=== PATIENT | male | born 1990 | race Caucasian/White ===

== ENCOUNTER 2020-02-14 20:32 | Emergency (ER) | payer MEDICAID, OTHER, SELFPAY ==
[~2020-02-14] VITALS: Ht 177.8 cm; Wt 138.6 kg
[2020-02-14] MEDS ORDERED: NS 1,000 ML IV ONE (20:45)
[2020-02-14] MEDS ORDERED: ONDANSETRON 4MG/2ML VIAL IV ONE (21:00)
[2020-02-14] MEDS ORDERED: MORPHINE 2 MG/ML 1ML VIAL (J2270) IV PRN (21:00)
[2020-02-14] MEDS ORDERED: TIZA4TAB4 PO (21:10)
[2020-02-14] MEDS ORDERED: ZOLP5TAB PO (21:10)
[2020-02-14] MEDS ORDERED: DOK1CAP7 PO (21:10)
[2020-02-14] MEDS ORDERED: LISI20TA35 PO (21:10)
[2020-02-14] MEDS ORDERED: ACET1TAB55 PO (21:10)
[2020-02-14] MEDS ORDERED: METO50TA7 PO (21:10)
[2020-02-14] MEDS ORDERED: CLON-412 PO (21:10)
[2020-02-14] MEDS ORDERED: CALC300T30 PO (21:10)
[2020-02-14] MEDS ORDERED: OXYC-517 PO (21:10)
[2020-02-14 21:47] LABS: BASO % 0.3 % (0.0-1.0); EOS # 0.1 10^3/uL (0.0-0.5); EOS % 0.6 % (0.0-3.0); HEMATOCRIT 40.7 % (42.0-52.0); HEMOGLOBIN 12.4 g/dl (13.5-17.5); LYMPH # 2.2 10^3/uL (1.5-5.0); LYMPH % 20.7 % (24.0-44.0); MEAN CORPUSCULAR HEMOGLOBIN 24.4 pg (27.0-33.0); MEAN CORPUSCULAR HGB CONC 30.5 g/dl (32.0-36.5); MEAN CORPUSCULAR VOLUME 80.1 fl (80.0-96.0); MONO # 0.8 10^3/uL (0.0-0.8); NEUTROPHILS # 7.6 10^3/uL (1.5-8.5); NEUTROPHILS % 70.9 % (36.0-66.0); PLATELET COUNT, AUTOMATED 544 10^3/uL (150-450); RED BLOOD COUNT 5.08 10^6/uL (4.30-6.10); WHITE BLOOD COUNT 10.7 10^3/uL (4.0-10.0)
[2020-02-14 21:58] LABS: INR 0.96
[2020-02-14 21:59] LABS: PARTIAL THROMBOPLASTIN TIME 27.9 SECONDS (24.2-38.5)
[2020-02-14 22:14] LABS: ALBUMIN 3.6 GM/DL (3.2-5.2); ALT/SGPT 30 U/L (12-78); BILIRUBIN,DIRECT < 0.1 MG/DL (0.0-0.2); BILIRUBIN,TOTAL 0.2 MG/DL (0.2-1.0); BLOOD UREA NITROGEN 14 MG/DL (7-18); CALCIUM LEVEL 9.7 MG/DL (8.5-10.1); CARBON DIOXIDE LEVEL 27 MEQ/L (21-32); CHLORIDE LEVEL 105 MEQ/L (98-107); CREATININE FOR GFR 0.71 MG/DL (0.70-1.30); GLOMERULAR FILTRATION RATE > 60.0 (>60); GLUCOSE, FASTING 138 MG/DL (70-100); LIPASE 60 U/L (73-393); POTASSIUM SERUM 4.4 MEQ/L (3.5-5.1); SODIUM LEVEL 137 MEQ/L (136-145); TOTAL PROTEIN 7.7 GM/DL (6.4-8.2)
[2020-02-14] MEDS ORDERED: ISOVUE-370 76% 100ML VIAL As Ordered ONE (22:20)
--- NOTE | 2020-02-14 23:20 | REPVR ---
PROCEDURE INFORMATION: Exam: CT Head Without Contrast Exam date and time: 02/14/2020 10:42 PM Age: 30 years old Clinical indication: Injury or trauma; Fall; Blunt trauma (contusions or hematomas); Additional info: Luq pain, fall, left rib pain, head injury TECHNIQUE: Imaging protocol: Computed tomography of the head without contrast. Radiation optimization: All CT scans at this facility use at least one of these dose optimization techniques: automated exposure control; mA and/or kV adjustment per patient size (includes targeted exams where dose is matched to clinical indication); or iterative reconstruction. COMPARISON: No relevant prior studies available. FINDINGS: Brain: Unremarkable. No hemorrhage. Unremarkable white matter. No mass effect. Cerebral ventricles: No ventriculomegaly. Bones/joints: Unremarkable. No acute fracture. Paranasal sinuses: Visualized sinuses are unremarkable. No fluid levels. Mastoid air cells: Visualized mastoid air cells are well aerated. Soft tissues: Unremarkable. IMPRESSION: No acute intracranial abnormality. Electronically signed by: Brendon Elena On 02/14/2020 23:20:28 PM
--- NOTE | 2020-02-14 23:24 | REPVR ---
PROCEDURE INFORMATION: Exam: CT Abdomen And Pelvis With Contrast Exam date and time: 02/14/2020 10:42 PM Age: 30 years old Clinical indication: Injury or trauma; Fall; Blunt; Generalized; Additional info: Luq pain, fall, left rib pain, head injury TECHNIQUE: Imaging protocol: Computed tomography of the abdomen and pelvis with intravenous contrast. Radiation optimization: All CT scans at this facility use at least one of these dose optimization techniques: automated exposure control; mA and/or kV adjustment per patient size (includes targeted exams where dose is matched to clinical indication); or iterative reconstruction. Contrast material: ISOVUE 370; Contrast volume: 100 ml; Contrast route: INTRAVENOUS (IV); COMPARISON: CR Pelvis Ap ONLY 02/14/2020 8:59 PM FINDINGS: Liver: The liver is low attenuation indicating hepatic steatosis. Gallbladder and bile ducts: Normal. No calcified stones. No ductal dilation. Pancreas: Normal. No ductal dilation. Spleen: Normal. No splenomegaly. Adrenal glands: Normal. No mass. Kidneys and ureters: Normal. No hydronephrosis. Stomach and bowel: Unremarkable. No obstruction. No mucosal thickening. Appendix: No evidence of appendicitis. Intraperitoneal space: Unremarkable. No free air. No significant fluid collection. Vasculature: Unremarkable. No abdominal aortic aneurysm. Lymph nodes: Unremarkable. No enlarged lymph nodes. Urinary bladder: Unremarkable as visualized. Reproductive: Unremarkable as visualized. Bones/joints: Right hip arthroplasty in expected location. No fracture or malalignment. Soft tissues: Soft tissue swelling is noted in the right hip. IMPRESSION: 1. Hepatic steatosis. 2. No acute findings. 3. Soft tissue swelling in the right hip. Electronically signed by: Brendon Elena On 02/14/2020 23:24:54 PM
--- NOTE | 2020-02-14 23:29 | REPVR ---
PROCEDURE INFORMATION: Exam: CT Chest With Contrast; Diagnostic Exam date and time: 02/14/2020 10:42 PM Age: 30 years old Clinical indication: Chest pain; Additional info: Luq pain, fall, left rib pain, head injury TECHNIQUE: Imaging protocol: Diagnostic computed tomography of the chest with intravenous contrast. Radiation optimization: All CT scans at this facility use at least one of these dose optimization techniques: automated exposure control; mA and/or kV adjustment per patient size (includes targeted exams where dose is matched to clinical indication); or iterative reconstruction. Contrast material: ISOVUE 370; Contrast volume: 100 ml; Contrast route: INTRAVENOUS (IV); COMPARISON: CR Chest, 1 view 02/14/2020 8:59 PM FINDINGS: Lungs: Unremarkable. No consolidation. No masses. Pleural space: Unremarkable. No pneumothorax. No pleural effusion. Heart: Unremarkable. No cardiomegaly. No pericardial effusion. Aorta: Unremarkable. No aortic aneurysm. Lymph nodes: Unremarkable. No enlarged lymph nodes. Bones/joints: Healed bilateral rib fractures. No acute fractures are seen. Skeletal degenerative changes are noted. Soft tissues: Unremarkable. IMPRESSION: 1. Healed rib fractures. 2. No acute findings. Electronically signed by: Brendon Elena On 02/14/2020 23:28:55 PM
[2020-02-14 23:50] VITALS: BP 188/83
--- NOTE | 2020-02-15 08:32 | REP ---
INDICATION: fall, left rib pain. Repeat dictation. Preliminary report is provided at the time of the exam by fabien RIVAS. COMPARISON: None. TECHNIQUE: Four views. FINDINGS: Four views of the right tib fib demonstrate normal bones joints and soft tissues.. No fracture or subluxation is seen. No opaque foreign body noted. IMPRESSION: Negative right tib fib series. No fracture subluxation seen.. <Electronically signed by Arnold Rapp > 02/15/20 [id number]
--- NOTE | 2020-02-15 08:39 | REP ---
INDICATION: fall, left rib pain. Repeat dictation. Preliminary report is provided at the time of the exam by fabien RIVAS. COMPARISON: None. TECHNIQUE: Five views. FINDINGS: Five views of the right femur demonstrate right hip arthroplasty in good position. There is a minimal area of heterotopic bone formation adjacent to the lesser trochanter. No acute fracture or subluxation is seen.. . No opaque foreign body noted. IMPRESSION: Right hip arthroplasty. No acute fracture or subluxation seen.. <Electronically signed by Arnold Rapp > 02/15/20 [id number]
--- NOTE | 2020-02-15 08:40 | REP ---
INDICATION: fall, left rib pain. Repeat dictation. Preliminary report is provided at the time of the exam by fabien RIVAS. COMPARISON: None. TECHNIQUE: Single AP view. FINDINGS: A single AP view of the pelvis demonstrates a right hip arthroplasty in good position. No pelvic or sacral fracture is seen. Bony pelvic ring is intact. Visualized bowel gas pattern is unremarkable. No left hip fracture is seen. IMPRESSION: Status post right hip arthroplasty. No acute fracture or subluxation. <Electronically signed by Arnold Rapp > 02/15/20 [id number]
--- NOTE | 2020-02-15 08:43 | REP ---
INDICATION: fall, left rib pain. Repeat dictation. Preliminary report is provided at the time of the exam by fabien RIVAS. COMPARISON: None. TECHNIQUE: Single AP chest x-ray: FINDINGS: An azygos lobe is noted. Incidental note is made of nondisplaced fractures of the posteromedial segments of the right 3rd, 4th, and 5th ribs. There is no evidence of pneumothorax or hydrothorax. Mediastinum is not felt to be widened. Lung bar are clear. Heart is not enlarged. Pulmonary vasculature is not increased. IMPRESSION: Right posterolateral 3rd through 5th rib fractures. Azygos lobe. Otherwise no acute abnormality. <Electronically signed by Arnold Rapp > 02/15/20 [id number]
== END 2020-02-14 23:52 | disposition home or self-care (01) ==
LOC: M ED 20:32
DX: S20.219A Contusion of unspecified front wall of thorax, initial encounter (principal); S30.1XXA Contusion of abdominal wall, initial encounter; S70.01XA Contusion of right hip, initial encounter; S80.11XA Contusion of right lower leg, initial encounter; W10.9XXA Fall (on) (from) unspecified stairs and steps, initial encounter; Y92.89 Other specified places as the place of occurrence of the external cause; Y93.9 Activity, unspecified; Y99.9 Unspecified external cause status; K76.0 Fatty (change of) liver, not elsewhere classified; Z87.81 Personal history of (healed) traumatic fracture; Q33.1 Accessory lobe of lung; Z96.641 Presence of right artificial hip joint; Z79.899 Other long term (current) drug therapy; Z91.030 Bee allergy status
CPT/HCPCS: 70450; 71045; 71260; 72170; 73552; 73590; 74177; 80048; 80076; 83690; 85025; 85610; 85730; 86850; 86900; 86901; 96374; 96375; 99284; J2270; J2405; Q9967

== ENCOUNTER → 2020-12-14 | Outpatient (CLI) | payer OTHER ==
[~2020-12-14] MED LIST: ACET1TAB55 PO; CALC300T30 PO; CLON-412 PO; DOK1CAP4 PO; LISI20TA35 PO; METO50TA7 PO; OXYC-517 PO; TIZA4TAB4 PO; ZOLP5TAB PO
--- NOTE | 2020-12-14 16:35 | REP ---
INDICATION: HTN COMPARISON: 02/14/2020 the only prior TECHNIQUE: Standard helical technique without intravenous contrast FINDINGS: There is mediastinal and suspected hilar adenopathy. This represents a change from the prior exam. There is no significant change in appearance of the imaged upper abdomen or imaged osseous structures. There are no pleural or pericardial effusions. Evaluation of the lung bar shows a 7 mm size nodule in the right upper lobe which represents a change from the prior exam. There is a subtle right middle lobe density which is curvilinear. No other abnormal nodules, masses, or opacities are identified. IMPRESSION: 1. New nodule in the right lung as described above. According to the revised Fleischner society criteria this represents category 4A nodule for which a 3 month follow-up CT is recommended. Consider PET-CT at this time due to the adenopathy. 2. Right middle lobe curvilinear density likely fibrotic and/or subsegmental atelectatic changes. 3. Adenopathy as described above. <Electronically signed by Nicholas Wlaker > 12/14/20 [id number]
== END ==
LOC: M RAD 15:29
PROVIDERS: ATTEND Internal Medicine
DX: R91.8 Other nonspecific abnormal finding of lung field (principal); I10 Essential (primary) hypertension; R59.0 Localized enlarged lymph nodes; R91.1 Solitary pulmonary nodule

== ENCOUNTER 2021-02-04 19:42 | Emergency (ER) | payer OTHER ==
[~2021-02-04] VITALS: Ht 177.8 cm; Wt 150.0 kg
--- OUTSIDE RECORDS SUMMARY | 2021-02-04 19:47 | CCD | Continuity of Care Document ---
Author Author Wolfgang MALCOLM PIN PULLER Organization Unknown Address [address] [place] [id number] Phone [phone] Care Team Providers Care Director Center Name Role Phone Ben Mg MD [facility] [phone] Problems Active Problems Provider Date Mild intermittent asthma Onset: 09/28/19 16 Acute hyperkalemia Onset: 07/05/2015 Obesity Onset: 07/04/2015 Body mass index 40+ - severely obese Ons et: 07/04/2015 Congenital heart disease Onset: 07/04/19 16 Seasonal allergic rhinitis Onset: 2015 Gastroesophageal reflux disease without esophagitis Onset: 07/04/2015 Benign hypertension Onset: 06/20/2015 Lumbago with sciatica Onset: 06/20/2015 Thoracic back pain Onset: 06/20/2015 Bee sting-induced anaphylaxis Onset: Tobacco user Onset: 06/20/2015 Nicotine dependence Onset: 06/20/2015 Social History Type Date Description Comments Sex Unknown Tobacco Use Start: Unknown Never Smoked Cigars Tobacco Use Start: Unknown Never Smoked A Pipe Smokeless Tobacco Current Smokeless Tobacco User , Uses Occasionally ETOH Use Occasionally consumes liquor ETOH Use Occasionally consumes beer Recreational Drug Use Former Drug User Tobacco Use Start: Unknown Light tobacco smoker (10 or fewe r cigarettes/day) Recreational Drug Use 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 turates Recreational Drug Use Formerly addicted to Cocai ne Recreational Drug Use 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 Recreational Drug Use Formerly addicted to Marij uana Smoking Status Reviewed: 08/28/20 Light tobacco smoker (10 or fewer cigarettes/day) Allergies and adverse reactions Active Allergies Criticality Reaction | Severity Comments Date Bee Sting Unable to assess criticality 04/02/2016 Pork Unable to assess criticality 02/17/2020 Medications Active Medications SIG Qnty Indications Ordering Provide r Date Medical Marijuana Nelia Malcolm NP 01/19/2021 Bupropion Hydrochloride ER (XL) 300mg Tablets ER 24HR Take One Tablet By Mouth Every Day 90tabs F31.9 Ben Mg MD 01/17/2021 Promethazine Hydrochloride/Dextromethorp coronado Hydrobromide 6.25-15mg/5ML Syrup take 5 milliliters oral every 6 hours as needed for cough. 118ml Cassandra Talley MD 12/25/2020 Trazodone HCL 150mg Tablets take one tablet by mouth at bedtime 90tabs Ben Mg MD Semglee 100Unit/ML Solution Pen-In ject inject 20 units subcutaneously (under the skin) every day 15ml E1 1.65 Ben Mg MD 11/17/2020 Prazosin HCL 2mg Capsules 1 by mouth nightly 90caps F43.10 Ben Mg MD 11/03/2020 Lamotrigine ER 200mg Tablets ER 24 HR Take 1 Tablet By Mouth Every Day 90tabs F31.9 Ben Mg MD Knee Brace/Flexible Stays/X-Large Misc Please supply knee brace with a hinge Wear daily while ambulating 1units Ben Mg MD 10/17/2020 Metformin HCL 1000mg Tablets Take One Tablet By Mouth Twice A Day 180tabs Ben Mg MD Clonazepam 1mg Tablets take one tablet twice a day for anxiety. 60tabs Ben Mg MD 09/26 Gold Neely Medicated Body Lotion 5-0.15% Lotion Apply lotion to groin twice a day. 1bottle Cassandra Talley MD 08/28/2020 Loratadine 10mg Capsules Take 1 tablet orally daily. 30caps Cassandra Talley MD 08/28/2020 Nebulizer nebulizer machine with tubing and supplies 1units Ben Mg MD 08/16/2020 Airduo Respiclick 232/14 232-14mcg/Act Aerosol 1 puff inhalation twice daily 1units J45.21 Marciano Mg MD 07/27/2020 Albuterol Sulfate (2 .5mg/3ML) 0.083% Nebulizer 1 vial via nebulizer every 4 hours as needed 270ml J45.21 Ben Mg MD 07/27/2020 Gabapentin 600mg Tablets take 1 tablet by mouth three times daily 90tabs G89.4 Ben Mg MD 2020 Meloxicam 7.5mg Tablets 1 by mouth every day with food 30tabs Z96.641 Ben Mg MD 04/05/2020 Freestyle [place] Kit use as directed 4 times a day and as needed 1unBen Hadley MD 08/2020 Freestyle Lancets Misc test qid and as needed 200units Ben Mg MD 03/09/2020 Freestyle Test Strips 4 times a day and as needed 200unBen Hadley MD 03/09/2020 Exel [place] Insulin Pen [place] 2 9G X 12mm 29G X 12mm Misc use 4 times daily as needed with insulin pens 100units Ben Mg MD 01/04/2020 Onetouch Verio Strips test qid. dx 250.02 200unBen Hadley MD 01/04/2020 Blood Pressure Kit Kit check BP at least once weekly and recorduse as directed 1units I10 Ken Mg MD 01/04/2020 Clonidine HCL 0.1mg Tablets Take One Tablet By Mouth Once Daily 90tabs I10 Ben Mg MD 01/2020 Lisinopril-Hydrochlorothiazide 20-12.5mg Tablets Take One Tablet By Mouth Every Day 90tabs Ben Mg MD 01/23/2016 Ventolin HFA 108(90Base) mcg/Act A erosol inhale 1-2 puffs every 6 (six) hours as needed for wheezing 1unBen Hadley MD 01/17/2016 Omeprazole Magnesium 20.6(20Base) mg Capsules DR take 1 capsule (20 mg total) by mouth daily 30caps Ben Mg MD 09/28/2015 History Medications Azithromycin 250mg Tablets 2 tab by mouth today 1 tab by mouth every day x 4 1PCassandra Farah MD 12/25/2020 - 01/17/2021 Trazodone HCL 100mg Tablets take one tablet by mouth at bedtime 30tabs Ben Mg MD 07/2020 - 12/19/2020 Basaglar Kwikpen 100 Unit/ML Solution Pen-Inject inject 20 units subcutaneously (under the skin) every day 45ml E11.65 Ben Mg MD 11/17/2020 - 11/17/2020 Lantus Solostar 100U nit/ML Solution Pen-Inject inject 20 units subcutaneously (under the skin) every day 45ml E11.65 Ben Mg MD 11/17/2020 - 11/17/2020 Trazodone HCL 50mg Tablets take 2 tablet by mouth every night at bedtime for sleep 30tabs Ben Mg MD 11/14/2020 - 12/05/2020 Toujeo Max Solostar 300Unit/ML Solution Pen-Inject inject 20 units subcutaneously (under th e skin) every day --decrease as directed maximum daily dose 30 units per day 3ml E11.65 Ben Brenner MD 11/09/2020 - 11/17/2020 Knee Brace [facility] [place] Please provide knee brace for patient. 1units Ben Mg MD 11/09/2020 - 0 11/09/2020 Soliqua 224-49Nuo-yn g/ML Solution Pen-Inject inject subcutaneous 15 units nightly, in crease 3 units daily for morning glucose above 150 45ml E11.65 Ben Mg MD 11/03/2020 - 11/09/2020 Bupropion Hydrochloride ER (XL) 150mg Tablets ER 24HR Take One Tablet By Mouth Every Day 90tabs F31.9 Ben Mg MD 11/03/2020 - 01/17/2021 Lamotrigine ER 100mg Tablets ER 24 HR 1 by mouth every day 30tabs F31.9 Ben Mg MD 10/04/2020 - 0 11/03/2020 Sertraline HCL 50mg Tablets take 1 tablet nightly 30tabs F33.1 Cassandra Talley MD 08/28/2020 - 11/2020 Airduo Digihaler 232-14mcg/Act Aer osol 1 puff inhalation twice daily 1units J45.21 Ben Mg MD - 07/27/2020 Immunizations CPT Code Status Date Vaccine Lot # [id number] Given 10/07/2020 Covid-19 Pfizer vaccine, mRNA, LNP-S, PF, 30 mcg/0.3 mL 1st dose [id number] Given 04/22/2015 Tdap (Adacel) Ages 7 And Abo ve Only Vital Signs Date Vital Result Comment 11/03/2020 11:43am Body Temperature 97.1 F Weight 321.00 lb Heart Rate 130 /min BP Systolic 168 mmHg BP Diastolic 98 mmHg Height 70 inches 5'10" O2 % BldC Oximetry 93 % [place] Body Weight 166 lb BMI (Body Mass Index) 46.1 kg/m2 10/04/2020 2:26pm Body Temperature 96.9 F Heart Rate 119 /min BP Systolic 128 mmHg BP Diastolic 86 mmHg O2 % BldC Oximetry 95 % Results Test Acquired Date Facility Test Result H/L Range Note Hemoglobin A1c 10/04/2020 [facility] Est Average Glucose NOT CALCULATED D <SEE NOTE> mg/dL 1 Hemoglobin A1c @ >14.0 % High (4.0-6.0) 2 Microalb/Creat Panel 10/04/2020 [facility] Creatinine, Urine 46.3 mg/dL Microalb/Creat Urine 70.19 ug/mgCreat High 0.00-30.00 Microalbumin 32.5 ug/ml High 0.0-20.0 Lipid 10/04/2020 [facility] Cholesterol 310 mg/dL High 50-199 Triglycerides 1210 mg/dL High 30-200 HDL 31 mg/dL 29-71 3 Chol/ HDL Ratio 9.9 ratio High 4.0-6.7 CBC with Auto Diff-fcmg 10/04/2020 [facility] WBC 8.5 K/uL 4.1-11.0 4 RBC 5.08 M/uL 4.60-6.10 5 Hemoglobin 14.4 gm/dL 13.5-18.0 6 Hematocrit 42.9 % 41.0-53.0 7 MCV 84.6 fL 80.0-95.0 8 MCH 28.4 pg 27.0-32.0 9 MCHC 33.6 g/dL 32.0-36.0 10 RDW 14.4 % 10.5-14.5 11 PLT Count 324 K/ul 150-400 12 MPV 8.7 FL 7.1-10.7 Neutrophil 72.7 % 35.0-75.0 13 Lymphocyte 19.6 % 16.0-52.0 14 Monocyte 6.4 % 0.0-8.0 15 Eosinophil 0.8 % 0.0-5.0 Basophil 0.5 % 0.0-4.0 Abs Neutrophils 6.2 K/uL 1.8-7.7 16 Abs Lymphocytes 1.7 K/uL 1.2-4.8 17 Abs Monocytes 0.5 K/uL 0.0-0.8 18 Abs Eosinophils 0.1 K/uL 0.0-0.5 19 Abs Basophils 0.0 K/uL 0.0-0.2 20 Comprehensive Met Panel-FCMG 10/04/2020 [facility] Sodium 132 mmol/L Low 135-146 21 Potassium 4.5 mmol/L 3.5-5.2 Chloride# 94 mmol/L Low 97-110 22 Carbon Dioxide 32 mmol/L 24-34 Calcium 9.5 mg/dL 8.5-10.5 23 Glucose 461 mg/dL High 70-105 BUN 12 mg/dL 6-26 Creatinine 0.8 mg/dL 0.5-1.4 Total Protein 6.9 g/dL 6.0-8.0 Albumin 3.9 g/dL 3.6-4.9 Globulin 3.0 g/dL 2.0-3.5 A/G Ratio 1.3 Ratio 1.0-2.2 Total Bilirubin 0.4 mg/dL 0.1-1.3 Alkaline Phosphatase 175 U/L High 24-140 Alt 44 U/L High 3-42 Ast 23 U/L 8-42 Anion Gap 6 mmol/L 5-15 24 Female Egfr 105 >60 25 Male Egfr 121 >60 26 Laboratory test finding 10/04/2020 [facility] Hepatitis C Virus Antibody NON REACTIVE S/CORatio(Clement Non Reactive 27 Direct LDL 106 mg/dL High 20-99 28 1 NOT CALCULATED DUE TO HbA1c >14.0%. Unless otherwise specified, testing performed by [facility] [address] [place] [address] 2 Testing performed by [facility] [address] [facility] [place], [facility] Performed using Siemens [place] immunoassay. Care must be taken when interpreting HbA1c results in patients with a hemoglobin variant or decreased erythrocyte lifespan. Values 5.7 - 6.4% suggest prediabetes. Values >=6.5% are diagnostic for diabetes. REFERENCE: DIABETES CARE 2018: 41(S13-S27). RESULT VERIFIED BY REPEAT TESTING. 3 Per NCEP ATP III Guidelines: Results lower than 40 mg/dL are suggestive of increased risk for coronary artery disease. Results > or = to 60 mg/dL are considered a negative risk factor. 4 Updated Reference Range 11/2 019 5 Updated Reference Range 11/2 019 6 Updated Reference Range 11/2 019 7 Updated Reference Range 11/2 019 8 Updated Reference Range 11/2 019 9 Updated Reference Range 11/2 019 10 Updated Reference range 11/2 019 11 Updated Reference range 11/2 019 12 Updated Reference Range 11/2 019 13 Updated Reference Range 11/2 019 14 Updated Reference Range 11/2 019 15 Updated Reference Range 11/2 019 16 Updated Reference Range 11/2 019 17 Updated Reference Range 11/2 019 18 Updated Reference Range 11/2 019 19 Updated Reference Range 11/2 019 20 Updated Reference Range 11/2 019 21 Updated reference range on n ew analyzer 22 Updated reference range on n ew analyzer 23 Updated reference range 05-0 24 Updated Reference Range 2-20 18 25 Concerning GFR Guidelines fo r Americans: Normal function or mild renal disease, if clinically at risk: >/= 60 mL/min Moderately decreased: 30-59 Severely decreased: 15-29 Renal failure: <15 There is reduced accuracy above 60ml/min/1.73 m squared, but the numeric value may be clinically useful in the near 60 range 26 Concerning GFR Guidelines: Normal function or mild renal disease, if clinically at risk: >/= 60 mL/min Moderately decreased: 30-59 Severely decreased: 15-29 Renal failure: <15 There is reduced accuracy above 60ml/min/1.73 m squared, but the numeric value may be clinically useful in the near 60 range Glomerular Filtration Rate (GFR) is estimated based on the CKD-EPI equation, which assumes a steady state for creatinine as recommended by the National Kidney Disease Education Program in conjunction with the National Institutes of Health and the National Kidney Foundation. Clinical conditions in which it may be necessary to measure GFR by using clearance methods include extremes of age and body size, severe malnutrition or obesity, diseases of skeletal muscle, paraplegia or quadriplegia, vegetarian diet, rapidly changing kidney function, and calculation of the dose of potentially toxic drugs that are excreted by the kidneys. 27 S/CO Ratio >/=1.0 is REACTIV E. S/CO <5.0 is Low Reactive. S/CO >/= 5.0 is High Reactive. Effective Oct 25, 2016 all anti-HCV reactive samples are sent for quantitative PCR confirmation. 28 Per NCEP ATP III Guidelines: Normal population: <130 Patients with medical conditions: CHD/DM Optimal range: <100 Borderline high: 130-159 High: 160-189 Very high: >189 Procedures Date Code Description Status 01/18/2021 64526 Office/Outpatient Established Mo d MDM 30-39 Min Completed 11/29/2020 66065 Office/Outpatient Established Mo d MDM 30-39 Min Completed 11/13/2020 95892 Psychiatric Diagnostic Evaluatio n Completed 11/09/2020 86419 Office/Outpatient Established Mo d MDM 30-39 Min Completed 11/03/2020 23259 Office/Outpatient Established Mo d MDM 30-39 Min Completed 11/03/2020 29182 Brief Emotional/Beha v Assessment W/ Scoring Doc Per Standard Inst Completed 10/04/2020 82734 Preventive Visit Est 18-39 Yrs C ompleted 10/04/2020 90852 Office/Outpatient Established Lo w MDM 20-29 Min Completed 09/26/2020 58721 Office/Outpatient Established Lo w MDM 20-29 Min Completed 08/28/2020 56461 Office/Outpatient Established Mo d MDM 30-39 Min Completed 07/27/2020 17113 Office/Outpatient Established Mo d MDM 30-39 Min Completed Medical Devices Description No Information Available Encounters Type Date Location Provider Dx Diagnosis Office Visit 01/18/2021 9:20a [facility] Morenita Malcolm, PIN PULLER F43.10 Post-traumatic stress disorder, unspecif ied G89.4 Chronic pain syndrome F12.90 Cannabis use, unspecified, u ncomplicated Z96.641 Presence of RIGHT artificial hip joint Office Visit 11/29/2020 3:45p Ben Meneses MD R10. 31 RIGHT lower quadrant pain K40.90 Unil inguinal hernia, w/o ob st or gangr, not spcf as recur E11.65 Type 2 diabetes mellitus wit h hyperglycemia I10 Essential (primary) hyperten alexx E78.2 Mixed hyperlipidemia Office Visit 11/09/2020 8:30a Ben Meneses MD R91. 8 Other nonspecific abnormal finding of lung field E11.65 Type 2 diabetes mellitus wit h hyperglycemia F31.9 Bipolar disorder, unspecifie d I10 Essential (primary) hyperten alexx E78.2 Mixed hyperlipidemia F43.10 Post-traumatic stress disord er, unspecified Office Visit 11/03/2020 11:15a Ben Meneses MD M25. 561 Pain in RIGHT knee Z96.641 Presence of RIGHT artificial hip joint E11.65 Type 2 diabetes mellitus wit h hyperglycemia N52.9 Male erectile dysfunction, u nspecified F31.9 Bipolar disorder, unspecifie d I10 Essential (primary) hyperten alexx E78.2 Mixed hyperlipidemia F43.10 Post-traumatic stress disord er, unspecified R04.2 Hemoptysis Z13.31 Encounter for screening for depression Office Visit 10/04/2020 2:00p Ben Meneses MD F31. 9 Bipolar disorder, unspecified N52.9 Male erectile dysfunction, u nspecified E11.65 Type 2 diabetes mellitus wit h hyperglycemia I10 Essential (primary) hyperten alexx E78.2 Mixed hyperlipidemia G47.01 Insomnia due to medical cond ition Z11.59 Encounter for screening for other viral diseases Z00.00 Encntr for general adult med ical exam w/o abnormal findings Office Visit 09/26/2020 2:15p Cassandra Allison MD F31.9 Bipolar disorder, unspecified N52.9 Male erectile dysfunction, u nspecified E66.9 Obesity, unspecified Office Visit 08/28/2020 10:00a Cassandra Allison MD R21 Rash and other nonspecific skin eruption F31.9 Bipolar disorder, unspecifie d Office Visit 07/27/2020 2:45p Ben Meneses MD J45. 21 Mild intermittent asthma with (acute) exacerbation E11.65 Type 2 diabetes mellitus wit h hyperglycemia I10 Essential (primary) hyperten alexx E78.2 Mixed hyperlipidemia G47.01 Insomnia due to medical cond ition F33.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, r ecurrent, in full remission G89.4 Chronic pain syndrome Assessments Date Code Description Provider 01/18/2021 F43.10 Post-traumatic stress disorder, unspecified Nelia Malcolm, [place] 01/18/2021 G89.4 Chronic pain syndrome Eula Malcolm, [place] 01/18/2021 F12.90 Cannabis use, unspecified, uncom plicated Nelia Malcolm, [place] 01/18/2021 Z96.641 Presence of RIGHT artificial hip joint Nelia Malcolm NP 01/17/2021 F43.10 Post-traumatic stress disorder, unspecified Columba Perez, [facility] 01/17/2021 F31.9 Bipolar disorder, unspecified Columba Thompson, [facility] 12/19/2020 F43.10 Post-traumatic stress disorder, unspecified Columba Perez, [facility] 11/29/2020 R10.31 RIGHT lower quadrant pain Ben Mg MD 11/29/2020 K40.90 Unilateral inguinal hernia, without obstruction or gangrene, not specified as recurrent Ben Mg MD 11/29/2020 E11.65 Type 2 diabetes mellitus with hy perglycemia Ben Mg MD 11/29/2020 I10 Essential (primary) hypertension Ben Mg MD 11/29/2020 E78.2 Mixed hyperlipidemia Marciano Mg MD 11/27/2020 F43.10 Post-traumatic stress disorder, unspecified Columba Perez, [facility] 11/13/2020 F43.10 Post-traumatic stress disorder, unspecified Columba Perez, [facility] 11/09/2020 R91.8 Other nonspecific abnormal findi ng of lung field Ben Mg MD 11/09/2020 E11.65 Type 2 diabetes mellitus with hy perglycemia Ben Mg MD 11/09/2020 F31.9 Bipolar disorder, unspecified Ben Galvan MD 11/09/2020 I10 Essential (primary) hypertension Bne Mg MD 11/09/2020 E78.2 Mixed hyperlipidemia Marciano Mg MD 11/09/2020 F43.10 Post-traumatic stress disorder, unspecified Ben Mg MD 11/03/2020 M25.561 Pain in RIGHT knee Ben Mg MD 11/03/2020 Z96.641 Presence of RIGHT artificial hip joint Ben Mg MD 11/03/2020 E11.65 Type 2 diabetes mellitus with hy perglycemia Ben Mg MD 11/03/2020 N52.9 Male erectile dysfunction, unspe cified Ben Mg MD 11/03/2020 F31.9 Bipolar disorder, unspecified Ben Galvan MD 11/03/2020 I10 Essential (primary) hypertension Ben Mg MD 11/03/2020 E78.2 Mixed hyperlipidemia Marciano Mg MD 11/03/2020 F43.10 Post-traumatic stress disorder, unspecified Ben Mg MD 11/03/2020 R04.2 Hemoptysis Ben Mg M D 11/03/2020 Z13.31 Encounter for screening for depr ession Ben Mg MD 10/04/2020 F31.9 Bipolar disorder, unspecified Ben Galvan MD 10/04/2020 N52.9 Male erectile dysfunction, unspe cified Ben Mg MD 10/04/2020 E11.65 Type 2 diabetes mellitus with hy perglycemia Ben Mg MD 10/04/2020 I10 Essential (primary) hypertension Ben Mg MD 10/04/2020 E78.2 Mixed hyperlipidemia Marciano Mg MD 10/04/2020 G47.01 Insomnia due to medical conditio n Ben Mg MD 10/04/2020 Z11.59 Encounter for screening for othe r viral diseases Ben Mg MD 10/04/2020 Z00.00 Encounter for genera l adult medical examination without abnormal findings Ben Mg MD 10/04/2020 E11.65 Type 2 diabetes mellitus with hy perglycemia [facility] 10/04/2020 E78.2 Mixed hyperlipidemia [facility] 10/04/2020 Z00.00 Encounter for genera l adult medical examination without abnormal findings [facility] 10/04/2020 I10 Essential (primary) hypertension [facility] 10/04/2020 Z11.59 Encounter for screening for othe r viral diseases [facility] 09/26/2020 F31.9 Bipolar disorder, unspecified Cassandra Youssef MD 09/26/2020 N52.9 Male erectile dysfunction, unspe cified Cassandra Talley MD 09/26/2020 E66.9 Obesity, unspecified Cassandra Talley MD 08/28/2020 R21 Rash and other nonspecific skin eruption Cassandra Talley MD 08/28/2020 F31.9 Bipolar disorder, unspecified Cassandra Youssef MD 07/27/2020 J45.21 Mild intermittent asthma with (a cute) exacerbation Ben Mg MD 07/27/2020 E11.65 Type 2 diabetes mellitus with hy perglycemia Ben Mg MD 07/27/2020 I10 Essential (primary) hypertension Ben Mg MD 07/27/2020 E78.2 Mixed hyperlipidemia Marciano Mg MD 07/27/2020 G47.01 Insomnia due to medical conditio n Ben Mg MD 07/27/2020 F33.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, recur rent, in full remission Ben Mg MD 07/27/2020 G89.4 Chronic pain syndrome Ken Mg MD Plan of Treatment Future Appointment(s):* 02/01/2021 1:00 pm - Columba Perez LMFT at [facility] * 02/09/2021 11:15 am - Ben Mg MD at [facility] 01/18/2021 - Nelia Malcolm NP* F43.10 Post-traumatic stress disorder, unspecified* Comments:* -PTSD from his recent accident-continue current medications per PCP-continue with counseling-patient could benefit from medical marijuana for this * G89.4 Chronic pain syndrome* Comments:* -multiple areas of pain, worse in back and knees, recent hip replacement * F12.90 Cannabis use, unspecified, uncomplicated* Comments:* -reports using some of his fiances marijuana and wants to get his own certificate -he reports relief with marijuana and is not taking opioids any longer-patient will be granted medical marijuana certificate today * Z96.641 Presence of RIGHT artificial hip joint* Comments:* -continue with current plan by PCP-heat/ice/stretching-could benefit from pain relief with medical marijuana products Functional Status Description No Information Available Mental Status Description No Information Available Referrals Description No Information Available
--- OUTSIDE RECORDS SUMMARY | 2021-02-04 19:47 | CCD | Continuity of Care Document ---
Author Author Wolfgang PALENCIA [facility] Organization Unknown Address [address] [place] [address] [address], [place] [address] Phone [phone] Care Team Providers Care Closet Builder Name Role Phone Ben Mg MD AUTM [phone] Problems Active Problems Provider Date Mild intermittent [...] 30tabs Z96.641 Ben Mg MD 04/05/2020 Freestyle [place] Kit use as directed 4 times a day and as needed 1unBen Hadley MD 08/2020 Freestyle Lancets Misc test qid and as needed 200units Ben Mg MD 03/09/2020 Freestyle Test Strips 4 times a day and as needed 200units Ben Mg MD 03/09/2020 Exel [place] Insulin Pen [place] 2 9G X 12mm 29G X 12mm Misc use 4 times daily as needed with insulin pens 100units Ben Mg MD 01/04/2020 Onetouch Verio Strips test qid. dx 250.02 200units Ben Mg MD 01/04/2020 Blood Pressure Kit Kit check [...] Brenner MD 11/09/2020 - 11/17/2020 Knee Brace [facility] Please provide knee brace for patient. 1units Ben Mg MD 11/09/2020 - 0 11/09/2020 [place] [id number] g/ML Solution Pen-Inject inject subcutaneous 15 units [...] CPT Code Status Date Vaccine Lot # [id number] Given 10/07/2020 Covid-19 Pfizer vaccine, mRNA, LNP-S, PF, 30 mcg/0.3 mL 1st dose 95880 Given 04/22/2015 Tdap (Adacel) Ages 7 And Abo ve Only Vital Signs Date Vital Result Comment 11/03/2020 11:43am Body Temperature 97.1 F Weight 321.00 lb Heart Rate 130 /min BP Systolic 168 mmHg BP Diastolic 98 mmHg Height 70 inches 5'10" O2 % BldC Oximetry 93 % [place] Body Weight 166 lb BMI (Body Mass Index) 46.1 kg/m2 10/04/2020 2:26pm Body Temperature 96.9 F Heart Rate 119 /min BP Systolic 128 mmHg BP Diastolic 86 mmHg O2 % BldC Oximetry 95 % Results Test Acquired Date Facility Test Result H/L Range Note Hemoglobin A1c 10/04/2020 [place] Est Average Glucose NOT CALCULATED D <SEE NOTE> mg/dL 1 Hemoglobin A1c @ >14.0 % High (4.0-6.0) 2 Microalb/Creat Panel 10/04/2020 [place] Creatinine, Urine 46.3 mg/dL Microalb/Creat Urine 70.19 ug/mgCreat High 0.00-30.00 Microalbumin 32.5 ug/ml High 0.0-20.0 Lipid 10/04/2020 [place] Cholesterol 310 mg/dL High 50-199 Triglycerides 1210 mg/dL High 30-200 HDL 31 mg/dL 29-71 3 Chol/ HDL Ratio 9.9 ratio High 4.0-6.7 CBC with Auto Diff-fcmg 10/04/2020 [place] WBC 8.5 K/uL 4.1-11.0 4 RBC 5.08 [...] 121 >60 26 Laboratory test finding 10/04/2020 [place] Hepatitis C Virus Antibody NON REACTIVE S/CORatio(Clement Non Reactive 27 Direct LDL 106 mg/dL High 20-99 28 1 NOT CALCULATED DUE TO HbA1c >14.0%. Unless otherwise specified, testing performed by [facility] [address] [place] [address] 2 Testing performed by [facility]at [facility] [address] [facility] [place] Performed using Siemens [place] immunoassay. Care must be taken when interpreting [...] >189 Procedures Date Code Description Status 01/18/2021 54964 Office/Outpatient Established Mo d MDM 30-39 Min Completed 11/29/2020 54195 Office/Outpatient Established Mo d MDM 30-39 Min Completed 11/13/2020 71030 Psychiatric Diagnostic Evaluatio n Completed 11/09/2020 92478 Office/Outpatient Established Mo d MDM 30-39 Min Completed 11/03/2020 65246 Office/Outpatient Established Mo d MDM 30-39 Min Completed 11/03/2020 01038 Brief Emotional/Beha v Assessment W/ Scoring Doc Per Standard Inst Completed 10/04/2020 83766 Preventive Visit Est 18-39 Yrs C ompleted 10/04/2020 17953 Office/Outpatient Established Lo w MDM 20-29 Min Completed 09/26/2020 00498 Office/Outpatient Established Lo w MDM 20-29 Min Completed 08/28/2020 71183 Office/Outpatient Established Mo d MDM 30-39 Min Completed 07/27/2020 83075 Office/Outpatient Established Mo d MDM 30-39 Min Completed Medical Devices Description No Information Available Encounters Type Date Location Provider Dx Diagnosis Office Visit 11/29/2020 3:45p Ben Meneses MD [...] 01/18/2021 F43.10 Post-traumatic stress disorder, unspecified Nelia Malcolm NP 01/18/2021 G89.4 Chronic pain syndrome Eula Malcolm [place] 01/18/2021 F12.90 Cannabis use, unspecified, uncom plicated Nelia Malcolm, [place] 01/18/2021 Z96.641 Presence of RIGHT artificial hip joint Nelia Malcolm NP 01/17/2021 F43.10 Post-traumatic stress disorder, unspecified Columba Palencia, [employer] 01/17/2021 F31.9 Bipolar disorder, unspecified Columba Thompson, [facility] 12/19/2020 F43.10 Post-traumatic stress disorder, unspecified Columba Palencia, [facility] 11/29/2020 R10.31 RIGHT lower quadrant pain Ben Mg MD 11/29/2020 K40.90 Unilateral inguinal hernia, without obstruction or gangrene, not specified as recurrent Ben Mg MD 11/29/2020 E11.65 Type 2 diabetes mellitus with hy perglycemia Ben Mg MD 11/29/2020 I10 Essential (primary) hypertension Ben Mg MD 11/29/2020 E78.2 Mixed hyperlipidemia Mraciano Mg MD 11/27/2020 F43.10 Post-traumatic stress disorder, unspecified Columba Palencia, [facility] 11/13/2020 F43.10 Post-traumatic stress disorder, unspecified Columba Palencia, [facility] 11/09/2020 R91.8 Other nonspecific abnormal findi ng of lung field Ben Mg MD 11/09/2020 E11.65 Type 2 diabetes mellitus with hy perglycemia Ben Mg MD 11/09/2020 F31.9 Bipolar disorder, unspecified Ben Galvan MD 11/09/2020 I10 Essential (primary) hypertension Ben Mg MD 11/09/2020 E78.2 Mixed hyperlipidemia Marciano [...] Type 2 diabetes mellitus with hy perglycemia [facility] [place] [facility] 10/04/2020 E78.2 Mixed hyperlipidemia [facility] 10/04/2020 Z00.00 Encounter for genera l adult medical examination without abnormal findings [facility] 10/04/2020 I10 Essential (primary) hypertension [facility] 10/04/2020 Z11.59 Encounter for screening for othe r viral diseases [facility] 09/26/2020 F31.9 Bipolar disorder, unspecified [...] Future Appointment(s):* 02/01/2021 1:00 pm - Columba Palencia LMFT at [facility] * 02/09/2021 11:15 am - Ben Mg MD at [facility] 01/18/2021 - Nelia Malcolm NP* [...]
--- OUTSIDE RECORDS SUMMARY | 2021-02-04 19:47 | CCD | Continuity of Care Document ---
Author Author Wolfgang [facility] Organization Unknown Address [address] [place] [address] [address], [place] [address] Phone [phone] Care Team Providers Care Manager Studio Name Role Phone Ben Mg MD AUTM [phone] Problems Active Problems Provider Date Mild intermittent [...] SIG Qnty Indications Ordering Provide r Date Trazodone HCL 150mg Tablets take one tablet by mouth at bedtime 90tabs Ben Mg MD [place] 100Unit/ML Solution Pen-In ject inject 20 units subcutaneously (under the skin) every day 15ml E1 1.65 Ben Mg MD 11/17/2020 Prazosin HCL 2mg Capsules 1 by mouth nightly 90caps F43.10 Ben Mg MD 11/03/2020 Lamotrigine ER 200mg Tablets ER 24 HR 1 by mouth every day 90tabs F31.9 Ben Mg MD 11/03/2020 Bupropion Hydrochloride ER (XL) 150mg Tablets ER 24HR 1 by mouth every day 90tabs F31.9 Ben Mg MD Knee Brace/Flexible Stays/X-Large Misc Please supply knee brace with a hinge Wear daily while ambulating 1units Ben Mg MD 10/17/2020 Metformin HCL 1000mg Tablets take one tablet by mouth twice a day 180tabs Ben Mg MD Clonazepam 1mg Tablets take one tablet twice a day for anxiety. 60tabs Cassandra Talley MD 021 Gold [place] Medicated Body Lotion 5-0.15% Lotion [...] 30tabs Z96.641 Ben Mg MD 04/05/2020 Freestyle [place] Kit use as directed 4 times a day and as needed 1unBen Hadley MD 08/2020 Freestyle Lancets Misc test qid and as needed 200units Ben Mg MD 03/09/2020 Freestyle Test Strips 4 times a day and as needed 200units Ben Mg MD 03/09/2020 Exel [place] Insulin Pen [place] 2 9G X 12mm 29G X 12mm Misc use 4 times daily as needed with insulin pens 100unBen Hadley MD 01/04/2020 Onetouch Verio Strips test qid. dx 250.02 200unBen Hadley MD 01/04/2020 Blood Pressure Kit Kit check BP at least once weekly and recorduse as directed 1units I10 Ken Mg MD 01/04/2020 Clonidine HCL 0.1mg Tablets 1 tablet by mouth daily 90tabs I10 Ben Mg MD 10/12/2019 Lisinopril-Hydrochlorothiazide 20-12.5mg Tablets Take One Tablet By Mouth Every Day 90tabs Ben Mg MD 01/23/2016 Ventolin HFA 108(90Base) mcg/Act A erosol inhale 1-2 puffs every 6 (six) hours as needed for wheezing 1unBen Hadley MD 01/17/2016 Omeprazole Magnesium 20.6(20Base) mg Capsules DR take 1 capsule (20 mg total) by mouth daily 30caps Ben Mg MD 09/28/2015 History Medications Trazodone HCL 100mg Tablets take one tablet [...] Brenner MD 11/09/2020 - 11/17/2020 Knee Brace [facility] [place] Please provide knee brace for patient. 1units Ben Mg MD 11/09/2020 - 0 11/09/2020 Sol[place]a [id number] g/ML Solution Pen-Inject inject subcutaneous 15 units nightly, in crease 3 units daily for morning glucose above 150 45ml E11.65 Ben Mg MD 11/03/2020 - 11/09/2020 Lamotrigine ER 100mg Tablets ER 24 HR 1 by mouth every day 30tabs F31.9 Ben Mg MD 10/04/2020 - 0 11/03/2020 Sertraline HCL 50mg Tablets take 1 tablet nightly 30tabs F33.1 Cassandra Talley MD 08/28/2020 - 11/2020 Airduo Digihaler 232-14mcg/Act Aer osol 1 puff inhalation twice daily 1units J45.21 Ben Mg MD - 07/27/2020 Immunizations CPT Code Status Date Vaccine Lot # [id number] Given 10/07/2020 Covid-19 Pfizer vaccine, mRNA, LNP-S, PF, 30 mcg/0.3 mL 1st dose 64554 Given 04/22/2015 Tdap (Adacel) Ages 7 And Abo ve Only Vital Signs Date Vital Result Comment 11/03/2020 11:43am Body Temperature 97.1 F Weight 321.00 lb Heart Rate 130 /min BP Systolic 168 mmHg BP Diastolic 98 mmHg Height 70 inches 5'10" O2 % BldC Oximetry 93 % [place] Body Weight 166 lb BMI (Body Mass Index) 46.1 kg/m2 10/04/2020 2:26pm Body Temperature 96.9 F Heart Rate 119 /min BP Systolic 128 mmHg BP Diastolic 86 mmHg O2 % BldC Oximetry 95 % Results Test Acquired Date Facility Test Result H/L Range Note Hemoglobin A1c 10/04/2020 [facility] Average Glucose NOT CALCULATED D <SEE NOTE> mg/dL 1 Hemoglobin A1c @ >14.0 % High (4.0-6.0) 2 Microalb/Creat Panel 10/04/2020 [facility] Creatinine, Urine 46.3 mg/dL Microalb/Creat Urine 70.19 ug/mgCreat High 0.00-30.00 Microalbumin 32.5 ug/ml High 0.0-20.0 Lipid 10/04/2020 [facility] Cholesterol 310 mg/dL High 50-199 Triglycerides 1210 mg/dL High 30-200 HDL 31 mg/dL 29-71 3 Chol/ HDL Ratio 9.9 ratio High 4.0-6.7 [facility] with [facility] 4.1-11.0 4 RBC 5.08 [...] K/uL 0.0-0.2 20 Comprehensive Met Panel-[facility] 10/04/2020 [facility] Sodium 132 mmol/L Low 135-146 21 Potassium [...] 121 >60 26 Laboratory test finding 10/04/2020 [facility] Hepatitis C Virus Antibody NON REACTIVE S/CORatio(Clement Non Reactive 27 Direct LDL 106 mg/dL High 20-99 28 1 NOT CALCULATED DUE TO HbA1c >14.0%. Unless otherwise specified, testing performed by [facility] [place] [address] 2 Testing performed by Laborat [facility] [address] [place] [address] Performed using Siemens [employer] [place] immunoassay. Care must be taken when interpreting [...] negative risk factor. 4 Updated Reference Range 01/02 5 Updated Reference Range 01/02 6 Updated Reference Range 01/02 7 Updated Reference Range 01/02 8 Updated Reference Range 01/02 9 Updated Reference Range 01/02 10 Updated Reference range 01/02 11 Updated Reference range 01/02 12 Updated Reference Range 01/02 13 Updated Reference Range 01/02 14 Updated Reference Range 01/02 15 Updated Reference Range 01/02 16 Updated Reference Range 01/02 17 Updated Reference Range 01/02 18 Updated Reference Range 01/02 19 Updated Reference Range 01/02 20 Updated Reference Range 01/02 21 Updated reference range on n ew [...] high: >189 Procedures Date Code Description Status 11/29/2020 23814 Office/Outpatient Established Mo d MDM 30-39 Min Completed 11/13/2020 82771 Psychiatric Diagnostic Evaluatio n Completed 11/09/2020 45710 Office/Outpatient Established Mo d MDM 30-39 Min Completed 11/03/2020 78466 Office/Outpatient Established Mo d MDM 30-39 Min Completed 11/03/2020 20598 Brief Emotional/Beha v Assessment W/ Scoring Doc Per Standard Inst Completed 10/04/2020 97792 Preventive Visit Est 18-39 Yrs C ompleted 10/04/2020 70232 Office/Outpatient Established Lo w MDM 20-29 Min Completed 09/26/2020 11521 Office/Outpatient Established Lo w MDM 20-29 Min Completed 08/28/2020 72702 Office/Outpatient Established Mo d MDM 30-39 Min Completed 07/27/2020 33457 Office/Outpatient Established Mo d MDM 30-39 Min [...] pain syndrome Assessments Date Code Description Provider 12/19/2020 F43.10 Post-traumatic stress disorder, unspecified Columba Palecnia, [facility] 11/29/2020 R10.31 RIGHT lower quadrant pain Ben Mg MD 11/29/2020 K40.90 Unilateral inguinal hernia, without obstruction or gangrene, not specified as recurrent Ben Mg MD 11/29/2020 E11.65 Type 2 diabetes mellitus with hy perglycemia Ben Mg MD 11/29/2020 I10 Essential (primary) hypertension Ben Mg MD 11/29/2020 E78.2 Mixed hyperlipidemia Marciano Mg MD 11/27/2020 F43.10 Post-traumatic stress disorder, unspecified Columba Palencia [facility] 11/13/2020 F43.10 Post-traumatic stress disorder, unspecified Columba Palencia [facility] 11/09/2020 R91.8 Other nonspecific abnormal findi [...] Mg MD 10/04/2020 F31.9 Bipolar disorder, unspecified Bne Galvan MD 10/04/2020 N52.9 Male erectile dysfunction, [...] Type 2 [facility] 10/04/2020 E78.2 Mixed hyperlipidemia [facility] 10/04/2020 Z00.00 Encounter for genera l adult medical examination without abnormal findings [facility] 10/04/2020 I10 Essential (primary) [facility] 10/04/2020 Z11.59 Encounter for screening for othe r viral diseases [facility] 09/26/2020 F31.9 Bipolar disorder, unspecified [...] Mg MD Plan of Treatment Future Appointment(s):* 01/01/2021 1:00 pm - Columba Palencia LMFT at [facility] * 02/09/2021 11:15 am - Ben Mg MD at [facility] Functional Status Description No Information Available Mental Status Description No Information Available Referrals Description No Information Available
--- OUTSIDE RECORDS SUMMARY | 2021-02-04 19:48 | CCD | Continuity of Care Document ---
Author Author Wolfgang MCDANIELS MD Organization Unknown Address [address] [place] [address] Phone [phone] Care Team Providers Care Chest Painting And Sealing Supervisor Name Role Phone Ben Mcdaniels MD AUTM [phone] Problems Active Problems Provider Date Mild intermittent [...] Light tobacco smoker (10 or fewer cigarettes/day) Allergies, Adverse Reactions, Alerts Active Allergies Criticality Reaction | Severity Comments Date Bee Sting Unable to assess criticality 04/02/2016 Pork Unable to assess criticality 02/17/2020 Medications Active Medications SIG Qnty Indications Ordering Provide r Date Ethel Darling Solostar 300Unit/ML Solution Pen-Inject inject 20 units subcutaneously (under th e skin) every day --decrease as directed maximum daily dose 30 units per day 3ml E11.65 Ben Brenner MD 11/09/2020 Prazosin HCL 2mg Capsules 1 by mouth nightly 90caps F43.10 Ben Mcdaniels MD 11/03/2020 Lamotrigine ER 200mg Tablets ER 24 HR 1 by mouth every day 90tabs F31.9 Ben Mcdaniels MD 11/03/2020 Bupropion Hydrochloride ER (XL) 150mg Tablets ER 24HR 1 by mouth every day 90tabs F31.9 Ben Mcdaniels MD Knee Brace/Flexible Stays/X-Large Misc Wear daily while ambulating 1units Ben Mcdaniels MD Metformin HCL 1000mg Tablets take one tablet by mouth twice a day 180tabs Ben Mcdaniels MD Clonazepam 1mg Tablets take one tablet twice a day for anxiety. 60tabs Ben Mcdaniels MD 09/26 Gold Neely Medicated Body Lotion 5-0.15% Lotion Apply lotion to groin twice a day. 1bottle Cassandra Talley MD 08/28/2020 Loratadine 10mg Capsules Take 1 tablet orally daily. 30caps Cassandra Talley MD 08/28/2020 Nebulizer nebulizer machine with tubing and supplies 1units Ben Mcdaniels MD 08/16/2020 Airduo Respiclick 232/14 232-14mcg/Act Aerosol 1 puff inhalation twice daily 1units J45.21 Marciano Mcdaniels MD 07/27/2020 Albuterol Sulfate (2 .5mg/3ML) 0.083% Nebulizer 1 vial via nebulizer every 4 hours as needed 270ml J45.21 Ben Mcdaniels MD 07/27/2020 Gabapentin 600mg Tablets take 1 tablet by mouth three times daily 90tabs G89.4 Ben Mcdaniels MD 2020 Meloxicam 7.5mg Tablets 1 by mouth every day with food 30tabs Z96.641 Ben Mcdaniels MD 04/05/2020 Freestyle Lancets Misc test qid and as needed 200units Ben Mcdaniels MD 03/09/2020 Freestyle [place] Kit use as directed 4 times a day and as needed 1unBen Hadley MD 08/2020 Freestyle Test Strips 4 times a day and as needed 200units Ben Mcdaniels MD 03/09/2020 Exel [place] Insulin Pen [place] 2 9G X 12mm 29G X 12mm Misc use 4 times daily as needed with insulin pens 100units Ben Mcdaniels MD 01/04/2020 Onetouch Verio Strips test qid. dx 250.02 200unBen Hadley MD 01/04/2020 Blood Pressure Kit Kit check BP at least once weekly and recorduse as directed 1units I10 Ken Mcdaniels MD 01/04/2020 Clonidine HCL 0.1mg Tablets 1 tablet by mouth daily 90tabs I10 Ben Mcdaniels MD 10/12/2019 Lisinopril-Hydrochlorothiazide 20-12.5mg Tablets take 1 tablet by mouth daily 90tabs Nina Mcdaniels MD 01/23/2016 Ventolin HFA 108(90Base) mcg/Act A erosol inhale 1-2 puffs every 6 (six) hours as needed for wheezing 1unBen Hadley MD 01/17/2016 Omeprazole Magnesium 20.6(20Base) mg Capsules DR take 1 capsule (20 mg total) by mouth daily 30caps Ben Mcdaniels MD 09/28/2015 History Medications Soliqua 772-34Vja-yf g/ML Solution Pen-Inject inject subcutaneous 15 units nightly, in crease 3 units daily for morning glucose above 150 45ml E11.65 Ben Mcdaniels MD 11/03/2020 - 11/09/2020 Lamotrigine ER 100mg Tablets ER 24 HR 1 by mouth every day 30tabs F31.9 Ben Mcdaniels MD 10/04/2020 - 0 11/03/2020 Sertraline HCL 50mg Tablets take 1 tablet nightly 30tabs F33.1 Cassandra Talley MD 08/28/2020 - 11/2020 Airduo Digihaler 232-14mcg/Act Aer osol 1 puff inhalation twice daily 1units J45.21 Ben Mcdaniels MD - 07/27/2020 Immunizations CPT Code Status Date Vaccine Lot # [id number] Given 10/07/2020 Covid-19 Pfizer vaccine, mRNA, LNP-S, PF, 30 mcg/0.3 mL 1st dose 82878 Given 04/22/2015 Tdap (Adacel) Ages 7 And Abo ve Only Vital Signs Date Vital Result Comment 11/03/2020 11:43am Body Temperature 97.1 F Weight 321.00 lb Heart Rate 130 /min BP Systolic 168 mmHg BP Diastolic 98 mmHg Height 70 inches 5'10" O2 % BldC Oximetry 93 % [place] Body Weight 166 lb BMI (Body Mass Index) 46.1 kg/m2 10/04/2020 2:26pm Body Temperature 96.9 F Heart Rate 119 /min BP Systolic 128 mmHg BP Diastolic 86 mmHg O2 % BldC Oximetry 95 % Results Test Acquired Date Facility Test Result H/L Range Note Hemoglobin A1c 10/04/2020 [facility] Est Average Glucose NOT CALCULATED D <SEE NOTE> mg/dL 1 Hemoglobin A1c @ >14.0 % High (4.0-6.0) 2 Microalb/Creat Panel 10/04/2020 [facility] Creatinine, Urine 46.3 mg/dL Microalb/Creat Urine 70.19 ug/mgCreat High 0.00-30.00 Microalbumin 32.5 ug/ml High 0.0-20.0 Lipid 10/04/2020 [facility] Cholesterol 310 mg/dL High 50-199 Triglycerides 1210 mg/dL High 30-200 HDL 31 mg/dL 29-71 3 Chol/ HDL Ratio 9.9 ratio High 4.0-6.7 CBC with Auto Diff-fcmg 10/04/2020 [facility] WBC 8.5 K/uL 4.1-11.0 4 RBC 5.08 [...] Unless otherwise specified, testing performed by [facility] [address] [place] [address] 2 Testing performed by [facility] [address] [place] [address], [place] Performed using RocketBux immunoassay. Care must be taken when interpreting [...] high: >189 Procedures Date Code Description Status 11/09/2020 47935 Office/Outpatient Established Mo d MDM 30-39 Min Completed 11/03/2020 26733 Office/Outpatient Established Mo d MDM 30-39 Min Completed 11/03/2020 69597 Brief Emotional/Beha v Assessment W/ Scoring Doc Per Standard Inst Completed 10/04/2020 19867 Preventive Visit Est 18-39 Yrs C ompleted 10/04/2020 93493 Office/Outpatient Established Lo w MDM 20-29 Min Completed 09/26/2020 40573 Office/Outpatient Established Lo w MDM 20-29 Min Completed 08/28/2020 60992 Office/Outpatient Established Mo d MDM 30-39 Min Completed 07/27/2020 52228 Office/Outpatient Established Mo d MDM 30-39 Min Completed Medical Devices Description No Information Available Encounters Type Date Location Provider Dx Diagnosis Office Visit 11/09/2020 8:30a Ben Meneses MD [...] pain syndrome Assessments Date Code Description Provider 11/09/2020 R91.8 Other nonspecific abnormal findi ng of lung field Ben Mcdaniels MD 11/09/2020 E11.65 Type 2 diabetes mellitus with hy perglycemia Ben Mcdaniels MD 11/09/2020 F31.9 Bipolar disorder, unspecified Ben Galvan MD 11/09/2020 I10 Essential (primary) hypertension Ben Mcdaniels MD 11/09/2020 E78.2 Mixed hyperlipidemia Marciano Mcdaniels MD 11/09/2020 F43.10 Post-traumatic stress disorder, unspecified Ben Mcdaniels MD 11/03/2020 M25.561 Pain in RIGHT knee Ben Mcdaniels MD 11/03/2020 Z96.641 Presence of RIGHT artificial hip joint Ben Mcdaniels MD 11/03/2020 E11.65 Type 2 diabetes mellitus with hy perglycemia Ben Mcdaniels MD 11/03/2020 N52.9 Male erectile dysfunction, unspe cified Ben Mcdaniels MD 11/03/2020 F31.9 Bipolar disorder, unspecified Ben Galvan MD 11/03/2020 I10 Essential (primary) hypertension Ben Mcdaniels MD 11/03/2020 E78.2 Mixed hyperlipidemia Marciano Mcdaniels MD 11/03/2020 F43.10 Post-traumatic stress disorder, unspecified Ben Mcdaniels MD 11/03/2020 R04.2 Hemoptysis Ben Mcdaniels M D 11/03/2020 Z13.31 Encounter for screening for depr ession Ben Mcdaniels MD 10/04/2020 F31.9 Bipolar disorder, unspecified Ben Galvan MD 10/04/2020 N52.9 Male erectile dysfunction, unspe cified Ben Mcdaniels MD 10/04/2020 E11.65 Type 2 diabetes mellitus with hy perglycemia Ben Mcdaniels MD 10/04/2020 I10 Essential (primary) hypertension Ben Mcdaniels MD 10/04/2020 E78.2 Mixed hyperlipidemia Marciano Mcdaniels MD 10/04/2020 G47.01 Insomnia due to medical conditio n Ben Mcdaniels MD 10/04/2020 Z11.59 Encounter for screening for othe r viral diseases Ben Mcdaniels MD 10/04/2020 Z00.00 Encounter for genera l adult medical examination without abnormal findings Ben Mcdaniels MD 10/04/2020 E11.65 Type 2 diabetes mellitus with hy [facility]glycemia [facility] 10/04/2020 E78.2 Mixed hyperlipidemia [facility] 10/04/2020 Z00.00 Encounter for genera l adult medical examination without abnormal findings [facility] 10/04/2020 I10 Essential (primary) hypertension [facility] 10/04/2020 Z11.59 Encounter for screening for othe r viral diseases [facility] 09/26/2020 F31.9 Bipolar disorder, unspecified Cassandra Youssef MD 09/26/2020 N52.9 Male erectile dysfunction, unspe cified Cassandra Talley MD 09/26/2020 E66.9 Obesity, unspecified Cassandra Talley MD 08/28/2020 R21 Rash and other nonspecific skin eruption Cassandra Talley MD 08/28/2020 F31.9 Bipolar disorder, unspecified Cassandra Youssef MD 07/27/2020 J45.21 Mild intermittent asthma with (a cute) exacerbation Ben Mcdaniels MD 07/27/2020 E11.65 Type 2 diabetes mellitus with hy perglycemia Ben Mcdaniels MD 07/27/2020 I10 Essential (primary) hypertension Ben Mcdaniels MD 07/27/2020 E78.2 Mixed hyperlipidemia Marciano Mcdaniels MD 07/27/2020 G47.01 Insomnia due to medical conditio n Ben Mcdaniels MD 07/27/2020 F33.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, recur rent, in full remission Ben Mcdaniels MD 07/27/2020 G89.4 Chronic pain syndrome Ken Mcdaniels MD Plan of Treatment Future Appointment(s):* 11/13/2020 1:00 pm - Columba Perez LMFT at [facility] * 02/09/2021 11:15 am - Ben Mcdaniels MD at [facility] 11/09/2020 - Ben Mcdaniels MD* R91.8 Other nonspecific abnormal finding of lung field* Comments:* apparentyl had abnormalities in the past from defect, He does not want to pursue further CT at this time but he is willing to do given hemoptysis * E11.65 Type 2 diabetes mellitus with hyperglycemia* New Medication:* Toujeo Max Solostar 300 Unit/ML - inject 20 units subcutaneously (under the skin) every day --decrease as directed maximum daily dose 30 units per day * Comments:* Blood glucose elevated, A1C not at goal. Continue current medications and lifestyle intervention. Will continue to follow, monitor A1C every 3-4 months and screen for DM complications . will start basal insulin trouble getting soliqua * Follow up:* 3 months * F31.9 Bipolar disorder, unspecified* Comments:* lamotrigine. May need to sawap SSRI to bupropion for less sexual side effects * I10 Essential (primary) hypertension* Comments:* Well controlled/at goal. Continue current treatment plan at this time. * E78.2 Mixed hyperlipidemia* Comments:* Reviewed history and prior labs in patietn chart. Continue current treatment plan. Monitoring lipid panel for ASCVD risk calculations * F43.10 Post-traumatic stress disorder, unspecified* Comments:* bad accident recently having flashbacks more frequently will refer for therapy as well. Functional Status Description No Information Available Mental Status Description No Information Available Referrals Description No Information Available
--- OUTSIDE RECORDS SUMMARY | 2021-02-04 19:48 | CCD | Continuity of Care Document ---
Author Author Wolfgang MCDANIELS MD Organization Unknown Address [address] [place] [address] Phone [phone] Care Team Providers Care Negative Developer Name Role Phone Ben Mcdaniels MD AUTM [phone] Problems Active Problems Provider Date Mild intermittent [...] SIG Qnty Indications Ordering Provide r Date Semglee 100Unit/ML Solution Pen-In ject inject 20 units subcutaneously (under the skin) every day 15ml E1 1.65 Ben Mcdaniels MD 11/17/2020 Trazodone HCL 50mg Tablets take 2 tablet by mouth every night at bedtime for sleep 30tabs Ben Mcdaniels MD 11/14/2020 Prazosin HCL 2mg Capsules 1 by mouth nightly 90caps F43.10 Ben Mcdaniels MD 11/03/2020 Lamotrigine ER 200mg Tablets ER 24 HR 1 by mouth every day 90tabs F31.9 Ben Mcdaniels MD 11/03/2020 Bupropion Hydrochloride ER (XL) 150mg Tablets ER 24HR 1 by mouth every day 90tabs F31.9 Ben Mcdaniels MD Knee Brace/Flexible Stays/X-Large Misc Please supply knee brace with a hinge Wear daily while ambulating 1units Ben Mcdaniels MD 10/17/2020 Metformin HCL 1000mg Tablets take one tablet by mouth twice a day 180tabs Ben Mcdaniels MD Clonazepam 1mg Tablets take one tablet twice a day for anxiety. 60tabs Ben Mcdaniels MD 09/26 Gold Neely Medicated Body Lotion 5-0.15% Lotion Apply lotion to groin twice a day. 1bCassandra To MD 08/28/2020 Loratadine 10mg Capsules Take 1 [...] 30tabs Z96.641 Ben Mcdaniels MD 04/05/2020 Freestyle [place] Kit use as directed 4 times a day and as needed 1unBen Hadley MD 08/2020 Freestyle Test Strips 4 times a day and as needed 200unBen Hadley MD 03/09/2020 Freestyle Lancets Misc test qid and as needed 200unBen Hadley MD 03/09/2020 Exel [place] Insulin Pen [place] 2 9G X 12mm 29G X 12mm Misc use 4 times daily as needed with insulin pens 100unBen Hadley MD 01/04/2020 Onetouch Verio Strips test qid. dx 250.02 200unBen Hadley MD 01/04/2020 Blood Pressure Kit Kit check BP at least once weekly and recorduse as directed 1units I10 Ken Mcadniels MD 01/04/2020 Clonidine HCL 0.1mg Tablets 1 [...] 30caps Ben Mcdaniels MD 09/28/2015 History Medications Basaglar Kwikpen 100 Unit/ML Solution Pen-Inject inject 20 units subcutaneously (under the skin) every day 45ml E11.65 Ben Mcdaniels MD 11/17/2020 - 11/17/2020 Lantus Solostar 100U nit/ML Solution Pen-Inject inject 20 units subcutaneously (under the skin) every day 45ml E11.65 Ben Mcdaniels MD 11/17/2020 - 11/17/2020 Toujeo Max Solostar 300Unit/ML Solution Pen-Inject inject 20 units subcutaneously (under th e skin) every day --decrease as directed maximum daily dose 30 units per day 3ml E11.65 Ben Brenner MD 11/09/2020 - 11/17/2020 Knee Brace [facility] [place] brace for patient. 1units Ben Mcdaniels MD 11/09/2020 - 0 11/09/2020 Soliqua 167-89Kst-ya g/ML Solution Pen-Inject inject subcutaneous 15 units [...] CPT Code Status Date Vaccine Lot # [id number] Given 10/07/2020 Covid-19 Pfizer vaccine, mRNA, LNP-S, PF, 30 mcg/0.3 mL 1st dose 51848 Given 04/22/2015 Tdap (Adacel) Ages 7 And Abo ve Only Vital Signs Date Vital Result Comment 11/03/2020 11:43am Body Temperature 97.1 F Weight 321.00 lb Heart Rate 130 /min BP Systolic 168 mmHg BP Diastolic 98 mmHg Height 70 inches 5'10" O2 % BldC Oximetry 93 % [place] Body Weight 166 lb BMI (Body Mass [...] % High (4.0-6.0) 2 Microalb/Creat [facility], U[facility] 46.3 mg/dL Microalb/Creat Urine 70.19 ug/mgCreat High 0.00-30.00 Microalbumin 32.5 ug/ml High 0.0-20.0 Lipid 10/04/2020 [facility] Cholesterol 310 mg/dL High 50-199 Triglycerides 1210 mg/dL High 30-200 HDL 31 mg/dL 29-71 3 Chol/ HDL Ratio 9.9 ratio High 4.0-6.7 CBC with Auto Diff-fcmg 10/04[facility]2020 [facility] WBC 8.5 K/uL 4.1-11.0 4 RBC [...] >14.0%. Unless otherwise specified, testing performed by [employer] [facility] [place] [address] 2 Testing performed by [facility] Performed using JobSlot immunoassay. Care must be taken when interpreting [...] Range 01/02 10 Updated Reference range 01/02 019 11 Updated Reference range 01/02 12 Updated [...] ew analyzer 23 Updated reference range 05-0 1-2019 24 Updated Reference Range 2-20 18 25 [...] >189 Procedures Date Code Description Status 11/29/2020 09276 Office/Outpatient Established Mo d MDM 30-39 Min Completed 11/13/2020 20188 Psychiatric Diagnostic Evaluatio n Completed 11/09/2020 02972 Office/Outpatient Established Mo d MDM 30-39 Min Completed 11/03/2020 24622 Office/Outpatient Established Mo d MDM 30-39 Min Completed 11/03/2020 83881 Brief Emotional/Beha v Assessment W/ Scoring Doc Per Standard Inst Completed 10/04/2020 69305 Preventive Visit Est 18-39 Yrs C ompleted 10/04/2020 88181 Office/Outpatient Established Lo w MDM 20-29 Min Completed 09/26/2020 90782 Office/Outpatient Established Lo w MDM 20-29 Min Completed 08/28/2020 92572 Office/Outpatient Established Mo d MDM 30-39 Min Completed 07/27/2020 72884 Office/Outpatient Established Mo d MDM 30-39 Min [...] pain syndrome Assessments Date Code Description Provider 11/29/2020 R10.31 RIGHT lower quadrant pain Ben Mcdaniels MD 11/29/2020 K40.90 Unilateral inguinal hernia, without obstruction or gangrene, not specified as recurrent Ben Mcdaniels MD 11/29/2020 E11.65 Type 2 diabetes mellitus with hy perglycemia Ben Mcdaniels MD 11/29/2020 I10 Essential (primary) hypertension Ben Mcdaniels MD 11/29/2020 E78.2 Mixed hyperlipidemia Marciano Mcdaniels MD 11/27/2020 F43.10 Post-traumatic stress disorder, unspecified Columba Perez, [facility] 11/13/2020 F43.10 Post-traumatic stress disorder, unspecified Columba Perez, [facility] 11/09/2020 R91.8 Other nonspecific abnormal findi ng [...] for screening for othe r viral diseases eBn Mcdaniels MD 10/04/2020 Z00.00 Encounter for genera l adult medical examination without abnormal findings Ben Mcdaniels MD 10/04/2020 E11.65 Type 2 diabetes mellitus with hy perglycemia [facility] 10/04/2020 E78.2 Mixed hyperlipidemia [facility] 10/04/2020 Z00.00 Encounter for genera l adult medical examination without abnormal findings [facility] 10/04/2020 I10 Essential (primary) hypertension [facility] 10/04/2020 Z11.59 Encounter for screening for othe r viral diseases [facility] 09/26/2020 F31.9 Bipolar disorder, unspecified [...] Mcdaniels MD Plan of Treatment Future Appointment(s):* 12/11/2020 1:00 pm - Columba Perez LMFT at [facility] * 12/12/2020 2:00 pm - Ben Mcdaniels MD at [facility] * 02/09/2021 11:15 am - Ben Mcdaniels MD at [facility] 11/29/2020 - Ben Mcdaniels MD* R10.31 RIGHT lower quadrant pain* New Xrays:* Ultrasound Pelvic Transabdominal Complete, Ordered: 11/29/20 * Follow up:* need to get ultrasound set up near him in [facility] if possible, Call and let patietn know where to go to get this done once scheduled * K40.90 Unilateral inguinal hernia, without obstruction or gangrene, not specified as recurrent* Comments:* as above * E11.65 Type 2 diabetes mellitus with hyperglycemia* Comments:* Blood glucose elevated, A1C not at goal. Continue current medications and lifestyle intervention. Will continue to follow, monitor A1C every 3-4 months and screen for DM complications * Follow up:* 3 months * I10 Essential (primary) hypertension* Comments:* Well controlled/at goal. Continue current treatment plan at this time. * E78.2 Mixed hyperlipidemia* Comments:* Reviewed history and prior labs in patietn chart. Continue current treatment plan. Monitoring lipid panel for ASCVD risk calculations Functional Status Description No Information Available Mental Status Description No Information Available Referrals Description No Information Available
--- OUTSIDE RECORDS SUMMARY | 2021-02-04 19:48 | CCD | Continuity of Care Document ---
Author Author Wolfgang [facility]ENC[address] [facility] Organization Unknown Address [address] [place] [address] [address], [place] [address] Phone [phone] Care Team Providers Care Office Agent Name Role Phone Ben Mg MD AUTM [phone] Problems Active Problems Provider Date Mild intermittent [...] Indications Ordering Provide r Date Trazodone HCL 50mg Tablets take 1 tablet by mouth every night at bedtime for sleep 30taBen Abreu MD 11/14/2020 Toualicia Darling Solostar 300Unit/ML Solution Pen-Inject inject 20 [...] by mouth twice a day 180tabs Ben gM MD Clonazepam 1mg Tablets take one tablet twice a day for anxiety. 60tabs Ben Mg MD 09/26 Gold Neely Medicated Body Lotion 5-0.15% Lotion Apply lotion to groin twice a day. 1bCassandra To MD 08/28/2020 Loratadine 10mg Capsules Take 1 tablet orally daily. 30Cassandra Erazo MD 08/28/2020 Nebulizer nebulizer machine with tubing and supplies 1unBen Hadley MD 08/16/2020 Airduo Respiclick 232/14 232-14mcg/Act Aerosol 1 puff inhalation twice daily 1unandres Knox21 Marciano Mg MD 07/27/2020 Albuterol Sulfate (2 .5mg/3ML) 0.083% Nebulizer 1 vial via nebulizer every 4 hours as needed 270ml Lisette21 Ben Mg MD 07/27/2020 Gabapentin 600mg Tablets take 1 tablet by mouth three times daily 90tabs G89.4 Ben Mg MD 2020 Meloxicam 7.5mg Tablets 1 by mouth every day with food 30tabs Z96.641 Ben Mg MD 04/05/2020 Freestyle Lancets Misc test qid and as needed 200unBen Hadley MD 03/09/2020 Freestyle [place] Varina Kit use as directed 4 times a day and as needed 1unBen Hadley MD 08/2020 Freestyle Test Strips 4 times a day and as needed 200unBen Hadley MD 03/09/2020 Exel [place] Insulin Pen [place] 2 9G X 12mm 29G X 12mm Misc use 4 times daily as needed with insulin pens 100unBen Hadley MD 01/04/2020 Onetouch Verio Strips test qid. dx 250.02 200unBen Hadley MD 01/04/2020 Blood Pressure Kit Kit check BP at least once weekly and recorduse as directed 1unKen Ang MD 01/04/2020 Clonidine HCL 0.1mg Tablets 1 tablet by mouth daily 90tabs I10 Ben Mg MD 10/12/2019 Lisinopril-Hydrochlorothiazide 20-12.5mg Tablets take 1 tablet by mouth daily 90tabs Nina Mg MD 01/23/2016 Ventolin HFA 108(90Base) mcg/Act A erosol inhale 1-2 puffs every 6 (six) hours as needed for wheezing 1unBen Hadley MD 01/17/2016 Omeprazole Magnesium 20.6(20Base) mg Capsules DR take 1 capsule (20 mg total) by mouth daily 30caps Ben Mg MD 09/28/2015 History Medications Knee Brace [facility] Please provide knee brace for patient. 1Ben Hanson MD 11/09/2020 - 0 11/09/2020 Soliqua [id number] g/ML Solution Pen-Inject inject subcutaneous 15 units [...] CPT Code Status Date Vaccine Lot # [id number] Given 10/07/2020 Covid-19 Pfizer vaccine, mRNA, LNP-S, PF, 30 mcg/0.3 mL 1st dose 35059 Given 04/22/2015 Tdap (Adacel) Ages 7 And Abo ve Only Vital Signs Date Vital Result Comment 11/03/2020 11:43am Body Temperature 97.1 F Weight 321.00 lb Heart Rate 130 /min BP Systolic 168 mmHg BP Diastolic 98 mmHg Height 70 inches 5'10" O2 % BldC Oximetry 93 % [place] Body Weight 166 lb BMI (Body Mass Index) 46.1 kg/m2 10/04/2020 2:26pm Body Temperature 96.9 F Heart Rate 119 /min BP Systolic 128 mmHg BP Diastolic 86 mmHg O2 % BldC Oximetry 95 % Results Test Acquired Date Facility Test Result H/L Range Note Hemoglobin A1c 10/04/2020 [facility] Est Average Glucose NOT CALCULATED D <SEE NOTE> mg/dL 1 Hemoglobin A1c @ >14.0 % High (4.0-6.0) 2 Microalb/Creat Panel 10/04/2020 [facility] Creatinine, Urine 46.3 mg/dL Microalb/Creat Urine 70.19 ug/mgCreat High 0.00-30.00 Microalbumin 32.5 ug/ml High 0.0-20.0 Lipid 10/04/2020 [facility] Cholesterol 310 mg/dL High 50-199 Triglycerides 1210 mg/dL High 30-200 HDL 31 mg/dL 29-71 3 Chol/ HDL Ratio 9.9 ratio High 4.0-6.7 CBC with Auto Diff-fcmg 10/04/2020 [facility] WBC 8.5 K/uL 4.1-11.0 4 RBC 5.08 [...] Unless otherwise specified, testing performed by Laboratory [facility] [address] [place] [address] 2 Testing performed by Laborat or[facility] [address] [facility] Performed using Siemens [place] immunoassay. Care must be taken when interpreting [...] high: >189 Procedures Date Code Description Status 11/13/2020 90417 Psychiatric Diagnostic Evaluatio n Completed 11/09/2020 42989 Office/Outpatient Established Mo d MDM 30-39 Min Completed 11/03/2020 21012 Office/Outpatient Established Mo d MDM 30-39 Min Completed 11/03/2020 36524 Brief Emotional/Beha v Assessment W/ Scoring Doc Per Standard Inst Completed 10/04/2020 67914 Preventive Visit Est 18-39 Yrs C ompleted 10/04/2020 81383 Office/Outpatient Established Lo w MDM 20-29 Min Completed 09/26/2020 54606 Office/Outpatient Established Lo w MDM 20-29 Min Completed 08/28/2020 37187 Office/Outpatient Established Mo d MDM 30-39 Min Completed 07/27/2020 96300 Office/Outpatient Established Mo d MDM 30-39 Min Completed Medical Devices Description No Information Available Encounters Type Date Location Provider Dx Diagnosis Office Visit 11/09/2020 8:30a Jessica And Ben Sampson MD R91. 8 Other nonspecific abnormal finding [...] pain syndrome Assessments Date Code Description Provider 11/13/2020 F43.10 Post-traumatic stress disorder, unspecified Columba Palencia, KHADAR 11/09/2020 R91.8 Other nonspecific abnormal findi ng [...] Type 2 diabetes mellitus with hy perglycemia [facility] 10/04/2020 E78.2 Mixed hyperlipidemia [facility] 10/04/2020 Z00.00 Encounter for genera l adult medical examination without abnormal findings [facility] 10/04/2020 I10 Essential (primary) hypertension [facility] 10/04/2020 Z11.59 Encounter for screening for othe r viral diseases [facility] 09/26/2020 F31.9 Bipolar disorder, unspecified [...] Mg MD Plan of Treatment Future Appointment(s):* 11/27/2020 1:00 pm - Columba Palencia LMFT at [facility] * 02/09/2021 11:15 am - Ben Mg MD at [facility] 11/13/2020 - Columba Palencia LMFT* F43.10 Post-traumatic stress disorder, unspecified Functional Status Description No Information Available Mental Status Description No Information Available Referrals Description No Information Available
--- OUTSIDE RECORDS SUMMARY | 2021-02-04 19:48 | CCD | Continuity of Care Document ---
Author Author Wolfgang MCDANIELS MD Organization Unknown Address [address] [place] [address] Phone [phone] Care Team Providers Care Stitch Bonding Machine Tender Name Role Phone Ben Mcdaniels MD AUTM [phone] Problems Active Problems Provider Date Mild intermittent [...] SIG Qnty Indications Ordering Provide r Date Prazosin HCL 2mg Capsules 1 by mouth nightly 90caps F43.10 Ben Mcdaniels MD 11/03/2020 Lamotrigine ER 200mg Tablets ER 24 HR 1 by mouth every day 90tabs F31.9 Ben Mcdaniels MD 11/03/2020 Bupropion Hydrochloride ER (XL) 150mg Tablets ER 24HR 1 by mouth every day 90tabs F31.9 Ben Mcdaniels MD Soliqua 697-96Gxc-es g/ML Solution Pen-Inject inject subcutaneous 15 units nightly, in crease 3 units daily for morning glucose above 150 45ml E11.65 Ben Mcdaniels MD 11/03/2020 Knee Brace/Flexible Stays/X-Large Misc Wear daily while ambulating 1units Ben Mcdaniels MD Metformin HCL 1000mg Tablets take one tablet by mouth twice a day 180tabs Ben Mcdaniels MD Clonazepam 1mg Tablets take one tablet twice a day for anxiety. 60tabs Ben Mcdaniels MD 09/26 Sertraline HCL 50mg Tablets take 1 tablet nightly 30tabs F33.1 Cassandra Talley MD 08/28/2020 Gold Neely Medicated Body Lotion 5-0.15% Lotion Apply lotion to groin twice a day. 1bottle Cassandra Talley MD 08/28/2020 Loratadine 10mg Capsules Take 1 tablet orally daily. 30caps Cassandra Talley MD 08/28/2020 Nebulizer nebulizer machine with tubing and supplies 1units Ben Mcdaniels MD 08/16/2020 Gabapentin 600mg Tablets take 1 tablet by mouth three times daily 90tabs G89.4 Ben Mcdaniels MD 2020 Albuterol Sulfate (2 .5mg/3ML) 0.083% Nebulizer 1 vial via nebulizer every 4 hours as needed 270ml J45.21 Ben Mcdaniels MD 07/27/2020 Airduo Respiclick 232/14 232-14mcg/Act Aerosol 1 puff inhalation twice daily 1units J45.21 Marciano Mcdaniels MD 07/27/2020 Meloxicam 7.5mg Tablets 1 by mouth every day with food 30tabs Z96.641 Ben Mcdaniels MD 04/05/2020 Freestyle Lancets Misc test qid and as needed 200units Ben Mcdaniels MD 03/09/2020 Freestyle Test Strips 4 times a day and as needed 200units Ben Mcdaniels MD 03/09/2020 Freestyle [place] Kit use as directed 4 times a day and as needed 1units Ben Mcdaniels MD 08/2020 Exel [place] Insulin Pen [place] 2 9G X 12mm 29G X 12mm [...] 6 (six) hours as needed for wheezing 1units Ben Mcdaniels MD 01/17/2016 Omeprazole Magnesium 20.6(20Base) mg Capsules DR take 1 capsule (20 mg total) by mouth daily 30caps Ben Mcdaniels MD 09/28/2015 History Medications Lamotrigine ER 100mg Tablets ER 24 HR 1 by mouth every day 30tabs F31.9 Ben Mcdaniels MD 10/04/2020 - 0 11/03/2020 Airduo Digihaler 232-14mcg/Act Aer osol 1 puff inhalation twice daily 1units J45.21 Ben Mcdaniels MD - 07/27/2020 Immunizations CPT Code Status Date Vaccine Lot # [id number] Given 10/07/2020 Covid-19 Pfizer vaccine, mRNA, LNP-S, PF, 30 mcg/0.3 mL 1st dose 38229 Given 04/22/2015 Tdap (Adacel) Ages 7 And Abo ve Only Vital Signs Date Vital Result Comment 11/03/2020 11:43am Body Temperature 97.1 F Weight 321.00 lb Heart Rate 130 /min BP Systolic 168 mmHg BP Diastolic 98 mmHg Height 70 inches 5'10" O2 % BldC Oximetry 93 % [place] Body Weight 166 lb BMI (Body Mass Index) 46.1 kg/m2 10/04/2020 2:26pm Body Temperature 96.9 F Heart Rate 119 /min BP Systolic 128 mmHg BP Diastolic 86 mmHg O2 % BldC Oximetry 95 % Results Test Acquired Date Facility Test Result H/L Range Note Hemoglobin A1c 10/04/2020 [facility] Est Average Glucose NOT CALCULATED D <SEE NOTE> mg/dL 1 Hemoglobin A1c @ >14.0 % High (4.0-6.0) 2 Microalb/Creat Panel 10/04/2020 [facility] Creatinine, Urine 46.3 mg/dL Microalb/Creat Urine 70.19 ug/mgCreat High 0.00-30.00 Microalbumin 32.5 ug/ml High 0.0-20.0 Lipid 10/04/2020 [facility]olesterol 310 mg/dL High 50-199 Triglycerides 1210 mg/dL High 30-200 HDL 31 mg/dL 29-71 3 Chol/ HDL Ratio 9.9 ratio High 4.0-6.7 CBC with Auto Diff-fcmg 10/04/2020 [facility] WBC 8.5 K/uL 4.1-11.0 4 RBC 5.08 [...] Unless otherwise specified, testing performed by Laboratory [facility] [address] [place] [address] 2 Testing performed by [facility]at [facility] [address] [place] [address] Performed using Siemens [place] immunoassay. Care must be taken when interpreting [...] risk factor. 4 Updated Reference Range 01/02 019 5 Updated Reference Range 01/02 6 Updated [...] high: >189 Procedures Date Code Description Status 11/03/2020 62526 Office/Outpatient Established Mo d MDM 30-39 Min Completed 11/03/2020 49286 Brief Emotional/Beha v Assessment W/ Scoring Doc Per Standard Inst Completed 10/04/2020 55052 Preventive Visit Est 18-39 Yrs C ompleted 10/04/2020 20803 Office/Outpatient Established Lo w MDM 20-29 Min Completed 09/26/2020 65917 Office/Outpatient Established Lo w MDM 20-29 Min Completed 08/28/2020 04867 Office/Outpatient Established Mo d MDM 30-39 Min Completed 07/27/2020 33014 Office/Outpatient Established Mo d MDM 30-39 Min Completed Medical Devices Description No Information Available Encounters Type Date Location Provider Dx Diagnosis Office Visit 11/03/2020 11:15a Ben Meneses MD [...] pain syndrome Assessments Date Code Description Provider 11/03/2020 M25.561 Pain in RIGHT knee Ben [...] Type 2 diabetes mellitus with hy perglycemia [facility] 10/04/2020 E78.2 [facility] 10/04/2020 Z00.00 Encounter for genera l adult medical examination without abnormal findings [facility] 10/04/2020 I10 Essential (primary) hypertension [facility] 10/04/2020 Z11.59 Encounter for screening for othe r viral diseases [facility] 09/26/2020 F31.9 Bipolar disorder, unspecified [...] 1:00 pm - Columba Perez LMFT at [facility] * 02/09/2021 11:15 am - Ben Mcdaniels MD at [facility] 11/03/2020 - Ben Mcdaniels MD* M25.561 Pain in RIGHT knee* Comments:* offered PT using cane and handicap * Z96.641 Presence of RIGHT artificial hip joint* Comments:* right hip fracture and replacement ambulating with cane * Follow up:* need to send knee brace script to a medical supply store and let patietn know where to go to pick it up, also need handicap sticker done temp for this dx code * E11.65 Type 2 diabetes mellitus with hyperglycemia* New Medication:* Soliqua 100-33 Unt-mcg/ML - inject subcutaneous 15 units nightly, increase 3 units daily for morning glucose above 150 * New Labs:* Hemoglobin A1c, Ordered: 11/03/20 * Microalb/Creat Panel, Ordered: 11/03/20 * Lipid, Ordered: 11/03/20 * CBC with Auto Diff-fcmg, Ordered: 11/03/20 * Comprehensive Met Panel-FCMG, Ordered: 11/03/20 * Comments:* Blood glucose elevated, A1C not at goal. Continue current medications and lifestyle intervention. Will continue to follow, monitor A1C every 3-4 months and screen for DM complications . titrate metofrmin and add soliqua * Follow up:* 3 months * N52.9 Male erectile dysfunction, unspecified* Comments:* SSRI related, swap to wellbutrin and work on glucose control * F31.9 Bipolar disorder, unspecified* New Medication:* Lamotrigine ER 200 mg - 1 by mouth every day * Bupropion Hydrochloride ER (XL) 150 mg - 1 by mouth every day * Comments:* lamotrigine. May need to sawap SSRI to bupropion for less sexual side effects * I10 Essential (primary) hypertension* New Labs:* Comprehensive Met Panel-FCMG, Ordered: 11/03/20 * Comments:* Well controlled/at goal. Continue current treatment plan at this time. * E78.2 Mixed hyperlipidemia* New Labs:* Lipid, Ordered: 11/03/20 * Comments:* Reviewed history and prior labs in patietn chart. Continue current treatment plan. Monitoring lipid panel for ASCVD risk calculations * F43.10 Post-traumatic stress disorder, unspecified* New Medication:* Prazosin HCL 2 mg - 1 by mouth nightly * Comments:* bad accident recently having flashbacks more frequently will refer for therapy as well. * R04.2 Hemoptysis* Comments:* will check XR 1.5 packs per day * Z13.31 Encounter for screening for depression Functional Status Description No Information Available Mental Status Description No Information Available Referrals Description No Information Available
--- OUTSIDE RECORDS SUMMARY | 2021-02-04 19:48 | CCD | Continuity of Care Document ---
Author Author Wolfgang MCDANIELS MD Organization Unknown Address [address] [place] [address] Phone [phone] Care Team Providers Care Formula Maker Name Role Phone Ben Mcdaniels MD AUTM [phone] Problems Active Problems Provider Date Mild intermittent [...] 30tabs Z96.641 Ben Mcdaniels MD 04/05/2020 Freestyle [place] Kit use as directed 4 times a day and as needed 1unBen Hadley MD 08/2020 Freestyle Test Strips 4 times a day and as needed 200unBen Hadley MD 03/09/2020 Freestyle Lancets Misc test qid and as needed 200unBen Hadley MD 03/09/2020 Exel [place] Insulin Pen [place] 2 9G X 12mm 29G X 12mm [...] Brenner MD 11/09/2020 - 11/17/2020 Knee Brace [facility] [place] knee brace for patient. 1units Ben Mcdaniels MD 11/09/2020 - 0 11/09/2020 Soliqua [id number] g/ML Solution Pen-Inject inject subcutaneous 15 units [...] CPT Code Status Date Vaccine Lot # [id number] Given 10/07/2020 Covid-19 Pfizer vaccine, mRNA, LNP-S, PF, 30 mcg/0.3 mL 1st dose 69805 Given 04/22/2015 Tdap (Adacel) Ages 7 And Abo ve Only Vital Signs Date Vital Result Comment 11/03/2020 11:43am Body Temperature 97.1 F Weight 321.00 lb Heart Rate 130 /min BP Systolic 168 mmHg BP Diastolic 98 mmHg Height 70 inches 5'10" O2 % BldC Oximetry 93 % [place] Body Weight 166 lb BMI (Body Mass [...] % High (4.0-6.0) 2 [facility]alb[facility] 46.3 mg/dL Microalb/Creat Urine 70.19 ug/mgCreat High 0.00-30.00 Microalbumin 32.5 ug/ml High 0.0-20.0 Lipid 10/04[facility]2020 [facility] Ch[facility] 310 mg/dL High 50-199 Triglycerides 1210 mg/dL High 30-200 HDL 31 mg/dL 29-71 3 Chol/ HDL Ratio 9.9 ratio High 4.0-6.7 CBC with Auto Diff-fcmg 10/04[facility]2020 [facility] W[facility] 8.5 K/uL 4.1-11.0 4 RBC 5.08 [...] >14.0%. Unless otherwise specified, testing [facility] [place] [address] 2 [facility] Performed using CombiMatrix immunoassay. Care must be taken when interpreting [...] >189 Procedures Date Code Description Status 11/29/2020 48326 Office/Outpatient Established Mo d MDM 30-39 Min Completed 11/13/2020 62721 Psychiatric Diagnostic Evaluatio n Completed 11/09/2020 50141 Office/Outpatient Established Mo d MDM 30-39 Min Completed 11/03/2020 15883 Office/Outpatient Established Mo d MDM 30-39 Min Completed 11/03/2020 31935 Brief Emotional/Beha v Assessment W/ Scoring Doc Per Standard Inst Completed 10/04/2020 09647 Preventive Visit Est 18-39 Yrs C ompleted 10/04/2020 41718 Office/Outpatient Established Lo w MDM 20-29 Min Completed 09/26/2020 42659 Office/Outpatient Established Lo w MDM 20-29 Min Completed 08/28/2020 37460 Office/Outpatient Established Mo d MDM 30-39 Min Completed 07/27/2020 79159 Office/Outpatient Established Mo d MDM 30-39 Min [...] F43.10 Post-traumatic stress disorder, unspecified Columba Perez, [facility] 11/13/2020 F43.10 Post-traumatic stress disorder, unspecified Columba Perez, [facility] 11/09/2020 R91.8 Other nonspecific abnormal findi [...] MD 11/03/2020 I10 Essential (primary) hypertension Ben Mcdaniles MD 11/03/2020 E78.2 Mixed hyperlipidemia Marciano Mcdaniels [...] Type 2 diabetes mellitus with hy perglycemia [facility] 10[facility]04/2020 E78.2 Mixed hyperlipidemia [facility] 10/04/2020 Z00.00 Encounter for genera l adult medical examination without abnormal findings [facility] 10/04/2020 I10 Essential (primary) hypertension [...] MD 07/27/2020 G89.4 Chronic pain syndrome Ken Mcdaniles MD Plan of Treatment Future Appointment(s):* 12/11/2020 1:00 pm - Columba Perez LMFT at [facility] * 12/12/2020 2:00 pm - Ben Mcdaniels MD at [facility] * 02/09/2021 11:15 am - Ben Mcdaniels MD at [facility] 11/29/2020 - Ben Mcdaniels MD* R10.31 RIGHT lower quadrant pain* New Xrays:* Ultrasound Pelvic Transabdominal Complete, Ordered: 11/29/20 * Follow up:* need to get ultrasound set up near him in [facility] if possible, Call and let patietn know [...]
--- OUTSIDE RECORDS SUMMARY | 2021-02-04 19:48 | CCD | Continuity of Care Document ---
Author Author Wolfgang [facility] Organization Unknown Address [address] [place] [address] [address], [place] [address] Phone [phone] Care Team Providers Care Assurance Services Manager Health Care Name Role Phone Ben Mg MD AUTM [phone] Problems Active Problems Provider Date Mild intermittent [...] 15ml E1 1.65 Ben Mg MD 11/17/2020 Trazodone HCL 50mg Tablets take 2 tablet by mouth every night at bedtime for sleep 30tabs Ben Mg MD 11/14/2020 Prazosin HCL 2mg Capsules 1 [...] 30tabs Z96.641 Ben Mg MD 04/05/2020 Freestyle Aldrich Kit use as directed 4 times a day and as needed 1unBen Hadley MD 08/2020 Freestyle Test Strips 4 times a day and as needed 200units Ben Mg MD 03/09/2020 Freestyle Lancets Misc test qid and as needed 200unBen Hadley MD 03/09/2020 Exel [place] Insulin Pen [place] 2 9G X 12mm 29G X 12mm Misc use 4 times daily as needed with insulin pens 100unBen Hadley MD 01/04/2020 Onetouch Verio Strips test qid. dx 250.02 200unBen Hadley MD 01/04/2020 Blood Pressure Kit Kit check BP at least once weekly and recorduse as directed 1unandres I10 Ken Mg MD 01/04/2020 Clonidine HCL [...] 30caps Ben Mg MD 09/28/2015 History Medications Basaglar Kwikpen 100 Unit/ML Solution Pen-Inject inject 20 units subcutaneously (under the skin) every day 45ml E11.65 Ben Mg MD 11/17/2020 - 11/17/2020 Lantus Solostar 100U nit/ML Solution Pen-Inject inject 20 units subcutaneously (under the skin) every day 45ml E11.65 Ben Mg MD 11/17/2020 - 11/17/2020 Toujeo Max Solostar 300Unit/ML Solution Pen-Inject inject 20 units subcutaneously (under th e skin) every day --decrease as directed maximum daily dose 30 units per day 3ml E11.65 Ben Brenner MD 11/09/2020 - 11/17/2020 Knee Brace [facility] Please provide knee brace for patient. 1units Ben Mg MD 11/09/2020 - 0 11/09/2020 Soliqua [id number] g/[id number] Solution Pen-Inject inject subcutaneous 15 units [...] CPT Code Status Date Vaccine Lot # [id number] Given 10/07/2020 Covid-19 Pfizer vaccine, mRNA, LNP-S, PF, 30 mcg/0.3 mL 1st dose 21378 Given 04/22/2015 Tdap (Adacel) Ages 7 And Abo ve Only Vital Signs Date Vital Result Comment 11/03/2020 11:43am Body Temperature 97.1 F Weight 321.00 lb Heart Rate 130 /min BP Systolic 168 mmHg BP Diastolic 98 mmHg Height 70 inches 5'10" O2 % BldC Oximetry 93 % [place] Body Weight 166 lb BMI (Body Mass [...] % High (4.0-6.0) 2 Microalb/Creat Panel 10/04/2020 [facility] Creatinine, Urine 46.3 mg/dL Microalb/Creat Urine 70.19 ug/mgCreat High 0.00-30.00 Microalbumin 32.5 ug/ml High 0.0-20.0 Lipid 10/04/2020 [facility] Cholesterol 310 mg/dL High 50-199 Triglycerides 1210 mg/dL High 30-200 HDL 31 mg/dL 29-71 3 Chol/ HDL Ratio 9.9 ratio High 4.0-6.7 CBC with Auto Diff-fcmg 10/04/2020 [facility] WBC 8.5 K/uL 4.1-11.0 4 RBC 5.08 [...] >14.0%. Unless otherwise specified, testing performed by [employer] [facility] [place] [address] 2 Testing performed by [facility] [employer] [facility] Performed using [employer] immunoassay. Care must be taken when interpreting [...] >189 Procedures Date Code Description Status 11/29/2020 94339 Office/Outpatient Established Mo d MDM 30-39 Min Completed 11/13/2020 09670 Psychiatric Diagnostic Evaluatio n Completed 11/09/2020 68025 Office/Outpatient Established Mo d MDM 30-39 Min Completed 11/03/2020 81780 Office/Outpatient Established Mo d MDM 30-39 Min Completed 11/03/2020 75923 Brief Emotional/Beha v Assessment W/ Scoring Doc Per Standard Inst Completed 10/04/2020 50635 Preventive Visit Est 18-39 Yrs C ompleted 10/04/2020 99580 Office/Outpatient Established Lo w MDM 20-29 Min Completed 09/26/2020 74320 Office/Outpatient Established Lo w MDM 20-29 Min Completed 08/28/2020 52196 Office/Outpatient Established Mo d MDM 30-39 Min Completed 07/27/2020 05213 Office/Outpatient Established Mo d MDM 30-39 Min [...] disorder, unspecifie d Office Visit 07/27/2020 2:45p Jessica And Ben Sampson MD J45. 21 Mild intermittent asthma with [...] F43.10 Post-traumatic stress disorder, unspecified Columba Palencia, [facility] 11/13/2020 F43.10 Post-traumatic stress disorder, unspecified Columba Palencia, [facility] 11/09/2020 R91.8 Other nonspecific abnormal findi [...] 10/04/2020 N52.9 Male erectile dysfunction, unspe cified Bne Mg MD 10/04/2020 E11.65 Type 2 diabetes [...] Type 2 diabetes mellitus with hy [facility]glycemia [facility] 10/04/2020 E78.2 Mixed hyperlipidemia [facility] 10/04/2020 Z00.00 Encounter for genera l adult medical examination without abnormal findings [facility] 10/04/2020 I10 Essential (primary) hypertension [facility] 10/04/2020 Z11.59 Encounter for screening for othe r viral diseases [facility] 09/26/2020 F31.9 Bipolar disorder, [...] Mg MD Plan of Treatment Future Appointment(s):* 12/11/2020 1:00 pm - Columba Palencia LMFT at [facility] * 12/12/2020 2:00 pm - Ben Mg [facility] * 02/09/2021 11:15 am - Ben Mg MD at [facility] 11/29/2020 - Ben Mg MD* R10.31 RIGHT lower quadrant pain* New Xrays:* Ultrasound Pelvic Transabdominal Complete, Ordered: 11/29/20 * Follow up:* need to get ultrasound set up near him in [facility] if possible, Call and let patietn know [...] Comments:* [facility]. [facility] current [facility]. Monitoring lipid panel for ASCVD risk calculations Functional Status Description No Information Available Mental Status Description No Information Available Referrals Description No Information Available
--- OUTSIDE RECORDS SUMMARY | 2021-02-04 19:48 | CCD ---
Continuity of Care Document (CCD) Created on: 11/14/2020 ClaudetteMonroemirta External Reference #: [id number] : [id number] Sex: Male Author Author Wolfgang MCDANIELS MD Organization Unknown Address [address] [place] [address] Phone [phone] Care Team Providers Care Taxation Accountant Name Role Phone Ben Mcdaniels MD AUTM [phone] Problems Active Problems Provider Date Mild intermittent [...] as needed 200unBen Hadley MD 03/09/2020 Freestyle Aneta Kit use as directed 4 times a day and as needed 1unBen Hadley MD 08/2020 Freestyle Test Strips 4 times a day and as needed 200unBen Hadley MD 03/09/2020 Exel [place] Insulin Pen [place] 2 9G X 12mm 29G X 12mm Misc use 4 times daily as needed with insulin pens 100unBen Hadley MD 01/04/2020 Onetouch Verio Strips test qid. dx 250.02 200unBen Hadley MD 01/04/2020 Blood Pressure Kit Kit check BP at least once weekly and recorduse as directed 1unandres Álvarez0 Ken Mcdaniels MD 01/04/2020 Clonidine HCL 0.1mg [...] 30caps Ben Mcdaniels MD 09/28/2015 History Medications Knee Brace [facility] Please provide knee brace for patient. 1unBen Hadley MD 11/09/2020 - 0 11/09/2020 Soliqua [id number] g/[id number] Solution Pen-Inject inject subcutaneous 15 units [...] CPT Code Status Date Vaccine Lot # [id number] Given 10/07/2020 Covid-19 Pfizer vaccine, mRNA, LNP-S, PF, 30 mcg/0.3 mL 1st dose 12988 Given 04/22/2015 Tdap (Adacel) Ages 7 And Abo ve Only Vital Signs Date Vital Result Comment 11/03/2020 11:43am Body Temperature 97.1 F Weight 321.00 lb Heart Rate 130 /min BP Systolic 168 mmHg BP Diastolic 98 mmHg Height 70 inches 5'10" O2 % BldC Oximetry 93 % [place] Body Weight 166 lb BMI (Body Mass Index) 46.1 kg/m2 10/04/2020 2:26pm Body Temperature 96.9 F Heart Rate 119 /min BP Systolic 128 mmHg BP Diastolic 86 mmHg O2 % BldC Oximetry 95 % Results Test Acquired Date Facility Test Result H/L Range Note Hemoglobin A1c 10/04/2020 [facility] Est Average Glucose NOT CALCULATED D <SEE NOTE> mg/dL 1 Hemoglobin A1c @ >14.0 % High (4.0-6.0) 2 Microalb/Creat Panel 10/04/2020 [facility] Creatinine, Urine 46.3 mg/dL Microalb/Creat Urine 70.19 ug/mgCreat High 0.00-30.00 Microalbumin 32.5 ug/ml High 0.0-20.0 Lipid 10/04/2020 [facility] Cholesterol 310 mg/dL High 50-199 Triglycerides 1210 mg/dL High 30-200 HDL 31 mg/dL 29-71 3 Chol/ HDL Ratio 9.9 ratio High 4.0-6.7 CBC with Auto Diff-fcmg 10/04/2020 [facility] WBC 8.5 K/uL 4.1-11.0 4 RBC 5.08 [...] Unless otherwise specified, testing performed by [facility] [address] [place] [address] 2 Testing performed by [facility] [address] [place] [address] Performed using [employer] immunoassay. Care must be taken when interpreting [...] >189 Procedures Date Code Description Status 11/13/2020 71017 Psychiatric Diagnostic Evaluatio n Completed 11/09/2020 18386 Office/Outpatient Established Mo d MDM 30-39 Min Completed 11/03/2020 05277 Office/Outpatient Established Mo d MDM 30-39 Min Completed 11/03/2020 42957 Brief Emotional/Beha v Assessment W/ Scoring Doc Per Standard Inst Completed 10/04/2020 11484 Preventive Visit Est 18-39 Yrs C ompleted 10/04/2020 29365 Office/Outpatient Established Lo w MDM 20-29 Min Completed 09/26/2020 39379 Office/Outpatient Established Lo w MDM 20-29 Min Completed 08/28/2020 79198 Office/Outpatient Established Mo d MDM 30-39 Min Completed 07/27/2020 50585 Office/Outpatient Established Mo d MDM 30-39 Min [...] F43.10 Post-traumatic stress disorder, unspecified Columba Perez, [facility] 11/09/2020 R91.8 Other nonspecific abnormal findi [...] Type 2 diabetes mellitus with hy perglycemia [facility] 10/04/2020 E78.2 Mixed hyperlipidemia [facility] 10/04/2020 Z00.00 Encounter for genera l adult medical examination without abnormal findings [facility] 10/04/2020 I10 Essential (primary) hypertension [facility] 10/04/2020 Z11.59 Encounter for screening for othe r viral diseases [facility] 09/26/2020 F31.9 Bipolar disorder, unspecified [...] Mcdaniels MD Plan of Treatment Future Appointment(s):* 11/27/2020 1:00 pm - Columba Perez LMFT at [facility] * 02/09/2021 11:15 am - Ben Mcdaniels MD at [facility] 11/13/2020 - Columba Perez LMFT* F43.10 Post-traumatic stress disorder, unspecified Functional Status Description No Information Available Mental Status Description No Information Available Referrals Description No Information Available
--- OUTSIDE RECORDS SUMMARY | 2021-02-04 19:51 | CCD ---
Author Author [facility] Organization [facility] Address Unknown Phone Unavailable Support Name Relationship Address Phone NELIDANAISIM Next Of Kin [address] [place] [address] RADHA AVERY Next Of Kin [address] [place] [address] DISABLED Next Of Kin Unknown Unavailable NONE, PER PT Next Of Kin - Unknown, - U - PHANI DE OLIVEIRA Next Of Kin [address] [place] [address] UNK Next Of Kin - Unknown, - U - UE Next Of Kin Unknown Unavailable LUIS ENRIQUE PEREZ Next Of Kin [address] [place] [address] UNKNOWN, CONTACT Next Of Kin Unknown MALU SANCHEZLE Next Of Kin [address] [place] [address] ANALISA SEGURA Next Of Kin na Unknown Unavailable WENDY PEREZ Next Of Kin Unknown MCDFUL Next Of Kin [address] [address] NATASHA ALEXANDER Next Of Kin Unknown Unavailable ANALISA MAXWELL Next Of Kin Unknown Unavailable TIFF ALEXANDER Next Of Kin Unknown Unavailable CHANEL BALL Next Of Kin Unknown Unavailable CONTACT, NO Next Of Kin Unknown NO, CONTACT Next Of Kin Unknown SILVER JORDAN Next Of Kin Unknown Unavailable WOOD WOLF Next Of Kin [address] [place] [address] CONTACT, NONE Next Of Kin Unknown SIM GAUTHIER Next Of Kin Unknown LUIS ENRIQUE DE OLIVEIRA Next Of Kin Unknown KALLIE PEREZ Next Of Kin [address] [place] [address] WOOD PEREZ Next Of Kin [address] [address] [place] Next Of Kin [address] [place] [address] ([phone] ANALISA PEREZ Next Of Kin [address] [place] [address] PHANI PEREZ Next Of Kin [address] [place], [place] [id number] SEGURAJUAN PABLO MATHEWS Next Of Kin [address] [place], [place] SILVIO EASTMAN Next Of Kin "" "", "" "" SILVIO DAVILA Next Of Kin [address] [facility] [address] [place] [id number] JANN PEREZ Next Of Kin [address] [facility] [address] [place] [address] Care Team Providers Care Butadiene Converter Helper Name Role Phone BRANDEN, Cristy RUBIO MD Unavailable Unavailable BRANDEN, Cristy RUBIO MD Unavailable Unavailable BRANDEN, Cristy RUBIO MD Unavailable Unavailable BRANDEN, Cristy RUBIO MD Unavailable Unavailable BRANDEN, Cristy RUBIO MD Unavailable Unavailable BRANDEN, Cristy RUBIO MD Unavailable Unavailable BRANDEN, Cristy RUBIO MD Unavailable Unavailable BRANDEN, Cristy RUBIO MD Unavailable Unavailable BRANDEN, Cristy RUBIO MD Unavailable Unavailable BRANDEN, Cristy RUBIO MD Unavailable Unavailable BRANDEN, Cristy RUBIO MD Unavailable Unavailable BRANDEN, Cristy RUBIO MD Unavailable Unavailable BRANDEN, Cristy RUBIO MD Unavailable Unavailable BRANDEN, Cristy RUBIO MD Unavailable Unavailable BRANDEN, Cristy RUBIO MD Unavailable Unavailable BRANDEN, Cristy RUBIO MD Unavailable Unavailable BRANDEN, Cristy RUBIO MD Unavailable Unavailable BRANDEN, Cristy RUBIO MD Unavailable Unavailable BRANDEN, Cristy RUBIO MD Unavailable Unavailable BRANDEN, Cristy RUBIO MD Unavailable Unavailable BRANDEN, Cristy RUBIO MD Unavailable Unavailable BRANDEN, Cristy RUBIO MD Unavailable Unavailable BRANDEN, Cristy RUBIO MD Unavailable Unavailable BRANDEN, Cristy RUBIO MD Unavailable Unavailable BRANDEN, Cristy RUBIO MD Unavailable Unavailable BRANDEN, Cristy RUBIO MD Unavailable Unavailable BRANDEN, Cristy RUBIO MD Unavailable Unavailable BRANDEN, Cristy RUBIO MD Unavailable Unavailable BRANDEN, Cristy RUBIO MD Unavailable Unavailable BRANDEN, Cristy RUBIO MD Unavailable Unavailable BRANDEN, Cristy RUBIO MD Unavailable Unavailable BRANDEN, Cristy RUBIO MD Unavailable Unavailable BRANDEN, Cristy RUBIO MD Unavailable Unavailable BRANDEN, Cristy RUBIO MD Unavailable Unavailable BRANDEN, Cristy RUBIO MD Unavailable Unavailable BRANDEN, Cristy RUBIO MD Unavailable Unavailable BRANDEN, Cristy RUBIO MD Unavailable Unavailable BRANDEN, Cristy RUBIO MD Unavailable Unavailable BRANDEN, Cristy RUBIO MD Unavailable Unavailable BRANDEN, Cristy RUBIO MD Unavailable Unavailable BRANDEN, Cristy RUBIO MD Unavailable Unavailable BRANDEN, Cristy RUBIO MD Unavailable Unavailable BRANDEN, Cristy RUBIO MD Unavailable Unavailable BRANDEN, Cristy RUBIO MD Unavailable Unavailable BRANDEN, Cristy RUBIO MD Unavailable Unavailable BRANDEN, Cristy RUBIO MD Unavailable Unavailable BRANDEN, Cristy RUBIO MD Unavailable Unavailable BRANDEN, Cristy RUBIO MD Unavailable Unavailable BRANDEN, Cristy RUBIO MD Unavailable Unavailable BRANDEN, Cristy RUBIO MD Unavailable Unavailable BRANDEN, Cristy RUBIO MD Unavailable Unavailable BRANDEN, Cristy RUBIO MD Unavailable Unavailable BRANDEN, Cristy RUBIO MD Unavailable Unavailable BRANDEN, Cristy RUBIO MD Unavailable Unavailable BRANDEN, Cristy RUBIO MD Unavailable Unavailable BRANDEN, Cristy RUBIO MD Unavailable Unavailable BRANDEN, Cristy RUBIO MD Unavailable Unavailable BRANDEN, Cristy RUBIO MD Unavailable Unavailable BRANDEN, Cristy RBUIO MD Unavailable Unavailable BRANDEN, Cristy RUBIO MD Unavailable Unavailable BRANDEN, Cristy RUBIO MD Unavailable Unavailable BRANDEN, Cristy RUBIO MD Unavailable Unavailable BRANDEN, Cristy RUBIO MD Unavailable Unavailable BRANDEN, Cristy RUBIO MD Unavailable Unavailable BRANDEN, Cristy RUBIO MD Unavailable Unavailable BRANDEN, Cristy RUBIO MD Unavailable Unavailable BRANDEN, Cristy RUBIO MD Unavailable Unavailable BRANDEN, Cristy RUBIO MD Unavailable Unavailable BRANDEN, Cristy RUBIO MD Unavailable Unavailable BRANDEN, Cristy RUBIO MD Unavailable Unavailable BRANDEN, Cristy RUBIO MD Unavailable Unavailable VIVI MEANS Unavailable Unavailable Gold, Nelia NPC Unavailable Unavailable Gold, Nelia NPC Unavailable Unavailable Gold, Nelia NPC Unavailable Unavailable Gold, Nelia NPC Unavailable Unavailable Gold, Nelia NPC Unavailable Unavailable Gold, Nelia NPC Unavailable Unavailable Gold, Nelia NPC Unavailable Unavailable Gold, Nelia NPC Unavailable Unavailable Gold, Nelia NPC Unavailable Unavailable Gold, Nelia NPC Unavailable Unavailable Gold, Nelia NPC Unavailable Unavailable Gold, Nelia NPC Unavailable Unavailable Gold, Nelia NPC Unavailable Unavailable Gold, Nelia NPC Unavailable Unavailable Gold, Nelia NPC Unavailable Unavailable Gold, Nelia NPC Unavailable Unavailable Gold, Nelia NPC Unavailable Unavailable Gold, Nelia NPC Unavailable Unavailable Gold, Nelia NPC Unavailable Unavailable Gold, Nelia NPC Unavailable Unavailable Gold, Nelia NPC Unavailable Unavailable Gold, Nelia NPC Unavailable Unavailable Gold, Nelia NPC Unavailable Unavailable Gold, Nelia NPC Unavailable Unavailable Gold, Nelia NPC Unavailable Unavailable Pedro, M Sriharsha Unavailable Unavailable Pedro, M Sriharsha Unavailable Unavailable Pedro, M Sriharsha Unavailable Unavailable Pedro, M Sriharsha Unavailable Unavailable Pedro, M Sriharsha Unavailable Unavailable Pedro, M Sriharsha Unavailable Unavailable Pedro, M Sriharsha Unavailable Unavailable Pedro, M Sriharsha Unavailable Unavailable Pedro, M Sriharsha Unavailable Unavailable Pedro, M Sriharsha Unavailable Unavailable Pedro, M Sriharsha Unavailable Unavailable Pedro, M Sriharsha Unavailable Unavailable Pedro, M Sriharsha Unavailable Unavailable Pedro, M Sriharsha Unavailable Unavailable Pedro, M Sriharsha Unavailable Unavailable Pedro, M Sriharsha Unavailable Unavailable Pedro, M Sriharsha Unavailable Unavailable Pedro, M Sriharsha Unavailable Unavailable Pedro, M Sriharsha Unavailable Unavailable Pedro, M Sriharsha Unavailable Unavailable Pedro, M Sriharsha Unavailable Unavailable Pedro, M Sriharsha Unavailable Unavailable Pedro, M Sriharsha Unavailable Unavailable Pedro, M Sriharsha Unavailable Unavailable Pedro, M Sriharsha Unavailable Unavailable Pedro, M Sriharsha Unavailable Unavailable Pedro, M Sriharsha Unavailable Unavailable Pedro, M Sriharsha Unavailable Unavailable Pedro, M Sriharsha Unavailable Unavailable Pedro, M Sriharsha Unavailable Unavailable Ann MCDANIELS MD Unavailable Unavailable Ann MCDANIELS MD Unavailable Unavailable Ann MCDANIELS MD Unavailable Unavailable Ann MCDANIELS MD Unavailable Unavailable Ann MCDANIELS MD Unavailable Unavailable Ann MCDANIELS MD Unavailable Unavailable Ann MCDANIELS MD Unavailable Unavailable ENEDELIA, Ann GARCIA MD Unavailable Unavailable ENEDELIA, Ann GARCIA MD Unavailable Unavailable ENEDELIA, Ann GARCIA MD Unavailable Unavailable ENEDELIA, Ann GARCIA MD Unavailable Unavailable ENEDELIA, Ann GARCIA MD Unavailable Unavailable ENEDELIA, Ann GARCIA MD Unavailable Unavailable ENEDELIA, Ann GARCIA MD Unavailable Unavailable ENEDELIA, Ann GARCIA MD Unavailable Unavailable ENEDELIA, Ann GARCIA MD Unavailable Unavailable ENEDELIA, Ann GARCIA MD Unavailable Unavailable ENEDELIA, Ann GARCIA MD Unavailable Unavailable ENEDELIA, Ann GARCIA MD Unavailable Unavailable ENEDELIA, Ann GARCIA MD Unavailable Unavailable ENEDELIA, Ann GARCIA MD Unavailable Unavailable ENEDELIA, Ann GARCIA MD Unavailable Unavailable ENEDELIA, Ann GARCIA MD Unavailable Unavailable ENEDELIA, Ann GARCIA MD Unavailable Unavailable ENEDELIA, Ann GARCIA MD Unavailable Unavailable ENEDELIA, Ann GARCIA MD Unavailable Unavailable ENEDELIA, Ann GARCIA MD Unavailable Unavailable ENEDELIA, Ann GARCIA MD Unavailable Unavailable ENEDELIA, Ann GARCIA MD Unavailable Unavailable ENEDELIA, Ann GARCIA MD Unavailable Unavailable ENEDELIA, Ann GARCIA MD Unavailable Unavailable ENEDELIA, Ann GARCIA MD Unavailable Unavailable ENEDELIA, Ann GARCIA MD Unavailable Unavailable ENEDELIA, Ann GARCIA MD Unavailable Unavailable ENEDELIA, Ann GARCIA MD Unavailable Unavailable ENEDELIA, Ann GARCIA MD Unavailable Unavailable ENEDELIA, Ann GARCIA MD Unavailable Unavailable ENEDELIA, Ann GARCIA MD Unavailable Unavailable ENEDELIA, Ann GARCIA MD Unavailable Unavailable ENEDELIA, Ann GARCIA MD Unavailable Unavailable ENEDELIA, Ann GARCIA MD Unavailable Unavailable ENEDELIA, Ann GARCIA MD Unavailable Unavailable ENEDELIA, Ann GARCIA MD Unavailable Unavailable ENEDELIA, Ann GARCIA MD Unavailable Unavailable ENEDELIA, Ann GARCIA MD Unavailable Unavailable ENEDELIA, Ann GARCIA MD Unavailable Unavailable ENEDELIA, Ann GARCIA MD Unavailable Unavailable ENEDELIA, Ann GARCIA MD Unavailable Unavailable ENEDELIA, Ann GARCIA MD Unavailable Unavailable ENEDELIA, Ann GARCIA MD Unavailable Unavailable ENEDELIA, Ann GARCIA MD Unavailable Unavailable ENEDELIA, Ann GARCIA MD Unavailable Unavailable ENEDELIA, Ann GARCIA MD Unavailable Unavailable ENEDELIA, Ann GARCIA MD Unavailable Unavailable ENEDELIA, Ann GARCIA MD Unavailable Unavailable ENEDELIA, Ann GARCIA MD Unavailable Unavailable ENEDELIA, Ann GARCIA MD Unavailable Unavailable ENEDELIA, Ann GARCIA MD Unavailable Unavailable ENEDELIA, Ann GARCIA MD Unavailable Unavailable Kalpana HURTADO Unavailable Unavailable Jeffery TY Unavailable Unavailable Jeffery LUA MD Unavailable Unavailable Jeffery LUA MD Unavailable Unavailable Jeffery LUA MD Unavailable Unavailable Jeffery LUA MD Unavailable Unavailable Jeffery LUA MD Unavailable Unavailable Jeffery LUA MD Unavailable Unavailable Jeffery LUA MD Unavailable Unavailable Jeffery LUA MD Unavailable Unavailable Jeffery LUA MD Unavailable Unavailable Jeffery LUA MD Unavailable Unavailable Jeffery LUA MD Unavailable Unavailable Jeffery LUA MD Unavailable Unavailable Jeffery LUA MD Unavailable Unavailable Jeffery LUA MD Unavailable Unavailable Jeffery LUA MD Unavailable Unavailable Jeffery LUA MD Unavailable Unavailable Jeffery LUA MD Unavailable Unavailable Jeffery LUA MD Unavailable Unavailable Jeffery LUA MD Unavailable Unavailable Jeffery LUA MD Unavailable Unavailable Jeffery LUA MD Unavailable Unavailable Jeffery LUA MD Unavailable Unavailable Jeffery LUA MD Unavailable Unavailable Jeffery LUA MD Unavailable Unavailable Jeffery LUA MD Unavailable Unavailable Jeffery LUA MD Unavailable Unavailable Jeffery LUA MD Unavailable Unavailable Jeffery LUA MD Unavailable Unavailable Jeffery LUA MD Unavailable Unavailable Jeffery LUA MD Unavailable Unavailable Jeffery LUA MD Unavailable Unavailable Jeffery LUA MD Unavailable Unavailable Jeffery LUA MD Unavailable Unavailable Jeffery LUA MD Unavailable Unavailable Jeffery LUA MD Unavailable Unavailable Jeffery LUA MD Unavailable Unavailable Jeffery LUA MD Unavailable Unavailable Jeffery LUA MD Unavailable Unavailable Jeffery LUA MD Unavailable Unavailable Jeffery LUA MD Unavailable Unavailable Jeffery LUA MD Unavailable Unavailable Jeffery LUA MD Unavailable Unavailable Jeffery LUA MD Unavailable Unavailable Jeffery LUA MD Unavailable Unavailable Jeffery LUA MD Unavailable Unavailable Jeffery LUA MD Unavailable Unavailable Jeffery LUA MD Unavailable Unavailable Jeffery LUA MD Unavailable Unavailable Jeffery LUA MD Unavailable Unavailable Jeffery LUA MD Unavailable Unavailable Jeffery LUA MD Unavailable Unavailable Jeffery LUA MD Unavailable Unavailable Jeffery LUA MD Unavailable Unavailable Jeffery LUA MD Unavailable Unavailable Jeffery LUA MD Unavailable Unavailable Jeffery LUA MD Unavailable Unavailable Jeffery LUA MD Unavailable Unavailable Jeffery LUA MD Unavailable Unavailable Jeffery LUA MD Unavailable Unavailable Jeffery LUA MD Unavailable Unavailable Jeffery LUA MD Unavailable Unavailable Jeffery LUA MD Unavailable Unavailable Jeffery LUA MD Unavailable Unavailable Jeffery LUA MD Unavailable Unavailable Jeffery LUA MD Unavailable Unavailable Jeffery LUA MD Unavailable Unavailable Jeffery LUA MD Unavailable Unavailable Jeffery LUA MD Unavailable Unavailable Jeffery LUA MD Unavailable Unavailable Jeffery LUA MD Unavailable Unavailable Jeffery LUA MD Unavailable Unavailable Jeffery LUA MD Unavailable Unavailable Jeffery LUA MD Unavailable Unavailable Jeffery LUA MD Unavailable Unavailable Jeffery LUA MD Unavailable Unavailable Jeffery LUA MD Unavailable Unavailable Jeffery LUA MD Unavailable Unavailable Jeffery LUA MD Unavailable Unavailable Jeffery LUA MD Unavailable Unavailable Jeffery LUA MD Unavailable Unavailable Jeffery LUA MD Unavailable Unavailable Jeffery LUA MD Unavailable Unavailable Jeffery LUA MD Unavailable Unavailable Jeffery LUA MD Unavailable Unavailable Jeffery LUA MD Unavailable Unavailable Jeffery LUA MD Unavailable Unavailable Jeffery LUA MD Unavailable Unavailable Jeffery LUA MD Unavailable Unavailable Jeffery LUA MD Unavailable Unavailable Jeffery LUA MD Unavailable Unavailable Jeffery LUA MD Unavailable Unavailable Jeffery LUA MD Unavailable Unavailable Jeffery LUA MD Unavailable Unavailable Jeffery LUA MD Unavailable Unavailable Jeffery LUA MD Unavailable Unavailable Jeffery LUA MD Unavailable Unavailable Kalpana HURTADO MD Unavailable Unavailable Cristy Talley MD Unavailable Unavailable Cristy Talley MD Unavailable Unavailable Cristy Talley MD Unavailable Unavailable Cristy Talley MD Unavailable Unavailable Cristy Talley MD Unavailable Unavailable Cristy Talley MD Unavailable Unavailable Cristy Talley MD Unavailable Unavailable Cristy Talley MD Unavailable Unavailable Cristy Talley MD Unavailable Unavailable Cristy Talley MD Unavailable Unavailable Cristy Talley MD Unavailable Unavailable Cristy Talley MD Unavailable Unavailable Cristy Talley MD Unavailable Unavailable Cristy Talley MD Unavailable Unavailable Cristy Talley MD Unavailable Unavailable Cristy Talley MD Unavailable Unavailable Cristy Talley MD Unavailable Unavailable Cristy Talley MD Unavailable Unavailable Cristy Talley MD Unavailable Unavailable Cristy Talley MD Unavailable Unavailable Yudelka Carroll Unavailable Unavailable Glen Jenkenrick Unavailable Unavailable Glen Jenkenrick Unavailable Unavailable RIGO HWANG Unavailable Unavailable JARA, A SARAN MD Unavailable Unavailable JARA, A SARAN MD Unavailable Unavailable JARA, A SARAN MD Unavailable Unavailable JARA, A SARAN MD Unavailable Unavailable JARA, A SARAN MD Unavailable Unavailable JARA, A SARAN MD Unavailable Unavailable JARA, A SARAN MD Unavailable Unavailable JARA, A SARAN MD Unavailable Unavailable JARA, A SARAN MD Unavailable Unavailable JARA, A SARAN MD Unavailable Unavailable JARA, A SARAN MD Unavailable Unavailable JARA, A SARAN MD Unavailable Unavailable JARA, A SARAN MD Unavailable Unavailable JARA, A SARAN MD Unavailable Unavailable JRAA, A SARAN MD Unavailable Unavailable JARA, A SARAN MD Unavailable Unavailable JARA, A SARAN MD Unavailable Unavailable JARA, A SARAN MD Unavailable Unavailable JARA, A SARAN MD Unavailable Unavailable JARA, A SARAN MD Unavailable Unavailable JARA, A SARAN MD Unavailable Unavailable JARA, A SARAN MD Unavailable Unavailable JARA, A SARAN MD Unavailable Unavailable JARA, A SARAN MD Unavailable Unavailable JARA, A SARAN MD Unavailable Unavailable JARA, A SARAN MD Unavailable Unavailable JARA, A SARAN MD Unavailable Unavailable JARA, A SARAN MD Unavailable Unavailable JARA, A SARAN MD Unavailable Unavailable JARA, A SARAN MD Unavailable Unavailable JARA, A SARAN MD Unavailable Unavailable JARA, A SARAN MD Unavailable Unavailable JARA, A SARAN MD Unavailable Unavailable JARA, A SARAN MD Unavailable Unavailable JARA, A SARAN MD Unavailable Unavailable JARA, A SARAN MD Unavailable Unavailable JARA, A SARAN MD Unavailable Unavailable JARA, A SARAN MD Unavailable Unavailable JARA, A SARAN MD Unavailable Unavailable JARA, A SARAN MD Unavailable Unavailable JARA, A SARAN MD Unavailable Unavailable JARA, A SARAN MD Unavailable Unavailable JARA, A SARAN MD Unavailable Unavailable JARA, A SARAN MD Unavailable Unavailable JARA, A SARAN MD Unavailable Unavailable JARA, A SARAN MD Unavailable Unavailable JARA, A SARAN MD Unavailable Unavailable JARA, A SARAN MD Unavailable Unavailable JARA, A SARAN MD Unavailable Unavailable JARA, A SARAN MD Unavailable Unavailable JARA, A SARAN MD Unavailable Unavailable JARA, A SARAN MD Unavailable Unavailable JARA, A SARAN MD Unavailable Unavailable JARA, A SARAN MD Unavailable Unavailable JARA, A SAARN MD Unavailable Unavailable JARA, A SARAN MD Unavailable Unavailable JARA, A SARAN MD Unavailable Unavailable JARA, A SARAN MD Unavailable Unavailable JARA, A SARAN MD Unavailable Unavailable JARA, A SARAN MD Unavailable Unavailable JARA, A SARAN MD Unavailable Unavailable JARA, A SARAN MD Unavailable Unavailable JARA, A SARAN MD Unavailable Unavailable JARA, Cristy NOONAN MD Unavailable Unavailable JARA, Cristy NOONAN MD Unavailable Unavailable JARA, Cristy NOONAN MD Unavailable Unavailable JARA, Cristy NOONAN MD Unavailable Unavailable JARA, Cristy NOONAN MD Unavailable Unavailable JARA, Cristy NOONAN MD Unavailable Unavailable JARA, Cristy NOONAN MD Unavailable Unavailable JARA, Cristy NOONAN MD Unavailable Unavailable JARA, Cristy NOONAN MD Unavailable Unavailable JARA, Cristy NOONAN MD Unavailable Unavailable JARA, Cristy NOONAN MD Unavailable Unavailable JARA, Cristy NOONAN MD Unavailable Unavailable JARA, Cristy NOONAN MD Unavailable Unavailable JARA, Cristy NOONAN MD Unavailable Unavailable JARA, Cristy NOONAN MD Unavailable Unavailable JARA, Cristy NOONAN MD Unavailable Unavailable JARA, Cristy NOONAN MD Unavailable Unavailable JARA, Cristy NOONAN MD Unavailable Unavailable JARA, Cristy NOONAN MD Unavailable Unavailable JARA, Cristy NOONAN MD Unavailable Unavailable JARA, Cristy NOONAN MD Unavailable Unavailable JARA, Cristy NOONAN MD Unavailable Unavailable JARA, Cristy NOONAN MD Unavailable Unavailable JARA, Cristy NOONAN MD Unavailable Unavailable JARA, Cristy NOONAN MD Unavailable Unavailable JARA, Cristy NOONAN MD Unavailable Unavailable JARA, Cristy NOONAN MD Unavailable Unavailable JARA, Cristy NOONAN MD Unavailable Unavailable MAREK, Cristy NOONAN MD Unavailable Unavailable Krishna MOODY MD Unavailable Unavailable Krishna MOODY MD Unavailable Unavailable Krishna MOODY MD Unavailable Unavailable Krishna MOODY MD Unavailable Unavailable Krishna MOODY MD Unavailable Unavailable Krishna MOODY MD Unavailable Unavailable Krishna MOODY MD Unavailable Unavailable Krishna MOODY MD Unavailable Unavailable Krishna MOODY MD Unavailable Unavailable Krishna MOODY MD Unavailable Unavailable Krishna MOODY MD Unavailable Unavailable Krishna MOODY MD Unavailable Unavailable Krishna MOODY MD Unavailable Unavailable Krishna MOODY MD Unavailable Unavailable Krishna MOODY MD Unavailable Unavailable Jeffery LUA MD Unavailable Unavailable Jeffery LUA MD Unavailable Unavailable Jeffery LUA MD Unavailable Unavailable Jeffery LUA MD Unavailable Unavailable Jeffery LUA MD Unavailable Unavailable Jeffery LUA MD Unavailable Unavailable Jeffery LUA MD Unavailable Unavailable Jeffery LUA MD Unavailable Unavailable Jeffery LUA MD Unavailable Unavailable Jeffery LUA MD Unavailable Unavailable Jeffery LUA MD Unavailable Unavailable Jeffery LUA MD Unavailable Unavailable Jeffery LUA MD Unavailable Unavailable Jeffery LUA MD Unavailable Unavailable Jeffery LUA MD Unavailable Unavailable Jeffery LUA MD Unavailable Unavailable Jeffery LUA MD Unavailable Unavailable Jeffery LUA MD Unavailable Unavailable Jeffery LUA MD Unavailable Unavailable Jeffery LUA MD Unavailable Unavailable Jeffery LUA MD Unavailable Unavailable Jeffery LUA MD Unavailable Unavailable Jeffery LUA MD Unavailable Unavailable Jeffery LUA MD Unavailable Unavailable Jeffery LUA MD Unavailable Unavailable Jeffery LUA MD Unavailable Unavailable Jeffery LUA MD Unavailable Unavailable Jeffery LUA MD Unavailable Unavailable Jeffery LUA MD Unavailable Unavailable Jeffery LUA MD Unavailable Unavailable Jeffery LUA MD Unavailable Unavailable Jeffery LUA MD Unavailable Unavailable Jeffery LUA MD Unavailable Unavailable Jeffery LUA MD Unavailable Unavailable Jeffery LUA MD Unavailable Unavailable Jeffery LUA MD Unavailable Unavailable Jeffery LUA MD Unavailable Unavailable Jeffery LUA MD Unavailable Unavailable Jeffery LUA MD Unavailable Unavailable Jeffery LUA MD Unavailable Unavailable Jeffery LUA MD Unavailable Unavailable Jeffery LUA MD Unavailable Unavailable Jeffery LUA MD Unavailable Unavailable Jeffery LUA MD Unavailable Unavailable Jeffery LUA MD Unavailable Unavailable Jeffery LUA MD Unavailable Unavailable Jeffery LUA MD Unavailable Unavailable Jeffery LUA MD Unavailable Unavailable Jeffery LUA MD Unavailable Unavailable Jeffery LUA MD Unavailable Unavailable Jeffery LUA MD Unavailable Unavailable Jeffery LUA MD Unavailable Unavailable Jeffery LUA MD Unavailable Unavailable Jeffery LUA MD Unavailable Unavailable Jeffery LUA MD Unavailable Unavailable Jeffery LUA MD Unavailable Unavailable Jeffery LUA MD Unavailable Unavailable Jeffery LUA MD Unavailable Unavailable Jeffery LUA MD Unavailable Unavailable Jeffery LUA MD Unavailable Unavailable Jeffery LUA MD Unavailable Unavailable Jeffery LUA MD Unavailable Unavailable Jeffery LUA MD Unavailable Unavailable Jeffery LUA MD Unavailable Unavailable Jeffery LUA MD Unavailable Unavailable Jeffery LUA MD Unavailable Unavailable Jeffery LUA MD Unavailable Unavailable Jeffery LUA MD Unavailable Unavailable Jeffery LUA MD Unavailable Unavailable Jeffery LUA MD Unavailable Unavailable Jeffery LUA MD Unavailable Unavailable Jeffery LUA MD Unavailable Unavailable Jeffery LUA MD Unavailable Unavailable Jeffery LUA MD Unavailable Unavailable Jeffery LUA MD Unavailable Unavailable Jeffery LUA MD Unavailable Unavailable Jeffery LUA MD Unavailable Unavailable Jeffery LUA MD Unavailable Unavailable Jeffery LUA MD Unavailable Unavailable Jeffery LUA MD Unavailable Unavailable Jeffery LUA MD Unavailable Unavailable Jeffery LUA MD Unavailable Unavailable Jeffery LUA MD Unavailable Unavailable Jeffery LUA MD Unavailable Unavailable Jeffery LUA MD Unavailable Unavailable Jeffery LUA MD Unavailable Unavailable Jeffery LUA MD Unavailable Unavailable Jeffery LUA MD Unavailable Unavailable Jeffery LUA MD Unavailable Unavailable Jeffery LUA MD Unavailable Unavailable Jeffery LUA MD Unavailable Unavailable Jeffery LUA MD Unavailable Unavailable Jeffery LUA MD Unavailable Unavailable Jeffery LUA MD Unavailable Unavailable Jeffery LUA MD Unavailable Unavailable Jeffery LUA MD Unavailable Unavailable Salty Jacob MD Unavailable Unavailable Salty Jacob MD Unavailable Unavailable Salty Jacob MD Unavailable Unavailable Salty Jacob MD Unavailable Unavailable Salty Jacob MD Unavailable Unavailable Salty Jacob MD Unavailable Unavailable Salty Jacob MD Unavailable Unavailable Salty Jacob MD Unavailable Unavailable Jeffery SULTANA MD Unavailable Unavailable Jeffery SULTANA MD Unavailable Unavailable Jeffery SULTANA MD Unavailable Unavailable Jeffery SULTANA MD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 12:00:00 AM EDT active [facility] ([facility]) Sertraline 50 MG Oral Tablet Sertraline HCL 08/28/2020 12:00:00 AM EDT completed [facility] ([facility]) Nebulizer 08/16/2020 12:00:00 AM EDT active [facility] ([facility]) Albuterol 0.83 MG/ML Inhalant Solution Albuterol Sulfate 0 07/27/2020 12:00:00 AM EDT active [facility] ([facility]) gabapentin 600 MG Oral Tablet Gabapentin 07/27/2020 12:00:00 AM EDT ORAL active [facility] ([facility]) Airduo Digihaler Airduo Digihaler 07/27/2020 12:00:00 AM EDT RESPIRATORY completed [facility] ([facility]) Airduo Respiclick 232/14 Airduo Respiclick 232/14 07/27/2020 12:00: 00 AM EDT RESPIRATORY active [facility] ([facility]) Sertraline 25 MG Oral Tablet Sertraline HCl 25 MG Oral Tablet (ZOLOFT) Sertraline HCl 25 MG Oral Tablet (ZOLOFT) 04/06/2020 12:00:00 AM EST active TAKE 1/2 TABLET BY M OUTH AT BEDTIME FOR 1 WEEK THEN 1 TABLET ONCE DAILY [facility] meloxicam 7.5 MG Oral Tablet Meloxicam 7.5 MG Oral Tab let (MOBIC) Meloxicam 7.5 MG Oral Tablet (MOBIC) 04/06/2020 12:00:00 AM EST active TAKE ONE TABLET BY MOUTH ONCE DAILY WITH FOOD [facility] Prazosin 1 MG Oral Capsule Prazosin HCl 1 MG Oral Caps ule (MINIPRESS) Prazosin HCl 1 MG Oral Capsule (MINIPRESS) 04/06/2020 12:00:00 AM EST 1 mg Oral active [facility].5 MG Oral Tablet Meloxicam 04/05/2020 12:00:00 AM EST ORAL active [facility] ([facility]) Sertraline 25 MG Oral Tablet Sertraline HCL 04/05/2020 12:00:00 AM EST completed [facility] ([facility]) Prazosin 1 MG Oral Capsule Prazosin HCL 04/05/2020 12:00:00 AM EST active [facility] ([facility]) Oxycodone Hydrochloride 5 MG Oral Tablet oxyCODONE HCl 5 MG Oral Tablet (Roxicodone) oxyCODONE HCl 5 MG Oral Tablet (Roxicodone) 03/27/2020 12:00:00 AM EST 5 mg Oral active Take 1 t ablet by mouth every 6 (six) hours as needed for Pain, Max Daily Dose: 20 mg [facility] Semglee 100 UNIT/ML Subcutaneous Solution Pen-injector 11646 -[id number] 03/14/2020 12:00:00 AM EST active INJECT 5 5 UNITS UNDER THE SKIN AT BEDTIME [facility] Freestyle Test 03/09/2020 12:00:00 AM EST act shane [facility] ([facility]) Freestyle Lancets 03/09/2020 12:00:00 AM EST active [facility] ([facility]) apixaban 2.5 MG Oral Tablet [Eliquis] Eliquis 03/09/2020 12:00:00 AM EST ORAL active [facility] ([facility]) Semglee Semglee 03/09/2020 12:00:00 AM EST complet ed [facility] ([facility]) Zolpidem tartrate 10 MG Oral Tablet Zolpidem Tartrate 08/2020 12:00:00 AM EST ORAL active [facility] ([facility]) Albuterol Sulfate HFA 108 (90 Base) MCG/ ACT Inhalation Aerosol Solution (PROVENTIL HFA) 5055-8823-38 03/09/2020 12:00:00 AM EST active INHALE 1 2 PUFFS EVERY 6 HOURS NEEDED FOR WHEEZING [facility] apixaban 2.5 MG Oral Tablet [Eliquis] Eliquis 2.5 MG O ral Tablet Eliquis 2.5 MG Oral Tablet 03/09/2020 12:00:00 AM EST 2.5 mg Oral active Take 2.5 mg by mouth Two Times Daily [facility] Omeprazole 20 MG Delayed Release Oral Ca psule Omeprazole 20 MG Oral Capsule Delayed Release (PriLOSEC) Omeprazole 20 MG Oral Capsule Delayed Re lease (PriLOSEC) 03/09/2020 12:00:00 AM EST 20 mg Oral active Take 20 mg by mouth daily [facility] Zolpidem tartrate 10 MG Oral Tablet Zolp idem Tartrate 10 MG Oral Tablet (AMBIEN) Zolpidem Tartrate 10 MG Oral Tablet (AMBIEN) 03/09/2020 12:00:[address] active TAKE ONE TABLET BY MOUTH EVERY EVENING AT BEDTIME NEEDED FOR SLEEP MAXIMUM DAILY DOSE ONE TABLET [facility] Freestyle [place] 03/09/2020 12:00:00 AM EST active [facility] ([facility]. Devices (DURABLE MEDICAL EQUIPMENT SEE SIG) XX [facility] 97 [id number] 02/23/2020 12:00:00 AM EST active Use as directed. 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 [facility] Oxycodone Hydrochloride 5 MG Oral Tablet oxyCODONE HCl 5 MG Oral Tablet (ROXICODONE) oxyCODONE HCl 5 MG Oral Tablet (ROXICODONE) 02/23/2020 12:00:00 AM EST 5 mg Oral active Take 1 t ablet by mouth every 4 (four) hours as needed for Pain for up to 80 doses, Max Daily Dose: 30 mg [facility] oxyCODONE (ROXICODONE) immediate release tablet 5 mg 02/09/2020 09:19:06 AM EST 5 mg Oral active [Order 1 Start] Name: oxyCODONE (ROXICODONE) immediate release tablet 5 mg Signed Summary: 5 mg, Oral, Every 4 hours PRN, Moderate Pain (Pain Scale Score 4-6), Starting Fri02/09/20 at 0919, For 3 d ays
Oxycodone immediate release is limited to 10 mg per dose. Higher doses ( only) require Pain Service consultation and approval.
[Order 1 End] [Order 2 Start] Name: oxyCODONE (ROXICODONE) immediate release tablet 7.5 mg Signed Summary: 7.5 mg, Oral, Every 4 hours PRN, Severe Pain (Pain Scale Score 7-10), Starting Fri02/09/20 at 0919, For 3 days
Oxycodone immediate release is limited to 10 mg per dose. Higher doses ( only) require Pain Service consultation and approval.
[Order 2 End] [facility] Medication administered onsite Zolpidem tartrate 5 MG Oral Tablet Zolpidem Tartrate 5 MG Oral Tablet (AMBIEN) Zolpidem Tartrate 5 MG Oral Tablet (AMBIEN) 02/09/2020 12:00:00 AM EST 5 mg Oral active Take 1 tablet by mouth nightly as needed for Sleep, Max Daily Dose: 5 mg [facility] Oxycodone Hydrochloride 5 MG Oral Tablet oxyCODONE HCl 5 MG Oral Tablet (ROXICODONE) oxyCODONE HCl 5 MG Oral Tablet (ROXICODONE) 02/09/2020 12:00:00 AM EST 5 mg Oral active Take 1 t ablet by mouth every 4 (four) hours as needed for up to 5 days, Max Daily Dose: 30 mg [facility] Insulin Lispro 100 UNT/ML Injectable Bernadine ution Insulin Lispro 100 UNIT/ML Subcutaneous Solution (Admelog) Insulin Lispro 100 UNIT/ML Subcutaneous Solution (Admelog) 02/09/2020 12:00:00 AM EST U Subcutaneous ac tive Inject 1- 16 Units into the skin Three times daily before meals Inject per Sliding scale directions [facility] Metoprolol Tartrate 50 MG Oral Tablet Me toprolol Tartrate 50 MG Oral Tablet (LOPRESSOR) Metoprolol Tartrate 50 MG Oral Tablet (LOPRESSOR) 11/2019 12:00:00 AM EST 50 mg Oral active Take 1 tablet by mouth Two Times Daily [facility] insulin lispro 100 UNIT/ML SC injection MEDIUM DOSE EA TING INSULIN patients [id number] 02/09/2020 12:00:00 AM EST U Subcutaneous aborted Patient Instructions: Please refer to Insulin Sliding Scale Instructions in the Discharge Instructions. [facility] tizanidine 4 MG Oral Tablet tiZANidine HCl 4 MG Oral T ablet (Zanaflex) tiZANidine HCl 4 MG Oral Tablet (Zanaflex) 02/09/2020 12:00:00 AM EST 4 mg Oral active Take 1 tablet by mouth every 6 (six) hours as needed for up to 10 days [facility] [employer] Flex System w/Device Kit [id number] 02/09/20 12:00:00 AM EST active Test 4-6 times d oscar. Dx code E11.65 [facility] gabapentin 100 MG Oral Capsule Gabapentin 100 MG Oral Capsule (Neurontin) Gabapentin 100 MG Oral Capsule (Neurontin) 02/09/2020 12:00:00 AM EST 100 mg Oral active Take 1 capsule by mo [facility] Four times daily [facility] Docusate Sodium 100 MG Oral Capsule Docu sate Sodium 100 MG Oral Capsule (COLACE) Docusate Sodium 100 MG Oral Capsule (COLACE) 02/09/2020 12:00:00 AM EST 100 mg Oral active Take 1 capsule by mouth Two Times Daily for 10 days [facility] Delica Lancets 33G [id number] 02/09/2020 12:00:00 AM EST active Use 4-6 times daily. Dx code E1 1.65 [facility] Insulin Glargine 100 UNT/ML Injectable S olution Insulin Glargine 100 UNIT/ML Subcutaneous Solution (Lantus) Insulin Glargine 100 UNIT/ML Subcutaneou s Solution (Lantus) 02/09/2020 12:00:00 AM EST 30 U Subcutaneous active Inject 30 Units into the skin nightly [facility] Acetaminophen 325 MG Oral Tablet Acetaminophen 325 MG Oral T ablet 02/09/2020 12:00:00 AM EST 650 mg Oral active Take 2 tablets by mouth every 6 (six) hours as needed for Pain for up to 90 doses [facility] Lurasidone Hydrochloride 20 MG Oral Tabl et Lurasidone HCl 20 MG Oral Tablet (LATUDA) Lurasidone HCl 20 MG Oral Tablet (LATUDA) 02/09/2020 12:00:00 AM EST 20 mg Oral active Take 1 tablet by mouth d aily [facility] Clonidine Hydrochloride 0.1 MG Oral Tabl et cloNIDine HCl 0.1 MG Oral Tablet (CATAPRES) cloNIDine HCl 0.1 MG Oral Tablet (CATAPRES) 02/09/2020 12:00:00 AM EST 0.1 mg Oral active Take 1 tablet by mouth daily [facility] Calcium Carbonate 500 MG Chewable Tablet Calcium Carbonate Antacid 500 MG Oral Tablet Chewable (TUMS) Calcium Carbonate Antacid 500 MG Oral Ta blet Chewable (TUMS) 02/09/2020 12:00:00 AM EST 500 mg Oral active Chew 1 tablet by Mouth Three times daily as needed for Heartburn for up to 30 doses [facility] Isopropyl Alcohol 0.7 ML/ML Medicated Pad Alcohol Prep 70 % Pad Alcohol Prep 70 % Pad 02/09/2020 12:00:00 AM EST active Use as directed. Dx code E11.65 [facility] Aspirin 81 MG Delayed Release Oral Table t Aspirin 81 MG Oral Tablet Delayed Release Aspirin 81 MG Oral Tablet Delayed Release 02/09/2020 12:00:00 AM EST 81 mg Oral active Take 1 tablet by mouth d aily [facility] Isopropyl Alcohol 0.7 ML/ML Medicated Pad Alcohol Swabs Pad Alcohol Swabs Pad 02/09/2020 12:00:00 AM EST active Use as directed. use 8-10 per day, E11.65, #200, 1 refill [facility] Nystatin 128414 UNT/ML Topical Cream Nys tatin [id number] UNIT/GM External Cream (MYCOSTATIN) Nystatin 486223 UNIT/GM External Cream (MYCOSTATIN) 12:00:00 AM EST active Apply to abdominal folds where red, inflamed two times per day [facility] Hydrochlorothiazide 12.5 MG / Lisinopril 20 MG Oral Tablet Lisinopril- hydroCHLOROthiazide 20-12.5 MG Oral Tablet (ZESTORETIC) Lisinopril- hydroCHLOROthiazide 20-12.5 MG Oral Tablet (ZESTORETIC) 02/09/2020 12:00:00 AM EST 1 {tbl} Oral active Take 1 tablet by mouth daily [facility] Diclofenac Sodium 0.01 MG/MG Topical Gel Diclofenac Sodium 1 % Transdermal Gel (VOLTAREN) Diclofenac Sodium 1 % Transdermal Gel (VOLTAREN) 02/08 12:00:00 AM EST 2 g Topical active Apply 2 g topica lly Three times daily [facility] celecoxib 200 MG Oral Capsule Celecoxib 200 MG Oral Ca psule (CeleBREX) Celecoxib 200 MG Oral Capsule (CeleBREX) 02/09/2020 12:00:00 AM EST 200 mg Or al active Take 1 capsule by [facility] daily as needed for Pain (mild-moderate pain) [facility] BD Pen Needle Mini U/F 31G X 5 MM (Insulin Pen Needle) [id number] 02/09/2020 12:00:00 AM EST active Use as directed. # 200, use 4-6 per day, 1 refill [facility] OneTouch Verio In Vitro Strip (glucose blood) 75765-273-96 02/09/2020 12:00:00 AM EST active Test with 4-6 nai es daily. Dx code E11.65 [facility] Zolpidem tartrate 5 MG Oral Tablet zolpidem (AMBIEN) t ablet 5 mg zolpidem (AMBIEN) tablet 5 mg 02/06/2020 11:07:36 PM EST 5 mg Oral active 5 mg, Oral, Nightly PRN, Sleep, Starting 02/06/20 at 2307, For 5 days 11 hours [facility] Medication administered onsite alginic acid 200 MG / Calcium Carbonate 80 MG / magnesium trisilicate 20 MG / Sodium Bicarbonate 70 MG Oral Tablet calcium carbonate (TUMS) chewable tablet 500 mg calcium carbonate (TUMS) chewable tablet 500 mg 2019 02:48:21 PM EST 500 mg Oral active 500 mg, Oral, Daily PRN, Indigestion, Starting 02/06/20 at 1448, For 30 days [facility] Medication administered onsite ondansetron (ZOFRAN) injection 4 mg 02/04/2020 04:42:00 PM EST 4 mg Intravenous active [Order 1 Star t] Name: ondansetron (ZOFRAN) injection 4 mg Signed Summary: 4 mg, Intravenous, Every 8 hours PRN, Nausea, Vomiting, Starting 02/04/20 at 1642, For 7 days [Order 1 End] [Order 2 Start] Name: ondansetron (ZOFRAN) tablet 4 mg Signed Summary: 4 mg, Oral, Every 8 hours PRN, Nausea, Vomiting, Starting 02/04/20 at 1642, For 7 days [Order 2 End] [facility] Medication administered onsite Oxycodone Hydrochloride 5 MG Oral Tablet oxyCODONE HCl 5 MG Oral Tablet (ROXICODONE) oxyCODONE HCl 5 MG Oral Tablet (ROXICODONE) 02/04/2020 12:00:00 AM EST 5 mg Oral aborted Take 1 t ablet by mouth every 4 (four) hours as needed for up to 3 days, Max Daily Dose: 30 mg [facility] Zolpidem tartrate 5 MG Oral Tablet zolpidem (AMBIEN) t ablet 5 mg zolpidem (AMBIEN) tablet 5 mg 02/02/2020 11:27:44 PM EST 5 mg Oral completed 5 mg, Oral, Nightly PRN, Sleep, Starting 02/02/20 at 2327, For 3 days [facility] Medication administered onsite Docusate Sodium 100 MG Oral Capsule Docu sate Sodium 100 MG Oral Capsule (COLACE) Docusate Sodium 100 MG Oral Capsule (COLACE) 02/01/2020 12:00:00 AM EST 100 mg Oral aborted Take 1 capsule by mouth Two Times Daily for 10 days [facility] Oxycodone Hydrochloride 5 MG Oral Tablet oxyCODONE HCl 5 MG Oral Tablet (ROXICODONE) oxyCODONE HCl 5 MG Oral Tablet (ROXICODONE) 02/01/2020 12:00:00 AM EST 5 mg Oral aborted Take 1 t ablet by mouth every 4 (four) hours as needed for up to 3 days, Max Daily Dose: 30 mg [facility] tizanidine 4 MG Oral Tablet tiZANidine HCl 4 MG Oral T ablet (Zanaflex) tiZANidine HCl 4 MG Oral Tablet (Zanaflex) 02/01/2020 12:00:00 AM EST 4 mg Oral aborted Take 1 tablet by mouth every 6 (six) hours as needed for up to 10 days [facility] Zolpidem tartrate 5 MG Oral Tablet zolpidem (AMBIEN) t ablet 5 mg zolpidem (AMBIEN) tablet 5 mg 01/30/2020 09:19:43 PM EST 5 mg Oral completed 5 mg, Oral, Nightly PRN, Sleep, Starting 01/30/20 at 2119, For 3 days [facility] Medication administered onsite Trazodone Hydrochloride 100 MG Oral Tablet trazodone ( DESYREL) tablet 100 mg trazodone (DESYREL) tablet 100 mg 01/29/2020 08:30:00 AM EST 100 mg Oral aborted 100 mg, Oral, Nightl y PRN, Sleep, Starting 01/29/20 at 0830, For 48 hours
Telephone order with read back to increase to 50mg qhs per Omid Arthur
[facility] Medication administered onsite Insulin Glargine 100 UNT/ML Injectable S olution insulin glargine (LANTUS) injection 24 Units insulin glargine (LANTUS) injection 24 Units 0 10:00:00 PM EST 24 U Subcutaneous active 24 Units, Subcutaneous, Nightly, First dose on Fri01/28/20 at 2200, For 30 days
For blood glucose less than 70 mg/dL: follow hypoglycemia protocol ( ) and notify provider. For blood glucose values between 70 mg/dL and 100 mg/dL at bedtime: provide snack (15 grams of carbohydrates) with some protein. Administer FULL DOSE of insulin glargine (LANTUS) after snack. Record snack in I&O's. For blood glucose more than 400 mg/dL: notify provider
[facility] Medication administered onsite Trazodone Hydrochloride 50 MG Oral Tablet trazodone (D ESYREL) tablet 50 mg trazodone (DESYREL) tablet 50 mg 01/28/2020 10:00:00 PM EST 50 mg Oral aborted 50 mg, Oral, Nightly , First dose on Fri01/28/20 at 2200, For 30 days
Telephone order with read back to increase to 50mg qhs per Omid Arthur
[facility] Medication administered onsite Magnesium Hydroxide 80 MG/ML Oral Suspen alexx magnesium hydroxide (MILK OF MAGNESIA) 400 MG/5ML suspension 45 mL magnesium hydroxide (MILK OF MAGNESIA) 4 00 MG/5ML suspension 45 mL 01/28/2020 10:00:00 PM EST 45 mL Oral active 45 mL, Oral, Nightly, First dose on Fri01/28/20 at 2200, For 30 days
If serum creatinine > 2 notify provider before administering.
[facility] Medication administered onsite morphine sulfate (PF) injection 2 mg [id number] 01/28/2020 10:49: 42 AM EST 2 mg Intravenous aborted 2 mg, In travenous, Every 2 hours PRN, Breakthrough Pain, Starting Fri01/28/20 at 1049, For 24 hours [facility] Medication administered onsite Lurasidone Hydrochloride 40 MG Oral Tablet lurasidone HCl (LATUDA) tablet 20 mg lurasidone HCl (LATUDA) tablet 20 mg 01/28/2020 09:00:00 AM EST 20 mg Oral active 20 mg, Oral, Rita ly Standard, First dose on Fri01/28/20 at 0900, For 30 days
Administer with food.
[facility] Medication administered onsite Metoprolol Tartrate 50 MG Oral Tablet metoprolol (LOPR ESSOR) tablet 50 mg metoprolol (LOPRESSOR) tablet 50 mg 01/28/2020 09:00:00 AM EST 50 mg Oral active 50 mg, Oral, 2 Times Daily, First dose on Fri01/28/20 at 0900, For 30 days
Check vital signs before administering
[facility] Medication administered onsite gabapentin 100 MG Oral Capsule gabapentin (NEURONTIN) capsule 100 mg gabapentin (NEURONTIN) capsule 100 mg 01/28/2020 09:00:00 AM EST 100 mg Oral active 100 mg, Oral, Four Times Da amanda Standard, First dose on Fri01/28/20 at 0900, For 30 days [facility] Medication administered onsite Lisinopril 20 MG Oral Tablet lisinopril (ZESTRIL) tabl et 20 mg lisinopril (ZESTRIL) tablet 20 mg 01/28/2020 09:00:00 AM EST 20 mg Oral active 20 mg, Oral, Daily Standard, First dose on Fri01/28/20 at 0900, For 30 days
Check vital signs before administering
[facility] Medication administered onsite Docusate Sodium 100 MG Oral Capsule docusate sodium (C OLACE) capsule 100 mg docusate sodium (COLACE) capsule 100 mg 01/28/2020 09:00:00 AM EST 100 mg Oral active 100 mg, Oral, 2 Times Daily, First dose on Fri01/28/20 at 0900, For 30 days [facility] Medication administered onsite POLYETHYLENE GLYCOL 3350 142 MG/ML Oral Solution polyethylene glycol (MIRALAX) packet 17 g polyethylene glycol (MIRALAX) packet 17 g 01/28/2020 0 9:00:00 AM EST 17 g Oral active 17 g, Or al, Daily Standard, First dose on Fri01/28/20 at 0900, For 30 days
Hold for Bowel Movement.
[facility] Medication administered onsite 0.4 ML Enoxaparin sodium 100 MG/ML Prefi lled Syringe enoxaparin sodium (LOVENOX) injection 40 mg enoxaparin sodium (LOVENOX) injection 40 mg 01/28/2020 09:00:00 AM EST 40 mg Subcutaneous active 40 mg, Subcutaneous, Daily Standard, First dose on Fri01/28/20 at 0900, For 30 days [facility] Medication administered onsite insulin lispro (HumaLOG) injection MEDIU M DOSE EATING INSULIN patients 1-16 Units [id number] 01/28/2020 08:00:00 AM EST U Subcutaneous active 1-16 Units, Subcutaneous, Three Times Daily-With Meals, First dose on Fri01/28/20 at 0800, For 30 days
Nursing MUST open the 'SQ Insulin Dosing Charts' Sidebar Report, or, the Patient Summary or Summary Report within the ED.
[facility] Medication administered onsite Clonidine Hydrochloride 0.1 MG Oral Tablet cloNIDine ( CATAPRES) tablet 0.1 mg cloNIDine (CATAPRES) tablet 0.1 mg 01/28/2020 02:30:00 AM EST 0.1 mg Oral active 0.1 mg, Oral, Daily Standard, First dose (after last modification) on Fri01/28/20 at 0230, For 30 days
Check vital signs before administering
[facility] Medication administered onsite Nicotine 4 MG/ACTUAT Inhalant Solution nicotine (NICOT ROL) inhaler 1 puff nicotine (NICOTROL) inhaler 1 puff 01/28/2020 02:29:15 AM EST 1 {puff} Inhalation active 1 puff, Inhala tion, PRN, Smoking cessation, Starting Fri01/28/20 at 0229, For 30 days
May puff cartridge for up to 20 minutes. Each cartridge delivers 4 mg Avoid use between hours of 2200 and 0600 due to stimulant effects Do not exceed 16 cartridges/day
[facility] Medication administered onsite Glucose 0.417 MG/MG Oral Gel glucose (GLUTOSE) 40 % or al gel 15 g glucose (GLUTOSE) 40 % oral gel 15 g 01/28/2020 01:25:07 AM EST 15 g Oral active 15 g, Oral, PRN, Low blood s ugar, for gluose 55-69 mg/dl and able to take PO, Starting Fri01/28/20 at 0125, For 30 days [facility] Medication administered onsite Acetaminophen 325 MG Oral Tablet acetaminophen (TYLENO L) tablet 650 mg acetaminophen (TYLENOL) tablet 650 mg 01/28/2020 01:25:07 AM EST 65 0 mg Oral active 650 mg, Oral, E very 6 hours PRN, Mild Pain (Pain Scale Score 1- 3), Fever, Starting Fri01/28/20 at 0125, For 30 days
Maximum daily dose of acetaminophen is 3,000 mg from all sources in 24 hours.
[facility] Medication administered onsite morphine sulfate (PF) injection 2 mg 6140-9390-12 01/28/2020 01:25: 07 AM EST 2 mg Intravenous aborted 2 mg, In travenous, Every 2 hours PRN, Breakthrough Pain, Starting Fri01/28/20 at 0125, For 3 days [facility] Medication administered onsite senna tablet 2 tablet 01/28/2020 01:25:07 AM EST 2 {tbl} Oral active [Order 1 Start] Name: senna tablet 2 tab let Signed Summary: 2 tablet, Oral, Nightly PRN, Constipation, Starting Fri01/28/20 at 0125, For 30 days [Order 1 End] [Order 2 Start] Name: senna (SENOKOT) syrup 10 mL Signed Summary: 10 mL, Oral, Nightly PRN, Constipation, Starting Fri01/28/20 at 0125, For 30 days
Use NG tube nightly as needed if no BM on the third day.
[Order 2 End] [facility] Medication administered onsite Bisacodyl 10 MG Rectal Suppository bisacodyl (DULCOLAX ) suppository 10 mg bisacodyl (DULCOLAX) suppository 10 mg 01/28/2020 01:25:07 AM EST 10 mg Rectal active 10 mg, Rectal, Every 72 hours PRN, Constipation, Constipation, Starting Fri01/28/20 at 0125, For 30 days
Hold if patient has had a BM in the past 2 days.
[facility] Medication administered onsite dextrose 50 % IV solution 25 mL [id number] 01/28/2020 01:25:[address] 25 mL Intravenous active 25 mL, Intrav enous, PRN, Other, blood glucose <55, Starting Fri01/28/20 at 0125, For 30 days
Not for midline administration.
[facility] Medication administered onsite Glucagon 1 MG Injection glucagon (human recombinant) ( GLUCAGEN) injection 1 mg glucagon (human recombinant) (GLUCAGEN) injection 1 mg 01/28/2020 01:25:06 AM EST 1 mg Intramuscular active 1 mg, Intramuscular, PRN, for glucose <55 without IV access, Starting Fri01/28/20 at 0125, For 30 days [facility] Medication administered onsite morphine sulfate (PF) injection 4 mg 01/28/2020 12:15: 00 AM EST 4 mg Intravenous completed 4 mg, In travenous, Once, Fri01/28/20 at 0015, For 1 dose [facility] Medication administered onsite sodium chloride 0.9 % bolus 1,000 mL [id number] 01/27/2020 10:45: 00 PM EST 1000 mL Intravenous completed 1,000 mL , Intravenous, Once, Fri01/27/20 at 2245, For 1 dose [facility] Medication administered onsite morphine sulfate (PF) injection 4 mg 01/27/2020 10:30: 00 PM EST 4 mg Intravenous completed 4 mg, In travenous, Once, Fri01/27/20 at 2230, For 1 dose [facility] Medication administered onsite morphine sulfate (PF) injection 4 mg 01/27/2020 09:45: 00 PM EST 4 mg Intravenous completed 4 mg, In travenous, Once, Fri01/27/20 at 2145, For 1 dose [facility] Medication administered onsite Trazodone Hydrochloride 50 MG Oral Tablet Trazodone HCL 01/24/2020 12:00:00 AM EST completed Dine in ([facility]) Clonidine Hydrochloride 0.1 MG Oral Tablet cloNIDine ( CATAPRES) tablet 0.1 mg cloNIDine (CATAPRES) tablet 0.1 mg 01/21/2020 09:00:00 AM EST 0.1 mg Oral active 0.1 mg, Oral, Daily Standard, First dose on Fri01/21/20 at 0900, For 30 days
Check vital signs before administering
[facility] Medication administered onsite Lurasidone Hydrochloride 40 MG Oral Tablet lurasidone HCl (LATUDA) tablet 20 mg lurasidone HCl (LATUDA) tablet 20 mg 01/21/2020 09:00:00 AM EST 20 mg Oral active 20 mg, Oral, Rita ly Standard, First dose on Fri01/21/20 at 0900, For 30 days
Administer with food.
[facility] Medication administered onsite celecoxib 200 MG Oral Capsule celecoxib (CeleBREX) cap jake 200 mg celecoxib (CeleBREX) capsule 200 mg 01/21/2020 09:00:00 AM EST 200 mg Oral active 200 mg, Oral, Daily Standard, First dose on 01/20 at 0900, For 30 days [facility] Medication administered onsite Aspirin 81 MG Delayed Release Oral Table t Aspirin 81 MG Oral Tablet Delayed Release Aspirin 81 MG Oral Tablet Delayed Release 01/21/2020 12:00:00 AM EST 81 mg Oral aborted Take 1 tablet by mouth d [facility] tramadol hydrochloride 50 MG Oral Tablet traMADol HCl 50 MG Oral Tablet (ULTRAM) traMADol HCl 50 MG Oral Tablet (ULTRAM) 01/21/2020 12:00:00 AM EST mg Oral aborted Take 1-2 tablets by mouth every 4 (four) hours as needed for Pain for up to 4 days, Max Daily Dose: 500 mg [facility] Oxycodone Hydrochloride 5 MG Oral Tablet oxyCODONE HCl 5 MG Oral Tablet (ROXICODONE) oxyCODONE HCl 5 MG Oral Tablet (ROXICODONE) 01/21/2020 12:00:00 AM EST 5 mg Oral aborted Take 1 t ablet by mouth every 4 (four) hours as needed for up to 4 days, Max Daily Dose: 30 mg [facility] celecoxib 200 MG Oral Capsule Celecoxib 200 MG Oral Ca psule (CeleBREX) Celecoxib 200 MG Oral Capsule (CeleBREX) 01/21/2020 12:00:00 AM EST 200 mg Or al aborted Take 1 capsule by mo [facility] daily as needed for Pain (mild-moderate pain) [facility] Docusate Sodium 100 MG Oral Capsule Docu sate Sodium 100 MG Oral Capsule (COLACE) Docusate Sodium 100 MG Oral Capsule (COLACE) 01/21/2020 12:00:00 AM EST 100 mg Oral aborted Take 1 capsule by mouth Two Times Daily for 10 days [facility] tizanidine 4 MG Oral Tablet tiZANidine HCl 4 MG Oral T ablet (Zanaflex) tiZANidine HCl 4 MG Oral Tablet (Zanaflex) 01/21/2020 12:00:00 AM EST 4 mg Oral aborted Take 1 tablet by mouth every 6 (six) hours as needed for up to 10 days [facility] Insulin Glargine 100 UNT/ML Injectable S olution insulin glargine (LANTUS) injection 24 Units insulin glargine (LANTUS) injection 24 Units 0 10:00:00 PM EST 24 U Subcutaneous active 24 Units, Subcutaneous, Nightly, First dose on Fri01/20/20 at 2200, For 30 days
For blood glucose less than 70 mg/dL: follow hypoglycemia protocol ( H-) and notify provider. For blood glucose values between 70 mg/dL and 100 mg/dL at bedtime: provide snack (15 grams of carbohydrates) with some protein. Administer FULL DOSE of insulin glargine (LANTUS) after snack. Record snack in I&O's. For blood glucose more than 400 mg/dL: notify provider
[facility] Medication administered onsite sennosides, MCC 8.6 MG Oral Tablet senna tablet 2 tablet sen na tablet 2 tablet 01/20/2020 10:00:00 PM EST 2 {tbl} Oral active 2 tablet, Oral, Nightly, First dose on Fri01/20/20 at 2200, For 30 days [facility] Medication administered onsite Nystatin 120573 UNT/ML Topical Cream nystatin (MYCOSTA TIN) cream nystatin (MYCOSTATIN) cream 01/20/2020 09:00:00 PM EST Topical active Topical, 2 Times Daily, First dose on Shereen 01/20/20 at 2100, For 30 days
Apply to abdominal folds where red and inflamed
[facility] Medication administered onsite Metoprolol Tartrate 50 MG Oral Tablet metoprolol (LOPR ESSOR) tablet 50 mg metoprolol (LOPRESSOR) tablet 50 mg 01/20/2020 09:00:00 PM EST 50 mg Oral active 50 mg, Oral, 2 Times Daily, First dose on Shereen 01/20/20 at 2100, For 30 days
Check vital signs before administering
[facility] Medication administered onsite 0.4 ML Enoxaparin sodium 100 MG/ML Prefi lled Syringe enoxaparin sodium (LOVENOX) injection 40 mg enoxaparin sodium (LOVENOX) injection 40 mg 01/20/2020 09:00:00 PM EST 40 mg Subcutaneous active 40 mg, Subcutaneous, Every 12 hours Standard (2 times per day), First dose on Shereen 01/20/20 at 2100, For 30 days
Non Patients: body weight < 150 kg, CrCl > 30 mL/min. Guidelines for Lovenox: MUST wait 24 hours before starting Enoxaparin if patient has epidural catheter. D/C Enoxaparin 10-12 hours prior to removing epidural catheter. May restart Enoxaparin 24 hours after epidural catheter has been removed.
[facility] Medication administered onsite Docusate Sodium 100 MG Oral Capsule docusate sodium (C OLACE) capsule 100 mg docusate sodium (COLACE) capsule 100 mg 01/20/2020 09:00:00 PM EST 100 mg Oral active 100 mg, Oral, 2 Times Daily, First dose on Shereen 01/20/20 at 2100, For 30 days [facility] Medication administered onsite Acetaminophen 325 MG Oral Tablet acetaminophen (TYLENO L) tablet 975 mg acetaminophen (TYLENOL) tablet 975 mg 01/20/2020 07:00:00 PM EST 97 5 mg Oral active 975 mg, Oral, E very 8 hours, First dose (after last modification) on Shereen 01/20/20 at 1900, For 7 days
Maximum daily dose of acetaminophen is 3,000 mg from all sources in 24 hours.
[facility] Medication administered onsite sodium chloride (preservative free) 0.9 % flush 3 mL 01/20/2020 05:00:00 PM EST 3 mL Intravenous active [Ord er 1 Start] Name: Peripheral IV Signed Summary: Routine, CONTINUOUS, Starting Shereen 01/20/20 at 1140, Until 02/19/20, For 30 days [Order 1 End] [Order 2 Start] Name: sodium chloride (preservative free) 0.9 % flush 3 mL Signed Summary: 3 mL, Intravenous, Every 8 hours Standard (3 times per day), First dose on Shereen 01/20/20 at 1700, For 30 days
Saline Lock. Flush Q8H and after each use to Saline Lock.
[Order 2 End] [Order 3 Start] Name: sodium chloride (preservative free) 0.9 % flush 3 mL Signed Summary: 3 mL, Intravenous, PRN, Line Care, Starting [facility] 01/20/20 at 1139, For 30 days
Saline Lock. Flush Q8H and after each use to Saline Lock.
[Order 3 End] [Order 4 Start] Name: Saline Lock order Signed Summary: Routine, ONCE, Shereen 01/20/20 at 1140, For 1 occurrence [Order 4 End] [Order 5 Start] Name: NaCl infusion 0.9 % Signed Summary: at 0.2-10 mL/hr, Intravenous, PRN, For Meds, Starting [facility] 01/20/20 at 1139, For 30 days [Order 5 End] [Order 6 Start] Name: dextrose infusion 5 % Signed Summary: at 0.2-10 mL/hr, Intravenous, PRN, For Meds, Starting [facility] 01/20/20 at 1139, For 30 days [Order 6 End] [facility] Medication administered onsite Cefazolin 2000 MG Injection ceFAZolin (ANCEF) IVPB 2 g in dextrose (premix) ceFAZolin (ANCEF) IVPB 2 g in dextrose (premix) 01/20/2020 03:30:00 PM EST 2 g Intravenous completed 2 g, Int ravenous, Administer over 30 Minutes, Every 8 hours, First dose on Shereen 01/20/20 at 1530, For 2 doses [facility] Medication administered onsite gabapentin 100 MG Oral Capsule gabapentin (NEURONTIN) capsule 100 mg gabapentin (NEURONTIN) capsule 100 mg 01/20/2020 01:00:00 PM EST 100 mg Oral active 100 mg, Oral, Four Times Da amanda Standard, First dose on Shereen 01/20/20 at 1300, For 30 days [facility] Medication administered onsite insulin lispro (HumaLOG) injection HIGH DOSE EATING IN SULIN patients 1-22 Units [id number] 01/20/2020 01:00:00 PM EST U Subcutaneous active 1-22 Units, Subcutaneous, Three Times Daily-With Meals, First dose on Shereen 01/20/20 at 1300, For 30 days
Nursing MUST open the 'SQ Insulin Dosing Charts' Sidebar Report, or, the Patient Summary or Summary Report within the ED.
[facility] Medication administered onsite alginic acid 200 MG / Calcium Carbonate 80 MG / magnesium trisilicate 20 MG / Sodium Bicarbonate 70 MG Oral Tablet calcium carbonate (TUMS) chewable tablet 500 mg calcium carbonate (TUMS) chewable tablet 500 mg 2019 11:39:15 AM EST 500 mg Oral active 500 mg, Oral, Three Times Daily-PRN, Heartburn, Starting Shereen 01/20/20 at 1139, For 30 days [facility] Medication administered onsite Oxycodone Hydrochloride 5 MG Oral Tablet oxyCODONE (ROXICODONE) immediate release tablet 5 mg oxyCODONE (ROXICODONE) immediate release tablet 5 mg 01/20/2020 11:39:14 AM EST 5 mg Oral active 5 mg, Oral, Every 4 hours PRN, Moderate Pain (Pain Scale Score 4-6), Starting Shereen 01/20/20 at 1139, For 3 days
If no FINE GRADER or when FINE GRADER has been DC.
Oxycodone immediate release is limited to 10 mg per dose. Higher doses ( only) require Pain Service consultation and approval.
[facility] Medication administered onsite Sodium Phosphate, Dibasic 35.5 MG/ML / S odium Phosphate, Monobasic 96.4 MG/ML Enema sodium phosphate (FLEET) enema (ADULT) 133 mL sodium phosphate (FLEET) enema (ADULT) 133 mL 01/20/2020 11:39:14 AM EST 133 mL Rectal active 133 mL, Rectal, Daily PRN, Constipation, Starting Shereen 01/20/20 at 1139, For 30 days [facility] Medication administered onsite Oxycodone Hydrochloride 5 MG Oral Tablet oxyCODONE (ROXICODONE) immediate release tablet 10 mg oxyCODONE (ROXICODONE) immediate release tablet 10 mg 01/20/2020 11:39:14 AM EST 10 mg Oral active 10 mg, Oral, Every 4 hours PRN, Severe Pain (Pain Scale Score 7-10), or pre-painful procedure or activity, Starting Shereen 01/20/20 at 1139, For 3 days
If no FINE GRADER or when FINE GRADER has been DC.
Oxycodone immediate release is limited to 10 mg per dose. Higher doses ( only) require Pain Service consultation and approval.
[facility] Medication administered onsite morphine sulfate (PF) injection 2 mg [id number] 01/20/2020 11:39: 14 AM EST 2 mg Intravenous active 2 mg, In travenous, Every 2 hours PRN, breakthrough pain, Starting Shereen 01/20/20 at 1139, For 2 days [facility] Medication administered onsite POLYETHYLENE GLYCOL 3350 142 MG/ML Oral Solution polyethylene glycol (MIRALAX) packet 17 g polyethylene glycol (MIRALAX) packet 17 g 01/20/2020 1 1:39:14 AM EST 17 g Oral active 17 g, Or al, Daily PRN, As needed for Constipation, Starting Shereen 01/20/20 at 1139, For 30 days
Mix in 8 ounces of water, juice or milk. Avoid use in patients who require thickened liquids due to potential increased risk for aspiration.
[facility] Medication administered onsite Magnesium Hydroxide 80 MG/ML Oral Suspen alexx magnesium hydroxide (MILK OF MAGNESIA) 400 MG/5ML suspension 30 mL magnesium hydroxide (MILK OF MAGNESIA) 4 00 MG/5ML suspension 30 mL 01/20/2020 11:39:14 AM EST 30 mL Oral active 30 mL, Oral, Nightly PRN, Constipation, Starting Shereen 01/20/20 at 1139, For 30 days
If serum creatinine > 2 notify provider before administering.
[facility] Medication administered onsite Bisacodyl 10 MG Rectal Suppository bisacodyl (DULCOLAX ) suppository 10 mg bisacodyl (DULCOLAX) suppository 10 mg 01/20/2020 11:39:14 AM EST 10 mg Rectal active 10 mg, Rectal, Daily PRN, Constipation, Starting Shereen 01/20/20 at 1139, For 30 days [facility] Medication administered onsite ondansetron (ZOFRAN) injection 4 mg [id number] 01/20/2020 11:39:1 4 AM EST 4 mg Intravenous active 4 mg, In travenous, Every 6 hours PRN, Nausea, Vomiting, Starting Shereen 01/20/20 at 1139, For 30 days [facility] Medication administered onsite Glucagon 1 MG Injection glucagon (human recombinant) ( GLUCAGEN) injection 1 mg glucagon (human recombinant) (GLUCAGEN) injection 1 mg 01/20/2020 11:39:13 AM EST 1 mg Intramuscular active 1 mg, Intramuscular, PRN, for glucose <55 without IV access, Starting Shereen 01/20/20 at 1139, For 30 days [facility] Medication administered onsite Glucose 0.417 MG/MG Oral Gel glucose (GLUTOSE) 40 % or al gel 15 g glucose (GLUTOSE) 40 % oral gel 15 g 01/20/2020 11:39:13 AM EST 15 g Oral active 15 g, Oral, PRN, Low blood s ugar, for gluose 55-69 mg/dl and able to take PO, Starting Shereen 01/20/20 at 1139, For 30 days [facility] Medication administered onsite dextrose 50 % IV solution 25 mL [id number] 01/20/2020 11:39:[address] 25 mL Intravenous active 25 mL, Intrav enous, PRN, Other, blood glucose <55, Starting Shereen 01/20/20 at 1139, For 30 days
Not for midline administration.
[facility] Medication administered onsite NaCl infusion 0.9 % [id number] 01/20/2020 11:15:00 AM EST Intravenous active at 100 mL/hr, Intrav enous, Continuous, Starting Shereen 01/20/20 at 1115, For 30 days [facility] Medication administered onsite metaxalone 800 MG Oral Tablet metaxalone (SKELAXIN) ta blet 800 mg metaxalone (SKELAXIN) tablet 800 mg 01/20/2020 11:13:37 AM EST 800 mg Oral active 800 mg, Oral, Three Times Daily-PRN, Mu scle spasms, Starting Shereen 01/20/20 at 1113, For 30 days [facility] Medication administered onsite 1 ML Meperidine Hydrochloride 25 MG/ML C artridge meperidine (DEMEROL) injection 25 mg meperidine (DEMEROL) injection 25 mg 01/20/2020 10:30:00 AM EST 25 mg Intravenous completed 25 mg, Intrav enous, Once, Shereen 01/20/20 at 1030, For 1 dose, Recovery [facility] Medication administered onsite fentaNYL (SUBLIMAZE) (PF) injection 25 mcg [id number] 01/20/2020 09:54:17 AM EST 25 ug Intravenous aborted 25 m cg, Intravenous, Every 5 min PRN, Moderate Pain (Pain Scale Score 4-6), Starting [facility] 01/20/20 at 0954, For 10 doses, [facility] Medication administered onsite HYDROmorphone (DILAUDID) injection 0.5 mg [id number] 01/20/2020 09:54:17 AM EST 0.5 mg Intravenous aborted 0.5 mg, Intravenous, Every 5 min PRN, Severe Pain (Pain Scale Score 7-10), Starting Shereen 01/20/20 at 0954, For 4 doses, [facility] Medication administered onsite gabapentin (NEURONTIN) capsule 400 mg 01/20/2020 06:15:00 AM EST 400 mg Oral active 400 mg, Oral, Once, [facility] 01/20/20 at 0615, For 1 dose, Pre-op [facility] Medication administered onsite Calcium Chloride 0.0014 MEQ/ML / Potassi um Chloride 0.004 MEQ/ML / Sodium Chloride 0.103 MEQ/ML / Sodium Lactate 0.028 MEQ/ML Injectable Solution lactated ringers infusion lactated ringers infusion 01/20/2020 06:15:00 AM EST 100 mL/h Intravenous completed at 100 m L/hr, Intravenous, Continuous, Starting Shereen 01/20/20 at 0615, For 4 hours
Lactated ringers infusion 100 ml / hour, on admission
Pre-op [facility] Medication administered onsite celecoxib 200 MG Oral Capsule celecoxib (CeleBREX) cap jake 200 mg celecoxib (CeleBREX) capsule 200 mg 01/20/2020 06:15:00 AM EST 200 mg Oral completed 200 mg, Oral, Once, Shereen 01/20/20 at 0615, For 1 dose, Pre-op [facility] Medication administered onsite Acetaminophen 325 MG Oral Tablet acetaminophen (TYLENO L) tablet 975 mg acetaminophen (TYLENOL) tablet 975 mg 01/20/2020 06:15:00 AM EST 97 5 mg Oral completed 975 mg, Oral, O nce, Shereen 01/20/20 at 0615, For 1 dose
Maximum daily dose of acetaminophen is 3,000 mg from all sources in 24 hours.
Pre-op [facility] Medication administered onsite Acetaminophen 325 MG / Hydrocodone Yazmin trate 5 MG Oral Tablet HYDROcodone- Acetaminophen 5-325 MG Oral Tablet (LORTAB) HYDROcodone-Acetaminophen 5-325 MG Oral Tablet (LORTAB) 01/14/2020 12:00:00 AM EST 1 {tbl} Oral aborted Take 1 tablet by mouth every 6 (six) hours as needed for up to 7 days, Max Daily Dose: 4 tablets [facility] chlorhexidine gluconate 40 MG/ML Medicat ed Liquid Soap chlorhexidine (HIBICLENS) 4 % liquid chlorhexidine (HIBICLENS) 4 % liquid 01/13/2020 12:00:00 AM EST Topical active Topical, Once, Shereen 01/13/20 at 0000, For 1 dose
chlorhexidine 4% liquid: topical for 1 dose pre op: wash operative site with chlorhexidine soap prior to transport to OR
[facility] Medication administered onsite NaCl infusion 0.9 % [id number] 01/13/2020 12:00:00 AM EST Intravenous active at 100 mL/hr, Intrav enous, Continuous, Starting Shereen 01/13/20 at 0000, For 30 days
Starting after midnight. While patient NPO.
[facility] Medication administered onsite Mupirocin 0.02 MG/MG Topical Ointment Mupirocin 2 % Ex ternal Ointment Mupirocin 2 % External Ointment 01/13/2020 12:00:00 AM EST aborted Apply liberally to each nostril two times per day for 5 days prior to surgery. [facility] 0.4 ML Enoxaparin sodium 100 MG/ML Prefi lled Syringe Enoxaparin Sodium 40 MG/0.4ML Subcutaneous Solution (LOVENOX) Enoxaparin Sodium 40 MG/0.4ML Subcutaneous Solution (LOVENOX) 01/13/2020 12:00:00 AM EST 40 mg Subcutaneous active Inject 0.4 mLs into the s kin daily for 5 days [facility] 0.4 ML Enoxaparin sodium 100 MG/ML Prefi lled Syringe Enoxaparin Sodium 40 MG/0.4ML Subcutaneous Solution (LOVENOX) Enoxaparin Sodium 40 MG/0.4ML Subcutaneous Solution (LOVENOX) 01/13/2020 12:00:00 AM EST 40 mg Subcutaneous aborted Inject 0.4 mLs into the s kin daily for 5 days [facility] Metoprolol Tartrate 50 MG Oral Tablet Me toprolol Tartrate 50 MG Oral Tablet (LOPRESSOR) Metoprolol Tartrate 50 MG Oral Tablet (LOPRESSOR) 01/01 12:00:00 AM EST 50 mg Oral aborted Take 1 tablet by mouth Two Times Daily [facility] Acetaminophen 325 MG / Hydrocodone Yazmin trate 5 MG Oral Tablet HYDROcodone- Acetaminophen 5-325 MG Oral Tablet (LORTAB) HYDROcodone-Acetaminophen 5-325 MG Oral Tablet (LORTAB) 01/12/2020 12:00:00 AM EST 1 {tbl} Oral active Take 1 tablet by mouth every 6 (six) hours as needed for up to 5 days, Max Daily Dose: 4 tablets [facility] Acetaminophen 325 MG / Hydrocodone Yazmin trate 5 MG Oral Tablet HYDROcodone- Acetaminophen 5-325 MG Oral Tablet (LORTAB) HYDROcodone-Acetaminophen 5-325 MG Oral Tablet (LORTAB) 01/12/2020 12:00:00 AM EST 1 {tbl} Oral aborted Take 1 tablet by mouth every 6 (six) hours as needed for up to 5 days, Max Daily Dose: 4 tablets [facility] Metoprolol Tartrate 50 MG Oral Tablet Me toprolol Tartrate 50 MG Oral Tablet (LOPRESSOR) Metoprolol Tartrate 50 MG Oral Tablet (LOPRESSOR) 01/01 12:00:00 AM EST 50 mg Oral aborted Take 1 tablet by mouth Two Times Daily [facility] fentaNYL (SUBLIMAZE) (PF) injection 25 mcg [id number] 01/11/2020 04:00:00 PM EST 25 ug Intravenous active 25 m cg, Intravenous, Every 4 hours PRN, Severe Pain (Pain Scale Score 7-10), Starting Fri01/11/20 at 1600, For 48 hours [facility] Medication administered onsite Acetaminophen 325 MG / Hydrocodone Yazmin trate 5 MG Oral Tablet HYDROcodone- acetaminophen (LORTAB) 5-325 MG per tablet 1 tablet HYDROcodone-acetaminophen (LORTAB) 5-325 MG per tablet 1 tablet 01/11/2020 03:56:25 PM EST 1 {tbl} Oral active 1 tablet, Oral, Every 6 hours PRN, Moderate Pain (Pain Scale Score 4-6), Starting Fri01/11/20 at 1556, For 2 days 9 hours
Maximum daily dose of acetaminophen is 3,000 mg from all sources in 24 hours.
[facility] Medication administered onsite 0.4 ML Enoxaparin sodium 100 MG/ML Prefi lled Syringe enoxaparin sodium (LOVENOX) injection 40 mg enoxaparin sodium (LOVENOX) injection 40 mg 01/11/2020 09:00:00 AM EST 40 mg Subcutaneous active 40 mg, Subcutaneous, Daily Standard, First dose on Fri01/11/20 at 0900, For 30 days [facility] Medication administered onsite Lisinopril 20 MG Oral Tablet lisinopril (ZESTRIL) tabl et 20 mg lisinopril (ZESTRIL) tablet 20 mg 01/11/2020 09:00:00 AM EST 20 mg Oral active 20 mg, Oral, Daily Standard, First dose (after last modification) on Fri01/11/20 at 0900, For 29 doses
Check vital signs before administering
[facility] Medication administered onsite Ondansetron 4 MG Disintegrating Oral Tab let ondansetron (ZOFRAN-ODT) disintegrating tablet 4 mg ondansetron (ZOFRAN-ODT) disintegrating tablet 4 mg 01/11/2020 08:56:22 AM EST 4 mg Oral active 4 mg, Oral, Every 8 hours PRN, Nausea, Vomiting, Starting Fri01/11/20 at 0856, For 30 days
Dissolve on tongue.
[facility] Medication administered onsite Albuterol 0.83 MG/ML Inhalant Solution a lbuterol (PROVENTIL) nebulizer solution 2.5 mg albuterol (PROVENTIL) nebulizer solution 2.5 mg 2019 10:15:00 PM EST 2.5 mg Nebulization active 2.5 mg, Nebulization, Every 8 hours, First dose on Fri01/10/20 at 2215, For 4 days
For Adults Q8 Hours is Hospital Standard, all orders will be changed to this unless [place] is selected 'Yes' below. <b r> [facility] Medication administered onsite albuterol (PROVENTIL) nebulizer solution 2.5 mg [id number] 01/10/2020 10:14:35 PM EST 2.5 mg Nebulization active 2.5 mg, Nebulization, Every 2 hours PRN, Wheezing, Shortness of Breath, Starting Fri01/10/20 at 2214, For 4 days [facility] Medication administered onsite Insulin Glargine 100 UNT/ML Injectable S olution insulin glargine (LANTUS) injection 24 Units insulin glargine (LANTUS) injection 24 Units 0 10:00:00 PM EST 24 U Subcutaneous active 24 Units, Subcutaneous, Nightly, First dose (after last modification) on Fri01/10/20 at 2200, For 7 days [facility] Medication administered onsite gabapentin 300 MG Oral Capsule gabapentin (NEURONTIN) capsule 600 mg gabapentin (NEURONTIN) capsule 600 mg 01/10/2020 05:00:00 PM EST 600 mg Oral active 600 mg, Oral, Three Times D aily Standard, First dose (after last reorder) on Fri01/10/20 at 1700, For 3 days [facility] Medication administered onsite lidocaine (XYLOCAINE) 2 % injection [id number] 01/10/2020 12:03:25 PM EST completed Code/Trauma Medicati on, Starting Fri01/10/20 at 1203 [facility] Medication administered onsite Lisinopril 10 MG Oral Tablet lisinopril (ZESTRIL) tabl et 10 mg lisinopril (ZESTRIL) tablet 10 mg 01/10/2020 09:00:00 AM EST 10 mg Oral aborted 10 mg, Oral, Daily Standard, First dose on Fri01/10/20 at 0900, For 30 days
Check vital signs before administering
[facility] Medication administered onsite Lurasidone Hydrochloride 40 MG Oral Tablet lurasidone HCl (LATUDA) tablet 20 mg lurasidone HCl (LATUDA) tablet 20 mg 01/10/2020 09:00:00 AM EST 20 mg Oral active 20 mg, Oral, Rita ly Standard, First dose on Fri01/10/20 at 0900, For 7 days
Administer with food.
[facility] Medication administered onsite Metoprolol Tartrate 50 MG Oral Tablet metoprolol (LOPR ESSOR) tablet 50 mg metoprolol (LOPRESSOR) tablet 50 mg 01/10/2020 09:00:00 AM EST 50 mg Oral active 50 mg, Oral, 2 Times Daily, First dose on Fri01/10/20 at 0900, For 30 days
Check vital signs before administering
[facility] Medication administered onsite Nystatin [id number] UNT/ML Topical Cream nystatin (MYCOSTA TIN) cream nystatin (MYCOSTATIN) cream 01/10/2020 09:00:00 AM EST Topical active Topical, 2 Times Daily, First dose on Fri01/10/20 at 0900, For 30 days
Apply cream to abdominal folds where red
[facility] Medication administered onsite insulin lispro (HumaLOG) injection MEDIU M DOSE EATING INSULIN patients 1-16 Units [id number] 01/10/2020 08:00:00 AM EST U Subcutaneous active 1-16 Units, Subcutaneous, Three Times Daily-With Meals, First dose on Fri01/10/20 at 0800, For 30 days
Nursing MUST open the 'SQ Insulin Dosing Charts' Sidebar Report, or, the Patient Summary or Summary Report within the ED.
[facility] Medication administered onsite gabapentin 100 MG Oral Capsule gabapentin (NEURONTIN) capsule 100 mg gabapentin (NEURONTIN) capsule 100 mg 01/10/2020 06:00:00 AM EST 100 mg Oral aborted 100 mg, Oral, Four Times Da amanda Standard, First dose on Fri01/10/20 at 0600, For 30 days [facility] Medication administered onsite Diclofenac Sodium 0.01 MG/MG Topical Gel Diclofenac Sodium (VOLTAREN) 1 % gel 2 g Diclofenac Sodium (VOLTAREN) 1 % gel 2 g 01/10/2020 06:00:00 AM EST 2 g Topical active 2 g, Topical, Three Times Daily Standard, First dose on Fri01/10/20 at 0600, For 30 days
Gently massage Dose = 2 gm gel into intact skin at local pain site: affected areas of pain
[facility] Medication administered onsite fentaNYL (SUBLIMAZE) (PF) injection 25 mcg [id number] 01/10/2020 02:47:25 AM EST 25 ug Intravenous aborted 25 m cg, Intravenous, Every 3 hours PRN, Severe Pain (Pain Scale Score 7-10), Starting Fri01/10/20 at 0247, For 3 days [facility] Medication administered onsite Acetaminophen 325 MG / Hydrocodone Yazmin trate 5 MG Oral Tablet HYDROcodone- acetaminophen (LORTAB) 5-325 MG per tablet 2 tablet HYDROcodone-acetaminophen (LORTAB) 5-325 MG per tablet 2 tablet 01/10/2020 02:41:47 AM EST 2 {tbl} Oral aborted 2 tablet, Oral, Every 6 hours PRN, Moderate Pain (Pain Scale Score 4-6), Starting Fri01/10/20 at 0241, For 3 days
Maximum daily dose of acetaminophen is 3,000 mg from all sources in 24 hours.
[facility] Medication administered onsite dextrose 50 % IV solution 25 mL [id number] 01/10/2020 02:41:[address] 25 mL Intravenous active 25 mL, Intrav enous, PRN, Low blood sugar, blood glucose less than 55, Starting Fri01/10/20 at 0241, For 30 days
Not for midline administration.
[facility] Medication administered onsite Glucagon 1 MG Injection glucagon (human recombinant) ( GLUCAGEN) injection 1 mg glucagon (human recombinant) (GLUCAGEN) injection 1 mg 01/10/2020 02:41:46 AM EST 1 mg Intramuscular active 1 mg, Intramuscular, PRN, glucose less than 55 without IV access, Starting Fri01/10/20 at 0241, For 30 days [facility] Medication administered onsite Glucose 0.417 MG/MG Oral Gel glucose (GLUTOSE) 40 % or al gel 15 g glucose (GLUTOSE) 40 % oral gel 15 g 01/10/2020 02:41:46 AM EST 15 g Oral active 15 g, Oral, PRN, Low blood s ugar, glucose 55-69 and able to take PO, Starting Fri01/10/20 at 0241, For 30 days [facility] Medication administered onsite Acetaminophen 325 MG Oral Tablet acetaminophen (TYLENO L) tablet 650 mg acetaminophen (TYLENOL) tablet 650 mg 01/10/2020 02:41:46 AM EST 65 0 mg Oral active 650 mg, Oral, E very 6 hours PRN, Mild Pain (Pain Scale Score 1- 3), Moderate Pain (Pain Scale Score 4-6), Starting Fri01/10/20 at 0241, For 30 days
Maximum daily dose of acetaminophen is 3,000 mg from all sources in 24 hours.
[facility] Medication administered onsite alginic acid 200 MG / Calcium Carbonate 80 MG / magnesium trisilicate 20 MG / Sodium Bicarbonate 70 MG Oral Tablet calcium carbonate (TUMS) chewable tablet 500 mg calcium carbonate (TUMS) chewable tablet 500 mg 2019 02:41:46 AM EST 500 mg Oral active 500 mg, Oral, Three Times Daily-PRN, Heartburn, Starting Fri01/10/20 at 0241, For 30 days [facility] Medication administered onsite 1 ML Ketorolac Tromethamine 15 MG/ML Car tridge ketorolac (TORADOL) 15 MG/ML injection 15 mg ketorolac (TORADOL) 15 MG/ML injection 15 mg 0 10:00:00 PM EST 15 mg Intravenous completed 15 mg, Intravenous, Once, 01/09/20 at 2200, For 1 dose [facility] Medication administered onsite fentaNYL (SUBLIMAZE) (PF) injection 50 mcg [id number] 01/09/2020 10:00:00 PM EST 50 ug Intravenous completed 50 mcg, Intravenous, Once, 01/09/20 at 2200, For 1 dose [facility] Medication administered onsite Onetouch Verio 01/04/2020 12:00:00 AM EST act shane [facility] ([facility]) [place] Insulin Pen [place] 29G X 12mm 01/04/2020 12:00:00 AM EST active [facility] ( [facility]) Hydrochlorothiazide 12.5 MG / Lisinopril 20 MG Oral Tablet Lisinopril- hydroCHLOROthiazide 20-12.5 MG Oral Tablet (ZESTORETIC) Lisinopril- hydroCHLOROthiazide 20-12.5 MG Oral Tablet (ZESTORETIC) 01/04/2020 12:00:00 AM EST 1 {tbl} Oral aborted Take 1 tablet b y mouth daily [facility] Mupirocin 0.02 MG/MG Topical Ointment Mu pirocin 2 % External Ointment (BACTROBAN) Mupirocin 2 % External Ointment (BACTROBAN) 01/04/2020 12:00:00 AM EST Topical aborted Apply to pically Two Times Daily Apply pea sized amount of ointment to Right lower abdomen twice daily [facility] Clonidine Hydrochloride 0.1 MG Oral Tabl et cloNIDine HCl 0.1 MG Oral Tablet (CATAPRES) cloNIDine HCl 0.1 MG Oral Tablet (CATAPRES) 01/04/2020 12:00:00 AM EST 0.1 mg Oral aborted Take 0.1 mg by m outh daily [facility] rivaroxaban 10 MG Oral Tablet [Xarelto] Xarelto 01/04/2020 12:00:0 0 AM EST ORAL completed [facility] ([facility]) Blood Pressure Kit 01/04/2020 12:00:00 AM EST active [facility] ([facility]) Mupirocin 0.02 MG/MG Topical Ointment Mupirocin 01/04/2020 12:00:00 AM EST active [facility] ([facility]) Onetouch Verio 01/04/2020 12:00:00 AM EST com pleted [facility] ([facility]) 3 ML Insulin Lispro 100 UNT/ML Pen Injector [Humalog] Sunny hinkle Kwikpen 01/04/2020 12:00:00 AM EST completed [facility] ([facility]) Acetaminophen 325 MG / Hydrocodone Yazmin trate 5 MG Oral Tablet HYDROcodone- Acetaminophen 5-325 MG Oral Tablet (LORTAB) HYDROcodone-Acetaminophen 5-325 MG Oral Tablet (LORTAB) 01/03/2020 12:00:00 AM EST aborted 1-2 tabs every 4-6 hours as needed for pain, Max Daily Dose 8 [facility] Lisinopril 10 MG Oral Tablet lisinopril (PRINIVIL,ZEST RIL) 10 MG tablet lisinopril (PRINIVIL,ZESTRIL) 10 MG tablet 12/30/2019 12:00:00 AM EDT 10 mg Oral active Take 1 tablet (10 mg total) by mouth daily [facility] gabapentin 100 MG Oral Capsule Gabapentin 100 MG Oral Capsule (Neurontin) Gabapentin 100 MG Oral Capsule (Neurontin) 12/30/2019 12:00:00 AM EDT 100 mg Oral aborted Take 1 capsule by mo [facility] Four times daily [facility] Lisinopril 10 MG Oral Tablet Lisinopril 10 MG Oral Tab let (ZESTRIL) Lisinopril 10 MG Oral Tablet (ZESTRIL) 12/30/2019 12:00:00 AM EDT 10 mg Oral aborted Take 10 mg by mouth daily [facility] Acetaminophen 325 MG / Oxycodone Hydroch loride 5 MG Oral Tablet oxyCODONE- acetaminophen (PERCOCET) 5-325 MG 2 tablet oxyCODONE-acetaminophen (PERCOCET) 5- 325 MG 2 tablet 12/29/2019 10:00:00 AM EDT 2 {tbl} Oral a ctive 2 tablet, Oral, Every 4 hours PRN, moderate pain (4-6), severe pain (7-10), Starting Fri12/29/19 at 1000, For 72 hours [facility] Medication administered onsite glucose blood test strip [id number] 12/29/2019 12:00:00 AM EDT active Use as instructed [facility] Insulin Pen Needle 31G X 5 MM [facility] [address] 12/29/2019 12:00:00 AM EDT active One needle per insulin injection [facility] ONEGEORGE DELICA LANCETS 33G [facility] [id number] 12/29/2019 12:00:00 AM E DT active Use one lancet with each test [facility] Insulin Lispro 100 UNT/ML Injectable Bernadine ution insulin lispro (HUMALOG) 100 UNIT/ML injection insulin lispro (HUMALOG) 100 UNIT/ML injection 12:00:00 AM EDT Subcutaneous active Inject 2-18 Units under the skin With meals sliding scale [facility] Insulin Glargine 100 UNT/ML Injectable S olution [Lantus] insulin glargine (LANTUS) 100 UNIT/ML injection insulin glargine (LANTUS) 100 UNIT/ML injection 12/29/2019 12:00:00 AM EDT 30 U Subcutaneous active Inject 30 Units under the skin nightly [facility] Acetaminophen 325 MG Oral Tablet acetaminophen (TYLENO L) 325 MG tablet acetaminophen (TYLENOL) 325 MG tablet 12/29/2019 12:00:00 AM EDT 65 0 mg Oral active Take 2 tablets (650 mg total) by mouth every 6 (six) hours as needed [facility] Acetaminophen 325 MG / Oxycodone Hydroch loride 5 MG Oral Tablet oxyCODONE- acetaminophen (PERCOCET) 5-325 MG per tablet oxyCODONE-acetaminophen (PERCOCET) 5-325 MG per tablet 12/29/2019 12:00:00 AM EDT 2 {tbl} Oral active Take 2 tablets by mouth every 4 (four) hours as needed Max Daily Amount: 12 tablets [facility] quetiapine 100 MG Oral Tablet QUEtiapine (SEROquel) ta blet 100 mg QUEtiapine (SEROquel) tablet 100 mg 12/28/2019 09:00:00 PM EDT 100 mg Oral active 100 mg, Oral, Nightly, First dose on Fri12/28/19 at 2 100 [facility] Medication administered onsite Insulin Lispro 100 UNT/ML Injectable Bernadine ution insulin lispro (HumaLOG) injection 2-18 Units insulin lispro (HumaLOG) injection 2-18 Units 12/28/19 20 12:00:00 PM EDT Subcutaneous active 2-1 8 Units, Subcutaneous, MEALSS, First dose on Fri12/28/19 at 1200
9 units Nutritional and Correction Insulin Scale Blood Glucose (mg/dl) <70 start hypoglycemia protocol Glucose &nbsp ; Eats >=50% Eats <50%& amp;nbsp; Eats Nothing (mg/dl) of meal of meal or NPO &am p;nbsp;70- 120 6 units 3 units 0 units 121-170 & amp;nbsp; 9 units 5 units 0 units 171-220 & nbsp; 11 units 6 units 2 units 221- 270 12 units 8 units 3 units 271- 320 14 units 9 units 5 units 321-370 &a mp;nbsp; 15 units 11 units &nb sp; 6 units 371-420 &amp ;nbsp; 17 units 12 units 8 units >420 call MD 18 units 14 units &nb sp; 9 units Test glucose within 30 minutes of insulin administration. Administer insulin within 15 minutes (before or after) of the patient starting to eat. For patients that are NPO, use the NPO (correction) scale to cover POC glucose at 08:00, 12:00, 17:00.
[facility] Medication administered onsite heparin (porcine) injection 5,000 Units [id number] 12/28/19 20 10:00:00 AM EDT 5000 U Subcutaneous active 5,000 Units , Subcutaneous, Every 12 hours (scheduled), First dose on Fri12/28/19 at 1000
If platelet count is less than 70,000 or hematocrit is less than 25, or if there is a 5 point decrease in hematocrit, do not give the dose and call physician/designee.
[facility] Medication administered onsite Naproxen 250 MG Oral Tablet naproxen (NAPROSYN) tablet 500 mg naproxen (NAPROSYN) tablet 500 mg 12/28/2019 10:00:00 AM EDT 500 mg Oral active 500 mg, Oral, 2 times daily with meals, First dose on Fri12/28/19 at 1000 [facility] Medication administered onsite [place] Carbonate 300 MG Oral Tablet lithium tablet 30 0 mg lithium tablet 300 mg 12/28/2019 10:00:00 AM EDT 300 mg Oral active 300 mg, Oral, Every 12 hours (scheduled), First dose on Fri12/28/19 at 1000 [facility] Medication administered onsite Lisinopril 5 MG Oral Tablet lisinopril (PRINIVIL,ZESTR IL) tablet 10 mg lisinopril (PRINIVIL,ZESTRIL) tablet 10 mg 12/28/2019 10:00:00 AM EDT 10 mg Oral active 10 mg, Oral, Daily, First dose on Fri12/28/19 at 1000 [facility] Medication administered onsite Insulin Glargine 100 UNT/ML Injectable S olution [Lantus] insulin glargine (LANTUS) injection 30 Units insulin glargine (LANTUS) injection 30 Units 12/28/2019 10:00:00 AM EDT 30 U Subcutaneous active 30 Units, Subcutaneous, Daily (Lantus), First dose on Fri12/28/19 at 1000
Basal Insulin (Lantus) Adjustments based on AM Blood Glucose Blood Glucose&nbs p; Adjustment Less than 70 mg/dl Nursing to initiate hypoglycemia protocol 70 to 100 mg/dl &nb sp; Pharmacy to decrease total daily dose by 20% 101 to 200 mg/dl &nb sp; No Change
[facility] Medication administered onsite Acetaminophen 325 MG Oral Tablet acetaminophen (TYLENO L) 325 MG tablet 650 mg acetaminophen (TYLENOL) 325 MG tablet 650 mg 12/28/2019 09:12:11 AM EDT 650 mg Oral active 650 mg, Or al, Every 6 hours PRN, mild pain (1-3), moderate pain (4-6), fever, fever greater than 100, Starting Fri12/28/19 at 0912
"Maximum dose of acetaminophen is 4,000 mg from all sources in 24 hours."
[facility] Medication administered onsite Acetaminophen 325 MG / Oxycodone Hydroch loride 5 MG Oral Tablet oxyCODONE- acetaminophen (PERCOCET) 5-325 MG 2 tablet oxyCODONE-acetaminophen (PERCOCET) 5- 325 MG 2 tablet 12/28/2019 09:11:53 AM EDT 2 {tbl} Oral a borted 2 tablet, Oral, Every 6 hours PRN, severe pain (7-10), Starting Fri12/28/19 at 0911, For 7 days [facility] Medication administered onsite Acetaminophen 325 MG / Oxycodone Hydroch loride 5 MG Oral Tablet oxyCODONE- acetaminophen (PERCOCET) 5-325 MG 1 tablet oxyCODONE-acetaminophen (PERCOCET) 5- 325 MG 1 tablet 12/28/2019 03:20:33 AM EDT 1 {tbl} Oral a borted 1 tablet, Oral, Every 4 hours PRN, moderate pain (4-6), severe pain (7-10), Starting Fri12/28/19 at 0320, For 4 doses [facility] Medication administered onsite ondansetron (ZOFRAN) injection 4 mg [id number] 12/28/2019 12:19:2 1 AM EDT 4 mg Intravenous active 4 mg, In travenous, Every 4 hours PRN, nausea, Starting Fri12/28/19 at 0019 [facility] Medication administered onsite Insulin Glargine 100 UNT/ML Injectable S olution Insulin Glargine 100 UNIT/ML Subcutaneous Solution (Lantus) Insulin Glargine 100 UNIT/ML Subcutaneou s Solution (Lantus) 12/28/2019 12:00:00 AM EDT 30 U Subcutaneous aborted Inject 30 Units into the skin nightly [facility] iopamidol (ISOVUE-370) 76 % 70 mL [id number] 12/27/2019 10:25:43 PM E DT 70 mL Intravenous completed 70 mL, Intrav enous, Once in imaging, contrast, Starting Fri12/27/19 at 2225, For 1 dose [facility] Medication administered onsite sodium chloride 0.9% (NS) bolus 2,000 mL [id number] 12/27/2019 09:30:00 PM EDT 2000 mL Intravenous completed 2, 000 mL, Intravenous, Administer over 1 Hours, Once, Fri12/27/19 at 2130, For 1 dose [facility] Medication administered onsite 1 ML Ketorolac Tromethamine 15 MG/ML Car tridge ketorolac (TORADOL) injection 15 mg ketorolac (TORADOL) injection 15 mg 12/27/2019 09:30:00 PM EDT 1 5 mg completed 15 mg, Intravenous Push, Once, M on 12/27/19 at 2130, For 1 dose [facility] Medication administered onsite Morphine Sulfate (PF) injection 4 mg [id number] 12/27/2019 09:30: 00 PM EDT 4 mg completed 4 mg, Intr avenous Push, Once, Fri12/27/19 at 2130, For 1 dose [facility] Medication administered onsite Acetaminophen 325 MG / Oxycodone Hydroch loride 5 MG Oral Tablet oxyCODONE- Acetaminophen 5-325 MG Oral Tablet (PERCOCET) oxyCODONE-Acetaminophen 5-325 MG Oral Tablet (PERCOCET) 11/16/2019 12:00:00 AM EDT aborted 1-2 tablets every 4-6 hours as needed for pain, Max Daily Dose 8 [facility] Lisinopril 20 MG Oral Tablet Lisinopril 20 MG Oral Tab let (ZESTRIL) Lisinopril 20 MG Oral Tablet (ZESTRIL) 11/11/2019 12:00:00 AM EDT 20 mg Oral aborted Take 1 tablet by mouth daily [facility] Diclofenac Sodium 0.01 MG/MG Topical Gel Diclofenac Sodium (VOLTAREN) 1 % gel 2 g Diclofenac Sodium (VOLTAREN) 1 % gel 2 g 11/10/2019 09:00:00 AM EDT 2 g Topical active 2 g, Topical, Three Times Daily Standard, First dose on Fri11/10/19 at 0900, For 30 days
Apply to painful joint
[facility] Medication administered onsite Lisinopril 20 MG Oral Tablet lisinopril (ZESTRIL) tabl et 20 mg lisinopril (ZESTRIL) tablet 20 mg 11/10/2019 09:00:00 AM EDT 20 mg Oral active 20 mg, Oral, Daily Standard, First dose on Fri11/10/19 at 0900, For 30 days
Check vital signs before administering
[facility] Medication administered onsite Lurasidone Hydrochloride 40 MG Oral Tablet lurasidone HCl (LATUDA) tablet 20 mg lurasidone HCl (LATUDA) tablet 20 mg 11/10/2019 09:00:00 AM EDT 20 mg Oral active 20 mg, Oral, Rita ly Standard, First dose on Fri11/10/19 at 0900, For 30 doses
Administer with food.
[facility] Medication administered onsite Cholecalciferol 1000 UNT Oral Tablet vit brewer D3 (CHOLECALCIFEROL) tablet 2,000 Units vitamin D3 (CHOLECALCIFEROL) tablet 2,000 Units 2019 09:00:00 AM EDT 2000 U Oral active 2,000 Un its, Oral, Daily Standard, First dose on Fri11/10/19 at 0900, For 30 days
25 mcg vitamin D3 = 1,000 international units vitamin D3.
[facility] Medication administered onsite insulin lispro (HumaLOG) injection HIGH DOSE EATING IN SULIN patients 1-22 Units [id number] 11/10/2019 08:00:00 AM EDT U Subcutaneous active 1-22 Units, Subcutaneous, Three Times Daily-With Meals, First dose on Fri11/10/19 at 0800, For 30 days
Nursing MUST open the 'SQ Insulin Dosing Charts' Sidebar Report, or, the Patient Summary or Summary Report within the ED.
[facility] Medication administered onsite Clonidine Hydrochloride 0.1 MG Oral Tabl et cloNIDine HCl 0.1 MG Oral Tablet (CATAPRES) cloNIDine HCl 0.1 MG Oral Tablet (CATAPRES) 11/10/2019 12:00:00 AM EDT 0.1 mg Oral active Take 1 tablet by mouth Two Times Daily [facility] Cholecalciferol 1000 UNT Oral Tablet Vit brewer D3 25 MCG (1000 UT) Oral Tablet (CHOLECALCIFEROL) Vitamin D3 25 MCG (1000 UT) Oral Tablet (CHOLECALCIFER OL) 11/10/2019 12:00:00 AM EDT 2000 U Oral active Take 2 tablets by mouth daily [facility] Lurasidone Hydrochloride 20 MG Oral Tabl et Lurasidone HCl 20 MG Oral Tablet (LATUDA) Lurasidone HCl 20 MG Oral Tablet (LATUDA) 11/10/2019 12:00:00 AM EDT 20 mg Oral aborted Take 1 tablet by mouth d [facility] quetiapine 100 MG Oral Tablet QUEtiapine Fumarate 100 MG Oral Tablet (SEROquel) QUEtiapine Fumarate 100 MG Oral Tablet (SEROquel) 11/10/2019 12:00:00 AM EDT 100 mg Oral active Take 1 tablet by mouth n [facility] gabapentin 100 MG Oral Capsule Gabapentin 100 MG Oral Capsule (Neurontin) Gabapentin 100 MG Oral Capsule (Neurontin) 11/10/2019 12:00:00 AM EDT 100 mg Oral active Take 1 capsule by mo uth Four times daily [facility] quetiapine 100 MG Oral Tablet QUEtiapine (SEROquel) ta blet 100 mg QUEtiapine (SEROquel) tablet 100 mg 11/09/2019 10:00:00 PM EDT 100 mg Oral active 100 mg, Oral, Nightly, First dose on Fri11/09/19 at 220 0, For 30 days [facility] Medication administered onsite Clonidine Hydrochloride 0.1 MG Oral Tablet cloNIDine ( CATAPRES) tablet 0.1 mg cloNIDine (CATAPRES) tablet 0.1 mg 11/09/2019 09:45:00 PM EDT 0.1 mg Oral active 0.1 mg, Oral, 2 Time s Daily, First dose on Fri11/09/19 at 2145, For 30 days
Check vital signs before administering
[facility] Medication administered onsite gabapentin 100 MG Oral Capsule gabapentin (NEURONTIN) capsule 100 mg gabapentin (NEURONTIN) capsule 100 mg 11/09/2019 09:45:00 PM EDT 100 mg Oral active 100 mg, Oral, Four Times Da amanda Standard, First dose on Fri11/09/19 at 2145, For 30 days [facility] Medication administered onsite 0.3 ML Enoxaparin sodium 100 MG/ML Prefi lled Syringe enoxaparin sodium (LOVENOX) injection 30 mg enoxaparin sodium (LOVENOX) injection 30 mg 11/09/2019 09:45:00 PM EDT 30 mg Subcutaneous active 30 mg, Subcutaneous, Every 12 hours, First dose on Fri11/09/19 at 2144, For 30 days [facility] Medication administered onsite Metoprolol Tartrate 50 MG Oral Tablet metoprolol (LOPR ESSOR) tablet 50 mg metoprolol (LOPRESSOR) tablet 50 mg 11/09/2019 09:45:00 PM EDT 50 mg Oral active 50 mg, Oral, 2 Times Daily, First dose on Fri11/09/19 at 2145, For 30 days
Check vital signs before administering
[facility] Medication administered onsite Insulin Glargine 100 UNT/ML Injectable S olution insulin glargine (LANTUS) injection 44 Units insulin glargine (LANTUS) injection 44 Units 0 09:45:00 PM EDT 44 U Subcutaneous active 44 Units, Subcutaneous, Nightly, First dose (after last modification) on Fri11/09/19 at 2145, For 30 doses [facility] Medication administered onsite Glucose 0.417 MG/MG Oral Gel glucose (GLUTOSE) 40 % or al gel 15 g glucose (GLUTOSE) 40 % oral gel 15 g 11/09/2019 09:34:37 PM EDT 15 g Oral active 15 g, Oral, PRN, Low blood s ugar, for gluose 55-69 mg/dl and able to take PO, Starting Fri11/09/19 at 2134, For 30 days [facility] Medication administered onsite Glucagon 1 MG Injection glucagon (human recombinant) ( GLUCAGEN) injection 1 mg glucagon (human recombinant) (GLUCAGEN) injection 1 mg 11/09/2019 09:34:37 PM EDT 1 mg Intramuscular active 1 mg, Intramuscular, PRN, for glucose <55 without IV access, Starting Fri11/09/19 at 2134, For 30 days [facility] Medication administered onsite dextrose 50 % IV solution 25 mL [id number] 11/09/2019 09:34:36 PM E DT 25 mL Intravenous active 25 mL, Intrav enous, PRN, Other, blood glucose <55, Starting Fri11/09/19 at 2134, For 30 days
Not for midline administration.
[facility] Medication administered onsite Nystatin [id number] UNT/ML Topical Cream nystatin (MYCOSTA TIN) cream nystatin (MYCOSTATIN) cream 11/09/2019 09:33:30 PM EDT Topical active Topical, 2 Times Daily PRN, inflamed skin folds PRN, Starting Fri11/09/19 at 2133, For 30 days
Apply to skin folds inflamed PRN
[facility] Medication administered onsite Ibuprofen 400 MG Oral Tablet ibuprofen (MOTRIN) tablet 400 mg ibuprofen (MOTRIN) tablet 400 mg 11/09/2019 09:30:30 PM EDT 400 mg Oral act shane 400 mg, Oral, Every 6 hours PRN, pain, Starting Fri11/09/19 at 2130, For 30 days
Take with food. HOLD if has heart burn or reflux or indigestion and contact provider.
[facility] Medication administered onsite Acetaminophen 325 MG Oral Tablet acetaminophen (TYLENO L) tablet 650 mg acetaminophen (TYLENOL) tablet 650 mg 11/09/2019 09:29:31 PM EDT 65 0 mg Oral active 650 mg, Oral, E very 6 hours PRN, pain, Starting Fri11/09/19 at 2129, For 30 days
Maximum daily dose of acetaminophen is 3,000 mg from all sources in 24 hours.
[facility] Medication administered onsite 3 ML Insulin Glargine 100 UNT/ML Pen Injector [Lantus] Lantu s Solostar 10/12/2019 12:00:00 AM EDT completed [facility] ([facility]) 3 ML Insulin Lispro 100 UNT/ML Pen Injector Insulin Lispro ( 1 Unit Dial) 10/12/2019 12:00:00 AM EDT completed [facility] ([facility]) Metoprolol Tartrate 50 MG Oral Tablet Me toprolol Tartrate 50 MG Oral Tablet (LOPRESSOR) Metoprolol Tartrate 50 MG Oral Tablet (LOPRESSOR) 09/2019 12:00:00 AM EDT 50 mg Oral aborted Take 1 tablet by mouth Two Times Daily [facility] Acetaminophen 325 MG Oral Tablet Acetaminophen 325 MG Oral T ablet 10/08/2019 12:00:00 AM EDT 650 mg Oral aborted Take 2 tablets by mouth every 6 (six) hours as needed for Pain for up to 90 doses [facility] alginic acid 200 MG / Calcium Carbonate 80 MG / magnesium trisilicate 20 MG / Sodium Bicarbonate 70 MG Oral Tablet Calcium Carbonate Antacid 500 MG Oral Tablet Chewable (TUMS) Calcium Carbonate Antacid 500 MG Oral Ta blet Chewable (TUMS) 10/08/2019 12:00:00 AM EDT 500 mg Oral aborted Chew 1 tablet by Mouth Three times daily as needed for Heartburn for up to 30 doses [facility] Diclofenac Sodium 0.01 MG/MG Topical Gel Diclofenac Sodium 1 % Transdermal Gel (VOLTAREN) Diclofenac Sodium 1 % Transdermal Gel (VOLTAREN) 10/07 12:00:00 AM EDT 2 g Topical aborted Apply 2 g topic ally Three times daily [facility] Insulin Pen Needle 31G X 5 MM (B-D UF III MINI PEN NEEDLES) 65501 10/08/2019 12:00:00 AM EDT aborted Use as directed. # 200, use 4-6 per day, 1 refill [facility] 3 ML Insulin Glargine 100 UNT/ML Pen Inj darren Insulin Glargine 100 UNIT/ML Subcutaneous Solution Pen-injector (Lantus SoloStar) Insulin Glargine 100 UNIT/ML Subcutaneous Solution Pen-injector (Lantus SoloStar) 10/08/2019 12:00:00 AM EDT aborted Inject 5 5 units subcutaneously at bedtime, MDD 55 units [facility] OneTouch Verio Flex System w/Device Kit 12033-179-71 10/08/19 12:00:00 AM EDT aborted Test 4-6 times d aily. Dx code E11.65 [facility] 3 ML Insulin Lispro 100 UNT/ML Pen Injec tor Insulin Lispro (1 Unit Dial) 100 UNIT/ML Subcutaneous Solution Pen-injector (HumaLOG KwikPen) Insulin Lispro (1 Unit Dial) 100 UNIT/ML Subcutaneous Solution Pen-injector (HumaLOG KwikPen) 10/08/2019 12:00:00 AM EDT aborted # 2 pens, inject Subcutaneous 3 times daily ac TID per the insulin algorithm, MDD: 75 units[facility] 0.7 ML/ML Medicated Pad Alcohol Prep 70 % Pad Alcohol Prep 70 % Pad 10/08/2019 12:00:00 AM EDT aborted Use as directed. Dx code E11.65 [facility] Delica Lancets 33G 73253-980-96 10/08/2019 12:00:00 AM EDT aborted Use 4-6 times daily. Dx code E1 1.65 [facility] Isopropyl Alcohol 0.7 ML/ML Medicated Pad Alcohol Swabs Pad Alcohol Swabs Pad 10/08/2019 12:00:00 AM EDT aborted Use as directed. use 8-10 per day, E11.65, #200, 1 [facility] Glucose [facility] 06937 12:00:00 AM EDT aborted Test with 4-6 ti mes daily. Dx code E11.65 [facility] Nystatin 263731 UNT/ML Topical Cream Nys tatin 349970 UNIT/GM External Cream (MYCOSTATIN) Nystatin 117602 UNIT/GM External Cream (MYCOSTATIN) 12:00:00 AM EDT aborted Apply to abdominal folds where red, inflamed two times per day [facility] gabapentin 300 MG Oral Capsule Gabapentin 300 MG Oral Capsule (NEURONTIN) Gabapentin 300 MG Oral Capsule (NEURONTIN) 09/23/2019 12:00:00 AM EDT 300 mg Oral suspended Take 1 capsule by mo uth [facility] Insulin Glargine 100 UNT/ML Injectable S olution Insulin Glargine 100 UNIT/ML Subcutaneous Solution (LANTUS) Insulin Glargine 100 UNIT/ML Subcutaneou s Solution (LANTUS) 09/23/2019 12:00:00 AM EDT 25 U Subcutaneous suspended Inject 25 Units into the skin nightly [facility] Lisinopril 10 MG Oral Tablet Lisinopril 10 MG Oral Tab let (ZESTRIL) Lisinopril 10 MG Oral Tablet (ZESTRIL) 09/23/2019 12:00:00 AM EDT 10 mg Oral suspended Take 1 tablet by mouth Two Times Daily [facility] Insulin Lispro 100 UNT/ML Injectable [place]adine ution Insulin Lispro 100 UNIT/ML Subcutaneous Solution (Admelog) Insulin Lispro 100 UNIT/ML Subcutaneous Solution (Admelog) aborted Inject per Sl iding scale [facility] Insurance Providers Payer name Policy type / Coverage type Policy ID Covered green party ID Covered green party's relationship to forbes Policy Forbes Plan Information O-CNY 7 [id number] [facility] [id number] S [id number] [facility] I [id number] Self [id number] [facility] MEDICAID [id number] Dorita [id number] [facility] MEDICAID [id number] Dorita [id number] [facility] I [id number] Self [id number] [facility] MEDICAID DUAL I [id number] Self [id number] [place] F [id number] SELF 7 [id number] [place] I [id number] Self [id number] [place] MEDICAID [id number] Dorita 7 [id number] [place] I [id number] Self [id number] MEDICAID [id number] Dorita [id number] Medicaid [facility] S D [id number] SELF [id number] [place] MED[place] [id number] Dorita 7 [id number] MEDICAID M [id number] Self [id number] MEDICAID [id number] Dorita [id number] MEDICAID [id number] xxxxxxxx [id number] [facility] I [id number] Self [id number] MEDICAID M Self MEDICAID M [id number] Self [id number] [facility] I [id number] Self [id number] [facility] I [id number] Self [id number] UH I [id number] Self [id number] [facility] I [id number] Self [id number] [facility] [id number] xxxxxxxx [id number] [facility] [id number] Dorita [id number] [facility] I [id number] Self CG [id number] [facility] [id number] SP CG [id number] SELF PAY [place]ID [place] [id number] SP [id number] MEDICAID M [id number] Self [id number] MEDICAID M [id number] Self [id number] [facility] I [id number] Self [id number] [place] E [id number] OAdt [id number] MEDICAID M [id number] Self [id number] [place] [id number] Self [id number] EXCELLUS I [id number] Self [id number] [place] F [id number] SELF 7 [id number] [place] I [id number] Self [id number] [place] MEDICAID [id number] Dorita 7 [id number] [place] MEDICAID [id number] [id number] MEDICAID M [id number] Self [id number] [place] I [id number] Self [id number] [place] I [id number] Self [id number] WORKER'S COMP 08/23/19 Emp 0 WORKER'S COMP [id number] x/xx/xx [id number] [facility] [id number] S [id number] [facility] MEDICAID [facility] HEAL [id number] Dorita [id number] MEDICAID W [id number] S [id number] [place] [id number] S [id number] [place] [id number] SP [id number] [id number] SP [id number] [place] UNAVA[place] S UN AVAILABLE [facility] COMM PLAN BOBY W [id number] S [id number] [place] [id number] SP [id number] SELF PAY ONLY [id number] SP [id number] [facility] [id number] S 1 [id number] [facility] MEDICAID [employer] [id number] Dorita [id number] [facility] COMM PLAN FHP W [id number] S [id number] [facility] [id number] S 1 [id number] [facility] [id number] S [id number] MEDICAID [id number] MEDICAID -O/P [id number] SELF PAY 2 UNAVAILABLE 1 U[place]A BLE [place] 3 [id number] H PSY VALUE OPTIONS 2 [id number] Medicaid [id number] [facility] MEDICAID [employer] [id number] Dorita [id number] [facility] [id number] S [id number] Problems, Conditions, and Diagnoses Code Display Name Description Problem Type Effective Dates Data Source(s) R04.2 Hemoptysis Hemoptysis Diagnosis 11/03/2020 12:50:[address] [facility] S72.001A Fracture of unspecified part of neck of right femur, initial encounter for closed fracture Fracture of unspecified part of neck of right femur, initial encounter for closed fracture Diagnosis 03/27/2020 01:31:06 PM [facility] S32.474D Nondisplaced fracture of med ial wall of right acetabulum, subsequent encounter for fracture with routine healing Nondisplaced fracture of medial wall of right acetabulum, subsequent encounter for fracture with routine healing Diagnosis 03/27/2020 01:31:03 PM [facility] Z96.641 Presence of right artificial hip joint 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 Diagnosis 03/27/2020 01:31:02 PM [facility] Z47.1 Aftercare following joint replacement benavides rgery Aftercare following joint replacement surgery Diagnosis 03/27/2020 01:31:02 PM [facility] S32.401A Unspecified fracture of righ t acetabulum, initial encounter for closed fracture Unspecified fracture of right acetabulum , initial encounter for closed fracture Diagnosis 01/28/2020 12:55:55 AM [facility] F19.10 Other psychoactive substance abuse, unco mplicated Other psychoactive substance abuse, uncomplicated Diagnosis 01/28/2020 12:55:18 AM [facility] Y93.01 Activity, walking, marching and hiking A ctivity, walking, marching and hiking Diagnosis 01/27/2020 09:32:00 PM [facility] W19.XXXA Unspecified fall, initial encounter Unsp ecified fall, initial encounter Diagnosis 01/27/2020 09:32:00 PM [facility] F17.290 Nicotine dependence, other tobacco produ ct, uncomplicated Nicotine dependence, other tobacco product, uncomplicated Diagnosis 01/26 09:32:00 PM [facility] E11.9 Type 2 diabetes mellitus without complic ations Type 2 diabetes mellitus without complications Diagnosis 01/27/2020 09:32:[address] [facility] I10 Essential (primary) hypertension Essential (primary) h ypertension Diagnosis 01/27/2020 09:32:00 PM [facility] Fall eval Fall eval Diagnosis 01/27/2020 09:32:00 PM [facility] M25.551 Pain in right hip Pain in right hip Diagnosis 01/19 09:49:17 AM [facility] Z87.81 Personal history of (healed) traumatic f racture Personal history of (healed) traumatic fracture Diagnosis 01/20/2020 09:49:14 AM [facility] Post traumatic osteoarthritis of hip Post trauma tic osteoarthritis of hip Diagnosis 01/20/2020 06:03:00 AM [facility] Closed displaced fracture of right femor al neck [S72.001A] Closed displaced fracture of right femoral neck [S72.001A] Diagnosis 01/20/2020 06:03:0 0 AM [facility] R52 Pain, unspecified Pain, unspecified Diagnosis 01/10/2020 02:15:52 AM [facility] Z98.890 Other specified postprocedural states Ot her specified postprocedural states Diagnosis 01/09/2020 08:44:00 PM [facility] G89.18 Other acute postprocedural pain Other acute post procedural pain Diagnosis 01/09/2020 08:44:00 PM [facility] Right hip pain Right hip pain Diagnosis 01/09/2020 08:44: 00 PM [facility] E86.0 Dehydration Dehydration Diagnosis 12/27/2019 08:27:57 PM EDT [facility] M25.551 Pain in right hip Pain in right hip Diagnosis 12/26 08:27:57 PM EDT [facility] Right knee pain Right knee pain Diagnosis 12/11/2019 09:4 4:00 PM EDT [facility] E86.0 Dehydration Dehydration [id number] 12/29/2019 12:00:00 AM EDT [facility] R26.2 Inability to walk Inability to walk [id number] 12/28/2019 12:00:00 AM EDT [facility] M25.551 Hip pain, right Hip pain, right [id number] 12/28/2019 12:0 0:00 AM EDT [facility] F31.9 Bipolar disorder Bipolar disorder [id number] 12/28/2019 12 :00:00 AM EDT [facility] E11.65 Type 2 diabetes mellitus wit h hyperglycemia, with long-term current use of insulin Type 2 diabetes mellitus with hyperglyce beatriz, with long-term current use of insulin [id number] 12/28/2019 12:00:00 AM EDT [facility] Surgeries/Procedures Procedure Description Date Indications Data Source(s) OFFICE OUTPATIENT VISIT 25 MINUTES 01/18/2021 12:00:00 AM EST [facility] ([facility]) OFFICE OUTPATIENT VISIT 25 MINUTES 11/29/2020 12:00:00 AM EDT [facility] ([facility]) Psychiatric Diagnostic Evaluation 11/13/2020 12:00:00 AM EDT [facility] ([facility]) OFFICE OUTPATIENT VISIT 25 MINUTES 11/09/2020 12:00:00 AM EDT [facility] ([facility]) XR CHEST FRONTAL AND LATERAL [id number] <td>XR CHEST FRONTA L AND LATERAL 53464</td><td>Routine</td><td>11/03/2020 1:07 PM EDT</td><td> Hemoptysis</td><td> </td> 11/03/2020 01:07:35 PM EDT Hemoptysis [facility] Hemoptysis Brief Emotional/Behav Assessment W/ Scoring Doc Per Standard Inst 11/03/2020 12:00:00 AM EDT [facility] ([facility]) OFFICE OUTPATIENT VISIT 25 MINUTES 11/03/2020 12:00:00 AM EDT [facility] ([facility]) OFFICE OUTPATIENT VISIT 15 MINUTES 10/04/2020 12:00:00 AM EDT [facility] ([facility]) PERIODIC PREVENTIVE MED EST PATIENT 18-39 YRS 10/05/19 12:00:00 AM [facility] X-ray of right knee (procedure) 09/30/2020 11:33:00 PM EDT [facility] Plain x-ray of pelvis and lower extremity (procedure) 09/30/2020 11:32:00 PM EDT [facility] OFFICE OUTPATIENT VISIT 15 MINUTES 09/26/2020 12:00:00 AM EDT [facility] ([facility]) OFFICE OUTPATIENT VISIT 25 MINUTES 08/28/2020 12:00:00 AM EDT [facility] ([facility]) OFFICE OUTPATIENT VISIT 25 MINUTES 07/27/2020 12:00:00 AM EDT [facility] ([facility]) Plain x-ray of pelvis and lower extremity (procedure) 06/04/2020 03:28:00 AM EDT [facility] Plain x-ray of pelvis and lower extremity (procedure) 06/04/2020 03:28:00 AM [facility] PHYSICIAN TELEPHONE EVALUATION 5-10 MIN 05/03/2020 12: 00:00 AM EST [facility] ([facility]) SEDIMENTATION RATE RBC AUTOMATED <td>SEDIMENTATION RAT E, AUTOMATED</td><td>Routine</td><td>05/01/2020 1:09 PM EST</td><td> Aftercare following right hip joint replacement surgery Closed nondisplaced fracture of medial wall of right acetabulum with routine healing, subsequent encounter Right hip pain</td><td> </td> 05/01/2020 01:09:00 PM EST Right hip painClosed nondisplaced fractu re of medial wall of right acetabulum with routine healing, subsequent encounterAftercare following right hip joint replacement surgery [facility] Right hip pain Closed nondisplaced fracture of medial w all of right acetabulum with routine healing, subsequent encounter Aftercare following right hip joint repl acement surgery BLOOD COUNT COMPLETE AUTO&AUTO DIFRNTL WBC COUNT <td>C BC AND DIFFERENTIAL</td><td>Routine</td><td>05/01/2020 1:09 PM EST</td><td> Aftercare following right hip joint replacement surgery Closed nondisplaced fracture of medial wall of right acetabulum with routine healing, subsequent encounter Right hip pain</td><td> </td> 05/01/2020 01:09:00 PM EST Right hip painClosed nondisplaced fractu re of medial wall of right acetabulum with routine healing, subsequent encounterAftercare following right hip joint replacement surgery [facility] Right hip pain Closed nondisplaced fracture of medial w all of right acetabulum with routine healing, subsequent encounter Aftercare following right hip joint repl acement surgery C-REACTIVE PROTEIN <td>INFLAMMATORY C-REACTIVE PROTEIN (CRP)</td><td>Routine</td><td>05/01/2020 1:09 PM EST</td><td> Aftercare following right hip joint replacement surgery Closed nondisplaced fracture of medial wall of right acetabulum with routine healing, subsequent encounter Right hip pain</td><td> </td> 05/01/2020 01:09:00 PM EST Right hip painClosed nondisplaced fractu re of medial wall of right acetabulum with routine healing, subsequent encounterAftercare following right hip joint replacement surgery [facility] Right hip pain Closed nondisplaced fracture of medial w all of right acetabulum with routine healing, subsequent encounter Aftercare following right hip joint repl acement surgery Brief Emotional/Behav Assessment W/ Scoring Doc Per Standard Inst 04/05/2020 12:00:00 AM [facility]) OFFICE OUTPATIENT VISIT 25 MINUTES 04/05/2020 12:00:00 AM EST [facility] ([facility]) POCT GLUCOSE, DOCKED <td>POCT GLUCOSE, DOCKED</td ><td>Routine</td><td>02/09/2020 12:17 PM EST</td><td></td><td> </td> 02/09/2020 12:17:00 PM [facility] POCT GLUCOSE, DOCKED <td>POCT GLUCOSE, DOCKED</td ><td>Routine</td><td>02/09/2020 8:13 AM EST</td><td></td><td> </td> 02/09/2020 08:13:00 AM [facility] GLUCOSE QUANTITATIVE BLOOD XCPT REAGENT STRIP <td>POCT GLUCOSE, DOCKED</td><td>Routine</td><td>02/08/2020 9:47 PM EST</td><td></td><td> </td> 02/08/2020 09:47:00 PM [facility] GLUCOSE QUANTITATIVE BLOOD XCPT REAGENT STRIP <td>POCT GLUCOSE, DOCKED</td><td>Routine</td><td>02/08/2020 5:15 PM EST</td><td></td><td> </td> 02/08/2020 05:15:00 PM [facility] GLUCOSE QUANTITATIVE BLOOD XCPT REAGENT STRIP <td>POCT GLUCOSE, DOCKED</td><td>Routine</td><td>02/08/2020 12:26 PM EST</td><td></td><td> </td> 02/08/2020 12:26:00 PM [facility] GLUCOSE QUANTITATIVE BLOOD XCPT REAGENT STRIP <td>POCT GLUCOSE, DOCKED</td><td>Routine</td><td>02/08/2020 8:17 AM EST</td><td></td><td> </td> 02/08/2020 08:17:00 AM [facility] GLUCOSE QUANTITATIVE BLOOD XCPT REAGENT STRIP <td>POCT GLUCOSE, DOCKED</td><td>Routine</td><td>02/07/2020 9:15 PM EST</td><td></td><td> </td> 02/07/2020 09:15:00 PM [facility] GLUCOSE QUANTITATIVE BLOOD XCPT REAGENT STRIP <td>POCT GLUCOSE, DOCKED</td><td>Routine</td><td>02/07/2020 5:30 PM EST</td><td></td><td> </td> 02/07/2020 05:30:00 PM [facility] GLUCOSE QUANTITATIVE BLOOD XCPT REAGENT STRIP <td>POCT GLUCOSE, DOCKED</td><td>Routine</td><td>02/07/2020 12:26 PM EST</td><td></td><td> </td> 02/07/2020 12:26:00 PM [facility] COVID-19 PCR <td>COVID-19 PCR</td><td>Rou alison</td><td>02/07/2020 11:12 AM EST</td><td></td><td> </td> 02/07/2020 11:12:00 AM [facility] GLUCOSE QUANTITATIVE BLOOD XCPT REAGENT STRIP <td>POCT GLUCOSE, DOCKED</td><td>Routine</td><td>02/07/2020 8:50 AM EST</td><td></td><td> </td> 02/07/2020 08:50:00 AM [facility] GLUCOSE QUANTITATIVE BLOOD XCPT REAGENT STRIP <td>POCT GLUCOSE, DOCKED</td><td>Routine</td><td>02/06/2020 9:50 PM EST</td><td></td><td> </td> 02/06/2020 09:50:00 PM [facility] GLUCOSE QUANTITATIVE BLOOD XCPT REAGENT STRIP <td>POCT GLUCOSE, DOCKED</td><td>Routine</td><td>02/06/2020 5:32 PM EST</td><td></td><td> </td> 02/06/2020 05:32:00 PM [facility] GLUCOSE QUANTITATIVE BLOOD XCPT REAGENT STRIP <td>POCT GLUCOSE, DOCKED</td><td>Routine</td><td>02/06/2020 12:47 PM EST</td><td></td><td> </td> 02/06/2020 12:47:00 PM [facility] GLUCOSE QUANTITATIVE BLOOD XCPT REAGENT STRIP <td>POCT GLUCOSE, DOCKED</td><td>Routine</td><td>02/06/2020 8:34 AM EST</td><td></td><td> </td> 02/06/2020 08:34:00 AM [facility] GLUCOSE QUANTITATIVE BLOOD XCPT REAGENT STRIP <td>POCT GLUCOSE, DOCKED</td><td>Routine</td><td>02/05/2020 9:34 PM EST</td><td></td><td> </td> 02/05/2020 09:34:00 PM [facility] GLUCOSE QUANTITATIVE BLOOD XCPT REAGENT STRIP <td>POCT GLUCOSE, DOCKED</td><td>Routine</td><td>02/05/2020 5:31 PM EST</td><td></td><td> </td> 02/05/2020 05:31:00 PM [facility] GLUCOSE QUANTITATIVE BLOOD XCPT REAGENT STRIP <td>POCT GLUCOSE, DOCKED</td><td>Routine</td><td>02/05/2020 12:47 PM EST</td><td></td><td> </td> 02/05/2020 12:47:00 PM [facility] GLUCOSE QUANTITATIVE BLOOD XCPT REAGENT STRIP <td>POCT GLUCOSE, DOCKED</td><td>Routine</td><td>02/05/2020 8:56 AM EST</td><td></td><td> </td> 02/05/2020 08:56:00 AM [facility] GLUCOSE QUANTITATIVE BLOOD XCPT REAGENT STRIP <td>POCT GLUCOSE, DOCKED</td><td>Routine</td><td>02/04/2020 9:56 PM EST</td><td></td><td> </td> 02/04/2020 09:56:00 PM [facility] GLUCOSE QUANTITATIVE BLOOD XCPT REAGENT STRIP <td>POCT GLUCOSE, DOCKED</td><td>Routine</td><td>02/04/2020 5:38 PM EST</td><td></td><td> </td> 02/04/2020 05:38:00 PM [facility] GLUCOSE QUANTITATIVE BLOOD XCPT REAGENT STRIP <td>POCT GLUCOSE, DOCKED</td><td>Routine</td><td>02/04/2020 12:27 PM EST</td><td></td><td> </td> 02/04/2020 12:27:00 PM [facility] GLUCOSE QUANTITATIVE BLOOD XCPT REAGENT STRIP <td>POCT GLUCOSE, DOCKED</td><td>Routine</td><td>02/04/2020 8:13 AM EST</td><td></td><td> </td> 02/04/2020 08:13:00 AM [facility] GLUCOSE QUANTITATIVE BLOOD XCPT REAGENT STRIP <td>POCT GLUCOSE, DOCKED</td><td>Routine</td><td>02/03/2020 9:36 PM EST</td><td></td><td> </td> 02/03/2020 09:36:00 PM [facility] GLUCOSE QUANTITATIVE BLOOD XCPT REAGENT STRIP <td>POCT GLUCOSE, DOCKED</td><td>Routine</td><td>02/03/2020 5:01 PM EST</td><td></td><td> </td> 02/03/2020 05:01:00 PM [facility] POSTOP FOLLOW UP VISIT RELATED TO ORIGINAL PX <td>SUTU RE REMOVAL</td><td>Routine</td><td>02/03/2020 3:30 PM EST</td><td> Closed displaced fracture of neck of right femur 09/21/2019 s/p ORIF</td><td> </td> 02/03/2020 03:30:45 PM EST Closed displaced fracture of neck of right femur 2019 s/p ORIF [facility] Closed displaced fracture of neck of rig ht femur 09/21/2019 s/p ORIF RADIOLOGIC EXAM PELVIS COMPL MINIMUM 3 VIEWS <td>XR PE LVIS 3 VIEWS 22296</td><td>Urgent</td><td>02/03/2020 2:10 PM EST</td><td></td><td> </td> 02/03/2020 02:10:03 PM [facility] GLUCOSE QUANTITATIVE BLOOD XCPT REAGENT STRIP <td>POCT GLUCOSE, DOCKED</td><td>Routine</td><td>02/03/2020 12:28 PM EST</td><td></td><td> </td> 02/03/2020 12:28:00 PM [facility] GLUCOSE QUANTITATIVE BLOOD XCPT REAGENT STRIP <td>POCT GLUCOSE, DOCKED</td><td>Routine</td><td>02/03/2020 8:48 AM EST</td><td></td><td> </td> 02/03/2020 08:48:00 AM [facility] GLUCOSE QUANTITATIVE BLOOD XCPT REAGENT STRIP <td>POCT GLUCOSE, DOCKED</td><td>Routine</td><td>02/02/2020 9:42 PM EST</td><td></td><td> </td> 02/02/2020 09:42:00 PM [facility] GLUCOSE QUANTITATIVE BLOOD XCPT REAGENT STRIP <td>POCT GLUCOSE, DOCKED</td><td>Routine</td><td>02/02/2020 5:29 PM EST</td><td></td><td> </td> 02/02/2020 05:29:00 PM [facility] GLUCOSE QUANTITATIVE BLOOD XCPT REAGENT STRIP <td>POCT GLUCOSE, DOCKED</td><td>Routine</td><td>02/02/2020 12:43 PM EST</td><td></td><td> </td> 02/02/2020 12:43:00 PM [facility] GLUCOSE QUANTITATIVE BLOOD XCPT REAGENT STRIP <td>POCT GLUCOSE, DOCKED</td><td>Routine</td><td>02/02/2020 8:25 AM EST</td><td></td><td> </td> 02/02/2020 08:25:00 AM [facility] GLUCOSE QUANTITATIVE BLOOD XCPT REAGENT STRIP <td>POCT GLUCOSE, DOCKED</td><td>Routine</td><td>02/01/2020 9:26 PM EST</td><td></td><td> </td> 02/01/2020 09:26:00 PM [facility] GLUCOSE QUANTITATIVE BLOOD XCPT REAGENT STRIP <td>POCT GLUCOSE, DOCKED</td><td>Routine</td><td>02/01/2020 5:29 PM EST</td><td></td><td> </td> 02/01/2020 05:29:00 PM [facility] GLUCOSE QUANTITATIVE BLOOD XCPT REAGENT STRIP <td>POCT GLUCOSE, DOCKED</td><td>Routine</td><td>02/01/2020 12:04 PM EST</td><td></td><td> </td> 02/01/2020 12:04:00 PM [facility] GLUCOSE QUANTITATIVE BLOOD XCPT REAGENT STRIP <td>POCT GLUCOSE, DOCKED</td><td>Routine</td><td>02/01/2020 8:20 AM EST</td><td></td><td> </td> 02/01/2020 08:20:00 AM [facility] GLUCOSE QUANTITATIVE BLOOD XCPT REAGENT STRIP <td>POCT GLUCOSE, DOCKED</td><td>Routine</td><td>01/31/2020 9:17 PM EST</td><td></td><td> </td> 01/31/2020 09:17:00 PM [facility] GLUCOSE QUANTITATIVE BLOOD XCPT REAGENT STRIP <td>POCT GLUCOSE, DOCKED</td><td>Routine</td><td>01/31/2020 5:20 PM EST</td><td></td><td> </td> 01/31/2020 05:20:00 PM [facility] COVID-19 PCR <td>COVID-19 PCR</td><td>Rou alison</td><td>01/31/2020 2:25 PM EST</td><td></td><td> </td> 01/31/2020 02:25:00 PM [facility] GLUCOSE QUANTITATIVE BLOOD XCPT REAGENT STRIP <td>POCT GLUCOSE, DOCKED</td><td>Routine</td><td>01/31/2020 12:08 PM EST</td><td></td><td> </td> 01/31/2020 12:08:00 PM [facility] GLUCOSE QUANTITATIVE BLOOD XCPT REAGENT STRIP <td>POCT GLUCOSE, DOCKED</td><td>Routine</td><td>01/31/2020 8:16 AM EST</td><td></td><td> </td> 01/31/2020 08:16:00 AM [facility] GLUCOSE QUANTITATIVE BLOOD XCPT REAGENT STRIP <td>POCT GLUCOSE, DOCKED</td><td>Routine</td><td>01/30/2020 9:16 PM EST</td><td></td><td> </td> 01/30/2020 09:16:00 PM [facility] GLUCOSE QUANTITATIVE BLOOD XCPT REAGENT STRIP <td>POCT GLUCOSE, DOCKED</td><td>Routine</td><td>01/30/2020 5:17 PM EST</td><td></td><td> </td> 01/30/2020 05:17:00 PM [facility] GLUCOSE QUANTITATIVE BLOOD XCPT REAGENT STRIP <td>POCT GLUCOSE, DOCKED</td><td>Routine</td><td>01/30/2020 12:33 PM EST</td><td></td><td> </td> 01/30/2020 12:33:00 PM [facility] GLUCOSE QUANTITATIVE BLOOD XCPT REAGENT STRIP <td>POCT GLUCOSE, DOCKED</td><td>Routine</td><td>01/30/2020 8:35 AM EST</td><td></td><td> </td> 01/30/2020 08:35:00 AM [facility] COVID-19 PCR <td>COVID-19 PCR</td><td>Rou alison</td><td>01/30/2020 6:42 AM EST</td><td></td><td> </td> 01/30/2020 06:42:00 AM [facility] BLOOD COUNT COMPLETE AUTO&AUTO DIFRNTL WBC COUNT <td>C BC AND DIFFERENTIAL</td><td>Routine</td><td>01/30/2020 6:42 AM EST</td><td></td><td> </td> 01/30/2020 06:42:00 AM [facility] GLUCOSE QUANTITATIVE BLOOD XCPT REAGENT STRIP <td>POCT GLUCOSE, DOCKED</td><td>Routine</td><td>01/29/2020 9:11 PM EST</td><td></td><td> </td> 01/29/2020 09:11:00 PM [facility] GLUCOSE QUANTITATIVE BLOOD XCPT REAGENT STRIP <td>POCT GLUCOSE, DOCKED</td><td>Routine</td><td>01/29/2020 5:13 PM EST</td><td></td><td> </td> 01/29/2020 05:13:00 PM [facility] GLUCOSE QUANTITATIVE BLOOD XCPT REAGENT STRIP <td>POCT GLUCOSE, DOCKED</td><td>Routine</td><td>01/29/2020 12:26 PM EST</td><td></td><td> </td> 01/29/2020 12:26:00 PM [facility] GLUCOSE QUANTITATIVE BLOOD XCPT REAGENT STRIP <td>POCT GLUCOSE, DOCKED</td><td>Routine</td><td>01/29/2020 8:24 AM EST</td><td></td><td> </td> 01/29/2020 08:24:00 AM [facility] GLUCOSE QUANTITATIVE BLOOD XCPT REAGENT STRIP <td>POCT GLUCOSE, DOCKED</td><td>Routine</td><td>01/28/2020 9:01 PM EST</td><td></td><td> </td> 01/28/2020 09:01:00 PM [facility] GLUCOSE QUANTITATIVE BLOOD XCPT REAGENT STRIP <td>POCT GLUCOSE, DOCKED</td><td>Routine</td><td>01/28/2020 5:05 PM EST</td><td></td><td> </td> 01/28/2020 05:05:00 PM [facility] GLUCOSE QUANTITATIVE BLOOD XCPT REAGENT STRIP <td>POCT GLUCOSE, DOCKED</td><td>Routine</td><td>01/28/2020 12:34 PM EST</td><td></td><td> </td> 01/28/2020 12:34:00 PM [facility] GLUCOSE QUANTITATIVE BLOOD XCPT REAGENT STRIP <td>POCT GLUCOSE, DOCKED</td><td>Routine</td><td>01/28/2020 8:36 AM EST</td><td></td><td> </td> 01/28/2020 08:36:00 AM [facility] COVID-19 PCR <td>COVID-19 PCR</td><td>Rou alison</td><td>01/28/2020 1:50 AM EST</td><td></td><td> </td> 01/28/2020 01:50:00 AM [facility] GLUCOSE QUANTITATIVE BLOOD XCPT REAGENT STRIP <td>POCT GLUCOSE, DOCKED</td><td>Routine</td><td>01/28/2020 1:28 AM EST</td><td></td><td> </td> 01/28/2020 01:28:00 AM [facility] CT PELVIS W/O CONTRAST MATERIAL <td>CT PELVIS WITHOUT CONTRAST [id number]</td><td>STAT</td><td>01/27/2020 11:21 PM EST</td><td></td><td> </td> 01/27/2020 11:21:50 PM [facility] XR FEMUR, MINIMUM OF 2 VIEWS 36155 <td>XR FEMUR, MINI MUM OF 2 VIEWS 41149</td><td>STAT</td><td>01/27/2020 10:23 PM EST</td><td></td><td> </td> 01/27/2020 10:23:00 PM [facility] XR HIP- UNILAT, 2-3 VIEWS 10198 <td>XR HIP- UNILAT, 2 -3 VIEWS 94281</td><td>STAT</td><td>01/27/2020 10:23 PM EST</td><td></td><td> </td> 01/27/2020 10:23:00 PM [facility] RADIOLOGIC EXAMINATION PELVIS 1/2 VIEWS <td>XR PELVIS 1-2 VIEWS 94801</td><td>STAT</td><td>01/27/2020 10:23 PM EST</td><td></td><td> </td> 01/27/2020 10:23:00 PM [facility] BLOOD COUNT COMPLETE AUTO&AUTO DIFRNTL WBC COUNT <td>C BC AND DIFFERENTIAL</td><td>Routine</td><td>01/27/2020 9:54 PM EST</td><td></td><td> </td> 01/27/2020 09:54:00 PM [facility] BLOOD TYPING ABO <td>TYPE AND SCREEN</td><td> STAT</td><td>01/27/2020 9:54 PM EST</td><td></td><td> </td> 01/27/2020 09:54:00 PM [facility] BASIC METABOLIC PANEL CALCIUM TOTAL <td>BASIC METABOLI C PANEL</td><td>Routine</td><td>01/27/2020 9:54 PM EST</td><td></td><td> </td> 01/27/2020 09:54:00 PM [facility] POCT GLUCOSE, DOCKED <td>POCT GLUCOSE, DOCKED</td ><td>Routine</td><td>01/21/2020 8:24 AM EST</td><td></td><td> </td> 01/21/2020 08:24:00 AM [facility] BLOOD COUNT COMPLETE AUTOMATED <td>CBC</td><td>Routine </td><td>01/21/2020 3:24 AM EST</td><td></td><td> </td> 01/21/2020 03:24:00 AM [facility] BASIC METABOLIC PANEL CALCIUM TOTAL <td>BASIC METABOLI C PANEL</td><td>Routine</td><td>01/21/2020 3:24 AM EST</td><td></td><td> </td> 01/21/2020 03:24:00 AM [facility] GLUCOSE QUANTITATIVE BLOOD XCPT REAGENT STRIP <td>POCT GLUCOSE, DOCKED</td><td>Routine</td><td>01/20/2020 8:57 PM EST</td><td></td><td> </td> 01/20/2020 08:57:00 PM [facility] GLUCOSE QUANTITATIVE BLOOD XCPT REAGENT STRIP <td>POCT GLUCOSE, DOCKED</td><td>Routine</td><td>01/20/2020 5:38 PM EST</td><td></td><td> </td> 01/20/2020 05:38:00 PM [facility] GLUCOSE QUANTITATIVE BLOOD XCPT REAGENT STRIP <td>POCT GLUCOSE, DOCKED</td><td>Routine</td><td>01/20/2020 12:35 PM EST</td><td></td><td> </td> 01/20/2020 12:35:00 PM [facility] RADIOLOGIC EXAMINATION PELVIS 1/2 VIEWS <td>XR PELVIS 1-2 VIEWS [id number]</td><td>STAT</td><td>01/20/2020 10:54 AM EST</td><td></td><td> </td> 01/20/2020 10:54:18 AM [facility] GLUCOSE QUANTITATIVE BLOOD XCPT REAGENT STRIP <td>POCT GLUCOSE, DOCKED</td><td>Routine</td><td>01/20/2020 10:14 AM EST</td><td></td><td> </td> 01/20/2020 10:14:00 AM [facility] US GUIDED PERIPHERAL NERVE BLOCK (OR ONLY) <td>US GUID ED PERIPHERAL NERVE BLOCK (OR ONLY)</td><td>Routine</td><td>01/20/2020 7:31 AM EST</td><td></td><td></td> 01/20/2020 07:31:00 AM [facility] US GUIDED PERIPHERAL NERVE BLOCK (OR ONLY) <td>US GUID ED PERIPHERAL NERVE BLOCK (OR ONLY)</td><td>Routine</td><td>01/20/2020 7:00 AM EST</td><td></td><td></td> 01/20/2020 07:00:00 AM [facility] GLUCOSE QUANTITATIVE BLOOD XCPT REAGENT STRIP <td>POCT GLUCOSE, DOCKED</td><td>Routine</td><td>01/20/2020 7:00 AM EST</td><td></td><td> </td> 01/20/2020 07:00:00 AM [facility] POCT GLUCOSE, DOCKED <td>POCT GLUCOSE, DOCKED</td ><td>Routine</td><td>01/12/2020 12:41 PM EST</td><td></td><td> </td> 01/12/2020 12:41:00 PM [facility] POCT GLUCOSE, DOCKED <td>POCT GLUCOSE, DOCKED</td ><td>Routine</td><td>01/12/2020 8:40 AM EST</td><td></td><td> </td> 01/12/2020 08:40:00 AM [facility] PARTIAL THROMBOPLASTIN TIME (PTT) <td>PARTIAL THROMBOP LASTIN TIME (PTT)</td><td>Routine</td><td>01/12/2020 5:02 AM EST</td><td></td><td> </td> 01/12/2020 05:02:00 AM [facility] PROTHROMBIN TIME <td>PROTIME INR</td><td>Rout ine</td><td>01/12/2020 5:02 AM EST</td><td></td><td> </td> 01/12/2020 05:02:00 AM [facility] BLOOD TYPING ABO <td>TYPE AND SCREEN</td><td> Routine</td><td>01/12/2020 5:02 AM EST</td><td></td><td> </td> 01/12/2020 05:02:00 AM [facility] GLUCOSE QUANTITATIVE BLOOD XCPT REAGENT STRIP <td>POCT GLUCOSE, DOCKED</td><td>Routine</td><td>01/11/2020 9:07 PM EST</td><td></td><td> </td> 01/11/2020 09:07:00 PM [facility] GLUCOSE QUANTITATIVE BLOOD XCPT REAGENT STRIP <td>POCT GLUCOSE, DOCKED</td><td>Routine</td><td>01/11/2020 5:41 PM EST</td><td></td><td> </td> 01/11/2020 05:41:00 PM [facility] GLUCOSE QUANTITATIVE BLOOD XCPT REAGENT STRIP <td>POCT GLUCOSE, DOCKED</td><td>Routine</td><td>01/11/2020 12:40 PM EST</td><td></td><td> </td> 01/11/2020 12:40:00 PM [facility] GLUCOSE QUANTITATIVE BLOOD XCPT REAGENT STRIP <td>POCT GLUCOSE, DOCKED</td><td>Routine</td><td>01/11/2020 8:21 AM EST</td><td></td><td> </td> 01/11/2020 08:21:00 AM [facility] BLOOD COUNT COMPLETE AUTOMATED <td>CBC</td><td>Routine </td><td>01/11/2020 5:14 AM EST</td><td></td><td> </td> 01/11/2020 05:14:00 AM [facility] BASIC METABOLIC PANEL CALCIUM TOTAL <td>BASIC METABOLI C PANEL</td><td>Routine</td><td>01/11/2020 5:14 AM EST</td><td></td><td> </td> 01/11/2020 05:14:00 AM [facility] GLUCOSE QUANTITATIVE BLOOD XCPT REAGENT STRIP <td>POCT GLUCOSE, DOCKED</td><td>Routine</td><td>01/10/2020 8:43 PM EST</td><td></td><td> </td> 01/10/2020 08:43:00 PM [facility] GLUCOSE QUANTITATIVE BLOOD XCPT REAGENT STRIP <td>POCT GLUCOSE, DOCKED</td><td>Routine</td><td>01/10/2020 5:36 PM EST</td><td></td><td> </td> 01/10/2020 05:36:00 PM [facility] GLUCOSE QUANTITATIVE BLOOD XCPT REAGENT STRIP <td>POCT GLUCOSE, DOCKED</td><td>Routine</td><td>01/10/2020 12:34 PM EST</td><td></td><td> </td> 01/10/2020 12:34:00 PM [facility] ARTHROCENTESIS ASPIR&/INJECTION MAJOR JT/BURSA <td>IR IMAGE GUIDED NEEDLE DRAIN PROCEDURE</td><td>Routine</td><td>01/10/2020 12:21 PM EST</td><td></td><td> </td> 01/10/2020 12:21:50 PM [facility] CUL BACT XCPT URINE BLOOD/STOOL AEROBIC ISOL <td>FLUID CULTURE(SYNOVIAL)</td><td>Routine</td><td>01/10/2020 12:05 PM EST</td><td></td><td></td> 01/10/2020 12:05:[address] [facility] GLUCOSE QUANTITATIVE BLOOD XCPT REAGENT STRIP <td>POCT GLUCOSE, DOCKED</td><td>Routine</td><td>01/10/2020 11:17 AM EST</td><td></td><td> </td> 01/10/2020 11:17:00 AM [facility] GLUCOSE QUANTITATIVE BLOOD XCPT REAGENT STRIP <td>POCT GLUCOSE, DOCKED</td><td>Routine</td><td>01/10/2020 8:39 AM EST</td><td></td><td> </td> 01/10/2020 08:39:00 AM [facility] CELL COUNT, SYNOVIAL FLUID <td>CELL COUNT, SYNOVIAL FLUID</td><td>Routine</td><td>01/10/2020 7:43 AM EST</td><td></td><td> </td> 01/10/2020 07:43:[address] [facility] [address] LOWER EXTREMITY W/O CONTRAST MATERIAL <td>CT LOWER EXTREMITY WITHOUT CONTRAST [id number]</td><td>Routine</td><td>01/10/2020 7:01 AM EST</td><td></td><td> </td> 01/10/2020 07:01:32 AM [facility] GLUCOSE QUANTITATIVE BLOOD XCPT REAGENT STRIP <td>POCT GLUCOSE, DOCKED</td><td>Routine</td><td>01/10/2020 5:38 AM EST</td><td></td><td> </td>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 HB6afqu/Un7UQEzpwkQfgTGnJZ1BJdCdVX0wnj1ZHxXsYC7lou2PGSoPOgRbK9S3aWEkWLHaOODPTjJd C38gZHhiIw02FRedXIYqQdHlFOh8Im2YZwFrG2emGK PnPoD1YRQuXoZ0CJVzVuJ7JIPrEtGaWRDsXYRrJOPtRUXRWH6AVwHpC1KrmR13JEPXZf5+DQplbmRvYm iUMhNeRYGwu0NbQCh3SG2NDEMdHrqfy9LhRqBeBDTGHLnoUI8IUMH9RONmZCExSr5HEAXdQ377iaGhXZ 5TUl2WTiXrGK7oiv9KTsWwGOKdRtaBUgx7LKhyTL4V wDQiQFeXeZKjbPZxL2XjQ6YgzYJzzVXzxPOQMOH2fCSaWTRkN5U2e1MpXDtmGOTdRVEbRPRzMJ7dQXPr CINnQoZjXXGCQN5AHXCzBSZgtWQaEOYyBWYROM1QENbqXJZ7BYAupxFwxIFsGQfoDE6KVYNdhrOiWkTf MCBSDQo+Cj0LKF4vp6JjVNqgYiOvPP9riw7UZJkNQs GpN4I4tEYiJ4J9DFnsAv0TLSYtUFGuTekaFESVOVcrHH7LZE4nxvP4IE0BrNVnWHNkTOEcxLKxZSm7X2 1hjNUtWOwbJV6FOIO+Driss+Gi2MMNGwRSPxBNMyPqUdOTJYFvPgJ6CjV2ALb0VtG3FzNC81yQswbhOaHQ mjXA3YFO5gYWZcAETBGG4GeILouE7ynxBbBKSbDSPN TkNfM07zrLRvFQYtFOI7PDHvFt7YAZKuS2DjucKmrHllclFkMCWcAZJOWI2QRQravwXfsKIilSqbIH42 sFjoQJ7HEg3KYrHuSS0gbo5ChLOdNe1NQUGcDs9DTJUeOHDlSOJrZJB8PSXdWwGyGUeyYBZoYDMgLJV7 MOWjNYMiBB7MOwTkNKZdRgV6TKabDVEdNJTwxn9HKQ KgYJVyIJG7VxRtZYEwUCXsJGalDQWfTFQdAWD1SDFmGHWzFP8VXzCjIFInTUT5NeNmEXZuRTZyls4MEE AaDBYlBoZ6WpRqEFNhALMfUKkpSKKnGRE9XGXeVBVtWXXxSK8UEiZeGEXrBZLbYXQcVFShWBLotm1ISQ OuUSYzVIv6MzOaKXKuAWPqTQgwTFPiGSW0OIzuOXXp OHYrND4UByLwGMPoJKMtQNRiXLEtVJLcsh6JUBKuSNGaEVI7EfZdGYTeXXFfZKezQJFsSOXcXcc5CXWj YCUvQV2RVdCbEAClSPD1UAGcYYKjNXTqef7WRDIyZKQzDXu6ALHxEOHgTYEhORllTJYmVRO8JTCmDAVi LVFjZO8YRrIeGKKsORZiDyBaFSHoROOeag5KFQFlRQ RrEmC8JjDjOQWfSHVrOQfeDNFkBSB3VYf5DQGzSWWgRG0OQyEhYRYcYIM0PuFoLLMdAGUcfm6LXHOkJP MqZaCaSoUhVETgIGGfDTooSTHsBGE6PEIdSVKzMEVmOD7BEpJfESYyKXanTKItQYHiOGZsqg2TZPEoKR DfSas2YPZgJIKfELYxPIlgFWYwHQExCWx3TCWiAJJz PD4YLwHkVDYdTwCrNShkXZXrYAIvrd4KTAImRIVxIxDtIQKrTJJsCATzGNtkDDMfSPEyKjx8BEFxDKGv TB0CWcDsDMCvKhHuCCJwGLClNTKcdj9GIXEvTHExTOY8GwSpJDCqAQXaYRbhEQLwEEE2UdL9TGDdADKv RV5KFzGmTLMhQrC7CXHbSXVeSOJxtq8ZbFGpkGwzgy 5PBEaLLg0MmWgtCUYvURarBc0nzBRiHnLnGFDAZo3FruNjVYTdGJSNLHsxLEJqTAVyPYPwSMHwOwDuD6 E9ODL0Qog3KyU0SNTmCGC7Q8OgHoB5KKJqCMBcTgDiXLJxQne3SWRiAnCnFppaANS7QLc8IQK+IF0gDQ o+Km9Ww3GxpqA6kgNgOJrwQwNqRe6QNIXCG9KPHx== ID Date Data Source [id number] 02/09/2020 12:18:58 PM [facility] Value Range Interpretation Code Description Data Maritza rce(s) Supporting Document(s) Glucose [Mass/volume] in Capillary blood by Glucometer 166 mg/dL 70- 140 H [facility] ID Date Data Source [id number] 02/09/2020 08:21:41 AM [facility] Name Value Range Interpretation Code Description Data Maritza rce(s) Supporting Document(s) Glucose [Mass/volume] in Capillary blood by Glucometer 126 mg/dL 70- 140 [facility] ID Date Data Source [id number] 02/08/2020 09:48:46 PM [facility] Name Value Range Interpretation Code Description Data Maritza rce(s) Supporting Document(s) Glucose [Mass/volume] in Capillary blood by Glucometer 195 mg/dL 70- 140 H [facility] ID Date Data Source [id number] 02/08/2020 05:16:42 PM [facility] Name Value Range Interpretation Code Description Data Maritza rce(s) Supporting Document(s) Glucose [Mass/volume] in Capillary blood by Glucometer 176 mg/dL 70- 140 [facility] ID Date Data Source [id number] 02/08/2020 04:48:52 PM [facility] Name Value Range Interpretation Code Description Data Maritza rce(s) Supporting Document(s) [facility] OEVMBw7zTpYJDfMo29/RUNokFMFxz7IhZJueXFe8JFpwFJMnA8OgKNQ1vB9zULF1ZDvNQsGdMcYdUeJ4 m [file] AldmR5wtIsCCyrJSK6EH5QQLFYC7ZAQf== ID Date Data Source [id number] 02/08/2020 12:28:01 PM [facility] Name Value Range Interpretation Code Description Data Maritza rce(s) Supporting Document(s) Glucose [Mass/volume] in Capillary blood by Glucometer 215 mg/dL 70- 140 H [facility] ID Date Data Source [id number] 02/08/2020 08:18:50 AM [facility] Name Value Range Interpretation Code Description Data Maritza rce(s) Supporting Document(s) Glucose [Mass/volume] in Capillary blood by Glucometer 148 mg/dL 70- 140 H [facility] ID Date Data Source [id number] 02/07/2020 09:20:43 PM [facility] Name Value Range Interpretation Code Description Data Maritza rce(s) Supporting Document(s) Glucose [Mass/volume] in Capillary blood by Glucometer 159 mg/dL 70- 140 [facility] ID Date Data Source [id number] 02/07/2020 05:32:35 PM [facility] Value Range Interpretation Code Description Data Maritza rce(s) Supporting Document(s) Glucose [Mass/volume] in Capillary blood by Glucometer 213 mg/dL 70- 140 [facility] ID Date Data Source [id number] 02/07/2020 12:28:19 PM [facility] Value Range Interpretation Code Description Data Maritza rce(s) Supporting Document(s) Glucose [Mass/volume] in Capillary blood by Glucometer 191 mg/dL 70- 140 [facility] ID Date Data Source [id number] 02/07/2020 11:12:00 AM EST [facility] Name Value Range Interpretation Code Description Data Maritza rce(s) Supporting Document(s) SARS-CoV-2 RNA [facility] This lab was ordered by [facility] and reported by [facility]. 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[facility] Patient has symptoms related to [facility] When did you start to experience these symptoms [Date and time] [Phen X] [facility] Patient was hospitalized because of this condition [facility] patient was admitted to ICU for condition [facility] Patient resides in a congregate care setting [facility] status [facility] ID Date Data Source [id number] 02/07/2020 08:51:47 AM [facility] Value Range Interpretation Code Description Data Maritza rce(s) Supporting Document(s) Glucose [Mass/volume] in Capillary blood by Glucometer 174 mg/dL 70- 140 [facility] ID Date Data Source [id number] 02/06/2020 09:53:08 PM [facility] Value Range Interpretation Code Description Data Maritza rce(s) Supporting Document(s) Glucose [Mass/volume] in Capillary blood by Glucometer 145 mg/dL 70- 140 [facility] ID Date Data Source [id number] 02/06/2020 05:38:50 PM [facility] Value Range Interpretation Code Description Data Maritza rce(s) Supporting Document(s) Glucose [Mass/volume] in Capillary blood by Glucometer 209 mg/dL 70- 140 [facility] ID Date Data Source [id number] 02/06/2020 12:50:30 PM [facility] Value Range Interpretation Code Description Data Maritza rce(s) Supporting Document(s) Glucose [Mass/volume] in Capillary blood by Glucometer 168 mg/dL 70- 140 [facility] ID Date Data Source [id number] 02/06/2020 08:35:56 AM [facility] Value Range Interpretation Code Description Data Maritza rce(s) Supporting Document(s) Glucose [Mass/volume] in Capillary blood by Glucometer 142 mg/dL 70- 140 [facility] ID Date Data Source [id number] 02/05/2020 09:43:48 PM [facility] Value Range Interpretation Code Description Data Maritza rce(s) Supporting Document(s) Glucose [Mass/volume] in Capillary blood by Glucometer 135 mg/dL 70- 140 [facility] ID Date Data Source [id number] 02/05/2020 05:32:50 PM [facility] Value Range Interpretation Code Description Data Maritza rce(s) Supporting Document(s) Glucose [Mass/volume] in Capillary blood by Glucometer 138 mg/dL 70- 140 [facility] ID Date Data Source [id number] 02/05/2020 12:49:57 PM [facility] Value Range Interpretation Code Description Data Maritza rce(s) Supporting Document(s) Glucose [Mass/volume] in Capillary blood by Glucometer 164 mg/dL 70- 140 [facility] ID Date Data Source [id number] 02/05/2020 08:58:33 AM [facility] Value Range Interpretation Code Description Data Maritza rce(s) Supporting Document(s) Glucose [Mass/volume] in Capillary blood by Glucometer 130 mg/dL 70- 140 [facility] ID Date Data Source [id number] 02/04/2020 09:57:55 PM [facility] Value Range Interpretation Code Description Data Maritza rce(s) Supporting Document(s) Glucose [Mass/volume] in Capillary blood by Glucometer 156 mg/dL 70- 140 [facility] ID Date Data Source [id number] 02/04/2020 05:40:02 PM [facility] Value Range Interpretation Code Description Data Maritza rce(s) Supporting Document(s) Glucose [Mass/volume] in Capillary blood by Glucometer 138 mg/dL 70- 140 [facility] ID Date Data Source [id number] 02/04/2020 12:41:21 PM [facility] Value Range Interpretation Code Description Data Maritza rce(s) Supporting Document(s) Glucose [Mass/volume] in Capillary blood by Glucometer 175 mg/dL 70- 140 [facility] ID Date Data Source [id number] 02/04/2020 11:21:49 AM [facility] Value Range Interpretation Code Description Data Maritza rce(s) Supporting Document(s) Discharge Summary [facility] SXMYQk6lWfZPIgSu12/WYOjvYKFmc0YuDIjdDPm4VYhoJNWtM2MzITL2vS7qOTF2DGpKPhXkTqAkZjL9 [facility] TkFgvUMyGiKUUlWqgWXeZcSEojAjdmfPFsJD9RrAJ0ZKSdJ20iQNQuNWNfK5RkQZQ4RQi+Je6VPVMzzF KjGX7ILzwX3AfYogiJ1z3J/9UOJtpWRWcY0k26IhDtvxGWDk9BlWqmJp8kzIHEfbuka10YakuagNoOQA vkJkCSB/tgZs6+lJDzLrd5f405FhxqVl+3v/qhYJMH 9vNPrJpmi+747ha8MFmFGBZ+Radha+usuwDpoHl5G4cjT6Xf9Pt6iv9Se9IvPZckxaikXUjDqfnvbR4nkz [file] AgICAgICAgICAgICAgICAgICAgICAgICAgICAgICAgICAgICAgICAgICAgICAgICAgICAgICAgICAgIC LnYYUwJXElEHZhBPGsWJGjKNPyRLAsBKEuTT9MUGJpQYScAIZsLJJfMIKaRPFuDDAxDWVaTPOhNYHcCP AgICAgICAgICAgICAgICAgICAgICAgICAgICAgICAg YIHaZHEpYWGfKMRmPBLfOTXbRQViRJNpSOIvRPQgSPYkOCJuUW8SZNDaSOIoUXUlHGDpFRDyJVIpLVJo ICAgICAgICAgICAgICAgICAgICAgICAgICAgICAgICAgICAgICAgICAgICAgICAgICAgICAgICAgICAg KJMzAMViGLSmQOIqKNOjDXFpRG2XABRyNEDhIGBvDU AgICAgICAgICAgICAgICAgICAgICAgICAgICAgICAgICAgICAgICAgICAgICAgICAgICAgICAgICAgIC MrCWIvNNJyZPYmDDSuWGVpRDGcELAbRAFoLGUnRC1UOFWeIWMuFKPtRQUkCIWyBOQuOUAoSLKdRIXxEN AgICAgICAgICAgICAgICAgICAgICAgICAgICAgICAg VZEoAPOxGRJyECZjUOWaQBNxLWHoRDKoYYUzQRRhBGJzYREfAYToOZ8VOXQtENFoPSKcPPCwZPTvPMWy ICAgICAgICAgICAgICAgICAgICAgICAgICAgICAgICAgICAgICAgICAgICAgICAgICAgICAgICAgICAg GJCpNPDmILKyKOZtTEDsDSXhABHcJO3BJPKiHGWeRQ AgICAgICAgICAgICAgICAgICAgICAgICAgICAgICAgICAgICAgICAgICAgICAgICAgICAgICAgICAgIC AzDXBtUMRbHNUfZCKeZWYmLLEkXTEsDPTsOFTqPCJzWD9WWGXxBEKlKAXaMQOiJKKfVHHwCCGaWRRuHX AgICAgICAgICAgICAgICAgICAgICAgICAgICAgICAg TXKhCEQkUYExSZAnZEIgKKSmAGGeCJAyUKJjHJFhOEInCVKdOHHzLXSsTF6WZAAfCIIlIXIxIJAxSIQq ICAgICAgICAgICAgICAgICAgICAgICAgICAgICAgICAgICAgICAgICAgICAgICAgICAgICAgICAgICAg WIJlAFRrLRUoNQUrLOWwHAAbDFZtLIHkQY6AZQJpLH AgICAgICAgICAgICAgICAgICAgICAgICAgICAgICAgICAgICAgICAgICAgICAgICAgICAgICAgICAgIC GmVPGqIQLuVXFtKUAxWSBvSZRjZEYmWPKtZSPlHLGqNWSlDD3YAU74wTPun6M1JNGtUP6xdzw/Pg0KDQ qphuGucEFgSJ2BCmRiWG8dfq3XCvMfTO9ble6YUEeU HlBfN4O8dIVvGPEmVXDAXuUqN09dLBgjIf91RPubSGOvUmFkMOy4Kl0EZsScD8ivMZFmUlT9VRYwPgH0 FANbVfD1HSHrWiEnCELcVZHtCQAlKZORJO9IZsLkS3VzdS67FYXHGy8+GBrjwoQqYgoNYsFdQATfu3Bd BBb5LW6PLEHrOhjch3OpLsWjHGAZHJmxNQ4YSQH4GD LzLLNkEs2ZVJBlG924atUbYP5PUr2QEwVkJL2nvi5DXkCmENIuFomIXca5GMcgDE5WoECyYFtKbFYmwS VwG5IkY4HfxVOfnAYwzXFVEQG1kZGgWWRsG1N0q7NrNVrxTTLsECXuOIJmML9xYHIgEDGtDbYeBEYAJZ 8DHUAgRCXieQPsTLAkCILHBD1WZQjxFKO1EIQivvOp yPOtJLblKY1IEQFnoeReWaGpEMPHPWk+Yb0YSA8xw1CyINcoKsEsCJ3ocs1JMLoJLcVqF5A8xUVtD6J2 GWyxAc9YHNVaJSApPessYQYUHTsoPN2QQZ7tpzX5RT7PqRHiASGoCYAyhDXiAUh7Q56azOYuCQnoSU5X ICA+Driss+No6AHOTbNGQdEHTtJbTbMNNMIgEfY4PvM1 RPg7VsX6IuEO82kIjpbzNhMNlaUM5USO4kIPUrLJWYCX4LcIAxfR6bxhPlCROjKBSEXaQzJ52slRFaZM RlKOA5WDOfLj5KNMVxZ5BtbeTfmKuuguJwEMRnLORXMC7ICDiplmVtmVVqgRnqFF63qGlhCB6ELx4APe GiYP8zqi3OxFCqVx7RQEKzYr6ELSFuARNnWRHzRGB5 HROcNeUtITdgZRDkSCAnBBJ0BXYjXKZaSI9HRsOrVNAzXgZ5HMAdWFWxQKNusd0ZBAZtAQAqTZRyGJBn ECQaRAMpTRbbIBDvWEEaMOU1JJSxOCFtBO8PSuTyFJEsFPM4XTKcKSYoKOKmna2IHDIoDJLgNsQ9RXOb GAJyBYTwLSgeFZMsPWP1FGO5JJXzZRYaLA6COrOfAE CuQTZzNxWeIIZfKKBmyd9DSXKkXIZjUFD2CJTdCRNzGPJxADbhAGCkQXP7FxiaJROzQEJmKA4GLnSuHB WoEJRtClCnNBUuENHaci9YCCByJQBcVKJ5WfZrURKaKBDzNEiwJZZgQPVrFIB7MOHkEYErZH3LFwShFN QtEWW5MtBmUFRkAHDzza1PAELpRZEaAbBpRLWdHXIe JDAqKGqqTOSuDVYhSMS4ZXYtOGFpPD5SWwKuYKDuMSUjLZTgIJSbMTOmjt7UUBIyHVCdAYu4RMQoOTVi VRTvCZxfYVIxEIY9RWgzNWBsVILtNZ9FPfLvUHJdBWLnQWsrQPVpXOMmfq5XJSWkRQSmRcHvCIXbDRJf BBYqJJhjESLyATN5IIT7IDRrYRYrGE4WSyUtBTChYP X6IPbyAFLrLZVizd2CMNPhAWDaQFI1IEDcZIZiPVHxRDpzQQPaSBFbIDwiKIYlWVLmTF5MRgKdEDCiNy SbECXpZAYsRLSptd9WBRUcSWTqHhGrDVHwYFAzVAJtRPlhZAKrFBMjMHnzWPYkHNHmID9BIeNvIPXyGz Q6RYvzIVAuCVRykm0ILODkZHJpTFI7BuYjNIGlNVAy SSlnRWKcFHD6ODFzPNPkXHFzTF8SFcCkTGNoUtY4UueeDXVnWUHqgr2VyBXixYkxka3WZHhESe1NuJhy ZDQpYPsvKa1gyFBmVbXqSVQOJh3MprReOFQkEEFHWUogVRPoQNYcIpb0VpH1EqIbDCY5JLP3ZeO3QMRg JRJnVSDaGpWvPiL1UWGfGnL3WWa1FiXhAlJ6BIBaWZ dyU3VoQbHsAPLsHBL+CF7lWJg+Ur8Kp1KdwqW7luIdPMlfBVszHr2LZACBU5CQFk== ID Date Data Source [id number] 02/04/2020 08:21:34 AM EST [facility] Name Value Range Interpretation Code Description Data Maritza rce(s) Supporting Document(s) Glucose [Mass/volume] in Capillary blood by Glucometer 159 mg/dL 70- 140 [facility] ID Date Data Source [id number] 02/03/2020 09:38:03 PM [facility] Value Range Interpretation Code Description Data Maritza rce(s) Supporting Document(s) Glucose [Mass/volume] in Capillary blood by Glucometer 169 mg/dL 70- 140 [facility] ID Date Data Source [id number] 02/03/2020 05:13:43 PM [facility] Value Range Interpretation Code Description Data Maritza rce(s) Supporting Document(s) Glucose [Mass/volume] in Capillary blood by Glucometer 162 mg/dL 70- 140 [facility] ID Date Data Source [id number] 02/03/2020 02:50:52 PM [facility] XR PELVIS 3 VIEWS [id number] RESULTInter preted by:Jazmin New MDINDICATION: 30-year-old male with acetabulum fracture.TECHNIQUE: AP and lateral views of the pelvis was obtained.COMPARISON: Pelvic radiographs and CT pelvis dated 01/27/2020.FINDINGS: 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 The hardware is intact. There is a small linear lucency at the medial portion of the superior screw which likely represents the acetabular fracture seen on CT pelvis dated 01/27/2020. There are no new fractures. The alignment is anatomical. 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 and right acetabular fracture.This document has been electronically signed by George Crockett MD on 02/03/2020 2:48 PM Name Value Range Interpretation Code Description Data Maritza rce(s) Supporting Document(s) ID Date Data Source [id number] 02/03/2020 12:29:40 PM [facility] Value Range Interpretation Code Description Data Maritza rce(s) Supporting Document(s) Glucose [Mass/volume] in Capillary blood by Glucometer 159 mg/dL 70- 140 [facility] ID Date Data Source [id number] 02/03/2020 08:59:34 AM [facility] Value Range Interpretation Code Description Data Maritza rce(s) Supporting Document(s) Glucose [Mass/volume] in Capillary blood by Glucometer 126 mg/dL 70- 140 [facility] ID Date Data Source [id number] 02/02/2020 09:54:41 PM [facility] Name Value Range Interpretation Code Description Data Maritza rce(s) Supporting Document(s) Glucose [Mass/volume] in Capillary blood by Glucometer 192 mg/dL 70- 140 [facility] ID Date Data Source [id number] 02/02/2020 05:38:34 PM [facility] Value Range Interpretation Code Description Data Maritza rce(s) Supporting Document(s) Glucose [Mass/volume] in Capillary blood by Glucometer 143 mg/dL 70- 140 [facility] ID Date Data Source [id number] 02/02/2020 03:32:49 PM [facility] Value Range Interpretation Code Description Data Maritza rce(s) Supporting Document(s) [facility] AXAHCe8sHhYIWhYe99/UUZzgWKRoe3VgEHnwXMn4TZhkBSHoU4LnSTY2cZ4gMHO6PLlYXfJpHrMvOtEy lbm [file] [employer]+MgHuPel2GeJpcqBZwviEH7+5DJrW2wK4AStqbBK [file] ZW0V79Iuy5D0D++3nsHGhIJGceZr03Ffv+SJKI/lens mounter [file] McVTd4GdO0Fk8VUBUEF8LUNm== ID Date Data Source [id number] 02/02/2020 02:51:05 PM [facility] Hospital Name Value Range Interpretation Code Description Data Maritza rce(s) Supporting Document(s) Consultation [facility] EXDYGa2yZoLEUgSe99/DSZssRGUgv3HfYKwvUPk7LVtsFPJwN4UiKRS2hA5iTPW4DSyIEjHrVtMwOoSq lbm [file] AYN6MNinJQFBCs4Y ID Date Data Source [id number] 02/02/2020 12:44:57 PM [facility] Value Range Interpretation Code Description Data Maritza rce(s) Supporting Document(s) Glucose [Mass/volume] in Capillary blood by Glucometer 180 mg/dL 70- 140 [facility] ID Date Data Source [id number] 02/02/2020 08:40:56 AM [facility] Value Range Interpretation Code Description Data Maritza rce(s) Supporting Document(s) Glucose [Mass/volume] in Capillary blood by Glucometer 144 mg/dL 70- 140 [facility] ID Date Data Source [id number] 02/01/2020 09:52:10 PM [facility] Value Range Interpretation Code Description Data Maritza rce(s) Supporting Document(s) Glucose [Mass/volume] in Capillary blood by Glucometer 154 mg/dL 70- 140 [facility] ID Date Data Source [id number] 02/01/2020 05:35:28 PM [facility] Value Range Interpretation Code Description Data Maritza rce(s) Supporting Document(s) Glucose [Mass/volume] in Capillary blood by Glucometer 207 mg/dL 70- 140 [facility] ID Date Data Source [id number] 02/01/2020 12:15:41 PM [facility] Value Range Interpretation Code Description Data Maritza rce(s) Supporting Document(s) Glucose [Mass/volume] in Capillary blood by Glucometer 157 mg/dL 70- 140 [facility] ID Date Data Source [id number] 02/01/2020 08:23:45 AM [facility] Value Range Interpretation Code Description Data Maritza rce(s) Supporting Document(s) Glucose [Mass/volume] in Capillary blood by Glucometer 159 mg/dL 70- 140 [facility] ID Date Data Source [id number] 01/31/2020 09:18:35 PM [facility] Value Range Interpretation Code Description Data Maritza rce(s) Supporting Document(s) Glucose [Mass/volume] in Capillary blood by Glucometer 154 mg/dL 70- 140 [facility] ID Date Data Source [id number] 01/31/2020 05:27:23 PM [facility] Value Range Interpretation Code Description Data Maritza rce(s) Supporting Document(s) Glucose [Mass/volume] in Capillary blood by Glucometer 164 mg/dL 70- 140 [facility] ID Date Data Source [id number] 01/31/2020 02:25:00 PM EST [facility] Name Value Range Interpretation Code Description Data Maritza rce(s) Supporting Document(s) SARS-CoV-2 RNA [facility] This lab was ordered by [facility] and reported by [facility]. 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 [facility] Patient has symptoms related to [facility] When did you start to experience these symptoms [Date and time] [Phen X] [facility] Patient was hospitalized because of this [facility] patient was admitted to ICU for [facility] Patient resides in a congregate care setting [facility] status [facility] ID Date Data Source [id number] 01/31/2020 12:10:49 PM [facility] Value Range Interpretation Code Description Data Maritza rce(s) Supporting Document(s) Glucose [Mass/volume] in Capillary blood by Glucometer 169 mg/dL 70- 140 [facility] ID Date Data Source [id number] 01/31/2020 08:17:14 AM [facility] Value Range Interpretation Code Description Data Maritza rce(s) Supporting Document(s) Glucose [Mass/volume] in Capillary blood by Glucometer 145 mg/dL 70- 140 [facility] ID Date Data Source [id number] 01/30/2020 09:20:51 PM [facility] Value Range Interpretation Code Description Data Maritza rce(s) Supporting Document(s) Glucose [Mass/volume] in Capillary blood by Glucometer 212 mg/dL 70- 140 [facility] ID Date Data Source [id number] 01/30/2020 05:19:22 PM [facility] Value Range Interpretation Code Description Data Maritza rce(s) Supporting Document(s) Glucose [Mass/volume] in Capillary blood by Glucometer 154 mg/dL 70- 140 [facility] ID Date Data Source [id number] 01/30/2020 12:35:25 PM [facility] Name Value Range Interpretation Code Description Data Maritza rce(s) Supporting Document(s) Glucose [Mass/volume] in Capillary blood by Glucometer 164 mg/dL 70- 140 [facility] ID Date Data Source [id number] 01/30/2020 08:37:06 AM [facility] Value Range Interpretation Code Description Data Maritza rce(s) Supporting Document(s) Glucose [Mass/volume] in Capillary blood by Glucometer 138 mg/dL 70- 140 [facility] ID Date Data Source [id number] 01/30/2020 07:12:11 AM [facility] Value Range Interpretation Code Description Data Maritza rce(s) Supporting Document(s) Progress Note [facility] JGJEQv9hXqQVYlYa65/TIQlvNYHqw5QxRHosXBr3SThbKSDxH2QwYRR5rQ0aVAE3PNnPRoJyIoPjIAE4 lbm [file] ICAgICAgICAgICAgICAgICAgICAgICAgICAgICAgICAgICAgICAgICAgICAgICAgICAgICAgICAgICAg ICAgICAgICAgICAgICAgICAgICAgICAgICANCiAgIC AgICAgICAgICAgICAgICAgICAgICAgICAgICAgICAgICAgICAgICAgICAgICAgICAgICAgICAgICAgIC AgICAgICAgICAgICAgICAgICAgICAgICAgICAgICAgICAgICANCiAgICAgICAgICAgICAgICAgICAgIC AgICAgICAgICAgICAgICAgICAgICAgICAgICAgICAg ICAgICAgICAgICAgICAgICAgICAgICAgICAgICAgICAgICAgICAgICAgICAgICANCiAgICAgICAgICAg ICAgICAgICAgICAgICAgICAgICAgICAgICAgICAgICAgICAgICAgICAgICAgICAgICAgICAgICAgICAg ICAgICAgICAgICAgICAgICAgICAgICAgICAgICANCi AgICAgICAgICAgICAgICAgICAgICAgICAgICAgICAgICAgICAgICAgICAgICAgICAgICAgICAgICAgIC AgICAgICAgICAgICAgICAgICAgICAgICAgICAgICAgICAgICAgICANCiAgICAgICAgICAgICAgICAgIC AgICAgICAgICAgICAgICAgICAgICAgICAgICAgICAg ICAgICAgICAgICAgICAgICAgICAgICAgICAgICAgICAgICAgICAgICAgICAgICAgICANCiAgICAgICAg ICAgICAgICAgICAgICAgICAgICAgICAgICAgICAgICAgICAgICAgICAgICAgICAgICAgICAgICAgICAg ICAgICAgICAgICAgICAgICAgICAgICAgICAgICAgIC ANCiAgICAgICAgICAgICAgICAgICAgICAgICAgICAgICAgICAgICAgICAgICAgICAgICAgICAgICAgIC AgICAgICAgICAgICAgICAgICAgICAgICAgICAgICAgICAgICAgICAgICANCiAgICAgICAgICAgICAgIC AgICAgICAgICAgICAgICAgICAgICAgICAgICAgICAg ICAgICAgICAgICAgICAgICAgICAgICAgICAgICAgICAgICAgICAgICAgICAgICAgICAgICANCiAgICAg ICAgICAgICAgICAgICAgICAgICAgICAgICAgICAgICAgICAgICAgICAgICAgICAgICAgICAgICAgICAg ICAgICAgICAgICAgICAgICAgICAgICAgICAgICAgIC AgICANCjw/dVGwA3uuwKEoymH6U0fsAm1WRb5TLA0kk3QuBWOoSIhohdPePkoYAyFeNMFgWmsSRvm7DB ymGZ7XzIOgZ6XoA7DdFMshVY5WLDMpAHBfaLLhWGTsHTTyJoR8OGGdYTmlRV4ZuQBnYWpwPBXyPAWsBz RlYHNnDECqCFOuAB2IDPDzU961rpPcKt8RDq5OGzQr OP5woa7CXuFwOGNdXykCSum0WRbzZP7WqTMsrLHsEMNjWQNAVjAnV2jun3SrWcAbSDHFHDpcEJ2Ep2Ka dCAxDQo+Yj9EGY0bh8SiPCujOIYjPQ3uyw3BGJcMAnMgY1OelSpsTUPay7szEJXrJX2raFMzAVK9KQrx fjZkiYGDx3DeSSORCWBniGDoKR5tWG2cTACoJGG8Rf U0OEKALQ2QKJCwNENqeTNrTFAqNKFPRA5MCHykNKS3CURzxbLtnOVeKGgcNP4ALIYjuoIjDuMsQFSRZO o+Hq6ZNP7ks1GsSImlAmRgLP6ifh3RMRrNXoEtU5N0lMPcR3H4ZBtjSv1KSUDqIMQqYbCkJVQDNIriQR 4UPX9uteY5VC3UoQNbVTAkITQlpBQkSZy4U73csOTz KDocDH1FGRJ+Driss+Vt1YPBYxBYIaXLMzRbBzTTLJAgZxO7CwC4GAi7AxW9KxXM01hKqnzaYiIPaiYJ2R LO0yNTXsFFICLS9QjGPbgN8pyeEwTQOzBVYOZgVjZ06obTTzCRSwYHZkISGyMm7WUCSfO1NjqvGfqUbv irJkXCJbMQCGGH1RWYgzcvPbrSZgyRhgXM64dQbqET 9BRy6HChXrNT0oeq0RnRIyYx4KVVVaOx3QMBXxBPXqDOXqOVA9KFJyQwAnCVbkSYYvNZIlFFI1KBWeBL MoTD8SDcMfWULvBSVuJWygSEQcUNMkle4WYRBzWVAmKJt0UBErANHuXFWnEPeqEMUtMOSnLFG7AVStIB PaEQ9LMeNgGBVhWRDdSFIcKWMsJMCswj0PCCXfSTZn LwFjSPXkXKFwBOSyBJjeNDIwULH6NzA3WITdDREjSA6XTxDdWVClCWE3ODZwQUZhHSWsqg8HKKEoVBSi EYQ8WyPaBAXyBXEhOKuhWSPwVUW8SwwtQFDvCZOsLI8SGkRmTVLzFDh5STOuTGRzGGKoja9HJMYmYXPi PFv1YSHcMTMdMDMtFBfkTUHyHYPoKJAiPKCaXZVhPY 6JUrMuZLRoIQSvCWAzXYIlVGIlxb6GJBKnRLQzNAJ7WsAyWOBbJXRkUPmgJAYsVGDfIVzaBDOqWQIiZI 8DGrNlWNAhDJP4LPInBGCyZCGbrq2XSDIqVXDxMnOdNgVvOUUkYXHeSBsqZJEhOWKdCPKoCVQvKTZuBN 4KVvWcKHThKKZ0BBHlNIFdEOZpne4JIBEfBKRgSrg8 DSBaPRCiYNLtSCtiWDRjDWG0RIx1CMToGNVoLL1CWnWrSORzODK5OMWnXDYuUDMvra3RTGHnMCGqXwO7 ZAFfSTQaKNXiHJnpRMJwXSC2SIO8APMyBPYjWU6XNuIxFGHtUSMdVTRqCYGvYWCacj1SrJRvzTknbq5H ENaCAt0FtCorMPW4DMwiYn6bmQJsPuBdBLJPTk8Jgx BtXTOjXCOZUWnuSIHsZYXiTOQyBCS6CeFgTGC2VslhIVC1GQvzNoWmBcLwYjEsAuY4JiW3ZUTuDdm8DB M2Fre3OWZ5GhQ8BgJ2TDLxHsPkHZR+LG7qMNc+Ex0Dd8HzrxF1upDoMDgoUqRnSz4QSVXCT6CAYy== ID Date Data Source [id number] 01/30/2020 06:42:00 AM EST [facility] Name Value Range Interpretation Code Description Data Maritza rce(s) Supporting Document(s) [facility]-CoV-2 [facility] This lab was ordered by [facility] and reported by [facility]. 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 [facility] Patient has symptoms related to [facility] When did you start to experience these symptoms [Date and time] [Phen X] [facility] Patient was hospitalized because of this condition [facility] patient was admitted to ICU for [facility] Patient resides in a congregate care setting [facility] status [facility] ID Date Data Source [id number] 01/30/2020 07:22:22 AM [facility] Name Value Range Interpretation Code Description Data Maritza rce(s) Supporting Document(s) Leukocytes [#/volume] in Blood by Automated count 8.8 10*3/uL 4-10 [facility] Erythrocytes [#/volume] in Blood by Automated count 3.52 10*6/uL 4.6- 6.1 [facility] Hemoglobin [Mass/volume] in Blood 9.3 g/dL 13.5-18 L [facility] Hematocrit [Volume Fraction] of Blood by Automated count 27.7 % 4 1-53 [facility] Erythrocyte mean corpuscular volume [Entitic volume] by Auto mated count 78.6 fL 80-96 [facility] Erythrocyte mean corpuscular hemoglobin [Entitic mass] by Automated count 26.5 pg 27-33 L [facility] Erythrocyte mean corpuscular hemoglobin concentration [Mass/volume] by Automated [facility] 33.7 g/[facility] width [Ratio] by Automated count 15.5 % 11.5-14.5 [facility] Platelets [#/volume] in Blood by Automated count 525 10*3/uL 150-400 H [facility] Differential cell count method - Blood [facility] Neutrophils/100 leukocytes in Blood by Automated count 74 % [facility] Lymphocytes/100 leukocytes in Blood by Automated count 18 % [facility] Monocytes/100 leukocytes in Blood by Automated count 7 % [facility] Eosinophils/100 leukocytes in Blood by Automated count 1 % [facility] Basophils/100 leukocytes in Blood by Automated count 0 % [facility] Neutrophils [#/volume] in Blood by Automated count 6.41 10*3/uL 1.8-7 .0 [facility] Lymphocytes [#/volume] in Blood by Automated count 1.61 10*3/uL 1.2-4 .0 [facility] Monocytes [#/volume] in Blood by Automated count 0.61 10*3/uL 0-0.8 [facility] Eosinophils [#/volume] in Blood by Automated count 0.11 10*3/uL 0-0.5 [facility] Basophils [#/volume] in Blood by Automated count 0.03 10*3/uL 0-0.2 [facility] Nucleated erythrocytes/100 leukocytes [Ratio] in Blood by Automated count 0 /100{WBCs} 0-0 [facility] ID Date Data Source [id number] 01/29/2020 10:22:57 PM [facility] Name Value Range Interpretation Code Description Data Maritza rce(s) Supporting Document(s) ED Provider Note [facility] IYFQSw3sJpJIQvYy48/LVFpdJUWnu0RnVXbjYNo9XSsoVJFiK7EfWVV3sI2aQKC6CDvSNqQsBwCtLNC5 [facility] SuUaoMSsSzQEFnDpuSCiVzEAfkXzplkNUyLZ7ZvHV5VTXjL93rHGLfDXAcS3RuPTL4XjZ+Mt7SCCBxkN UvVI1SUvfW0W7oc5cDVO1d5Y7so8dxbKBGe4DwyLg31F8C66oSk7IRJ4utSE4gAaiWPuJ/gyxbVhw3R9 3Ger0DdEembWNtq8GaREWJ/ny5odnpsvZN2Y/HS9dX YjATf/0DcXfvmnzwS9ovJbnMHI3r5x5ww6u33yU4nAUaJRvTwuxuHbiFwbFxjqJuocvBI++EhJCHi9Iu bbixOivuwC8Yt6doUQ37ovo1rjrV1phzgjvG4U9M584aqLAcGwtMkEmWqVIWn6V4mrs2yPTDCfVJud2N cSzwMEFR1wt3mY4kC0bYTKMLPrGz/C00Cv7dGpRZjM r4FX2u1upwHnsazBz8Z4bKyxMU4jc0qNTXnY7wQvJE6x6sfXkV8jhYEXhi8vBITVpR0EWJOjmxJxoFwS TaR4oltAaJg16CATJ4xXLkUZSzw3cfy3ZRiBdridBJwrIYx1Bk1HT2V4/vCxWXcN0PvvhoIfxlRlA4Cz YqYpWcMXjZ0ckVLyFKBwAY6QxTqwoZQlXeOOWok0u9 X3WTSKaW19XIm2x6mmNgTY7aplsqOJE5Pl4aWuxANSzFlp8aW7ZELvxdBwfgwKSBESpi5q9hGX0mJEmB oRHEksTSvoWxOWHuQQ5X062DxyldcF08wCw70eGJce4Wf2nzZeHRbPJidbGmxqIDpseofz+7elJx1zVK 2UXyl5R2kzfqqB4paTfjYloRaVjBlu2NgECfWlrGxf NsvOJ4JUwASdKBBqalqf4IOhQzTTjy9Rl+SgEf7GfTgAVQitKTPW22ELzclDvQKj4BctfE2fv52bsMly 2fVCybR9MRT1QsrMtuPRPxTP3tOiPmuHfthWZ5xcl8Kb77YO43ECmQxBI7eeMb8fbRhTb7x/UFUjXsZE rd99YMvL545Sz4K08Jj0hudVlA95c8Uei7eVOU9Uc1 [file] MrVWehNU2EECN+Driss+Fq1ZTLJxRZOnNCGzXmPgRVCMFqCuJ3DxV2LKi1AwY3CpEQ81wJodqnJmQEikSX 3JPT9tDJPpBBNJUN6HnXEuoI4mztX9GmGvHJWPEjAb K56fpDSsFGLsCXYdJKTfEe3LYPTqC3AxmcYvtIqqoeIlXEOzRXMLVK4RZVislrQedLZjkHxqCZ28tMyy XG9MFh0IYgQsEQ0knn5XiIMhGs1JIGQ2BN3ZWOFrTNOqGOJvSQM3DKHpZgSaOPlnRXJfDNLhLEB1DUZh GQNvEE5XQoFiMSKvLQBiEryvLNCjTVJwsw3DQNOaVU T9JBS8GOYkVHAuDPTfJGxtNQSnFVYcEQC8LXTtNLIkCL7GKuVbHXDrCLY8RmNxDOJfTSAvnd5MJHVaHV ThBsI4GJCvKSXgTLCdFBmgLAIjMTI5LwL9FABeZCMoZS3EXhBjCYUqLUM0FXceKRHjVYCnxg9FHYYuOB MeDJZ2GrWbQNUhBSSgJVndUWBtMWV4QSM3DYFbIOHf PL2KYlXzUEReJNI3IzXbDLSwBDXxhl8OFMEzXUWhVOSfWLFrHMTuJKZjBWmiAHOdIGK7SeL1ELTxCZRo QH2EFgViRSRlCSW1IsIlFLGgCJZfho9KXQEmOLBaAmU8UCNjVNMyYLFuYTjyGVHxYSM7YCr6ZYOcXVPt CO2GPsRbLJMrTzTbPwrjDLQyDVUhqf0JFFMpYEMlJS UhNJUtPCPiJEVsDPvoMXYmNAYzZAC5YZDjUNLjHJ5DFzTvAVEhVmAgKMUpIMQlPFDwnr4QJSWvEPXyUJ BkGYJzYKGuZKWhBOpeXFWrIZS7PDAfNIFzHJFhLM3RYiGkKWPkYuR5TKCcUXPlGAMulk9HULYfZOKrBL J9UJMiIGDzFOTtGBviRBMgTUX6UGF3MPEvEPSyTU0S GiLvAJTqKfUsNwXxBKDoFEScgh8TAKXeALEaEiKkMGSkQOJkJSNiKNgyQQQcZNU8BcU2DKImVWLxWC1T KzDeVYDkMix9NZVtALYpBPVpbi8VWPRgQDRiBEE1WVBgUTHxEKWyDFfoZIIgXSJ6FoWwQGFcXCAsEX9S CuEfIVSzOtjpHoKqLBPhVLBajw7GFWJtWCUnBVT8Xh HiCMZyJXUmSFwrFJIqJWY7ImSzIBIbIFCmSJ0DXpNwOVOmTKF6JLDyLWHkPTYxvo4CIXXtSCI0HIq9Ve VgHBIgYBWhQOubBBDdOSOqYWA6EDVcYFNaKU6HDoLtNZPlXOM2QIChDQSxPQXrxi9CLNFoXVK3PwI8Fb UiFJChFIRfEWcuINUjRBHaPnQ8UACbORYgBJ4RIaBn AFScQWI5DFRaNMBoIQOpmp8SUPHhWSD9JPN8FHInIAFhNUGfXVkuODVyOZN7BoUlWOCsBVVrZL3PCaPo DPRnZJO0FbUkRSDdXKBomr2LDTDnBJV1DNUxMQCgHIYyZLVvGHuyEUTrWEO0PAUjVISxVVLpGB9RHrDw DHTiGZV7RuhgKNBsQIOjtd4PtFDjlKicmj9FUCmRJm 5NoEeuBCD4IIuuOf2zmXY5CrEeELZNVg2BcfChYWKdAUCDRCwsNKJvVJV7ScYdToJ5CpN1DWghSSSpTl QbBDy5AHO3RPNsQlG8PuF2VQLzKVVpPIP4ARS8HAVxQUBkCZHaIytaAVRpTBU7HkF+SG4zXFk+Pg0Kc3 MigwD1eeYeXKf4VAAuLy9MNYJZN4HAXk== ID Date Data Source [id number] 01/29/2020 09:22:14 PM [facility] Value Range Interpretation Code Description Data Maritza rce(s) Supporting Document(s) Glucose [Mass/volume] in Capillary blood by Glucometer 183 mg/dL 70- 140 [facility] ID Date Data Source [id number] 01/29/2020 05:15:45 PM [facility] Value Range Interpretation Code Description Data Maritza rce(s) Supporting Document(s) Glucose [Mass/volume] in Capillary blood by Glucometer 162 mg/dL 70- 140 [facility] ID Date Data Source [id number] 01/29/2020 12:28:34 PM [facility] Value Range Interpretation Code Description Data Maritza rce(s) Supporting Document(s) Glucose [Mass/volume] in Capillary blood by Glucometer 141 mg/dL 70- 140 [facility] ID Date Data Source [id number] 01/29/2020 08:25:11 AM [facility] Value Range Interpretation Code Description Data Mairtza rce(s) Supporting Document(s) Progress Note [facility] IXRULz3yNhBPSgZx36/QRXyvUVOsd7DmBKytYBb5UMxxSDJfR7VgMRN7wU3eKCJ3OXiGPdZbJtRoTKC5 [facility] [file] o= ID Date Data Source [id number] 01/29/2020 08:25:59 AM [facility] Value Range Interpretation Code Description Data Maritza rce(s) Supporting Document(s) Glucose [Mass/volume] in Capillary blood by Glucometer 143 mg/dL 70- 140 H [facility] ID Date Data Source [id number] 01/28/2020 09:03:07 PM [facility] Value Range Interpretation Code Description Data Maritza rce(s) Supporting Document(s) Glucose [Mass/volume] in Capillary blood by Glucometer 226 mg/dL 70- 140 H [facility] ID Date Data Source [id number] 01/28/2020 05:06:12 PM [facility] Value Range Interpretation Code Description Data Maritza rce(s) Supporting Document(s) Glucose [Mass/volume] in Capillary blood by Glucometer 155 mg/dL 70- 140 H [facility] ID Date Data Source [id number] 01/28/2020 03:43:59 PM EST [facility] Name Value Range Interpretation Code Description Data Maritza rce(s) Supporting Document(s) Progress Note [facility] NIAQUs0sVzXAKaSl98/VAHjkEACoa5TlBWmkYYn3QLggKLTbB7AnDVI8wV2bKZL3VDhFLbHhNxYvTVP2 lbm [file] [id number]+RC0fXKl+Oo9Ae2LqoaA2ydLfIDeuAUjkPM0PUVLNK4FREb== ID Date Data Source [id number] 01/28/2020 12:36:28 PM EST [facility] Name Value Range Interpretation Code Description Data Maritza rce(s) Supporting Document(s) Glucose [Mass/volume] in Capillary blood by Glucometer 162 mg/dL 70- 140 H [facility] ID Date Data Source [id number] 01/28/2020 11:28:23 AM EST [facility] Name Value Range Interpretation Code Description Data Maritza rce(s) Supporting Document(s) ED Provider Note [facility] WIKYRj4qSrSCYiTb22/IVWipBXWoe3DnGStzDLy2TKnvEAWjX6HhUHA6hL8sAPN4EKkCUcQfFtZrOQF5 lbm FsCxpGFyTrLKFdBrlAZfAeFWvwMjjuaEXaFX0BfIP0WOIjA75oDFLmYLPoE0HkDPYdMGH+Fg9TTTExyN GqFF8QRzvX2C4Xlhq3Di9nWa9Cl4CyCKoVxBp4U7YwBImPXmqifAEbsKQCGBOUqvDi/83+1AznxekW+I voLMdGpu8hFrY7Ali7WlGyX4X++Z/Br0UT09Vlc/Mz LfD2lAF//dBQMkEIT4p0wj6vCfoq8tEqa/ynLx9+8NcLsf/fZpf6ckH15doZRWlT06DOoGNz9k+Du+vB vGAo5tiOx+o3esN2z7ZSbKy3/Xnt6AXRoqEO4SDk6+Amarilys+S0RflukPbN+Rm8kzR7jqkpJ1G1mfKNCXpA [file] YZi3adCe2mk9fuD90eyR4hHjjdbT34fS/jJNPd/safety 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 maker [file] MA5CYQL+Driss+Bt2RIFVfWFEkBHIjBpHnGKZABhBnY6BlQ1LAh0ZqO5RlVO68xBrtizQxWFpxXJ6HMF5j HLDnHXPGUW2AyNJgvU9acrIqZlTbIEAAZaYfN04lrWFtETZxWAF4EBKaJu1BZPBrE3UigqLxbXtudzAa BZMbVKKUGU0YNJxsmgTaeDNhfDscBB38bPeeFZ9ETm 8ERbIfTI9mxc6CpEEpFh1ROLMtIh7JXRTiCDAkVCFbZAE4LOEiPfCtQEzpGWVjPRArIRB1HZBaIOSfDK 9QIuVxASNrTpNjOXJdNATyNXTmrt5NACOeBSRhJpm8CoIuARFvHIGlKUjzTROfJJEwIKC2NCXxDMFxEE 1YUdMnZHKcRIOoVOetDFWuOVHovs2UEIXgDILwPyR1 AuYiDAAnCYPcOMyhXGCaQYL1DWf5FKZjHVVkET4DViBnDPWzGWQ3WQBjDVZxRBYpzi6UVZCxITYqBNT9 HkYeIXAcRMRtUDxdMFAnGPZ8PMO3OWHlDFDlOK5FSgUwLOKvROU4ImmnMJSgEDDdyc5VJOYyUZKuUxZ6 UDUjXNWuTFOhZRgvTRZaBDU8XXFdIZBiLTJiID6VTu ZjEYIpGEesJGjeBMBwBNRpaq1UNVYuGLCyLKR1FhQmPQHzPHUfDNvyVLYpJOY1NzB5QNSlAQDvUO5OYc IgIJJjHHj1RKRrHXWjICOucr0YNSDmJMJwHGJsQNDmGOKuUOVfLZotBQYiJCU5RzF7NIUeKXJlYE7SSr QyTDUmBYn8NHQaDRTpCFMbhj8IGSCwIZYyNYT1QSGz ARMhPGVnTUclOZVcDJNeObh1JCTsIVJfUB6AWyJwVNIdXfH5JRgiTFDsVQOyie4YVNUqJKLlBHtmJxQy NPRoPBQrGNcmTKCaEJClPNcxGPBmWOFlOR5EHtSoKNSkEvU1PROnHNDqCTFnrx8CEHSzOPVsCmf9CRAm AAQpNKGkVJybLCXvPHGjXZJuEIHlHCOgMM0RWkDmGG TxNnLsKLSxPTCmOYZfbt8IBDObDZSdRQZ2ZKHpFQHqNVMuFErqSFEoOQD2RZTdGJZjRXYzQJ0KXmGgUX msUMXSPvh0ZAqoI3v6UYTzEr0RB8Kxw5JhLqYyNVWUVTmrUM2dgzBtJSZoRd8PZ0fNPuwgMXAiYKW0FL L3J5L5HqX2PlJaVXGfRDL3ONi7ZfRfGk9jHRXqCsT8 KQn9Oop2AEv3GTxmULKlRrD1Ysd7RkMzJhU9QgYeEL7MQe0BZcU0CYP1tMBaZy4SSyG7YCOAKjGdZO7S DQo= ID Date Data Source [id number] 01/28/2020 10:54:25 AM EST [facility] Name Value Range Interpretation Code Description Data Maritza rce(s) Supporting Document(s) Progress Note [facility] CZDOGd1sDbMEKuFp09/TCXjrCXGbs4XxTUfkZPv8XNcsGSLaI7McPNV2bR1wNVK6SEvODsKeHxJgXFJ1 lbm [file] ICAgICAgICAgICAgICAgICAgICAgICAgICAgICAgICAgICAgICAgICAgICAgICAgICAgICAgICAgICAg ICAgICAgICAgICAgICAgICAgICAgICAgICAgICAgIC AgICANCiAgICAgICAgICAgICAgICAgICAgICAgICAgICAgICAgICAgICAgICAgICAgICAgICAgICAgIC AgICAgICAgICAgICAgICAgICAgICAgICAgICAgICAgICAgICAgICAgICAgICANCiAgICAgICAgICAgIC AgICAgICAgICAgICAgICAgICAgICAgICAgICAgICAg ICAgICAgICAgICAgICAgICAgICAgICAgICAgICAgICAgICAgICAgICAgICAgICAgICAgICAgICANCiAg ICAgICAgICAgICAgICAgICAgICAgICAgICAgICAgICAgICAgICAgICAgICAgICAgICAgICAgICAgICAg ICAgICAgICAgICAgICAgICAgICAgICAgICAgICAgIC AgICAgICANCiAgICAgICAgICAgICAgICAgICAgICAgICAgICAgICAgICAgICAgICAgICAgICAgICAgIC AgICAgICAgICAgICAgICAgICAgICAgICAgICAgICAgICAgICAgICAgICAgICAgICANCiAgICAgICAgIC AgICAgICAgICAgICAgICAgICAgICAgICAgICAgICAg ICAgICAgICAgICAgICAgICAgICAgICAgICAgICAgICAgICAgICAgICAgICAgICAgICAgICAgICAgICAN CiAgICAgICAgICAgICAgICAgICAgICAgICAgICAgICAgICAgICAgICAgICAgICAgICAgICAgICAgICAg ICAgICAgICAgICAgICAgICAgICAgICAgICAgICAgIC AgICAgICAgICANCiAgICAgICAgICAgICAgICAgICAgICAgICAgICAgICAgICAgICAgICAgICAgICAgIC AgICAgICAgICAgICAgICAgICAgICAgICAgICAgICAgICAgICAgICAgICAgICAgICAgICANCiAgICAgIC AgICAgICAgICAgICAgICAgICAgICAgICAgICAgICAg ICAgICAgICAgICAgICAgICAgICAgICAgICAgICAgICAgICAgICAgICAgICAgICAgICAgICAgICAgICAg ICANCiAgICAgICAgICAgICAgICAgICAgICAgICAgICAgICAgICAgICAgICAgICAgICAgICAgICAgICAg ICAgICAgICAgICAgICAgICAgICAgICAgICAgICAgIC AgICAgICAgICAgICANCjw/tGTqF2attZKhehN3M4yyMl8AIg6KUW1is5DwISHmVVkkdbQsEzhMOtFkIA WrCvtZXbq5FCxiEN0IiUBwK8WjZ9RnSTeoSZ3HWELkAWHctPRuJLJdRVKfTnE0VZYdFYliIO7LuGSlMU lxXCRlLZWvIfEeDNBlYJVlAJZdUV7VKXJeM356qrBr Ps4GCc2VUaFoPF0byn9IIhEzCNYpFhpHIyj1DPiiIN2ZcPTrhWEiRGJcOLEAYxRvX0ada9DmUwPuKPIL KKheQV3Iu4EgqJOjDDn+Yh7MYL3lu2ArEFseMJPdIS4gow6VYJhGLbSsD9IocAysSTNzk5paWGBmIT7q hCXmQSD8NZyeDEZqVWChRuYXFLo5ITZtWODSINLegX RwFY3yGe7pMQLwLCThZkPcQXDWKR8GUIFhFHCxnSZeQVTzVXNZRZ3UYMpjBEA8ZLJopyYxtLUlBRijQT 9QYXJlbnQgMjQgMCBSDQo+Bm4EDZ8zd4VdFIklFwKhQC1jqr6DMLpECpEmV7H6cJUeT8K3WHdyMy6KNV YqVWGdNmWwVSTLPXyeQB0FBR5olmF6DM8AgLDiRHDn PPNvpOGsLJd6G32zpSIzMGecTT9YEQG+Driss+Zo2XQTYiZPRhNECzZlByHNWTQsUbE8TzE9FVw6PsO3Sc YA27eGgbqoFgZUmnVK0ZVV9nQZFcHPXNUR7SfCMpmQ7ovlQbWVKjSIYQUtXxL59lrGFeQKRnDSRrRJRi Op0ILVUbO7MnjcNkbPuaviHfMQJvRNSGQK3WWPrdij ChfVKfhOmyZH17oNgeBK0JZu7QSsBrNK2liw0PuZLlEo9RTBQxYk4VCXQaOTWeIPKlTFU3KMDcBxFgAM tzEOQqACWtZEO4FJCbKUFlUY8XZvOrXJVdJLXjBQwgYKGgTUPscb9SQNRuKZEqTAr2GHRzYGIpVTUdAV wgFJMyFBIgDJB7AHTtFGFaRY6OEcMkMYNyLIC6EODq KQEvYMIzxa7STBSpBGTzCqIsSYVfOVVlOKNlXFpwZEYePWF2NRY4TXXcVKGbUJ2ZToOoZIWzJGM1OOlh KGZuCIAzlu4XHRNeOZHsICH0GyUjSCKuOKDrLYiaXIIqNJL3YFMzPRSgFNYjQK3SCzSuEEPaJDc7GuIm KFZxTPLhdp4DXPLdIMHrXJy9GnWuYNUeKSEaRNixEZ ApECAdMTVrEAIdQTZyPG9OAwThPCVtBFQiXVazUHLsULQurw2IHUXwAXVaXZRdISDzWGFkVDBtUPxvYA ArNATrXYm7HBDgIGDxRV9QFzUmOUBfTOT9QLrmAGOpSDJgyj4RRNCcJFYxVbL2RdZtREEeTCLgRHjpJQ QtFVFcLDG1FJPdVEJaVR9HIvYmDZXtCTW1TYueWSYv UNLlmw3HWYQyBCSnZxh4ChKcCTLeNEBlHSpaOTBzUIG9VXjpGLCkIOKfZO6NKbZySTKiUED7PsMyLWXq ANVagm7RPKBeUMXxWpL3QQMwOOPmMBUsYDumKZNlYDH8LYH1AHBjQFNwTK5IZsEnUDXgHZVmVJvdRBGe PXJqba1MeDXngMivqu6ZDOzIBy7ZcKjxKVB4VEtcLy 0boEOdHaDlNXHKRl1DgvQuPAVcFRVDWAvwTBCsYHEmOyqyBYP3EbS9CPF5FcWfGEN8R0DmWTDaKmKzLS K7PqF0KsGtFcV4XahzWrFdSmOgLgU4VSP0YDJhVDN3XwEbMjG+PZ6gIIw+Sz4Sa1TfwgE2dmCxFDynPe R1Rp2IZEUDS7RPCw== ID Date Data Source [id number] 01/28/2020 10:25:41 AM [facility] Name Value Range Interpretation Code Description Data Maritza rce(s) Supporting Document(s) Progress Note [facility] PEBWLh0bHmUINfSl30/NKBroFMFfu5YgWAgoIEp5ZIjgGCFuI7HeUBR9uV1bADB9GYdDHnGeBlGlYKZ9 lbm [file] XdJp2LZLN3MqzDXkSgRN6PUIw= ID Date Data Source [id number] 01/28/2020 08:40:23 AM [facility] Name Value Range Interpretation Code Description Data Maritza rce(s) Supporting Document(s) Glucose [Mass/volume] in Capillary blood by Glucometer 187 mg/dL 70- 140 H [facility] ID Date Data Source [id number] 01/28/2020 07:49:01 AM [facility] Name Value Range Interpretation Code Description Data Maritza rce(s) Supporting Document(s) History and Physical [facility] HVHQSc0gRlIZWiWv39/KQVnlHWSgj5PySBgbLRt7IXrhJQXhP9XzUOW5tU2sCWM2ORyYDrHmYiKyLEO8 m [file] x7BUrtMm8fONUDHx5+WNxknJHpfTacPFDYKdY5QwabBLwcLXBIBw3I ID Date Data Source [id number] 01/28/2020 12:00:37 PM [facility] Name Value Range Interpretation Code Description Data Maritza rce(s) Supporting Document(s) Specimen source [Identifier] of Unspecified specimen [facility] SARS-CoV-2 RNA 2019 nCoV Real-Time RT-PCR: NOT DETECTED [facility] Assay Performed [facility] 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 [facility] Patient has symptoms related to [facility] When did you start to experience these symptoms [Date and time] [Phen X] [facility] Patient was hospitalized because of this condition [facility] patient was admitted to ICU for [facility] Patient resides in a congregate care setting [facility] status [facility] ID Date Data Source [id number] 01/28/2020 01:50:00 AM [facility] Value Range Interpretation Code Description Data Maritza rce(s) Supporting Document(s) SARS-CoV-[address] [facility] This lab was ordered by [facility] and reported by [facility]. ID Date Data Source [id number] 01/28/2020 01:34:17 AM [facility] Name Value Range Interpretation Code Description Data Maritza rce(s) Supporting Document(s) Progress Note [facility] SATIQh0zGcLNCdTp27/NLKqxNXVou5WwFCezIQn8TPbiUWLpQ7AhQPT6aX1vYEI0PIgCTtBuCkXpNHP0 lbm [file] YmVmYzYwZTE+JC9xGRs+Tg8Qr1ExqvI6udBrLQm4BBr0WMfjFALRRr6Y ID Date Data Source [id number] 01/28/2020 01:29:20 AM [facility] Name Value Range Interpretation Code Description Data Maritza rce(s) Supporting Document(s) Glucose [Mass/volume] in Capillary blood by Glucometer 146 mg/dL 70- 140 H [facility] ID Date Data Source [id number] 01/27/2020 11:34:08 PM [facility] CT PELVIS WITHOUT CONTRAST [id number] RE SULTInterpreted by:Kristina Garcia MDPROCEDURE INFORMATION: Exam: CT Pelvis Without Contrast; Skeletal Exam date and time: 01/27/2020 11:20 PM Age: 30 years old Clinical indication: Condition or disease; Other: Acetabular fracture TECHNIQUE: Imaging protocol: Computed tomography images of the pelvis without contrast. Exam focused on the skeletal structures. 3D rendering (Not supervised by radiologist): MIP and/or 3D reconstructed images were created by the technologist. Radiation optimization: All CT scans at this facility use at least one of these dose optimization techniques: automated exposure control; mA and/or kV adjustment per patient size (includes targeted exams where dose is matched to clinical indication); or iterative reconstruction. COMPARISON: CT ABDOMEN PELVIS W CONTRAST 12/27/2019 10:25 PM FINDINGS: Bones/joints: There is a nondisplaced fracture of the superior portion of the right acetabulum immediately adjacent to the anterior located screw. Status post right hip arthroplasty. There is chronic avulsion fracture of the right lesser trochanter. Soft tissues: There is some dependent soft tissue edema posterior to the lumbar spine. There is some scarring induration and stranding within the soft tissues around the right hip arthroplasty from relatively recent surgery. A small amount of residual gas noted within the right proximal thigh soft tissues from recent surgery. IMPRESSION: Nondisplaced right acetabulum fracture. THIS DOCUMENT HAS BEEN ELECTRONICALLY SIGNED BY KRISTINA GARCIA MDThis document has been electronically signed by Kristina Garcia MD on 01/27/2020 11:33 PM Name Value Range Interpretation Code Description Data Maritza rce(s) Supporting Document(s) ID Date Data Source [id number] 01/27/2020 10:42:01 PM [facility] XR HIP- UNILAT, 2-3 VIEWS [id number] RE SULTInterpreted by:TILA AmayaEDRENAN INFORMATION: Exam: XR Right Hip with Pelvis when Performed Exam date and time: 01/27/2020 9:43 PM Age: 30 years old Clinical indication: Hip pain; Right hip; Prior surgery; Surgery date: <1 month; Additional info: Possible FX or do TECHNIQUE: Imaging protocol: XR Right hip with pelvis when performed. Views: 2 or 3 views. COMPARISON: CR XR PELVIS 1-2 VIEWS [id number] PORTABLE 01/20/2020 10:34 AM, CT right lower extremity January 10, 2020. FINDINGS: Bones/joints: Status post right total hip arthroplasty. Intact hardware. There is stable chronic avulsion fracture of the lesser trochanter. There is fracture of the right iliac bone along the superior rim near the junction with the iliac bone, was not visible on the prior CT or plain film. Soft tissues: Skin blaine noted laterally, there is some adjacent soft tissue swelling along the operative bed and within the deeper soft tissues. IMPRESSION: There is fracture of the superior portion of the acetabulum near the junction with the iliac bone is new since prior imaging, consistent with acute fracture.THIS DOCUMENT HAS BEEN ELECTRONICALLY SIGNED BY KRISTINA GARCIA MDThis document has been electronically signed by Kristina Garcia MD on 01/27/2020 10:41 PM Name Value Range Interpretation Code Description Data Maritza rce(s) Supporting Document(s) ID Date Data Source [id number] 01/27/2020 10:40:30 PM [facility] XR FEMUR, MINIMUM OF 2 VIEWS [id number] RESULTInterpreted by:DESTINI AmayaROCEDRENAN INFORMATION: Exam: XR Right Femur Exam date and time: 01/27/2020 9:43 PM Age: 30 years old Clinical indication: Pain; Hip; Right; Prior surgery; Surgery date: <1 month; Additional info: Ho replacement and orif pain and def after fall TECHNIQUE: Imaging protocol: XR Right femur. Views: 2 views. COMPARISON: CR XR FEMUR, MINIMUM OF 2 VIEWS [id number] PORTABLE 01/09/2020 10:01 PM FINDINGS: Bones/joints: Unremarkable. No acute fracture. Soft tissues: Unremarkable. IMPRESSION: There is no evidence for a fracture. THIS DOCUMENT HAS BEEN ELECTRONICALLY SIGNED BY KRISTINA GARCIA MDThis document has been electronically signed by Kristina Garcia MD on 01/27/2020 10:40 PM Name Value Range Interpretation Code Description Data Maritza rce(s) Supporting Document(s) ID Date Data Source [id number] 01/27/2020 10:38:35 PM [facility] XR PELVIS 1-2 VIEWS [id number] RESULTInt erpreted by:TILA AmayaEDRENAN INFORMATION: Exam: XR Pelvis Exam date and time: 01/27/2020 9:43 PM Age: 30 years old Clinical indication: Hip pain; Right hip; Prior surgery; Surgery date: <1 month; Additional info: Right hip possible do TECHNIQUE: Imaging protocol: XR pelvis. Views: 1 or 2 view. COMPARISON: CR XR PELVIS 1-2 VIEWS [id number] PORTABLE 01/20/2020 10:34 AM FINDINGS: Bones/joints: Status post right hip arthroplasty.The visualized hardware is intact. There is chronic avulsion right lesser trochanter, stable. Soft tissues: Unremarkable. IMPRESSION: No acute fracture.THIS DOCUMENT HAS BEEN ELECTRONICALLY SIGNED BY KRISTINA GARCIA MDThis document has been electronically signed by Kristina Garcia MD on 01/27/2020 10:38 PM Name Value Range Interpretation Code Description Data Maritza rce(s) Supporting Document(s) ID Date Data Source [id number] 01/28/2020 01:06:02 AM [facility] Name Value Range Interpretation Code Description Data [facility] rce(s) Supporting Document(s) Leukocytes [#/volume] in Blood by Automated count 13.7 10*3/uL 4-10 H [facility] Erythrocytes [#/volume] in Blood by Automated count 3.72 10*6/uL 4.6- 6.1 [facility] Hemoglobin [Mass/volume] in Blood 9.7 g/dL 13.5-18 [facility] Hematocrit [Volume Fraction] of Blood by Automated count 29.4 % 4 1-53 L [facility] Erythrocyte mean corpuscular volume [Entitic volume] by Auto mated count 79.1 fL 80-96 [facility] Erythrocyte mean corpuscular hemoglobin [Entitic mass] by Automated count 26.2 pg 27-33 [facility] Erythrocyte mean corpuscular hemoglobin concentration [Mass/volume] by Automated count 33.1 g/dL 32.0-[facility] width [Ratio] by Automated count 15.9 % 11.5-14.5 [facility] Platelets [#/volume] in Blood by Automated count 656 10*3/uL 150-400 H [facility] Differential cell count method - Blood [facility] Neutrophils/100 leukocytes in Blood by Automated count 77 % [facility] Lymphocytes/100 leukocytes in Blood by Automated count 15 % [facility] Monocytes/100 leukocytes in Blood by Automated count 6 % [facility] Eosinophils/100 leukocytes in Blood by Automated count 1 % [facility] Basophils/100 leukocytes in Blood by Automated count 1 % [facility] Neutrophils [#/volume] in Blood by Automated count 10.71 10*3/uL 1.8- 7.0 H [facility] Lymphocytes [#/volume] in Blood by Automated count 2.02 10*3/uL 1.2-4 .0 [facility] Monocytes [#/volume] in Blood by Automated count 0.84 10*3/uL 0-0.8 H [facility] Eosinophils [#/volume] in Blood by Automated count 0.12 10*3/uL 0-0.5 [facility] Basophils [#/volume] in Blood by Automated count 0.07 10*3/uL 0-0.2 [facility] Nucleated erythrocytes/100 leukocytes [Ratio] in Blood by Automated count 0 /100{WBCs} 0-0 [facility] ID Date Data Source [id number] 01/28/2020 01:09:15 AM [facility] Name Value Range Interpretation Code Description Data Maritza rce(s) Supporting Document(s) Bicarbonate [Moles/volume] in Serum 26 mmol/L 22-29 [facility] Chloride [Moles/volume] in Serum or Plasma 100 mmol/L 98-107 [facility] Creatinine [Mass/volume] in Serum or Plasma 0.59 mg/dL 0.70-1.20 L [facility] Glucose [Mass/volume] in Serum or Plasma 113 mg/dL 70-140 [facility] Potassium [Moles/volume] in Serum or Plasma 4.2 mmol/L 3.4-5.1 [facility] Hemolyzed Sodium [Moles/volume] in Serum or Plasma 137 mmol/L 136-145 [facility] Urea nitrogen [Mass/volume] in Serum or Plasma 12 mg/dL 6-20 [facility] Anion gap 3 in Serum or Plasma 11 mmol/L 8-15 [facility] Osmolality of Serum or Plasma by calculation 285 mosm/kg 275-300 [facility] Creatinine/Urea nitrogen [Mass Ratio] in Serum or Plasma 21 [facility] Calcium [Mass/volume] in Serum or Plasma 9.4 mg/dL 8.6-10.0 [facility] Glomerular filtration rate/1.73 sq M pre dicted among non-blacks [Volume Rate/Area] in Serum or Plasma by Creatinine-based formula (MDRD) >6 0 [facility] Glomerular filtration rate/1.73 sq M pre dicted among blacks [Volume Rate/Area] in Serum or Plasma by Creatinine-based formula (MDRD) >60 [facility] ID Date Data Source [id number] 01/28/2020 12:16:39 AM [facility] Name Value Range Interpretation Code Description Data Maritza rce(s) Supporting Document(s) ABO and Rh group [Type] in Blood [facility] Blood group antibody screen [Presence] in Serum or Plasma [facility] Blood bank comment [facility] ID Date Data Source [id number] 01/21/2020 02:47:24 PM [facility] Name Value Range Interpretation Code Description Data Maritza rce(s) Supporting Document(s) Discharge Summary [facility] MPQVLw0bEpQVFiCc78/WMRhoHHSdy7EqTAqjQLk5IIrsRUMlM4TiNKW5uJ0qPQF2HWcYXuFsWiFaYXKo lbm [file] KQZ1UJssFR2mFTXXQz7+UOegsYZgwYhvKVGLXpEzQOC5ECcbVAUOQc2B ID Date Data Source [id number] 01/21/2020 08:28:13 AM [facility] Value Range Interpretation Code Description Data Maritza rce(s) Supporting Document(s) Glucose [Mass/volume] in Capillary blood by Glucometer 248 mg/dL 70- 140 [facility] ID Date Data Source [id number] 01/21/2020 04:00:56 AM [facility] Value Range Interpretation Code Description Data Maritza rce(s) Supporting Document(s) Leukocytes [#/volume] in Blood by Automated count 15.4 10*3/uL 4-10 H [facility] Erythrocytes [#/volume] in Blood by Automated count 3.80 10*6/uL 4.6- 6.1 [facility] Hemoglobin [Mass/volume] in Blood 9.7 g/dL 13.5-18 [facility] Hematocrit [Volume Fraction] of Blood by Automated count 30.0 % 4 1-53 [facility] Erythrocyte mean corpuscular volume [Entitic volume] by Auto mated count 79.0 fL 80-96 [facility] Erythrocyte mean corpuscular hemoglobin [Entitic mass] by Automated count 25.5 pg 27-33 [facility] Erythrocyte mean corpuscular hemoglobin concentration [Mass/volume] by Automated count 32.3 g/dL 32.0-36.0 [facility] distribution width [Ratio] by Automated count 15.2 % 11.5-14.5 [facility] Platelets [#/volume] in Blood by Automated count 423 10*3/uL 150-400 [facility] ID Date Data Source [id number] 01/21/2020 04:10:11 AM [facility] Value Range Interpretation Code Description Data Maritza rce(s) Supporting Document(s) Bicarbonate [Moles/volume] in Serum 27 mmol/L 22-29 [facility] Chloride [Moles/volume] in Serum or Plasma 101 mmol/L 98-107 [facility] Creatinine [Mass/volume] in Serum or Plasma 0.57 mg/dL 0.70-1.20 [facility] Glucose [Mass/volume] in Serum or Plasma 268 mg/dL 70-140 [facility] Potassium [Moles/volume] in Serum or Plasma 4.3 mmol/L 3.4-5.1 [facility] Sodium [Moles/volume] in Serum or Plasma 135 mmol/L 136-145 L [facility] Urea nitrogen [Mass/volume] in Serum or Plasma 16 mg/dL 6-20 [facility] Anion gap 3 in Serum or Plasma 8 mmol/L 8-15 [facility] Osmolality of Serum or Plasma by calculation 291 mosm/kg 275-300 [facility] Creatinine/Urea nitrogen [Mass Ratio] in Serum or Plasma 28 [facility] Calcium [Mass/volume] in Serum or Plasma 8.4 mg/dL 8.6-10.0 L [facility] Glomerular filtration rate/1.73 sq M pre dicted among non-blacks [Volume Rate/Area] in Serum or Plasma by Creatinine-based formula (MDRD) >6 0 [facility] Glomerular filtration rate/1.73 sq M pre dicted among blacks [Volume Rate/Area] in Serum or Plasma by Creatinine-based formula (MDRD) >60 [facility] ID Date Data Source [id number] 01/20/2020 08:59:06 PM [facility] Name Value Range Interpretation Code Description Data Maritza rce(s) Supporting Document(s) Glucose [Mass/volume] in Capillary blood by Glucometer 272 mg/dL 70- 140 H [facility] ID Date Data Source [id number] 01/20/2020 05:42:11 PM [facility] Value Range Interpretation Code Description Data Maritza rce(s) Supporting Document(s) Glucose [Mass/volume] in Capillary blood by Glucometer 331 mg/dL 70- 140 H [facility] ID Date Data Source [id number] 01/20/2020 12:40:42 PM [facility] Value Range Interpretation Code Description Data Maritza rce(s) Supporting Document(s) Glucose [Mass/volume] in Capillary blood by Glucometer 220 mg/dL 70- 140 H [facility] ID Date Data Source [id number] 01/20/2020 10:59:28 AM [facility] XR PELVIS 1-2 VIEWS [id number] RESULTInt erpreted by:George Crockett, MDPelvis, one to 2 views, portable dated 01/20/2020.REASON FOR STUDY: Postop evaluation for alignment of prosthesis.FINDINGS: An AP study the pelvis was obtained with portable technique. The patient is status post new right total hip arthroplasty. Acetabular femoral prosthetic components are normally seated. Expected perioperative soft tissue changes are seen lateral to the right hip along with a row skin blaine.IMPRESSION: Normal postoperative appearance of a right total hip arthroplasty.This document has been electronically signed by George Crockett MD on 01/20/2020 10:57 AM Name Value Range Interpretation Code Description Data Maritza rce(s) Supporting Document(s) ID Date Data Source [id number] 01/20/2020 10:15:58 AM [facility] Name Value Range Interpretation Code Description Data Maritza rce(s) Supporting Document(s) Glucose [Mass/volume] in Capillary blood by Glucometer 216 mg/dL 70- 140 H [facility] ID Date Data Source [id number] 01/20/2020 09:49:11 AM [facility] Name Value Range Interpretation Code Description Data Maritza rce(s) Supporting Document(s) Operative Note [facility] DCMGHn1hTaRUAvTr98/XZJqqVRCfy1AoTPywANk1WBhsMFXmE8LnTWQ9sF3yPQX4GQiTWjUmHoFiVWX9 lbm [file] MTIgMCBSDQogICAgICAvRjEgMTUgMCBSDQogICAgIC NdPaDcZFfdERUETx8DLgVsZEXqDZ6sicBtvDQ9JSS+Zc5VBWMfXG6LsTYOF1YsxXSsHFpzC3XYUS8MCU K8IU4BtEZzIW6QeVDTM3EoxPUaCp9bDTWzg9IoQz7bH0WGNUQXSMVdWEtqRRkfBXTxSPk8Y9E9BXHeY3 EUV116pCCxwFo0Ji3oN4KVXKtKWrUfLCzdYAcaOYVm XOh4E8L3TQZgN2XME3MbCyKmaaTgJ7N+YxUlKNREHI5GZTRHDWu5M3K9wKYsV5M0mZlPiVQ2GU6PMO6K jCZsyDSfe70+GgFIPcGuLSGvJ5SFBOFLVcOqAKxhMQytVBEbPTa3P6I9WEEqS6GSK2fcR5s3SW6+PiAN UiOmWIEiTw0KNcGdSl1ATiMcWM2zgm3HMiPbHERpQs kOXaa2S1vvzfw9pQExKeX5J9R2HlF9vOLhXF0NI8T1jLIvQHH8TZSjrKS+Pf1Wt7YoGFHxCMu0C3fuGP DsWAHsRrZsdE15D++5vvemoBM8G6f1SIGMvBZfuQxQssOlB7gSEWI0n4R3TCz/Tk3WJRD2gJp8vUZoEI FbJQp8qS3maTo5TySvVO12YJQbLPdgiR3dQct3Y0Yp d3EfVp2rOm3zsSWvVs3HAwEnGYZ6ueVxNvAZKpE9xJaugpcySTU0F4x2eBM9Ww47s7ompcAnz0NtGjO2 BAxhMYHuFsBnmsFlUXO3kwXtaW9szvKyQi6UVJKvMZadjrZeYjOBJw1OTsWlNL51LrqltV7krEG+DQog ICAgICAgICAgICAgICAgICAgICAgICAgICAgICAgIC AgICAgICAgICAgICAgICAgICAgICAgICAgICAgICAgICAgICAgICAgICAgICAgICAgICAgICAgICAgIC AgICAgICAgDQogICAgICAgICAgICAgICAgICAgICAgICAgICAgICAgICAgICAgICAgICAgICAgICAgIC AgICAgICAgICAgICAgICAgICAgICAgICAgICAgICAg ICAgICAgICAgICAgICAgICAgDQogICAgICAgICAgICAgICAgICAgICAgICAgICAgICAgICAgICAgICAg ICAgICAgICAgICAgICAgICAgICAgICAgICAgICAgICAgICAgICAgICAgICAgICAgICAgICAgICAgICAg DQogICAgICAgICAgICAgICAgICAgICAgICAgICAgIC AgICAgICAgICAgICAgICAgICAgICAgICAgICAgICAgICAgICAgICAgICAgICAgICAgICAgICAgICAgIC AgICAgICAgICAgDQogICAgICAgICAgICAgICAgICAgICAgICAgICAgICAgICAgICAgICAgICAgICAgIC AgICAgICAgICAgICAgICAgICAgICAgICAgICAgICAg ICAgICAgICAgICAgICAgICAgICAgDQogICAgICAgICAgICAgICAgICAgICAgICAgICAgICAgICAgICAg ICAgICAgICAgICAgICAgICAgICAgICAgICAgICAgICAgICAgICAgICAgICAgICAgICAgICAgICAgICAg ICAgDQogICAgICAgICAgICAgICAgICAgICAgICAgIC AgICAgICAgICAgICAgICAgICAgICAgICAgICAgICAgICAgICAgICAgICAgICAgICAgICAgICAgICAgIC AgICAgICAgICAgICAgDQogICAgICAgICAgICAgICAgICAgICAgICAgICAgICAgICAgICAgICAgICAgIC AgICAgICAgICAgICAgICAgICAgICAgICAgICAgICAg ICAgICAgICAgICAgICAgICAgICAgICAgDQogICAgICAgICAgICAgICAgICAgICAgICAgICAgICAgICAg ICAgICAgICAgICAgICAgICAgICAgICAgICAgICAgICAgICAgICAgICAgICAgICAgICAgICAgICAgICAg ICAgICAgDQogICAgICAgICAgICAgICAgICAgICAgIC AgICAgICAgICAgICAgICAgICAgICAgICAgICAgICAgICAgICAgICAgICAgICAgICAgICAgICAgICAgIC FkPKPcDZZpKPLgNQZeBZVkXRt2L8blKQRtCFGpYK0kSOm2Ks1+ZLpYMlAiIKW5qbHhwA4QTR9dx4NsUD boIIQzg3ZhZQr6DZ7MFHEtCReiAQ0KBHcujd5LOMSw HOKkdUQOo4ijXkRxUER7BHYdCmxzYS1POHFdH0rrupIqIITgZTEIWOvrHRDYKEnyDSWBDD9GFqDtA2Or mC92BVNIHc6+PKkdwaTjUtkPGfBeAVAqi9WdEKz1MO9UAMMdWxogr0ZhIgGrWSLVXJenVS6WKYN1QUHk RLCyCa2CNFHbH903yuJnTP4HWo1DSyWfZD4qhn3PHx AfGOKaJpwJXcw1MDdiPD2LoXXdPVePzTArNJRbasQrDg14JWUbvFUJq1LazeCsCLCGtIFlbDBgDCYDJU UmiINxBJ0gRS4zSJGmAGQ8IgC3SWNRUA4YYDKgZQLwfKSsOYSjKRFWPT5MTHjkMQD0MWAuhxEbyYSnHC auLF9OWAEaeqRwSgEqITGQZXi+Bq3OLP5ri9BmZCty AkWhQR8opu6VYPyZDoWdW1E1bFYeG1L7DHpmHm5TIEPkXYGlMLiuXQKHNXdvSP9RIL7hfgD3SD1UmHVw IFRqLPUevAYbBMg6G99dzTVjROqmUN2QHNU+Driss+Ep1ZCWIwFLMhFGTpHzLnIWXPBdBvV7WhC5WNw8Lv P6DePK90uWshwiIeABkbUY4XWB9qTBGiOQAEJN5VwP FttG3vcdTzSFMbGWWXAbAbM87oxMQsSBDbODZgEMUcRo2IMYJkF8DcypPxeIghrqRcRKWySZNIUE5GHB xiqqSugEZbzLktRQ60sKsvNY7WKs4UGxBjCJ1uze8EuZTyPv8CPLYiUG9LGYDrCCAcXSCyPJC5WKYjEg EnOGogMGCeJZVmKLU8WUHvCWQiLD6NZiXbIVNbPPI4 DsUgDQVmDLTbke4FLGKtDNGaTVOdSiLqUVNyCWLrWAgkJDDfILJfVSK3GLDxELFyQX4TMcJaKQQcYQQ5 QgXhYFOlBSFsbi7LYIKkAOVnWzz8XoGlOTYyWIJmTWfxYCBfDRC0ZyczIZErVJCqGH1TBeNnHZWyVWk8 WkWkXKQzEXMvrx4IYLFhHFSlFZDtVvKuUVUkPCWoSF ceYVOhADQ7ImAiTIGkSVEfIT6QXpJdNVFkOFd1DBWeFELoMFQlne7AJOXhSEAfEZh7UDHrNKAzFDChFQ ubOMVrAPVfAHTgGESlQYOqPF4DMoKfDRQnMLZdTvHyDYAwSKUikg3JWFIqVYTyJFCaMpZtFDTwWXYiIS iuCRBwCCVwDFDtKATdADQxGK7VFuWvJUDgJRRpQxSv JHAiGVLhlm2UQRYtLKKrHwA2AnJfRVJgWHCdUWnxOSPfDZCjPuXpXSNhPLBsFL3HIpCoJNSvLAMiQqEk LPTyDGBuaq9LPEAuVAPaCBGgVsTbDRBuIICuFIckAYLmXOX2Kvi0VGJkXNWgIC1TPlYoRGOvPPJ6WQEu PDJgQQLsfb5ZnJFilYvvpk6MMNmOVb3QoCuzZIS0GB wdPc3zzLDkTiZjPCXVRj1BubKnHFRlOXRACMgvNMNuLMJmEcJxOeE6SrJfYgkmNll8PBIsYDUhQWVnIo SqHYP5IjS3NXWxWEKrVNT6OXWlCOCjAfQ1JPFtJTFyZZP8SDHqYat+QZ9vIZg+Vu1Me3IvhfS6auOcUS frBYN4QV0ESYJNK0GLAd== ID Date Data Source [id number] 01/20/2020 07:31:30 AM EST [facility] Name Value Range Interpretation Code Description Data Maritza rce(s) Supporting Document(s) History and Physical [facility] GKUSAa0rJqKICdKp89/EFOjnAHQgj0TxJKcqISq6QPgyAYQsI8WgDSO6lX2kQUR1LZpKQpYsGzKsFUZ2 lbm [file] ICAgICAgICAgICAgICAgICAgICAgICAgICAgICAgIC AgICAgICAgICAgICAgICAgICAgICAgICAgICAgICAgICAgICAgICAgICAgICAgICAgICAgICAgICAgIC ZqDKWfCJKeAU7HDICdXLSaKIGcKTRiEILmTTCpXGCjEBLpABRuSRMjWVNfUQPiTXRmBLPjWAGnOGEuQD AgICAgICAgICAgICAgICAgICAgICAgICAgICAgICAg JAZqDGNfVJLfAZJzVHNiKKYlFV9YLBVaRTKiDBJkIXFbGUSwXVHcYIKeELFaQXZcXORcCKGwHUElFORf ICAgICAgICAgICAgICAgICAgICAgICAgICAgICAgICAgICAgICAgICAgICAgICAgICAgICAgICAgICAg VL8XWRMcODAaPBZmLQEpRRWiTWXvEGJeMUEjYXPbKK AgICAgICAgICAgICAgICAgICAgICAgICAgICAgICAgICAgICAgICAgICAgICAgICAgICAgICAgICAgIC BrQGQbPEGcCFDyFC2TGUKbTQYhYMFjOMHkZFRbSETqDAFvXGEoKCFfLXTxDOKbEWZwIYLwMFUjNVYnWP AgICAgICAgICAgICAgICAgICAgICAgICAgICAgICAg UCMmLVHhIOVzZDAbWNVoZQEcTRKaRK2VBHMtDGCmKYFoGBDtBLOnSTWqHUFkZIFaUEXiUUEzHWNwEYBc ICAgICAgICAgICAgICAgICAgICAgICAgICAgICAgICAgICAgICAgICAgICAgICAgICAgICAgICAgICAg PSEcLP4AGAKlSVTsCFCaCLEdHSYtHIFgIOFaZCRsJE AgICAgICAgICAgICAgICAgICAgICAgICAgICAgICAgICAgICAgICAgICAgICAgICAgICAgICAgICAgIC EhTVQgTMTnKVOjTIOjBL1HBDMaNHMmOFGzUDVsETKeWRRhEIDsWUTeFHApWECdSKCpYOBvNCReGSUyCB AgICAgICAgICAgICAgICAgICAgICAgICAgICAgICAg NUXrATCaYLWzGANgJPLzFQOqDMCnWTHeJU9RIIOcSVRfMDMqDQVxCIDnBCFcVUEpTNRpEMLwVJZoNOAk ICAgICAgICAgICAgICAgICAgICAgICAgICAgICAgICAgICAgICAgICAgICAgICAgICAgICAgICAgICAg YQJgZLApZR6QAD17fGYnt1T5IYJiFN4lqla/Pg0KDQ tmcpBbeJYpJG1FRiBmQN7wmx8NKgUrNS2oib2RIGdYXoLuO1D3gDVmSMAeZXONGqNaR08aKHheKw69DL izAVXpKzUwXGu7Gh7TPbMhC4mhDXKbCoF4IAGhHjK3ISVySjX3RKAkTyDwQMRcWSUzDVItRBFWWRB8CP KdUwCtRWrzCZ7Ht1BnhMN1FUc+Zf9QES6mg4ZcSDan KaTzGJ9xjt3ZUSlHOrPiE3DjvxV4GSUcLZShIq1MXVSyCRGwxXKhBaBhFQLNRzNfA7CpuA18ZJQGTd8+ RQvfylCvCeiSMaHoPEKpa2MiIZv0CX9AGGDcABr5tIZuTMJWLLI3OBPpNsUxfYLETASjZQVyQD0sKT2Y NSC3DUWuEyC6WwWnEqFjYZU0VKNbNF1mVGhrNW0LSI J4SHglSCBtGNWeR2zFByKcQITzYEPpwMbwZK7OZnPaD4DmhrOquDKwZxNbMIPVGu8+DQplbmRvYmoNCj U9TQKpz2XrLCk0NO2UIMYgCKbiJV1OYUCbqX0bUWrqDV8XBvTzXKJhNFCVKeQdL51lwLGrOEr4U8ElYz VkZGVkRmlsZXMgPDwvTmFtZXMgWyBdDQogID4+ID4+ MYmeIJ9YKBwnzsNoOJDtKb5SWVFzMUIaTD1oLVBcPKJhV9H8kZbqANJISrMdN5vvkvrwTA2uHAVzL253 uMeehlZpWHXfOWCtPg9SSOExAST8SMRfpBJdNlJaAUFNHArmKS5CmOQiXZL5bJ7bNEpyNDDsCNNhA8oX PlEgwSutBP63yPyapjKzkWSgRNc+Fa0RAW8io5EqUN o0tvPdVWkyPWS1OYtvTLClETQiWQDrDVP2OBS5FBDJOdZxTPCqDUTxZPyhADCqHPFayh6LIMVdHIA1Yx JuWRVaAIBoACWhCSseSJRoUIX7KMKyQHOvXCFlYG3JZdHwEULnSVCjGHvmNHQxLDUxqq6VNCGfCUFbWh l4VJQhNJQgPXHwHPifGAIlJPDdBPM6ESSeAVEyFZ2O ZgBfNPWpWQaxGZjkUPYuSXRqwp9ZWGUxLTAgJDD9AzKgNECxZGCpFNpoPWByBQDzTPJbEHFdYLYeZW7S EvUkPKHeHCQvKjOfCXYhIKSzjq8ERKFyDAQlIFooAwFwOYMhEBQxUXizWXXbMPU7OWObDCGfNOTkYU2A RwBnCCLtLYtsWTuyXFDvSMHwxz8QFICiUOEuMLMoVE RcPMCsUORzTUssRNMfCKF7ZvEjEDWvENHtQG7FJbBvRJHyNTs9NVnzNSFfBIRcbb4OZUYgWDChRMpjVA RmBFWbNSHoQVgoNREmCUOaJQR4MAKqQATyON4PTdVyLTWbMdDaNZtyWDDyZZPaiw1YSXEeBEYsVNV3Qs QaBNWvFJAsTIasCLUjAIEfFNI5WFZwDUOjRO5PPaLv OWNzXfB8UdweQVKtGJSyqh3MBBAeFMU5MGX4KpWjHWPeEIOrKPjrNUYiRSC3WrulSSRvXCNdNJ1CEdBg BCMzESE3KYUiDDUzCKEoeg6VULWiJJD0RAe1CALsRRAqHANtOKbpFLRvYIH2BIb1EJPtQOTiYV0BYeOs QZDiZMW0JaPgHHHxBODrsr2WHVDgBMS5ZxSoDDMtUH VhQDKjXHvaVVGtIDR6JOf7BBKnYFKoGF8TYwZkGEZmQUi9OPMbPUSuPQFkrl1GCTAmOLI0XIE8MFVjNU GePZLaBByoSKSaUHO3FWW9DCAfTBTbNV0ILwTeFYKzBLofFRTaMCAvMEKnjy2OaDKxoBwvox2UKRbLBd 9DhVgfTBN3IAczIn0zaOJiFCWkWXZUSh9GopXhOMUb ILLSXLhgKFAfTAVcRkE3ZvprVMUgRuVmGNMjTBClMkyeXEzhCdydXCT1IqY5CCRlWWJ3A5CeOOTaAJN7 MMOySEAvEDG7LFJ0C1B9VJY+DG7lIIg+Dp8Ry7HpwnZ3djZiAIt0GLO3LW8XSAPEI2LCDd== ID Date Data Source [id number] 01/20/2020 07:05:04 AM [facility] Name Value Range Interpretation Code Description Data Maritza rce(s) Supporting Document(s) Glucose [Mass/volume] in Capillary blood by Glucometer 164 mg/dL 70- 140 H [facility] ID Date Data Source [id number] 01/21/2020 02:06:00 PM [facility] Surgical Pathology ReportName: JEREMIAH PEREZMRN: [id number] Number: [id number] Date: 01/20/2020 00:00Received Date: 01/20/2020 08:25Physician(s): SARAN JARA MD SHERMAN, ROBERT A, MDSpecimen(s) ReceivedA: Soft tissue right hip FSB: Right femoral headClinical HistoryFractured right femoral neck.DiagnosisA) SOFT TISSUE, RIGHT HIP, CURETTAGE: LAMELLAR BONE AND ABUNDANTNECROTIC DEBRIS. NO ACUTE INFLAMMATION OR NEOPLASIA IDENTIFIED.B) BONE, RIGHT HIP, ARTHROPLASTY: DEGENERATIVE JOINT DISEASE (GROSSONLY). /pws Rhoda Sanchez MD;Resident PathologistElectronically Signed By Naomi Hook M.D., Attending Uuyrczeodvi15/20/2020 14:06:12Processed at [facility] at [facility], [address] [place] [address]. The attending pathologist named aboveattests that he/she has personally reviewed the relevant preparation(s)for the specimen, performed microscopic examination when indicated, andrendered the final diagnosis. Unless 'gross-only' is specified, the finaldiagnosis is based on a microscopic examination of dental sales representative sectionsof tissue.Intraoperative Consultation FSA1-3) Necrosis, dystrophic calcification and bone. No acuteinflammation of malignancy identified. Per Dr. Anthony on 01/20/2020.RM/pws The attending pathologist named above attests that he/she has personallyexamined the frozen section preparation and rendered the diagnosis. Gross DescriptionThe specimen is received in two parts.Part A is received fresh for frozen labeled with the patient's name"Jeremiah Perez" and "soft tissue right hip". It consists of an8.5 x 2.0 x 0.8 cm aggregate of irregular, squires-pink, rubbery tissuefragments which are submitted in toto for frozen section in FSA1-3. Thefrozen section remainder is entirely submitted in three cassettes.CTC/pws Part B is received in formalin labeled with the patient's name"Jereimah Perez" and "right femoral head". It consists of a 4.5 x4.5 x 2.6 cm femoral head without attached femoral neck. The margin isirregular. The articular surface is squires-white, smooth, and focallyeburnated. The cut surface is yellow trabecular bone and cortical bone,0.2 cm - 0.3 cm. No discrete lesions are appreciated. Gross only. Nocassettes are submitted.CTC/pws This report may include one or more immunohistochemical stain results thatuse analyte specific reagents. All positive and negative controls havebeen reviewed by the attending pathologist and are satisfactory. The testswere developed and their performance characteristics determined by [facility] Pathology department. They have not been cleared or approved by the USFood and Drug Administration. The FDA has determined that such clearanceor approval is not necessary. Name Value Range Interpretation Code Description Data [facility] rce(s) Supporting Document(s) ID Date Data Source [id number] 01/17/2020 12:16:10 PM [facility] Name Value Range Interpretation Code Description Data [facility](s) Supporting Document(s) Progress Note [facility] SVTKSx2oEoHDCoAu23/NVYjsYYFdo3UgCAmkZHx5SIkkRBErE6HgZIK1aD0lZAU5RQjYGrXaWfDkVEZ5 lbm PzMyjGZxXnDRViRliTBxGsMEmaPhqwpPJoZQ4RlQD4JFLnL75iWGOlZSKrP9MgFRS7IPD+To3AZSGwzN HqPF5ZHveI5PeiAjlOVS4t2Y7lFtOybGKbjweHgbg19MCKmRR8s0NDRwe8DVu+gL6Y0i721t60+jtZTj PcK9mRtQSNV/z23g8k3nIJ2c/fYj/5DkdEg6/VxzCW 2acbqycPSOnLVR3uZwFL3JK6StciQoQqujg8K83g4yCUFgHkAJ281a7ZVo/umU0aqv8h508NdLlVbXcq mEKqX46U96qnhzAPrFc+5kdEV1CC8Y++cFIPP6ElPT+0PiktqJSH7Ik0b6UKJXluAT1JBEyIXcwtEkjR ShV3mEgW85kfmU13uXZPfz5f+DsL6hxvv8AhxGrcX6 tGWPqA7wgi39iwf/aVE0cO+gMjH0Ay8xzmUHvYtWLOfuhVxlSKGn1vNEfFdZ0yVLv5/tJxPvmVLdMgWD jYBGfqHKvcE3w5Cn3bsIdx/i6xlEVn9yyXvndBQqIQaAUpvXds8Ea0BGDLPNtGWFo02E0gNciB6qjI+i g2At6LKSoS6nWYly+upXaz38/XeoOdIqQVB1Fuya+a D97w9WwpBsbjgcHv2nmFuRxX3tQYvWyYy97l0WF0GqbYoeZahRbvwAYgHuy3n4Q5lst2GUfZfWS7iJyu 2fYaQa1g/VIvc4exFV8ynr4H2sOQzh3kKPd9N5kiBBKsCc8HBd7C0LDd24AKWgStsUPbzVxnleNvL9o1 8TyTSDGpRu6yAxz8KWDAGPTcSCSPJFKvIT2Ok4FiyS [file] ICAgICAgICAgICAgICAgICAgICAgICAgICAgICAgICAgICAgICAgICAgICAgICAgICAgICAgICAgICAg ICAgICAgICAgICAgICAgICANCiAgICAgICAgICAgIC AgICAgICAgICAgICAgICAgICAgICAgICAgICAgICAgICAgICAgICAgICAgICAgICAgICAgICAgICAgIC AgICAgICAgICAgICAgICAgICAgICAgICAgICANCiAgICAgICAgICAgICAgICAgICAgICAgICAgICAgIC AgICAgICAgICAgICAgICAgICAgICAgICAgICAgICAg ICAgICAgICAgICAgICAgICAgICAgICAgICAgICAgICAgICAgICANCiAgICAgICAgICAgICAgICAgICAg ICAgICAgICAgICAgICAgICAgICAgICAgICAgICAgICAgICAgICAgICAgICAgICAgICAgICAgICAgICAg ICAgICAgICAgICAgICAgICAgICANCiAgICAgICAgIC AgICAgICAgICAgICAgICAgICAgICAgICAgICAgICAgICAgICAgICAgICAgICAgICAgICAgICAgICAgIC AgICAgICAgICAgICAgICAgICAgICAgICAgICAgICANCiAgICAgICAgICAgICAgICAgICAgICAgICAgIC AgICAgICAgICAgICAgICAgICAgICAgICAgICAgICAg ICAgICAgICAgICAgICAgICAgICAgICAgICAgICAgICAgICAgICAgICANCiAgICAgICAgICAgICAgICAg ICAgICAgICAgICAgICAgICAgICAgICAgICAgICAgICAgICAgICAgICAgICAgICAgICAgICAgICAgICAg ICAgICAgICAgICAgICAgICAgICAgICANCiAgICAgIC AgICAgICAgICAgICAgICAgICAgICAgICAgICAgICAgICAgICAgICAgICAgICAgICAgICAgICAgICAgIC AgICAgICAgICAgICAgICAgICAgICAgICAgICAgICAgICANCiAgICAgICAgICAgICAgICAgICAgICAgIC AgICAgICAgICAgICAgICAgICAgICAgICAgICAgICAg ICAgICAgICAgICAgICAgICAgICAgICAgICAgICAgICAgICAgICAgICAgICANCiAgICAgICAgICAgICAg ICAgICAgICAgICAgICAgICAgICAgICAgICAgICAgICAgICAgICAgICAgICAgICAgICAgICAgICAgICAg ICAgICAgICAgICAgICAgICAgICAgICAgICANCjw/eH SyH2ytzLYatfH5S1rlIi8MKp4JFO9mn8UuSNLxXYoezxAiNtgNDzGwYWYlJoiDOnt7LKrmDF5MrMXyD5 TkJ7ZgKXaoET1LNTNqSDCbdZMaVESxKVKrNhL6HJKwRIgdRM8MgNUmUOndEHJzHZLcRC3ORUSjW446xh QfLH2XXy8QSrJlHO7lbf4TYTuxVMPdDbwTBbn7CKug YM4TiDIpmWZeTFWxWOPCTtDeJ9dde9MjNkEqBBRCUHbiZB0Vd6FcmIDbBDu+Ke9LML6nw3DhZVsuRXYr TM9ffq4UMMnKDrIdK8YznYzfTWFtd3viOSYpEQ6psZCvOPG3DWFopoGrQHWtjEGmL4SaqLMmKQPTMzBo hNGpTT1rRj3qNMXnQFMzOoYcJVUFYA1QNUVjZAKbiW IsTHVmWKZMYG4ZJSmxVNR3EMUnzuLihRWeGDehHG0ZBFXhfzZqEZarZNVLJGh+Ni4TSJ2bz4YaETiwVC CrHL8wtb0ESAzLIpBtF3K4xDKnD6W3MGmnXo8UIWLpMRMeLFpvENCUBYlgVV4SAP3gmsX2QX0ReLDpXU CwXFZoeQXcNNa6V74thZQsFSglLE3MYFH+Driss+Pg0K YANrIHQxFSTtBeIaMGGNPwNvY0GsM9RQs2LnL2UuTT47cJqsxhMiMXojTH9AJN7mPUWgPXPTPP1ShRJa hA0mbtEnAHFlEZGYSgPvU47waQJhMXYgZIT1WVMlMu9EIEZxH7CdywEviMaeovUcOKDyPTNDFG8VFYyj xfFebGHpdPofCG91zCquXM0EZt9UWxNaAW3qgj5WbJ LdUx5PRWFjSm2FOWRfKETtSPXlSCH8PJJsYtFsVSmaIMUrWQOyANH6BFSkHVLaYT1YAnRbUCZcIGahCK buOEAwPMRtsl2IFMCkGHMnCRb1AxFaAZXpOCOaUSgbCLHlRYQpUTS0PLSgKLKwMM0AJaAwURIrZTQnDT ToPKHaZYLeev8KGIBhQMKnOnX2QHPbYEUfMJJgTKcv YDIpTLRvJjM6AKCzVDPnBF0GMhHyTCBdORV5OPOhLBKxYANihu1OBGKkQFFxYbCdIjVaONLlAAMdSFab CKTpXDW5SMdwAGLdDCRyFE1AKpYjOARyQQC1DVOsAGKwNGKzpq2LVSEfNAWgQRj9IKAeMZGqGPTbSEnm LBMcRKN3EqF6ACFxIHZcIE1SLjPaJKTtYUC9CAWfDH GuDIKvpb8HLODkZJEjXzr1KJLcCUBuYWCyRActVVEbNKQ1TOuiUXFpAJAcYX6MRzIyZAPwVVwnPeWqNG PiJCFiqz5QZZYlAGLxAsMxEdBpUZAuQZMvFOszBCMaACE8MIm7QKBiUUWiII2ORsNmGVWfRHkwRUHaRV LyREVoxu6TSBFkNSSpHAH8VLWsUWSdKOQyFJm2elAi yURfSLz8AF1SV2TohaTgAoMDPv1Lb598DAWyMIStIu9UD2haCg9jXEOyYJQWFh8IGZt5EzIbFus8AUE5 Rqk0X1EkZJA8UURfPJJuFXKnPiH7LpJ+VSupI2D0FgKmRtwpKJZ7YOM1LBqaYWLnZOA9ZPGpTItnNL1t XSANCj4+ELdezFDrwLxrRODCGfN7PRBsOIdbMFYARd9C ID Date Data Source [id number] 01/18/2020 12:02:58 PM [facility] Value Range Interpretation Code Description Data Maritza rce(s) Supporting Document(s) Specimen source [Identifier] of Unspecified specimen [facility] SARS-CoV-2 RNA 2018 nCoV Real-Time RT-PCR: NOT DETECTED [facility] Assay Performed [facility] Initial validation was performed by the Centers for Disease Control and Prevention (CDC) and additionally validated by the Dept. of Pathology [facility]. Negative results do not preclude SARS-CoV-2 infection and should not be used as the sole basis for patient management decisions.Additional information is available on the following FDA websites for health care providers and patients. https://www.fda.gov/media/987051/download, https://www.fda.gov/media/166611/download. 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 [facility] Patient has symptoms related to [facility] When did you start to experience these symptoms [Date and time] [Phen X] [facility] Patient was hospitalized because of this condition [facility] patient was admitted to ICU for [facility] Patient resides in a congregate care setting [facility] status [facility] ID Date Data Source [id number] 01/17/2020 12:16:00 PM [facility] Name Value Range Interpretation Code Description Data Maritza rce(s) Supporting Document(s) SARS-CoV-[address] [facility] This lab was ordered by [facility] and reported by [facility]. ID Date Data Source [id number] 01/13/2020 07:18:12 AM [facility] Value Range Interpretation Code Description Data Maritza rce(s) Supporting Document(s) Discharge Summary [facility] BPRYXu3xXgLEKiKi49/FMDthOSLvs5LvQKcqSYq0ESjxMGLkL7VaLWC1gH1sWWD1RWmDXjJvAvTsEFKz [facility] YyByvBEdWaKJJcOmmTViZpCQquFzsufWPkWF5UvLO7CFNaP45jAEWaNREoQ6DhDQD5Nta+Th4ETEHboN PpCU1BCxrQ5MjtSsIB4f2y/QbVTqnXHB9n1j3Pb9bkZZMn9w9TALjPz7TIKcEwcbyj/j31MPv7Y3GWYE PR8I11QdrZ9bvj6fTHB//0y185nwQZAC+//oA2KRn8 sr/+fM7juND8naEtpmQAHGJiviwn+4CytliogZhXN3Sg2Md3Zbu9B7Gm0OuNfJr2aaUHWA1N6VH+OWGt RBGnsvkfJBezQdp61lX6ZjnE3Unl25W9/gdPesc10bT11Lx7VG6C2arOY9IYPMHSkSjQMTiE7gbsAqqP lv8e1g7P1xxmhqXQI7UA5e6SsC4tXW1cGhxS2M1h/g p4eDqUnmjUvFMFg8ZqhjqxNOWSOF4SSKJ/eTS2sbJ1/Bi9U1At2Gze9kgI8eg4xsMew3/rdrIExxQ3Ty rWghSKIdxWJ7eZijviPWLFPIrkBz3TQwVs5ElR/2LakfAyfNfJZ7aS36KvoyNvWyD75XQqATd6OsMha+ y/tb257CEmmVuxvexc0OMvkzqM3oPWFCYewq5uGXk+ 0ncFXFeMerKAo1bcbBAOp4tjfcu5wbcYjh8qh78CAehaVU83SwRqWhZv2RQd+4bOB87gPtYEFzW2/cVz Nikita+HKQ1VFiGIl/QskqM8ytgmK/9rUNG8SJog8D/bOPtKUBE9xz/mw8qNgcmbGmI6JvhVYMqxCAtnLtmI [file] UoYvDOw2EeIiEO9EKn1ZEtR1ZYS8uQXuJe2JIqHuWRdGPbVvMV1XIEu= ID Date Data Source [id number] 01/12/2020 12:44:16 PM [facility] Name Value Range Interpretation Code Description Data Maritza rce(s) Supporting Document(s) Glucose [Mass/volume] in Capillary blood by Glucometer 221 mg/dL 70- 140 H [facility] ID Date Data Source [id number] 01/12/2020 12:14:37 PM [facility] Name Value Range Interpretation Code Description Data Maritza rce(s) Supporting Document(s) [facility] RFSFAo9lYwDRKeWg04/YHEdmXCUkv9MjBPqaLSx6EJakWZHeM9DqHEL9oW5zDPR3MFsSSwCtWaJrXGDn lbm [file] TNQtElVqJPZnGGDhIqL5YjK+KR2gAIj+Om5Cd6XnpvI9lxSpEBhlBuVmOc8BKJDKC7TEEa== ID Date Data Source [id number] 01/12/2020 08:44:25 AM [facility] Value Range Interpretation Code Description Data Maritza rce(s) Supporting Document(s) Glucose [Mass/volume] in Capillary blood by Glucometer 172 mg/dL 70- 140 H [facility] ID Date Data Source [id number] 01/12/2020 06:33:34 AM [facility] Value Range Interpretation Code Description Data Maritza rce(s) Supporting Document(s) ABO and Rh group [Type] in Blood [facility] Blood group antibody screen [Presence] in Serum or Plasma [facility] Per[facility] Type Confirmed ID Date Data Source [id number] 01/12/2020 06:03:04 AM [facility] Value Range Interpretation Code Description Data Maritza rce(s) Supporting Document(s) Prothrombin time (PT) 13.0 s 12.5-14.9 [facility] INR in Platelet poor plasma by Coagulation assay 0.97 [facility] Routine intensity oral anticoagulation I NR is typically 2.0-3.0. Target INR must be clinically individualized. ID Date Data Source [id number] 01/12/2020 06:03:04 AM [facility] Value Range Interpretation Code Description Data Maritza rce(s) Supporting Document(s) aPTT in Platelet poor plasma by Coagulation assay 30.5 s 24.0-33. 0 [facility] ID Date Data Source [id number] 01/11/2020 09:19:02 PM [facility] Name Value Range Interpretation Code Description Data Maritza rce(s) Supporting Document(s) Glucose [Mass/volume] in Capillary blood by Glucometer 170 mg/dL 70- 140 H [facility] ID Date Data Source [id number] 01/11/2020 05:47:17 PM [facility] Value Range Interpretation Code Description Data Maritza rce(s) Supporting Document(s) Glucose [Mass/volume] in Capillary blood by Glucometer 194 mg/dL 70- 140 H [facility] ID Date Data Source [id number] 01/11/2020 12:41:25 PM [facility] Value Range Interpretation Code Description Data Maritza rce(s) Supporting Document(s) [facility] FRFMFb9cIvJDFaTe66/SDZjtKTJcy2LpIDxiVSc4PTgqGVPyZ8OyUJB7oZ6sBUL1NNlCIsUzZxSrGYMf lbm [file] [id number]= ID Date Data Source [id number] 01/11/2020 12:42:11 PM [facility] Name Value Range Interpretation Code Description Data Maritza rce(s) Supporting Document(s) Glucose [Mass/volume] in Capillary blood by Glucometer 234 mg/dL 70- 140 H [facility] ID Date Data Source [id number] 01/11/2020 09:51:36 AM [facility] Name Value Range Interpretation Code Description Data Maritza rce(s) Supporting Document(s) [facility] IIBBAf9rMqMOPvZn99/JWUkvLSVpj6XxSRnlXCo1RRlsJXMqX6JoBAT0xK9nRED2QEnXKyNjXuPfCZLb lbm [file] [id number] ID Date Data Source [id number] 01/11/2020 08:22:54 AM [facility] Name Value Range Interpretation Code Description Data Maritza rce(s) Supporting Document(s) Glucose [Mass/volume] in Capillary blood by Glucometer 172 mg/dL 70- 140 H [facility] ID Date Data Source [id number] 01/11/2020 05:45:15 AM [facility] Name Value Range Interpretation Code Description Data Maritza rce(s) Supporting Document(s) Leukocytes [#/volume] in Blood by Automated count 10.9 10*3/uL 4-10 H [facility] Erythrocytes [#/volume] in Blood by Automated count 4.76 10*6/uL 4.6- 6.1 [facility] Hemoglobin [Mass/volume] in Blood 12.3 g/dL 13.5-18 L [facility] Hematocrit [Volume Fraction] of Blood by Automated count 37.1 % 4 1-53 L [facility] Erythrocyte mean corpuscular volume [Entitic volume] by Auto mated count 78.0 fL 80-96 L [facility] Erythrocyte mean corpuscular hemoglobin [Entitic mass] by Automated count 25.9 pg 27-33 L [facility] Erythrocyte mean corpuscular hemoglobin concentration [Mass/volume] by Automated count 33.2 g/dL 32.0-[facility] width [Ratio] by Automated count 15.0 % 11.5-14.5 H [facility] Platelets [#/volume] in Blood by Automated count 423 10*3/uL 150-400 H [facility] ID Date Data Source [id number] 01/11/2020 06:12:48 AM [facility] Name Value Range Interpretation Code Description Data Maritza rce(s) Supporting Document(s) Bicarbonate [Moles/volume] in Serum 28 mmol/L 22-29 [facility] Chloride [Moles/volume] in Serum or Plasma 101 mmol/L 98-107 [facility] Creatinine [Mass/volume] in Serum or Plasma 0.50 mg/dL 0.70-1.20 [facility] Glucose [Mass/volume] in Serum or Plasma 183 mg/dL 70-140 H [facility] Potassium [Moles/volume] in Serum or Plasma 4.2 mmol/L 3.4-5.1 [facility] Sodium [Moles/volume] in Serum or Plasma 139 mmol/L 136-145 [facility] Urea nitrogen [Mass/volume] in Serum or Plasma 7 mg/dL 6-20 [facility] Anion gap 3 in Serum or Plasma 11 mmol/L 8-15 [facility] Osmolality of Serum or Plasma by calculation 291 mosm/kg 275-300 [facility] Creatinine/Urea nitrogen [Mass Ratio] in Serum or Plasma 15 [facility] Calcium [Mass/volume] in Serum or Plasma 9.4 mg/dL 8.6-10.0 [facility] Glomerular filtration rate/1.73 sq M pre dicted among non-blacks [Volume Rate/Area] in Serum or Plasma by Creatinine-based formula (MDRD) >6 0 [facility] Glomerular filtration rate/1.73 sq M pre dicted among blacks [Volume Rate/Area] in Serum or Plasma by Creatinine-based formula (MDRD) >60 [facility] ID Date Data Source [id number] 01/10/2020 08:46:33 PM [facility] Name Value Range Interpretation Code Description Data Maritza rce(s) Supporting Document(s) Glucose [Mass/volume] in Capillary blood by Glucometer 150 mg/dL 70- 140 H [facility] ID Date Data Source [id number] 01/10/2020 05:42:50 PM [facility] Name Value Range Interpretation Code Description Data Maritza rce(s) Supporting Document(s) Glucose [Mass/volume] in Capillary blood by Glucometer 276 mg/dL 70- 140 H [facility] ID Date Data Source [id number] 01/10/2020 01:20:08 PM [facility] IR IMAGE GUIDED NEEDLE DRAIN PROCEDUREFI NAL RESULTInterpreted by:DESTINI KilgoreROCEDURE: Ultrasound and fluoroscopically guided Right Hip aspiration.HISTORY: Right hip joint pain. Prior trauma/orthopedic hardware in place pinning the right femoral head neck with orthopedic hardware failure. Plan is for operative repair of the right hip but there is clinical concern for possible infection which would change the operative management. Therefore, aspiration is requested.TECHNIQUE:Attending Physician: Genesis Sow Physician: noneResident Physician: noneFluoroscopy Dose: 20 seconds, 4.356 m GyPrior to the start of the procedure a "Timeout" was called, confirming the patient by name, medical record number and date of , and the procedure to be performed was confirmed. All procedural staff within the room are in agreement.PROCEDURE/FINDINGS:The patient was positioned supine on the table with the right leg in slight internal rotation. [employer] fluoroscopic images demonstrates posttraumatic and surgical changes of the right hip with orthopedic hardware and fractured orthopedic screw.Utilizing sterile technique with fluoroscopic guidance and local anesthesia, direct ultrasound guidance was used position a 20-gauge spinal needle in an area of hypoechoic scar/post op change vs fluid in the expected right hip joint space. Despite repositioning a few areas under ultrasound, no aspirate could be obtained and this was deemed to likely represent scar.Then, under fluoroscopic guidance, the needle was advanced over the lateral femoral head-neck junction until bone was encountered. There was immediate and spontaneous return of a very trace amount of blood tinged synovial fluid, totaling a fraction of an mL. Despite some repositioning, no further aspirate could be obtained and procedure was technically challenging due to the extensive post traumatic change to the right femoral neck and difficult to visualize the needle tip due to orthopedic hardware large body habitus when using oblique projections. A small sterile bandage was placed over the puncture site.The patient tolerated the procedure well without immediate complication.IMPRESSION: Status post ultrasound and fluoroscopic right hip aspiration yielding only a trace amount of blood tinged synovial fluid. Sample sent for gram stain & culture but not enough aspirate for cell count.This document has been electronically signed by Juan F Ely MD on 01/10/2020 1:18 PM Name Value Range Interpretation Code Description Data Maritza rce(s) Supporting Document(s) ID Date Data Source [id number] 01/10/2020 12:43:39 PM [facility] Name Value Range Interpretation Code Description Data Maritza rce(s) Supporting Document(s) Glucose [Mass/volume] in Capillary blood by Glucometer 250 mg/dL 70- 140 H [facility] ID Date Data Source [id number] 01/15/2020 10:00:44 AM [facility] Service Cmnt XXX-Imp : NoneGram Stn XXX : 1+WBC'S Seen.No organisms seenMicroorganism XXX Cult : No growth 5 days Name Value Range Interpretation Code Description Data Maritza rce(s) Supporting Document(s) ID Date Data Source [id number] 01/10/2020 11:19:26 AM [facility] Name Value Range Interpretation Code Description Data [facility] rce(s) Supporting Document(s) Glucose [Mass/volume] in Capillary blood by Glucometer 171 mg/dL 70- 140 H [facility] ID Date Data Source [id number] 01/10/2020 08:52:19 AM [facility] CT LOWER EXTREMITY WITHOUT CONTRAST 7370 0FINAL RESULTInterpreted by:Mine Ivey, MDPROCEDURE INFORMATION: Exam: CT Right Lower Extremity Without Contrast, Hip Exam date and time: 01/10/2020 6:53 AM Age: 30 years old Clinical indication: Pain, unspecified; Screening exam; Surgical planning hip; Additional info: [facility] protocol! ! ! ! Please obtain CT scan with erica protocol of right hip, for evaluation of patient's nonunion of his fracture, as well as for presurgical planning. TECHNIQUE: Imaging protocol: CT of the Right lower extremity without contrast was performed. Exam focused on the hip. Sequences: [facility] protocol includes imaging of the contralateral hip same time and additional axial imaging through the knees. Radiation optimization: All CT scans at this facility use at least one of these dose optimization techniques: automated exposure control; mA and/or kV adjustment per patient size (includes targeted exams where dose is matched to clinical indication); or iterative reconstruction. COMPARISON: 1. CR XR HIP- UNILAT, 2-3 VIEWS [id number] PORTABLE 01/09/2020 10:01 PM 2. DX XR HIP- UNILAT, 2-3 VIEWS [id number] 01/03/2020 8:50 AM 3. CR XR HIP- UNILAT, 2-3 VIEWS [id number] PORTABLE 11/09/2019 4:45 PM FINDINGS: Limitations: Hardware produces metal streak artifact. Bones/joints: The subcapital right hip fracture shows no evidence of bony bridging in the regions that are not obscured by metal artifact. There are 3 traversing cannulated screws with a side plate and subtrochanteric screw. The posterosuperior femoral head cortex and underlying bone is absent in approximately a 1.6 cm region (series 7/image 71, series 3/image 56). There is mild lateral subluxation of the patella but an otherwise normal appearance of the knee. The right femur and tibia are osteopenic. Soft tissues: A mild amount of fat is present in each inguinal canal, left greater than right. The right thigh muscles demonstrate moderate atrophy relative to the contralateral leg. Bowel: Multiple colonic diverticula are present without evidence of diverticulitis. IMPRESSION: 1. Incompletely healed subcapital right hip fracture, which is partially obscured by metal artifact. 2. Focally absent 1.6 cm region of the posterosuperior right femoral head. THIS DOCUMENT HAS BEEN ELECTRONICALLY SIGNED BY MINE IVEY MDThis document has been electronically signed by Mine Ivey MD on 01/10/2020 8:52 AM Name Value Range Interpretation Code Description Data Maritza rce(s) Supporting Document(s) ID Date Data Source [id number] 01/10/2020 08:43:30 AM [facility] Name Value Range Interpretation Code Description Data Maritza rce(s) Supporting Document(s) Glucose [Mass/volume] in Capillary blood by Glucometer 153 mg/dL 70- 140 H [facility] ID Date Data Source [id number] 01/10/2020 12:43:21 PM [facility] Name Value Range Interpretation Code Description Data Maritza rce(s) Supporting Document(s) Color of Body fluid [facility] NOTIFIED BRANDON [id number] RN 6C AT 1240 ON 01/10/20.6527 Appearance of Body fluid [facility] NOTIFIED BRANDON [id number] RN 6C AT 1240 ON 01/10/20.6526 Erythrocytes [#/volume] in Body fluid by Manual count 0 [facility] NOTIFIED BRANDON [id number] RN 6C AT 1240 ON 01/10/20.6526 Nucleated cells [#/volume] in Body fluid by Manual count < 200 [facility] NOTIFIED BRANDON [id number] RN 6C AT 1240 ON 01/10/20.27 Microscopic observation [Identifier] in Body fluid by Other stain [facility] NOTIFIED BRANDON [id number] RN 6C AT 1240 ON 01/10/20.27 Cell count and Differential panel - Body fluid [facility] NOTIFIED BRANDON [id number] RN 6C AT 1240 ON 01/10/20.27 ID Date Data Source [id number] 01/10/2020 07:27:57 AM [facility] Name Value Range Interpretation Code Description Data Maritza rce(s) Supporting Document(s) ED Provider Note [facility] ZHHIJa2vEnLCVpGs89/LUGglOYUxl0WbBVhxFSw8VBlbBLNpC9CaIFO6qQ2rZHW8UAmWJbEfPaJaXGJ5 lbm [file] RyGSZfJhN1GcH6GYE4TKRvTDBrKl1aDPSCOq4+VKgjjRSstQbbERTFRdX5VRneALirYUKLGf6G ID Date Data Source [id number] 01/10/2020 06:45:17 AM EST [facility] Name Value Range Interpretation Code Description Data Maritza rce(s) Supporting Document(s) Consultation [facility] QKYFZz0dGkWMXvZh92/ASOvsFCTtg2OvRLrcNOx8UUmmLRKtK3ZxOSV0tH5bCJU3FVgVXlXbLsEvXCQ6 lbm [file] e4Gdc4Bt5KYEFFO1QFRs== ID Date Data Source [id number] 01/10/2020 05:41:30 AM [facility] Name Value Range Interpretation Code Description Data Maritza rce(s) Supporting Document(s) Glucose [Mass/volume] in Capillary blood by Glucometer 170 mg/dL 70- 140 H [facility] ID Date Data Source [id number] 01/10/2020 05:18:07 AM [facility] Name Value Range Interpretation Code Description Data Maritza rce(s) Supporting Document(s) ED Provider Note [facility] DXEZEv1mMfLFAvQj53/DIOmyGDEvc2OwQOgkYLd8WLneLIAiX8ExELL9yN5uOXB7TMwUJhJdSjAvRRJ3 lbm [file] MTg+XT9aIBw+Nk9Jc0EjjqE9fbKoPHl6TcN2VC5OEIPHX2JJUw== ID Date Data Source [id number] 01/10/2020 03:00:48 AM [facility] Name Value Range Interpretation Code Description Data Maritza rce(s) Supporting Document(s) Glucose [Mass/volume] in Capillary blood by Glucometer 223 mg/dL 70- 140 H [facility] ID Date Data Source [id number] 01/10/2020 02:46:46 AM [facility] Name Value Range Interpretation Code Description Data Maritza rce(s) Supporting Document(s) History and Physical [facility] OEAOPp7uFkKZQhMd73/SXUyqROJun4PzMOeuDIn2VThrBGYkQ1BaBAY8kI5pTZM7XIpZTpGkDhMvJGE8 m [file] AgICAgICAgICAgICAgICAgICAgICAgICAgICAgICAgICAgICAgICAgICAgICAgICAgICAgICAgICANCi AgICAgICAgICAgICAgICAgICAgICAgICAgICAgICAg ICAgICAgICAgICAgICAgICAgICAgICAgICAgICAgICAgICAgICAgICAgICAgICAgICAgICAgICAgICAg ICAgICAgICANCiAgICAgICAgICAgICAgICAgICAgICAgICAgICAgICAgICAgICAgICAgICAgICAgICAg ICAgICAgICAgICAgICAgICAgICAgICAgICAgICAgIC AgICAgICAgICAgICAgICAgICANCiAgICAgICAgICAgICAgICAgICAgICAgICAgICAgICAgICAgICAgIC AgICAgICAgICAgICAgICAgICAgICAgICAgICAgICAgICAgICAgICAgICAgICAgICAgICAgICAgICAgIC ANCiAgICAgICAgICAgICAgICAgICAgICAgICAgICAg ICAgICAgICAgICAgICAgICAgICAgICAgICAgICAgICAgICAgICAgICAgICAgICAgICAgICAgICAgICAg ICAgICAgICAgICANCiAgICAgICAgICAgICAgICAgICAgICAgICAgICAgICAgICAgICAgICAgICAgICAg ICAgICAgICAgICAgICAgICAgICAgICAgICAgICAgIC AgICAgICAgICAgICAgICAgICAgICANCiAgICAgICAgICAgICAgICAgICAgICAgICAgICAgICAgICAgIC AgICAgICAgICAgICAgICAgICAgICAgICAgICAgICAgICAgICAgICAgICAgICAgICAgICAgICAgICAgIC AgICANCiAgICAgICAgICAgICAgICAgICAgICAgICAg ICAgICAgICAgICAgICAgICAgICAgICAgICAgICAgICAgICAgICAgICAgICAgICAgICAgICAgICAgICAg ICAgICAgICAgICAgICANCiAgICAgICAgICAgICAgICAgICAgICAgICAgICAgICAgICAgICAgICAgICAg ICAgICAgICAgICAgICAgICAgICAgICAgICAgICAgIC AgICAgICAgICAgICAgICAgICAgICAgICANCiAgICAgICAgICAgICAgICAgICAgICAgICAgICAgICAgIC AgICAgICAgICAgICAgICAgICAgICAgICAgICAgICAgICAgICAgICAgICAgICAgICAgICAgICAgICAgIC AgICAgICANCjw/uIKtJ3hpgJOoqdB7B1nyUg2PUu1F VH3qd9LfBRGhWZihmwDvUfdBJaHzZAVdQcbZLfg2APlcUP4UrMHuQ9RsO3ToDZilMJ9BABYaSVDtsYZn MDXlTIHyCyJ5CMZsFIvrAC0DbQOsFHfqTKUuDAOpGtXkRJChJFMdJBJjZGXtYYGXHYQxTUTyFuWiTKTe SHGdVN9TJVJjP832rbPqLe3RKm7POrXkPR8doy4YHz ZeQQLgMyqDXbi3OXqjDL5JpUJjrICwUmRxCBYSMbNoY8tng4MjBxRhHDZDSBahWU5Di4KvlAXaYYc+Pg 3PEC4yk2StJMadAaNpBU7dki7QMYvZTyXoQ2UirAnlFZorYHVukTXGwBojYPUKbFYeHZSGNSCwoWHySQ 90NtJdDvDkBTA9HHMkQX4sAMovNS0UXBQ5SNydJYUs OPCzI5iETkQnHCIkJQMfwThaNM3FCvPrB1EkeuFkwOCqUiAmVLZMYg8+BSwuhgAnNgaDTlV8WVYwa3Cd NFn9KV0ZGNEbWOgyPC2DHUQkrJ4sKVukZJ5UOiSwHFDkHTWANxSrP79jjSGnEHr6P6FrIyZsJJJfAnyv ZXMgPDwvTmFtZXMgWyBdDQogID4+ID4+SUtwNE2DEB sfmhCuLTQwKt5YTWYbBDHiRH0xSFRoZUNvQ1Z9hXwsSSOVLeUlC0puvemhHP7nACSfG396nWasnpDfLI MkUERmOu2KODEcKAY3LNJpcMUxOlIdPWVUFCgcIR0NjOLeWOE7wP2tYMrzLZKtADZzN1oBOoPkzJmuLC 51bGwgbnVsbCBdDQo+Qt0NSJ4ya7SuRPp8shBpLEss WOW7RPcfIBKbDDQhWONsRZP3YPK0SXPCOzSlXOFfHPPnVOcdZUReOLCgii8WTASeIEQtXrP7LZVkTOEu KDHeTAdgUIGhXHX6MWq2FMTbWCXtFQ3MZhRpJYSuVXJyEBibCAKeGVRsek6SUQGkGVDqCNZ8PoVvDPQc NOBqZTurWPZzFSR5EsxaZRSfUKChAO2DQyWeHWMdRN auLtNsRPYwVVWqtc7SKBNeHSIwWNUzHvErFBNzQYUzEUgkRWAsZWVzPOZ7ZXYyEPJaKD6OKwGnVRCoCK KwGBEqGOEwQDEopc6XBTEiEUYkJGk2LhNtXJKsTMGvFVkkMAKfVTM9YWpoOYAiRBQjYF8SSdNjSLEmYZ u1NLmkCWBoTBBetm8LFZOgQUKiYIi0XDLlGIDhNFGb JOrsTMTjAFH2JeX4JQLlDNRfKJ6PXyYuCVSkRDk7BXOrTFXlYBKhgf6BJABqAQUpWLunARHgHJTtXQIj ORpvOLVsDTDnKYt4TECwDSSzWX4TRaAlJCKlJpDrWPKfMVCtNWTedf6TWOBvKZJnEoG7ASMcWGAgGOQn YRupZCIcKPQmDvRhSTMlOBJxJN1TVlPbJPMkZmJ6Yr KlOBUoAMYhbe6ERJNmKVZlSazoMWVyHZBdQGZvPPheTITpXVE0LzVgPBPxSWFfWJ2MZnSmCTThIiX4XV YjHYWhUYMggq2BOGLjKVMeHQD9CFZoCKMpVXDfQVjgNQPbBXA7SNA3LIGvWMPyLW0DEjMzMDCgMkV7Op KdOUWtWFXobk8KAKYbLDHiVTm2IGTvZOWlUSPkJJzs LRGgKAK6HPW4UISzHQXkKA5DIaArEQWsOrT4BUOcYLReMLCvjx0FESZbNDFxDCGqBGQdIFFpHJScINbc OVMrIBM6PVm6ACVqNIGbFS6ZUmJaTRPzDjuzFyJxEVTcTMIpno2GaUNexOtmvk5ARJdCTj0LkGenCUC5 QEnhSd8ihEWsJBYwSZWMEt3CihMcHYGbIAXQRNhoVK DhSZV1EbAdFYI6CjX8AsHxDhO6XeXpCXVeReCsJ0GyAiYdDuD2BLTyZ1FuNSeuTeNkQfRfJgGyLqVgXC XtIlE3FZYeXlI+ZK3hOZt+Oq2Ne0GccjU9vvTuOKnaYTU4RC9AZHOYV9ZPNn== ID Date Data Source [id number] 01/10/2020 03:06:31 AM [facility] Name Value Range Interpretation Code Description Data Maritza rce(s) Supporting Document(s) Hemoglobin A1c/Hemoglobin.total in Blood by HPLC 8.0 % 4.0-6.0 H [facility] Glucose mean value [Mass/volume] in Blood Estimated fr om glycated hemoglobin 183 mg/dL <126 H [facility] ID Date Data Source [id number] 01/10/2020 12:17:09 AM [facility] Name Value Range Interpretation Code Description Data Maritza rce(s) Supporting Document(s) Leukocytes [#/volume] in Blood by Automated count 13.6 10*3/uL 4-10 H [facility] Erythrocytes [#/volume] in Blood by Automated count 4.84 10*6/uL 4.6- 6.1 [facility] Hemoglobin [Mass/volume] in Blood 12.4 g/dL 13.5-18 L [facility] Hematocrit [Volume Fraction] of Blood by Automated count 38.0 % 4 1-53 L [facility] Erythrocyte mean corpuscular volume [Entitic volume] by Auto mated count 78.4 fL 80-96 L [facility] Erythrocyte mean corpuscular hemoglobin [Entitic mass] by Automated count 25.5 pg 27-33 L [facility] Erythrocyte mean corpuscular hemoglobin concentration [Mass/volume] by Automated count 32.6 g/dL [facility] width [Ratio] by Automated count 15.2 % 11.5-14.5 [facility] Platelets [#/volume] in Blood by Automated count 425 10*3/uL 150-400 H [facility] Differential cell count method - Blood [facility] Neutrophils/100 leukocytes in Blood by Automated count 77 % [facility] Lymphocytes/100 leukocytes in Blood by Automated count 16 % [facility] Monocytes/100 leukocytes in Blood by Automated count 6 % [facility] Eosinophils/100 leukocytes in Blood by Automated count 1 % [facility] Basophils/100 leukocytes in Blood by Automated count 0 % [facility] Neutrophils [#/volume] in Blood by Automated count 10.47 10*3/uL 1.8- 7.0 [facility] Lymphocytes [#/volume] in Blood by Automated count 2.10 10*3/uL 1.2-4 .0 [facility] Monocytes [#/volume] in Blood by Automated count 0.85 10*3/uL 0-0.8 [facility] Eosinophils [#/volume] in Blood by Automated count 0.09 10*3/uL 0-0.5 [facility] Basophils [#/volume] in Blood by Automated count 0.05 10*3/uL 0-0.2 [facility] Nucleated erythrocytes/100 leukocytes [Ratio] in Blood by Automated count 0 /100{WBCs} 0-0 [facility] ID Date Data Source [id number] 01/10/2020 12:36:19 AM [facility] Name Value Range Interpretation Code Description Data Maritza rce(s) Supporting Document(s) C reactive protein [Mass/volume] in Serum or Plasma 30.7 mg/L <8.0 H [facility] ID Date Data Source [id number] 01/10/2020 12:36:19 AM [facility] Name Value Range Interpretation Code Description Data Maritza rce(s) Supporting Document(s) Bicarbonate [Moles/volume] in Serum 27 mmol/L 22-29 [facility] Chloride [Moles/volume] in Serum or Plasma 102 mmol/L 98-107 [facility] Creatinine [Mass/volume] in Serum or Plasma 0.58 mg/dL 0.70-1.20 L [facility] Glucose [Mass/volume] in Serum or Plasma 192 mg/dL 70-140 H [facility] Potassium [Moles/volume] in Serum or Plasma 4.3 mmol/L 3.4-5.1 [facility] Sodium [Moles/volume] in Serum or Plasma 139 mmol/L 136-145 [facility] Urea nitrogen [Mass/volume] in Serum or Plasma 9 mg/dL 6-20 [facility] Anion gap 3 in Serum or Plasma 10 mmol/L 8-15 [facility] Osmolality of Serum or Plasma by calculation 292 mosm/kg 275-300 [facility] Creatinine/Urea nitrogen [Mass Ratio] in Serum or Plasma 16 [facility] Calcium [Mass/volume] in Serum or Plasma 9.1 mg/dL 8.6-10.0 [facility] Glomerular filtration rate/1.73 sq M pre dicted among non-blacks [Volume Rate/Area] in Serum or Plasma by Creatinine-based formula (MDRD) >6 0 [facility] Glomerular filtration rate/1.73 sq M pre dicted among blacks [Volume Rate/Area] in Serum or Plasma by Creatinine-based formula (MDRD) >60 [facility] ID Date Data Source [id number] 01/10/2020 01:37:07 AM [facility] Name Value Range Interpretation Code Description Data Maritza rce(s) Supporting Document(s) Erythrocyte sedimentation rate 31 mm/hr <15 H [facility] ID Date Data Source [id number] 01/09/2020 10:36:00 PM [facility] XR FEMUR, MINIMUM OF 2 VIEWS [id number] RESULTInterpreted by:Kristina Garcia, MDPROCEDURE INFORMATION: Exam: XR Right Femur Exam date and time: 01/09/2020 9:49 PM Age: 30 years old Clinical indication: Pain; Thigh; Right; Additional info: Pain, post-op TECHNIQUE: Imaging protocol: XR Right femur. Views: 2 views. COMPARISON: CR XR FEMUR, MINIMUM OF 2 VIEWS [id number] PORTABLE 11/09/2019 4:45 PM FINDINGS: Bones/joints: Unremarkable. No acute fracture. Soft tissues: Unremarkable. IMPRESSION: There is no evidence for a fracture. THIS DOCUMENT HAS BEEN ELECTRONICALLY SIGNED BY KRISTINA GARCIA MDThis document has been electronically signed by Kristina Garcia MD on 01/09/2020 10:35 PM Name Value Range Interpretation Code Description Data Maritza rce(s) Supporting Document(s) ID Date Data Source [id number] 01/09/2020 10:35:30 PM [facility] XR HIP- UNILAT, 2-3 VIEWS [id number] RE SULTInterpreted by:Kristina Garcia [facility] H[facility]OCEDURE INFORMATION: Exam: XR Right Hip with Pelvis when Performed Exam date and time: 01/09/2020 9:49 PM Age: 30 years old Clinical indication: Hip pain; Right hip; Additional info: Hip pain, post op TECHNIQUE: Imaging protocol: XR Right hip with pelvis when performed. Views: 2 or 3 views. COMPARISON: DX XR HIP- UNILAT, 2-3 VIEWS [id number] 01/03/2020 8:50 AM FINDINGS: Bones/joints: There is screw fixation of a right femoral neck fracture. Stable fracture of the superior most screw which is displaced similar to prior study. No acute bony fracture. Soft tissues: Unremarkable. IMPRESSION: Stable fractured screw. THIS DOCUMENT HAS BEEN ELECTRONICALLY SIGNED BY KRISTINA GARCIA MDThis document has been electronically signed by Kristina Garcia MD on 01/09/2020 10:35 PM Name Value Range Interpretation Code Description Data Maritza rce(s) Supporting Document(s) ID Date Data Source [id number] 01/03/2020 12:59:34 PM [facility] Name Value Range Interpretation Code Description Data Maritza rce(s) Supporting Document(s) Progress Note [facility] CMBCSj9jEmKNZgZj44/DCBtcFUIhn3LhPHrgBBi3BRhmAPZzQ4ZoQVF4rY3iBFM6FXcENtLhJdBrJFQv lbm [file] AgICAgICAgICAgICAgICAgICAgICAgICAgICAgICAg ICAgICAgICAgICAgICAgICAgICAgICANCiAgICAgICAgICAgICAgICAgICAgICAgICAgICAgICAgICAg ICAgICAgICAgICAgICAgICAgICAgICAgICAgICAgICAgICAgICAgICAgICAgICAgICAgICAgICAgICAg ICAgICANCiAgICAgICAgICAgICAgICAgICAgICAgIC AgICAgICAgICAgICAgICAgICAgICAgICAgICAgICAgICAgICAgICAgICAgICAgICAgICAgICAgICAgIC AgICAgICAgICAgICAgICANCiAgICAgICAgICAgICAgICAgICAgICAgICAgICAgICAgICAgICAgICAgIC AgICAgICAgICAgICAgICAgICAgICAgICAgICAgICAg ICAgICAgICAgICAgICAgICAgICAgICAgICANCiAgICAgICAgICAgICAgICAgICAgICAgICAgICAgICAg ICAgICAgICAgICAgICAgICAgICAgICAgICAgICAgICAgICAgICAgICAgICAgICAgICAgICAgICAgICAg ICAgICAgICANCiAgICAgICAgICAgICAgICAgICAgIC AgICAgICAgICAgICAgICAgICAgICAgICAgICAgICAgICAgICAgICAgICAgICAgICAgICAgICAgICAgIC AgICAgICAgICAgICAgICAgICANCiAgICAgICAgICAgICAgICAgICAgICAgICAgICAgICAgICAgICAgIC AgICAgICAgICAgICAgICAgICAgICAgICAgICAgICAg ICAgICAgICAgICAgICAgICAgICAgICAgICAgICANCiAgICAgICAgICAgICAgICAgICAgICAgICAgICAg ICAgICAgICAgICAgICAgICAgICAgICAgICAgICAgICAgICAgICAgICAgICAgICAgICAgICAgICAgICAg ICAgICAgICAgICANCiAgICAgICAgICAgICAgICAgIC AgICAgICAgICAgICAgICAgICAgICAgICAgICAgICAgICAgICAgICAgICAgICAgICAgICAgICAgICAgIC AgICAgICAgICAgICAgICAgICAgICANCiAgICAgICAgICAgICAgICAgICAgICAgICAgICAgICAgICAgIC AgICAgICAgICAgICAgICAgICAgICAgICAgICAgICAg ICAgICAgICAgICAgICAgICAgICAgICAgICAgICAgICANCjw/wFWaZ0bomNCvjkI1X0lfRt4LIt9KIL1d j4FmYXRwXDbxkfUbTlrPRyUnZPBbKdjLCbb8RYnhXC3QlAQuJ5PjU2UgHXuqEW1KPIHyLDXtgUByTDPt UWDzKeJ1PUSxXVrcYA3DaHIlVPirRYIgDGBoWwLbKQ QwBBSgUIOhJJYoQYCIQUKcAIXpDjZhOXpgVJ6Cb6QycZF6YFb+Xm1SWB0os4GsBAjiSIFhNN6qkf6EZU nKFaQvV6MvlfN7KPGhTFDxBm6RDLOnRFDdtMAbEXIjDOGGAqKdB6XbiT92JQTBOd5+DQplbmRvYmoNCj TbBNWzd2ToDZp0JP4OQTNdGBx8hGXsGREpN9Uxj1Zi Te49YLEfDbvaPn0hMVG1YUZgV5ckvk7ghxqsVOKnWRBhFWNrBe1lAZQkEGS8VpWvXTFCDU8GDMMhUPNv jFLaDYKcBWJLWY0HPEnyFSZ5BANeyrUwfPYoGYzcCW3YDAQwnzVmOkHcHYDTFMt+Zv0BOL7cx7HrGZea RjQcRF6hxe0QJIgRYsOwR6Y6tZZhZ1A7WQkbKt6AFY EbDFIkPhssGGQXOYqlLX6YKT3ripY6AV6ApUVaQETiQUAzjNRlIPs1I07jfWRuVAdyGX1TPCH+Driss+Pg 8YKWHyWGXbUWItOrQmQZPIWkWqL8ZbQ3HPx4QgZ3ViWS87bWabrmGmBXuzOX1BOF4mDXEsPOVYJY6GcE NqqK0uyfFkPXVnEWENJiJzV80pdEMcRBIiFTW1YZBj Wp5BHPBjW1IqojMuxKojhjExBXSbHSUVBY7DVLfqjkRwfPOyhUuoYI53hJhqVR3BQq1OVlUnCA5kgx3K jMFzOn9PZRLwDc1FGZJsDSLjPSNuOFX9TEWkSwZoAKfcFDHtJKTgQXB3WWSxJPAlVB3IViYrDRUaHFTk WFExDUTvQOOpvo2PLSUoIYZ3IcY6BJUmNUJfVJNySZ jhRKRrEBDxYHR1ZAWaGZVkHT6HMiDfQHXyLAAoCHXySVRpPWRoxy0SGGHyOLHcWxW3OYPkKJEiRALbBS xnAJFiCWD1QNL6WPIrYAYgGL0TPaCtFXWjMXo5GlmzJNNrGHQbja1YUGFzPMQjMJC0MGFtCVDeNDWvVD lvSSXhYYHyFdQ6NYNmEKHbGZ1BByPdWYSzVNI3CDta XGKpGRUbqu3DGKIrAIKrNSdxONShVEFtLKIbKAwgCNLtMQT1PZC3IHJlFADfIA4UNzSrFGEjOQpgYdLw LXFhUDPuuv5TMPWaPTPrFRNzAoTwGLUkTUOpASbaOIBzUWM3FJZkIHGuMKFiCM6OSpJmLLEmZVi4GYGa SLTzTPNlol9JFGBvXCHkEXJ0ApPzRKTgJWTgDJygQL ToWTI9QBr9DSNsHBJdSZ0FXzNoQIVxNmMbUjKhDRSuZMGjdr9PYVAqHPF5VxRkSSFiNDKfNTUfCGepBN EwBDKvYlw0GAWbSKDlGO2CVgUzYSFfOCW3FDVaFMMjDQUcpg9RCPWvXFP5AckxHgVzTPXbODZsZUqiSY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 Clonidine Hydrochloride 0.1 MG Oral Tablet 02/09/2020 12:00:00 AM [facility] Calcium Carbonate 500 MG Chewable Tablet 02/09/2020 12:00:00 AM [facility] Lurasidone Hydrochloride 20 MG Oral Tablet 02/09/2020 12:00:[address] [facility] Quirkyio Flex System w/Device Kit 02/09/2020 12:00:00 AM [facility] MashaTouch Delica Lancets 33G 02/09/2020 12:00:00 AM [facility] Hydrochlorothiazide 12.5 MG / Lisinopril 20 MG Oral Ta blet 02/09/2020 12:00:00 AM [facility] BD Pen Needle Mini U/F 31G X 5 MM (Insulin Pen Needle) 02/09/2020 12:00:00 AM [facility] Instamour Verio In Vitro Strip (glucose blood) 02/09/2020 12:00:00 A M [facility] Diclofenac Sodium 0.01 MG/MG Topical Gel 02/09/2020 12:00:00 AM [facility] Isopropyl Alcohol 0.7 ML/ML Medicated Pad 02/09/2020 12:00:00 AM [facility] Isopropyl Alcohol 0.7 ML/ML Medicated Pad 02/09/2020 12:00:00 AM [facility] Zolpidem tartrate 5 MG Oral Tablet 02/09/2020 12:00:00 AM [facility] Metoprolol Tartrate 50 MG Oral Tablet 02/09/2020 12:00:00 AM [facility] Acetaminophen 325 MG Oral Tablet 02/09/2020 12:00:00 AM [facility] Nystatin [id number] UNT/ML Topical Cream 02/09/2020 12:00:00 AM [facility] celecoxib 200 MG Oral Capsule 02/09/2020 12:00:00 AM [facility] Aspirin 81 MG Delayed Release Oral Tablet 02/09/2020 12:00:00 AM [facility] Oxycodone Hydrochloride 5 MG Oral Tablet 02/09/2020 12:00:00 AM [facility] insulin lispro 100 UNIT/ML SC injection [facility] INSULIN patients 02/09/2020 12:00:00 AM [facility] Docusate Sodium 100 MG Oral Capsule 02/09/2020 12:00:00 AM [facility] tizanidine 4 MG Oral Tablet 02/09/2020 12:00:00 AM [facility] ondansetron (ZOFRAN) injection 4 mg 02/04/2020 04:42:00 PM [facility] Oxycodone Hydrochloride 5 MG Oral Tablet 02/04/2020 12:00:00 AM [facility] Oxycodone Hydrochloride 5 MG Oral Tablet 02/01/2020 12:00:00 AM [facility] Docusate Sodium 100 MG Oral Capsule 02/01/2020 12:00:00 AM [facility] tizanidine 4 MG Oral Tablet 02/01/2020 12:00:00 AM [facility] Magnesium Hydroxide 80 MG/ML Oral Suspension 01/28/2020 10:00:00 PM [facility] POLYETHYLENE GLYCOL 3350 142 MG/ML Oral Solution 01/28/2020 09:00:0 0 AM [facility] Glucose 0.417 MG/MG Oral Gel 01/28/2020 01:25:07 AM [facility] Bisacodyl 10 MG Rectal Suppository 01/28/2020 01:25:07 AM [facility] senna tablet 2 tablet 01/28/2020 01:25:07 AM [facility] dextrose 50 % IV solution 25 mL 01/28/2020 01:25:06 AM [facility] Glucagon 1 MG Injection 01/28/2020 01:25:06 AM [facility] tramadol hydrochloride 50 MG Oral Tablet 01/21/2020 12:00:00 AM [facility] Aspirin 81 MG Delayed Release Oral Tablet 01/21/2020 12:00:00 AM [facility] tizanidine 4 MG Oral Tablet 01/21/2020 12:00:00 AM [facility] Docusate Sodium 100 MG Oral Capsule 01/21/2020 12:00:00 AM [facility] celecoxib 200 MG Oral Capsule 01/21/2020 12:00:00 AM [facility] Oxycodone Hydrochloride 5 MG Oral Tablet 01/21/2020 12:00:00 AM [facility] sodium chloride (preservative free) 0.9 % flush 3 mL 020 05:00:00 PM [facility] alginic acid 200 MG / Calcium Carbonate 80 MG / magnesium trisilicate 20 MG / Sodium Bicarbonate 70 MG Oral Tablet 01/20/2020 11:39:15 AM [facility] Oxycodone Hydrochloride 5 MG Oral Tablet 01/20/2020 11:39:14 AM [facility] morphine sulfate (PF) injection 2 mg 01/20/2020 11:39:14 AM [facility] Bisacodyl 10 MG Rectal Suppository 01/20/2020 11:39:14 AM [facility] Magnesium Hydroxide 80 MG/ML Oral Suspension 01/20/2020 11:39:14 AM [facility] POLYETHYLENE GLYCOL 3350 142 MG/ML Oral Solution 01/20/2020 11:39:1 4 AM [facility] Sodium Phosphate, Dibasic 35.5 MG/ML / S odium Phosphate, Monobasic 96.4 MG/ML Enema 01/20/2020 11:39:14 AM [facility] ondansetron (ZOFRAN) injection 4 mg 01/20/2020 11:39:14 AM [facility] dextrose 50 % IV solution 25 mL 01/20/2020 11:39:13 AM [facility] Glucagon 1 MG Injection 01/20/2020 11:39:13 AM [facility] Glucose 0.417 MG/MG Oral Gel 01/20/2020 11:39:13 AM [facility] Acetaminophen 325 MG / Hydrocodone Bitartrate 5 MG Ora l Tablet 01/14/2020 12:00:00 AM [facility] Mupirocin 0.02 MG/MG Topical Ointment 01/13/2020 12:00:00 AM [facility] chlorhexidine gluconate 40 MG/ML Medicated Liquid Soap 01/13/2020 12:00:00 AM [facility] NaCl infusion 0.9 % 01/13/2020 12:00:00 AM [facility] 0.4 ML Enoxaparin sodium 100 MG/ML Prefilled Syringe 12:00:00 AM [facility] 0.4 ML Enoxaparin sodium 100 MG/ML Prefilled Syringe 12:00:00 AM [facility] Metoprolol Tartrate 50 MG Oral Tablet 01/12/2020 12:00:00 AM [facility] Acetaminophen 325 MG / Hydrocodone Bitartrate 5 MG Ora l Tablet 01/12/2020 12:00:00 AM [facility] Metoprolol Tartrate 50 MG Oral Tablet 01/12/2020 12:00:00 AM [facility] Acetaminophen 325 MG / Hydrocodone Bitartrate 5 MG Ora l Tablet 01/12/2020 12:00:00 AM [facility] Ondansetron 4 MG Disintegrating Oral Tablet 01/11/2020 08:56:22 AM [facility] albuterol (PROVENTIL) nebulizer solution 2.5 mg 01/10/2020 10:14:35 PM [facility] Acetaminophen 325 MG Oral Tablet 01/10/2020 02:41:46 AM [facility] alginic acid 200 MG / Calcium Carbonate 80 MG / magnesium trisilicate 20 MG / Sodium Bicarbonate 70 MG Oral Tablet 01/10/2020 02:41:46 AM [facility] dextrose 50 % IV solution 25 mL 01/10/2020 02:41:46 AM [facility] Glucagon 1 MG Injection 01/10/2020 02:41:46 AM [facility] Glucose 0.417 MG/MG Oral Gel 01/10/2020 02:41:46 AM [facility] Clonidine Hydrochloride 0.1 MG Oral Tablet 01/04/2020 12:00:[address] [facility] Hydrochlorothiazide 12.5 MG / Lisinopril 20 MG Oral Ta blet 01/04/2020 12:00:00 AM [facility] Mupirocin 0.02 MG/MG Topical Ointment 01/04/2020 12:00:00 AM [facility] Acetaminophen 325 MG / Hydrocodone Bitartrate 5 MG Ora l Tablet 01/03/2020 12:00:00 AM [facility] gabapentin 100 MG Oral Capsule 12/30/2019 12:00:00 AM [facility] Lisinopril 10 MG Oral Tablet 12/30/2019 12:00:00 AM [facility] Lisinopril 10 MG Oral Tablet 12/30/2019 [facility] Needle 31G X 5 MM [facility] 12/29/2019 [facility] ONET[facility] DELICA LANCETS 33G [facility] 12/29/2019 [facility] Acetaminophen 325 MG / Oxycodone Hydrochloride 5 MG Or al Tablet 12/29/2019 [facility] UNT/ML Injectable Solution 12/29/2019 12:00:00 A M EDT [facility] Insulin Glargine 100 UNT/ML Injectable Solution [Lantu s] 12/29/2019 [facility] Acet[facility] MG Oral Tablet 12/29/2019 [facility] Insulin Glargine 100 UNT/ML Injectable Solution 12/28/2019 12:00:00 AM [facility] Acetaminophen 325 MG / Oxycodone Hydrochloride 5 MG Or al Tablet 11/16/2019 12:00:00 AM [facility] Lisinopril 20 MG Oral Tablet 11/11/2019 12:00:00 AM [facility] Lurasidone Hydrochloride 20 MG Oral Tablet 11/10/2019 12:00:00 AM E [facility] gabapentin 100 MG Oral Capsule 11/10/2019 12:00:00 AM [facility] Clonidine Hydrochloride 0.1 MG Oral Tablet 11/10/2019 12:00:00 AM E [facility] quetiapine 100 MG Oral Tablet 11/10/2019 12:00:00 AM [facility] Cholecalciferol 1000 UNT Oral Tablet 11/10/2019 12:00:00 AM [facility] Glucagon 1 MG Injection 11/09/2019 09:34:37 PM [facility] Glucose 0.417 MG/MG Oral Gel 11/09/2019 09:34:37 PM [facility] dextrose 50 % IV solution 25 mL 11/09/2019 09:34:36 PM [facility] Nystatin [id number] UNT/ML Topical Cream 11/09/2019 09:33:30 PM [facility] Ibuprofen 400 MG Oral Tablet 11/09/2019 09:30:30 PM [facility] Insulin Pen Needle 31G X 5 MM (B-D UF III MINI PEN NEE DLES) 10/08/2019 12:00:00 AM [facility] [employer] Verio Flex System w/Device Kit 10/08/2019 12:00:00 AM [facility] OneTouch Delica Lancets 33G 10/08/2019 12:00:00 AM [facility] Isopropyl Alcohol 0.7 ML/ML Medicated Pad 10/08/2019 12:00:00 AM [facility] Glucose Blood In Vitro Strip (Q Factor CommunicationsTouch Verio) 10/08/2019 12:00:00 A M [facility] Isopropyl Alcohol 0.7 ML/ML Medicated Pad 10/08/2019 12:00:00 AM [facility] Nystatin [id number] UNT/ML Topical Cream 10/08/2019 12:00:00 AM [facility] Acetaminophen 325 MG Oral Tablet 10/08/2019 12:00:00 AM [facility] alginic acid 200 MG / Calcium Carbonate 80 MG / magnesium trisilicate 20 MG / Sodium Bicarbonate 70 MG Oral Tablet 10/08/2019 12:00:00 AM [facility] Diclofenac Sodium 0.01 MG/MG Topical Gel 10/08/2019 12:00:00 AM [facility] 3 ML Insulin Glargine 100 UNT/ML Pen Injector 10/08/2019 12:00:00 A M [facility] 3 ML Insulin Lispro 100 UNT/ML Pen Injector 10/08/2019 12:00:00 AM [facility] Metoprolol Tartrate 50 MG Oral Tablet 10/08/2019 12:00:00 AM [facility] Lisinopril 10 MG Oral Tablet 09/23/2019 12:00:00 AM [facility] Insulin Glargine 100 UNT/ML Injectable Solution 09/23/2019 12:00:00 AM [facility] gabapentin 300 MG Oral Capsule 09/23/2019 12:00:00 AM [facility] Insulin Lispro 100 UNT/ML Injectable Solution [facility]
[2021-02-04] MEDS ORDERED: ONDANSETRON 4MG/2ML VIAL IV ONE (20:00)
[2021-02-04] MEDS ORDERED: MORPHINE 4 MG/ML 1ML VIAL/SYRINGE (J2270) IV ONE (20:00)
[2021-02-04 20:04] VITALS: BP 150/76
--- OUTSIDE RECORDS SUMMARY | 2021-02-04 20:15 | CCD ---
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 Tablet zolpidem (AMBIEN) t ablet 5 mg zolpidem (AMBIEN) tablet 5 mg 02/06/2020 11:07:36 PM EST 5 mg Oral active 5 mg, Oral, Nightly PRN, Sleep, Starting 02/06/20 at 2307, For 5 days 11 hours [facility] Medication administered onsite alginic acid 200 MG / Calcium Carbonate 80 MG / magnesium trisilicate 20 MG / Sodium Bicarbonate 70 MG Oral Tablet calcium carbonate (TUMS) chewable tablet 500 mg calcium carbonate (TUMS) chewable tablet 500 mg 2019 02:48:21 PM EST 500 mg Oral active 500 mg, Oral, Daily PRN, Indigestion, Starting 02/06/20 at 1448, For 30 days [facility] Medication administered onsite ondansetron (ZOFRAN) injection 4 [...] 1642, For 7 days [Order 2 End] [facility] Medication administered onsite Oxycodone Hydrochloride 5 MG Oral Tablet oxyCODONE HCl 5 MG Oral Tablet (ROXICODONE) oxyCODONE HCl 5 MG Oral Tablet (ROXICODONE) 02/04/2020 12:00:00 AM EST 5 mg Oral aborted Take 1 t ablet by mouth every 4 (four) hours as needed for up to 3 days, Max Daily Dose: 30 mg [facility] Zolpidem tartrate 5 MG Oral Tablet zolpidem (AMBIEN) t ablet 5 mg zolpidem (AMBIEN) tablet 5 mg 02/02/2020 11:27:44 PM EST 5 mg Oral completed 5 mg, Oral, Nightly PRN, Sleep, Starting 02/02/20 at 2327, For 3 days [facility] Medication administered onsite Docusate Sodium 100 MG Oral Capsule Docu sate Sodium 100 MG Oral Capsule (COLACE) Docusate Sodium 100 MG Oral Capsule (COLACE) 02/01/2020 12:00:00 AM EST 100 mg Oral aborted Take 1 capsule by mouth Two Times Daily for 10 days [facility] Oxycodone Hydrochloride 5 MG Oral Tablet oxyCODONE HCl 5 MG Oral Tablet (ROXICODONE) oxyCODONE HCl 5 MG Oral Tablet (ROXICODONE) 02/01/2020 12:00:00 AM EST 5 mg Oral aborted Take 1 t ablet by mouth every 4 (four) hours as needed for up to 3 days, Max Daily Dose: 30 mg [facility] tizanidine 4 MG Oral Tablet tiZANidine HCl 4 MG Oral T ablet (Zanaflex) tiZANidine HCl 4 MG Oral Tablet (Zanaflex) 02/01/2020 12:00:00 AM EST 4 mg Oral aborted Take 1 tablet by mouth every 6 (six) hours as needed for up to 10 days [facility] Zolpidem tartrate 5 MG Oral Tablet zolpidem (AMBIEN) t ablet 5 mg zolpidem (AMBIEN) tablet 5 mg 01/30/2020 09:19:43 PM EST 5 mg Oral completed 5 mg, Oral, Nightly PRN, Sleep, Starting 01/30/20 at 2119, For 3 days [facility] Medication administered onsite Trazodone Hydrochloride 100 MG Oral Tablet trazodone ( DESYREL) tablet 100 mg trazodone (DESYREL) tablet 100 mg 01/29/2020 08:30:00 AM EST 100 mg Oral aborted 100 mg, Oral, Nightl y PRN, Sleep, Starting 01/29/20 at 0830, For 48 hours
Telephone order with read back to increase to 50mg qhs per Omid Arthur
[facility] Medication administered onsite Insulin Glargine 100 UNT/ML [...] glucose more than 400 mg/dL: notify provider
[facility] Medication administered onsite Trazodone Hydrochloride 50 MG Oral Tablet trazodone (D ESYREL) tablet 50 mg trazodone (DESYREL) tablet 50 mg 01/28/2020 10:00:00 PM EST 50 mg Oral aborted 50 mg, Oral, Nightly , First dose on Fri01/28/20 at 2200, For 30 days
Telephone order with read back to increase to 50mg qhs per Omid Arthur
[facility] Medication administered onsite Magnesium Hydroxide 80 MG/ML Oral Suspen alexx magnesium hydroxide (MILK OF MAGNESIA) 400 MG/5ML suspension 45 mL magnesium hydroxide (MILK OF MAGNESIA) 4 00 MG/5ML suspension 45 mL 01/28/2020 10:00:00 PM EST 45 mL Oral active 45 mL, Oral, Nightly, First dose on Fri01/28/20 at 2200, For 30 days
If serum creatinine > 2 notify provider before administering.
[facility] Medication administered onsite morphine sulfate (PF) injection 2 mg [id number] 01/28/2020 10:49: 42 AM EST 2 mg Intravenous aborted 2 mg, In travenous, Every 2 hours PRN, Breakthrough Pain, Starting Fri01/28/20 at 1049, For 24 hours [facility] Medication administered onsite Lurasidone Hydrochloride 40 MG Oral Tablet lurasidone HCl (LATUDA) tablet 20 mg lurasidone HCl (LATUDA) tablet 20 mg 01/28/2020 09:00:00 AM EST 20 mg Oral active 20 mg, Oral, Rita ly Standard, First dose on Fri01/28/20 at 0900, For 30 days
Administer with food.
[facility] Medication administered onsite Metoprolol Tartrate 50 MG Oral Tablet metoprolol (LOPR ESSOR) tablet 50 mg metoprolol (LOPRESSOR) tablet 50 mg 01/28/2020 09:00:00 AM EST 50 mg Oral active 50 mg, Oral, 2 Times Daily, First dose on Fri01/28/20 at 0900, For 30 days
Check vital signs before administering
[facility] Medication administered onsite gabapentin 100 MG Oral Capsule gabapentin (NEURONTIN) capsule 100 mg gabapentin (NEURONTIN) capsule 100 mg 01/28/2020 09:00:00 AM EST 100 mg Oral active 100 mg, Oral, Four Times Da amanda Standard, First dose on Fri01/28/20 at 0900, For 30 days [facility] Medication administered onsite Lisinopril 20 MG Oral Tablet lisinopril (ZESTRIL) tabl et 20 mg lisinopril (ZESTRIL) tablet 20 mg 01/28/2020 09:00:00 AM EST 20 mg Oral active 20 mg, Oral, Daily Standard, First dose on Fri01/28/20 at 0900, For 30 days
Check vital signs before administering
[facility] Medication administered onsite Docusate Sodium 100 MG Oral Capsule docusate sodium (C OLACE) capsule 100 mg docusate sodium (COLACE) capsule 100 mg 01/28/2020 09:00:00 AM EST 100 mg Oral active 100 mg, Oral, 2 Times Daily, First dose on Fri01/28/20 at 0900, For 30 days [facility] Medication administered onsite POLYETHYLENE GLYCOL 3350 142 MG/ML Oral Solution polyethylene glycol (MIRALAX) packet 17 g polyethylene glycol (MIRALAX) packet 17 g 01/28/2020 0 9:00:00 AM EST 17 g Oral active 17 g, Or al, Daily Standard, First dose on Fri01/28/20 at 0900, For 30 days
Hold for Bowel Movement.
[facility] Medication administered onsite 0.4 ML Enoxaparin sodium 100 MG/ML Prefi lled Syringe enoxaparin sodium (LOVENOX) injection 40 mg enoxaparin sodium (LOVENOX) injection 40 mg 01/28/2020 09:00:00 AM EST 40 mg Subcutaneous active 40 mg, Subcutaneous, Daily Standard, First dose on Fri01/28/20 at 0900, For 30 days [facility] Medication administered onsite insulin lispro (HumaLOG) injection MEDIU M DOSE EATING INSULIN patients 1-16 Units [id number] 01/28/2020 08:00:00 AM EST U Subcutaneous active 1-16 Units, Subcutaneous, Three Times Daily-With Meals, First dose on Fri01/28/20 at 0800, For 30 days
Nursing MUST open the 'SQ Insulin Dosing Charts' Sidebar Report, or, the Patient Summary or Summary Report within the ED.
[facility] Medication administered onsite Clonidine Hydrochloride 0.1 MG Oral Tablet cloNIDine ( CATAPRES) tablet 0.1 mg cloNIDine (CATAPRES) tablet 0.1 mg 01/28/2020 02:30:00 AM EST 0.1 mg Oral active 0.1 mg, Oral, Daily Standard, First dose (after last modification) on Fri01/28/20 at 0230, For 30 days
Check vital signs before administering
[facility] Medication administered onsite Nicotine 4 MG/ACTUAT Inhalant [...] stimulant effects Do not exceed 16 cartridges/day
[facility] Medication administered onsite Glucose 0.417 MG/MG Oral Gel glucose (GLUTOSE) 40 % or al gel 15 g glucose (GLUTOSE) 40 % oral gel 15 g 01/28/2020 01:25:07 AM EST 15 g Oral active 15 g, Oral, PRN, Low blood s ugar, for gluose 55-69 mg/dl and able to take PO, Starting Fri01/28/20 at 0125, For 30 days [facility] Medication administered onsite Acetaminophen 325 MG Oral [...] mg from all sources in 24 hours.
[facility] Medication administered onsite morphine sulfate (PF) injection 2 mg [id number] 01/28/2020 01:25: 07 AM EST 2 mg Intravenous aborted 2 mg, In travenous, Every 2 hours PRN, Breakthrough Pain, Starting Fri01/28/20 at 0125, For 3 days [facility] Medication administered onsite senna tablet 2 tablet [...] on the third day.
[Order 2 End] [facility] Medication administered onsite Bisacodyl 10 MG Rectal Suppository bisacodyl (DULCOLAX ) suppository 10 mg bisacodyl (DULCOLAX) suppository 10 mg 01/28/2020 01:25:07 AM EST 10 mg Rectal active 10 mg, Rectal, Every 72 hours PRN, Constipation, Constipation, Starting Fri01/28/20 at 0125, For 30 days
Hold if patient has had a BM in the past 2 days.
[facility] Medication administered onsite dextrose 50 % IV solution 25 mL [id number] 01/28/2020 01:25:[address] 25 mL Intravenous active 25 mL, Intrav enous, PRN, Other, blood glucose <55, Starting Fri01/28/20 at 0125, For 30 days
Not for midline administration.
[facility] Medication administered onsite Glucagon 1 MG Injection glucagon (human recombinant) ( GLUCAGEN) injection 1 mg glucagon (human recombinant) (GLUCAGEN) injection 1 mg 01/28/2020 01:25:06 AM EST 1 mg Intramuscular active 1 mg, Intramuscular, PRN, for glucose <55 without IV access, Starting Fri01/28/20 at 0125, For 30 days [facility] Medication administered onsite morphine sulfate (PF) injection 4 mg 01/28/2020 12:15: 00 AM EST 4 mg Intravenous completed 4 mg, In travenous, Once, Fri01/28/20 at 0015, For 1 dose [facility] Medication administered onsite sodium chloride 0.9 % bolus 1,000 mL [id number] 01/27/2020 10:45: 00 PM EST 1000 mL Intravenous completed 1,000 mL , Intravenous, Once, Fri01/27/20 at 2245, For 1 dose [facility] Medication administered onsite morphine sulfate (PF) injection 4 mg 01/27/2020 10:30: 00 PM EST 4 mg Intravenous completed 4 mg, In travenous, Once, Fri01/27/20 at 2230, For 1 dose [facility] Medication administered onsite morphine sulfate (PF) injection 4 mg 01/27/2020 09:45: 00 PM EST 4 mg Intravenous completed 4 mg, In travenous, Once, Fri01/27/20 at 2145, For 1 dose [facility] Medication administered onsite Trazodone Hydrochloride 50 MG Oral Tablet Trazodone HCL 01/24/2020 12:00:00 AM EST completed [employer] ([facility]) Clonidine Hydrochloride 0.1 MG Oral Tablet cloNIDine ( CATAPRES) tablet 0.1 mg cloNIDine (CATAPRES) tablet 0.1 mg 01/21/2020 09:00:00 AM EST 0.1 mg Oral active 0.1 mg, Oral, Daily Standard, First dose on Fri01/21/20 at 0900, For 30 days
Check vital signs before administering
[facility] Medication administered onsite Lurasidone Hydrochloride 40 MG Oral Tablet lurasidone HCl (LATUDA) tablet 20 mg lurasidone HCl (LATUDA) tablet 20 mg 01/21/2020 09:00:00 AM EST 20 mg Oral active 20 mg, Oral, Rita ly Standard, First dose on Fri01/21/20 at 0900, For 30 days
Administer with food.
[facility] Medication administered onsite celecoxib 200 MG Oral Capsule celecoxib (CeleBREX) cap jake 200 mg celecoxib (CeleBREX) capsule 200 mg 01/21/2020 09:00:00 AM EST 200 mg Oral active 200 mg, Oral, Daily Standard, First dose on 01/20 at 0900, For 30 days [facility] Medication administered onsite Aspirin 81 MG Delayed Release Oral Table t Aspirin 81 MG Oral Tablet Delayed Release Aspirin 81 MG Oral Tablet Delayed Release 01/21/2020 12:00:00 AM EST 81 mg Oral aborted Take 1 tablet by mouth d [facility] tramadol hydrochloride 50 MG Oral Tablet traMADol HCl 50 MG Oral Tablet (ULTRAM) traMADol HCl 50 MG Oral Tablet (ULTRAM) 01/21/2020 12:00:00 AM EST mg Oral aborted Take 1-2 tablets by mouth every 4 (four) hours as needed for Pain for up to 4 days, Max Daily Dose: 500 mg [facility] Oxycodone Hydrochloride 5 MG Oral Tablet oxyCODONE HCl 5 MG Oral Tablet (ROXICODONE) oxyCODONE HCl 5 MG Oral Tablet (ROXICODONE) 01/21/2020 12:00:00 AM EST 5 mg Oral aborted Take 1 t ablet by mouth every 4 (four) hours as needed for up to 4 days, Max Daily Dose: 30 mg [facility] celecoxib 200 MG Oral Capsule Celecoxib 200 MG Oral Ca psule (CeleBREX) Celecoxib 200 MG Oral Capsule (CeleBREX) 01/21/2020 12:00:00 AM EST 200 mg Or al aborted Take 1 capsule by [facility] daily as needed for Pain (mild-moderate pain) [facility] Docusate Sodium 100 MG Oral Capsule Docu sate Sodium 100 MG Oral Capsule (COLACE) Docusate Sodium 100 MG Oral Capsule (COLACE) 01/21/2020 12:00:00 AM EST 100 mg Oral aborted Take 1 capsule by mouth Two Times Daily for 10 days [facility] tizanidine 4 MG Oral Tablet tiZANidine HCl 4 MG Oral T ablet (Zanaflex) tiZANidine HCl 4 MG Oral Tablet (Zanaflex) 01/21/2020 12:00:00 AM EST 4 mg Oral aborted Take 1 tablet by mouth every 6 (six) hours as needed for up to 10 days [facility] Insulin Glargine 100 UNT/ML Injectable S olution [...] glucose more than 400 mg/dL: notify provider
[facility] Medication administered onsite sennosides, SKILLED NURSING 8.6 MG Oral Tablet senna tablet 2 tablet sen na tablet 2 tablet 01/20/2020 10:00:00 PM EST 2 {tbl} Oral active 2 tablet, Oral, Nightly, First dose on Fri01/20/20 at 2200, For 30 days [facility] Medication administered onsite Nystatin [id number] UNT/ML Topical Cream nystatin (MYCOSTA TIN) cream nystatin (MYCOSTATIN) cream 01/20/2020 09:00:00 PM EST Topical active Topical, 2 Times Daily, First dose on Shereen 01/20/20 at 2100, For 30 days
Apply to abdominal folds where red and inflamed
[facility] Medication administered onsite Metoprolol Tartrate 50 MG Oral Tablet metoprolol (LOPR ESSOR) tablet 50 mg metoprolol (LOPRESSOR) tablet 50 mg 01/20/2020 09:00:00 PM EST 50 mg Oral active 50 mg, Oral, 2 Times Daily, First dose on Shereen 01/20/20 at 2100, For 30 days
Check vital signs before administering
[facility] Medication administered onsite 0.4 ML Enoxaparin sodium [...] hours after epidural catheter has been removed.
[facility] Medication administered onsite Docusate Sodium 100 MG Oral Capsule docusate sodium (C OLACE) capsule 100 mg docusate sodium (COLACE) capsule 100 mg 01/20/2020 09:00:00 PM EST 100 mg Oral active 100 mg, Oral, 2 Times Daily, First dose on Shereen 01/20/20 at 2100, For 30 days [facility] Medication administered onsite Acetaminophen 325 MG Oral Tablet acetaminophen (TYLENO L) tablet 975 mg acetaminophen (TYLENOL) tablet 975 mg 01/20/2020 07:00:00 PM EST 97 5 mg Oral active 975 mg, Oral, E very 8 hours, First dose (after last modification) on Shereen 01/20/20 at 1900, For 7 days
Maximum daily dose of acetaminophen is 3,000 mg from all sources in 24 hours.
[facility] Medication administered onsite sodium chloride (preservative free) [...] 3 mL, Intravenous, PRN, Line Care, Starting [facility] 01/20/20 at 1139, For 30 days
Saline Lock. Flush Q8H and after each use to Saline Lock.
[Order 3 End] [Order 4 Start] Name: Saline Lock order Signed Summary: Routine, ONCE, Shereen 01/20/20 at 1140, For 1 occurrence [Order 4 End] [Order 5 Start] Name: NaCl infusion 0.9 % Signed Summary: at 0.2-10 mL/hr, Intravenous, PRN, For Meds, Starting [facility] 01/20/20 at 1139, For 30 days [Order 5 End] [Order 6 Start] Name: dextrose infusion 5 % Signed Summary: at 0.2-10 mL/hr, Intravenous, PRN, For Meds, Starting [facility] 01/20/20 at 1139, For 30 days [Order 6 End] [facility] Medication administered onsite Cefazolin 2000 MG Injection ceFAZolin (ANCEF) IVPB 2 g in dextrose (premix) ceFAZolin (ANCEF) IVPB 2 g in dextrose (premix) 01/20/2020 03:30:00 PM EST 2 g Intravenous completed 2 g, Int ravenous, Administer over 30 Minutes, Every 8 hours, First dose on Shereen 01/20/20 at 1530, For 2 doses [facility] Medication administered onsite gabapentin 100 MG Oral Capsule gabapentin (NEURONTIN) capsule 100 mg gabapentin (NEURONTIN) capsule 100 mg 01/20/2020 01:00:00 PM EST 100 mg Oral active 100 mg, Oral, Four Times Da amanda Standard, First dose on Shereen 01/20/20 at 1300, For 30 days [facility] Medication administered onsite insulin lispro (HumaLOG) injection HIGH DOSE EATING IN SULIN patients 1-22 Units [id number] 01/20/2020 01:00:00 PM EST U Subcutaneous active 1-22 Units, Subcutaneous, Three Times Daily-With Meals, First dose on Shereen 01/20/20 at 1300, For 30 days
Nursing MUST open the 'SQ Insulin Dosing Charts' Sidebar Report, or, the Patient Summary or Summary Report within the ED.
[facility] Medication administered onsite alginic acid 200 MG / Calcium Carbonate 80 MG / magnesium trisilicate 20 MG / Sodium Bicarbonate 70 MG Oral Tablet calcium carbonate (TUMS) chewable tablet 500 mg calcium carbonate (TUMS) chewable tablet 500 mg 2019 11:39:15 AM EST 500 mg Oral active 500 mg, Oral, Three Times Daily-PRN, Heartburn, Starting Shereen 01/20/20 at 1139, For 30 days [facility] Medication administered onsite Oxycodone Hydrochloride 5 MG Oral Tablet oxyCODONE (ROXICODONE) immediate release tablet 5 mg oxyCODONE (ROXICODONE) immediate release tablet 5 mg 01/20/2020 11:39:14 AM EST 5 mg Oral active 5 mg, Oral, Every 4 hours PRN, Moderate Pain (Pain Scale Score 4-6), Starting Shereen 01/20/20 at 1139, For 3 days
If no EVENING OR NIGHT NURSE SUPERVISOR or when EVENING OR NIGHT NURSE SUPERVISOR has been DC.
Oxycodone immediate release is limited to 10 mg per dose. Higher doses ( only) require Pain Service consultation and approval.
[facility] Medication administered onsite Sodium Phosphate, Dibasic 35.5 MG/ML / S odium Phosphate, Monobasic 96.4 MG/ML Enema sodium phosphate (FLEET) enema (ADULT) 133 mL sodium phosphate (FLEET) enema (ADULT) 133 mL 01/20/2020 11:39:14 AM EST 133 mL Rectal active 133 mL, Rectal, Daily PRN, Constipation, Starting Shereen 01/20/20 at 1139, For 30 days [facility] Medication administered onsite Oxycodone Hydrochloride 5 MG Oral Tablet oxyCODONE (ROXICODONE) immediate release tablet 10 mg oxyCODONE (ROXICODONE) immediate release tablet 10 mg 01/20/2020 11:39:14 AM EST 10 mg Oral active 10 mg, Oral, Every 4 hours PRN, Severe Pain (Pain Scale Score 7-10), or pre-painful procedure or activity, Starting Shereen 01/20/20 at 1139, For 3 days
If no EVENING OR NIGHT NURSE SUPERVISOR or when EVENING OR NIGHT NURSE SUPERVISOR has been DC.
Oxycodone immediate release is limited to 10 mg per dose. Higher doses ( only) require Pain Service consultation and approval.
[facility] Medication administered onsite morphine sulfate (PF) injection 2 mg [id number] 01/20/2020 11:39: 14 AM EST 2 mg Intravenous active 2 mg, In travenous, Every 2 hours PRN, breakthrough pain, Starting Shereen 01/20/20 at 1139, For 2 days [facility] Medication administered onsite POLYETHYLENE GLYCOL 3350 142 [...] due to potential increased risk for aspiration.
[facility] Medication administered onsite Magnesium Hydroxide 80 MG/ML Oral Suspen alexx magnesium hydroxide (MILK OF MAGNESIA) 400 MG/5ML suspension 30 mL magnesium hydroxide (MILK OF MAGNESIA) 4 00 MG/5ML suspension 30 mL 01/20/2020 11:39:14 AM EST 30 mL Oral active 30 mL, Oral, Nightly PRN, Constipation, Starting Shereen 01/20/20 at 1139, For 30 days
If serum creatinine > 2 notify provider before administering.
[facility] Medication administered onsite Bisacodyl 10 MG Rectal Suppository bisacodyl (DULCOLAX ) suppository 10 mg bisacodyl (DULCOLAX) suppository 10 mg 01/20/2020 11:39:14 AM EST 10 mg Rectal active 10 mg, Rectal, Daily PRN, Constipation, Starting Shereen 01/20/20 at 1139, For 30 days [facility] Medication administered onsite ondansetron (ZOFRAN) injection 4 mg [id number] 01/20/2020 11:39:1 4 AM EST 4 mg Intravenous active 4 mg, In travenous, Every 6 hours PRN, Nausea, Vomiting, Starting Shereen 01/20/20 at 1139, For 30 days [facility] Medication administered onsite Glucagon 1 MG Injection glucagon (human recombinant) ( GLUCAGEN) injection 1 mg glucagon (human recombinant) (GLUCAGEN) injection 1 mg 01/20/2020 11:39:13 AM EST 1 mg Intramuscular active 1 mg, Intramuscular, PRN, for glucose <55 without IV access, Starting Shereen 01/20/20 at 1139, For 30 days [facility] Medication administered onsite Glucose 0.417 MG/MG Oral Gel glucose (GLUTOSE) 40 % or al gel 15 g glucose (GLUTOSE) 40 % oral gel 15 g 01/20/2020 11:39:13 AM EST 15 g Oral active 15 g, Oral, PRN, Low blood s ugar, for gluose 55-69 mg/dl and able to take PO, Starting Shereen 01/20/20 at 1139, For 30 days [facility] Medication administered onsite dextrose 50 % IV solution 25 mL [id number] 01/20/2020 11:39:[address] 25 mL Intravenous active 25 mL, Intrav enous, PRN, Other, blood glucose <55, Starting Shereen 01/20/20 at 1139, For 30 days
Not for midline administration.
[facility] Medication administered onsite NaCl infusion 0.9 % [id number] 01/20/2020 11:15:00 AM EST Intravenous active at 100 mL/hr, Intrav enous, Continuous, Starting Shereen 01/20/20 at 1115, For 30 days [facility] Medication administered onsite metaxalone 800 MG Oral Tablet metaxalone (SKELAXIN) ta blet 800 mg metaxalone (SKELAXIN) tablet 800 mg 01/20/2020 11:13:37 AM EST 800 mg Oral active 800 mg, Oral, Three Times Daily-PRN, Mu scle spasms, Starting Shereen 01/20/20 at 1113, For 30 days [facility] Medication administered onsite 1 ML Meperidine Hydrochloride 25 MG/ML C artridge meperidine (DEMEROL) injection 25 mg meperidine (DEMEROL) injection 25 mg 01/20/2020 10:30:00 AM EST 25 mg Intravenous completed 25 mg, Intrav enous, Once, Shereen 01/20/20 at 1030, For 1 dose, Recovery [facility] Medication administered onsite fentaNYL (SUBLIMAZE) (PF) injection 25 mcg [id number] 01/20/2020 09:54:17 AM EST 25 ug Intravenous aborted 25 m cg, Intravenous, Every 5 min PRN, Moderate Pain (Pain Scale Score 4-6), Starting [facility] 01/20/20 at 0954, For 10 doses, [facility] Medication administered onsite HYDROmorphone (DILAUDID) injection 0.5 mg [id number] 01/20/2020 09:54:17 AM EST 0.5 mg Intravenous aborted 0.5 mg, Intravenous, Every 5 min PRN, Severe Pain (Pain Scale Score 7-10), Starting Shereen 01/20/20 at 0954, For 4 doses, [facility] Medication administered onsite gabapentin (NEURONTIN) capsule 400 mg 01/20/2020 06:15:00 AM EST 400 mg Oral active 400 mg, Oral, Once, [facility] 01/20/20 at 0615, For 1 dose, Pre-op [facility] Medication administered onsite Calcium Chloride 0.0014 MEQ/ML / Potassi um Chloride 0.004 MEQ/ML / Sodium Chloride 0.103 MEQ/ML / Sodium Lactate 0.028 MEQ/ML Injectable Solution lactated ringers infusion lactated ringers infusion 01/20/2020 06:15:00 AM EST 100 mL/h Intravenous completed at 100 m L/hr, Intravenous, Continuous, Starting [facility]reen 01/20/20 at 0615, For 4 hours
Lactated ringers infusion 100 ml / hour, on admission
Pre-op [facility] Medication administered onsite celecoxib 200 MG Oral Capsule celecoxib (CeleBREX) cap jake 200 mg celecoxib (CeleBREX) capsule 200 mg 01/20/2020 06:15:00 AM EST 200 mg Oral completed 200 mg, Oral, Once, [facility] 01/20/20 at 0615, For 1 dose, Pre-op [facility] Medication administered onsite Acetaminophen 325 MG Oral Tablet acetaminophen (TYLENO L) tablet 975 mg acetaminophen (TYLENOL) tablet 975 mg 01/20/2020 06:15:00 AM EST 97 5 mg Oral completed 975 mg, Oral, O nce, [facility]reen 01/20/20 at 0615, For 1 dose
Maximum daily dose of acetaminophen is 3,000 mg from all sources in 24 hours.
Pre-op [facility] Medication administered onsite Acetaminophen 325 MG / Hydrocodone Yazmin trate 5 MG Oral Tablet HYDROcodone- Acetaminophen 5-325 MG Oral Tablet (LORTAB) HYDROcodone-Acetaminophen 5-325 MG Oral Tablet (LORTAB) 01/14/2020 12:00:00 AM EST 1 {tbl} Oral aborted Take 1 tablet by mouth every 6 (six) hours as needed for up to 7 days, Max Daily Dose: 4 tablets [facility] chlorhexidine gluconate 40 MG/ML Medicat ed Liquid Soap chlorhexidine (HIBICLENS) 4 % liquid chlorhexidine (HIBICLENS) 4 % liquid 01/13/2020 12:00:00 AM EST Topical active Topical, Once, [facility]reen 01/13/20 at 0000, For 1 dose
chlorhexidine 4% liquid: topical for 1 dose pre op: wash operative site with chlorhexidine soap prior to transport to OR
[facility] Medication administered onsite NaCl infusion 0.9 % [id number] 01/13/2020 12:00:00 AM EST Intravenous active at 100 mL/hr, Intrav enous, Continuous, Starting Shereen 01/13/20 at 0000, For 30 days
Starting after midnight. While patient NPO.
[facility] Medication administered onsite Mupirocin 0.02 MG/MG Topical Ointment Mupirocin 2 % Ex ternal Ointment Mupirocin 2 % External Ointment 01/13/2020 12:00:00 AM EST aborted Apply liberally to each nostril two times per day for 5 days prior to surgery. [facility] 0.4 ML Enoxaparin sodium 100 MG/ML Prefi lled Syringe Enoxaparin Sodium 40 MG/0.4ML Subcutaneous Solution (LOVENOX) Enoxaparin Sodium 40 MG/0.4ML Subcutaneous Solution (LOVENOX) 01/13/2020 12:00:00 AM EST 40 mg Subcutaneous active Inject 0.4 mLs into the s kin daily for 5 days [facility] 0.4 ML Enoxaparin sodium 100 MG/ML Prefi lled Syringe Enoxaparin Sodium 40 MG/0.4ML Subcutaneous Solution (LOVENOX) Enoxaparin Sodium 40 MG/0.4ML Subcutaneous Solution (LOVENOX) 01/13/2020 12:00:00 AM EST 40 mg Subcutaneous aborted Inject 0.4 mLs into the s kin daily for 5 days [facility] Metoprolol Tartrate 50 MG Oral Tablet Me toprolol Tartrate 50 MG Oral Tablet (LOPRESSOR) Metoprolol Tartrate 50 MG Oral Tablet (LOPRESSOR) 01/01 12:00:00 AM EST 50 mg Oral aborted Take 1 tablet by mouth Two Times Daily [facility] Acetaminophen 325 MG / Hydrocodone Yazmin trate 5 MG Oral Tablet HYDROcodone- Acetaminophen 5-325 MG Oral Tablet (LORTAB) HYDROcodone-Acetaminophen 5-325 MG Oral Tablet (LORTAB) 01/12/2020 12:00:00 AM EST 1 {tbl} Oral active Take 1 tablet by mouth every 6 (six) hours as needed for up to 5 days, Max Daily Dose: 4 tablets [facility] Acetaminophen 325 MG / Hydrocodone Yazmin trate 5 MG Oral Tablet HYDROcodone- Acetaminophen 5-325 MG Oral Tablet (LORTAB) HYDROcodone-Acetaminophen 5-325 MG Oral Tablet (LORTAB) 01/12/2020 12:00:00 AM EST 1 {tbl} Oral aborted Take 1 tablet by mouth every 6 (six) hours as needed for up to 5 days, Max Daily Dose: 4 tablets [facility] Metoprolol Tartrate 50 MG Oral Tablet Me toprolol Tartrate 50 MG Oral Tablet (LOPRESSOR) Metoprolol Tartrate 50 MG Oral Tablet (LOPRESSOR) 01/01 12:00:00 AM EST 50 mg Oral aborted Take 1 tablet by mouth Two Times Daily [facility] fentaNYL (SUBLIMAZE) (PF) injection 25 mcg [id number] 01/11/2020 04:00:00 PM EST 25 ug Intravenous active 25 m cg, Intravenous, Every 4 hours PRN, Severe Pain (Pain Scale Score 7-10), Starting Fri01/11/20 at 1600, For 48 hours [facility] Medication administered onsite Acetaminophen 325 MG / [...] mg from all sources in 24 hours.
[facility] Medication administered onsite 0.4 ML Enoxaparin sodium 100 MG/ML Prefi lled Syringe enoxaparin sodium (LOVENOX) injection 40 mg enoxaparin sodium (LOVENOX) injection 40 mg 01/11/2020 09:00:00 AM EST 40 mg Subcutaneous active 40 mg, Subcutaneous, Daily Standard, First dose on Fri01/11/20 at 0900, For 30 days [facility] Medication administered onsite Lisinopril 20 MG Oral Tablet lisinopril (ZESTRIL) tabl et 20 mg lisinopril (ZESTRIL) tablet 20 mg 01/11/2020 09:00:00 AM EST 20 mg Oral active 20 mg, Oral, Daily Standard, First dose (after last modification) on Fri01/11/20 at 0900, For 29 doses
Check vital signs before administering
[facility] Medication administered onsite Ondansetron 4 MG Disintegrating Oral Tab let ondansetron (ZOFRAN-ODT) disintegrating tablet 4 mg ondansetron (ZOFRAN-ODT) disintegrating tablet 4 mg 01/11/2020 08:56:22 AM EST 4 mg Oral active 4 mg, Oral, Every 8 hours PRN, Nausea, Vomiting, Starting Fri01/11/20 at 0856, For 30 days
Dissolve on tongue.
[facility] Medication administered onsite Albuterol 0.83 MG/ML Inhalant [...] MONROE is selected 'Yes' below. <b r> [facility] Medication administered onsite albuterol (PROVENTIL) nebulizer solution 2.5 mg [id number] 01/10/2020 10:14:35 PM EST 2.5 mg Nebulization active 2.5 mg, Nebulization, Every 2 hours PRN, Wheezing, Shortness of Breath, Starting Fri01/10/20 at 2214, For 4 days [facility] Medication administered onsite Insulin Glargine 100 UNT/ML Injectable S olution insulin glargine (LANTUS) injection 24 Units insulin glargine (LANTUS) injection 24 Units 0 10:00:00 PM EST 24 U Subcutaneous active 24 Units, Subcutaneous, Nightly, First dose (after last modification) on Fri01/10/20 at 2200, For 7 days [facility] Medication administered onsite gabapentin 300 MG Oral Capsule gabapentin (NEURONTIN) capsule 600 mg gabapentin (NEURONTIN) capsule 600 mg 01/10/2020 05:00:00 PM EST 600 mg Oral active 600 mg, Oral, Three Times D aily Standard, First dose (after last reorder) on Fri01/10/20 at 1700, For 3 days [facility] Medication administered onsite lidocaine (XYLOCAINE) 2 % injection [id number] 01/10/2020 12:03:25 PM EST completed Code/Trauma Medicati on, Starting Fri01/10/20 at 1203 [facility] Medication administered onsite Lisinopril 10 MG Oral Tablet lisinopril (ZESTRIL) tabl et 10 mg lisinopril (ZESTRIL) tablet 10 mg 01/10/2020 09:00:00 AM EST 10 mg Oral aborted 10 mg, Oral, Daily Standard, First dose on Fri01/10/20 at 0900, For 30 days
Check vital signs before administering
[facility] Medication administered onsite Lurasidone Hydrochloride 40 MG Oral Tablet lurasidone HCl (LATUDA) tablet 20 mg lurasidone HCl (LATUDA) tablet 20 mg 01/10/2020 09:00:00 AM EST 20 mg Oral active 20 mg, Oral, Rita ly Standard, First dose on Fri01/10/20 at 0900, For 7 days
Administer with food.
[facility] Medication administered onsite Metoprolol Tartrate 50 MG Oral Tablet metoprolol (LOPR ESSOR) tablet 50 mg metoprolol (LOPRESSOR) tablet 50 mg 01/10/2020 09:00:00 AM EST 50 mg Oral active 50 mg, Oral, 2 Times Daily, First dose on Fri01/10/20 at 0900, For 30 days
Check vital signs before administering
[facility] Medication administered onsite Nystatin [id number] UNT/ML Topical Cream nystatin (MYCOSTA TIN) cream nystatin (MYCOSTATIN) cream 01/10/2020 09:00:00 AM EST Topical active Topical, 2 Times Daily, First dose on Fri01/10/20 at 0900, For 30 days
Apply cream to abdominal folds where red
[facility] Medication administered onsite insulin lispro (HumaLOG) injection MEDIU M DOSE EATING INSULIN patients 1-16 Units [id number] 01/10/2020 08:00:00 AM EST U Subcutaneous active 1-16 Units, Subcutaneous, Three Times Daily-With Meals, First dose on Fri01/10/20 at 0800, For 30 days
Nursing MUST open the 'SQ Insulin Dosing Charts' Sidebar Report, or, the Patient Summary or Summary Report within the ED.
[facility] Medication administered onsite gabapentin 100 MG Oral Capsule gabapentin (NEURONTIN) capsule 100 mg gabapentin (NEURONTIN) capsule 100 mg 01/10/2020 06:00:00 AM EST 100 mg Oral aborted 100 mg, Oral, Four Times Da amanda Standard, First dose on Fri01/10/20 at 0600, For 30 days [facility] Medication administered onsite Diclofenac Sodium 0.01 MG/MG [...] local pain site: affected areas of pain
[facility] Medication administered onsite fentaNYL (SUBLIMAZE) (PF) injection 25 mcg [id number] 01/10/2020 02:47:25 AM EST 25 ug Intravenous aborted 25 m cg, Intravenous, Every 3 hours PRN, Severe Pain (Pain Scale Score 7-10), Starting Fri01/10/20 at 0247, For 3 days [facility] Medication administered onsite Acetaminophen 325 MG / [...] mg from all sources in 24 hours.
[facility] Medication administered onsite dextrose 50 % IV solution 25 mL [id number] 01/10/2020 02:41:[address] 25 mL Intravenous active 25 mL, Intrav enous, PRN, Low blood sugar, blood glucose less than 55, Starting Fri01/10/20 at 0241, For 30 days
Not for midline administration.
[facility] Medication administered onsite Glucagon 1 MG Injection glucagon (human recombinant) ( GLUCAGEN) injection 1 mg glucagon (human recombinant) (GLUCAGEN) injection 1 mg 01/10/2020 02:41:46 AM EST 1 mg Intramuscular active 1 mg, Intramuscular, PRN, glucose less than 55 without IV access, Starting Fri01/10/20 at 0241, For 30 days [facility] Medication administered onsite Glucose 0.417 MG/MG Oral Gel glucose (GLUTOSE) 40 % or al gel 15 g glucose (GLUTOSE) 40 % oral gel 15 g 01/10/2020 02:41:46 AM EST 15 g Oral active 15 g, Oral, PRN, Low blood s ugar, glucose 55-69 and able to take PO, Starting Fri01/10/20 at 0241, For 30 days [facility] Medication administered onsite Acetaminophen 325 MG Oral [...] mg from all sources in 24 hours.
[facility] Medication administered onsite alginic acid 200 MG / Calcium Carbonate 80 MG / magnesium trisilicate 20 MG / Sodium Bicarbonate 70 MG Oral Tablet calcium carbonate (TUMS) chewable tablet 500 mg calcium carbonate (TUMS) chewable tablet 500 mg 2019 02:41:46 AM EST 500 mg Oral active 500 mg, Oral, Three Times Daily-PRN, Heartburn, Starting Fri01/10/20 at 0241, For 30 days [facility] Medication administered onsite 1 ML Ketorolac Tromethamine 15 MG/ML Car [place]idge ketorolac (TORADOL) 15 MG/ML injection 15 mg ketorolac (TORADOL) 15 MG/ML injection 15 mg 0 10:00:00 PM EST 15 mg Intravenous completed 15 mg, Intravenous, Once, 01/09/20 at 2200, For 1 dose [facility] Medication administered onsite fentaNYL (SUBLIMAZE) (PF) injection 50 mcg [id number] 01/09/2020 10:00:00 PM EST 50 ug Intravenous completed 50 mcg, Intravenous, Once, 01/09/20 at 2200, For 1 dose [facility] Medication administered onsite Onetouch Verio 01/04/2020 12:00:00 AM EST act shane [facility] ([facility]) [place] Insulin Pen [place] 29G X 12mm 01/04/2020 12:00:00 AM EST active [facility] ( [facility]) Hydrochlorothiazide 12.5 MG / Lisinopril 20 MG Oral Tablet Lisinopril- hydroCHLOROthiazide 20-12.5 MG Oral Tablet (ZESTORETIC) Lisinopril- hydroCHLOROthiazide 20-12.5 MG Oral Tablet (ZESTORETIC) 01/04/2020 12:00:00 AM EST 1 {tbl} Oral aborted Take 1 tablet b y mouth daily [facility] Mupirocin 0.02 MG/MG Topical Ointment Mu pirocin 2 % External Ointment (BACTROBAN) Mupirocin 2 % External Ointment (BACTROBAN) 01/04/2020 12:00:00 AM EST Topical aborted Apply to pically Two Times Daily Apply pea sized amount of ointment to Right lower abdomen twice daily [facility] Clonidine Hydrochloride 0.1 MG Oral Tabl et cloNIDine HCl 0.1 MG Oral Tablet (CATAPRES) cloNIDine HCl 0.1 MG Oral Tablet (CATAPRES) 01/04/2020 12:00:00 AM EST 0.1 mg Oral aborted Take 0.1 mg by m outh daily [facility] rivaroxaban 10 MG Oral Tablet [Xarelto] Xarelto 01/04/2020 12:00:0 0 AM EST ORAL completed [facility] ([facility]) Blood Pressure Kit 01/04/2020 12:00:00 AM EST active [facility] ([facility]) Mupirocin 0.02 MG/MG Topical Ointment Mupirocin 01/04/2020 12:00:00 AM EST active [facility] ([facility]) Onetouch Verio 01/04/2020 12:00:00 AM EST com pleted [facility] ([facility]) 3 ML Insulin Lispro 100 UNT/ML Pen Injector [Humalog] Sunny hinkle Kwikpen 01/04/2020 12:00:00 AM EST completed [facility] ([facility]) Acetaminophen 325 MG / Hydrocodone Yazmin trate 5 MG Oral Tablet HYDROcodone- Acetaminophen 5-325 MG Oral Tablet (LORTAB) HYDROcodone-Acetaminophen 5-325 MG Oral Tablet (LORTAB) 01/03/2020 12:00:00 AM EST aborted 1-2 tabs every 4-6 hours as needed for pain, Max Daily Dose 8 [facility] Lisinopril 10 MG Oral Tablet lisinopril (PRINIVIL,ZEST RIL) 10 MG tablet lisinopril (PRINIVIL,ZESTRIL) 10 MG tablet 12/30/2019 12:00:00 AM EDT 10 mg Oral active Take 1 tablet (10 mg total) by mouth daily [facility] gabapentin 100 MG Oral Capsule Gabapentin 100 MG Oral Capsule (Neurontin) Gabapentin 100 MG Oral Capsule (Neurontin) 12/30/2019 12:00:00 AM EDT 100 mg Oral aborted Take 1 capsule by [facility] Four times daily [facility] Lisinopril 10 MG Oral Tablet Lisinopril 10 MG Oral Tab let (ZESTRIL) Lisinopril 10 MG Oral Tablet (ZESTRIL) 12/30/2019 12:00:00 AM EDT 10 mg Oral aborted Take 10 mg by mouth daily [facility] Acetaminophen 325 MG / Oxycodone Hydroch loride 5 MG Oral Tablet oxyCODONE- acetaminophen (PERCOCET) 5-325 MG 2 tablet oxyCODONE-acetaminophen (PERCOCET) 5- 325 MG 2 tablet 12/29/2019 10:00:00 AM EDT 2 {tbl} Oral a ctive 2 tablet, Oral, Every 4 hours PRN, moderate pain (4-6), severe pain (7-10), Starting Fri12/29/19 at 1000, For 72 hours [facility] Medication administered onsite glucose blood test strip [id number] 12/29/2019 12:00:00 AM EDT active Use as instructed [facility] Insulin Pen Needle 31G X 5 MM [facility] [id number] 12/29/2019 12:00:00 AM EDT active One needle per insulin injection [facility] ONEGEORGE DELICA LANCETS 33G [facility] [place] [id number] 12/29/2019 12:00:00 AM E DT active Use one lancet with each test [facility] Insulin Lispro 100 UNT/ML Injectable Bernadine ution insulin lispro (HUMALOG) 100 UNIT/ML injection insulin lispro (HUMALOG) 100 UNIT/ML injection 12:00:00 AM EDT Subcutaneous active Inject 2-18 Units under the skin With meals sliding scale [facility] Insulin Glargine 100 UNT/ML Injectable S olution [Lantus] insulin glargine (LANTUS) 100 UNIT/ML injection insulin glargine (LANTUS) 100 UNIT/ML injection 12/29/2019 12:00:00 AM EDT 30 U Subcutaneous active Inject 30 Units under the skin nightly [facility] Acetaminophen 325 MG Oral Tablet acetaminophen (TYLENO L) 325 MG tablet acetaminophen (TYLENOL) 325 MG tablet 12/29/2019 12:00:00 AM EDT 65 0 mg Oral active Take 2 tablets (650 mg total) by mouth every 6 (six) hours as needed [facility] Acetaminophen 325 MG / Oxycodone Hydroch loride 5 MG Oral Tablet oxyCODONE- acetaminophen (PERCOCET) 5-325 MG per tablet oxyCODONE-acetaminophen (PERCOCET) 5-325 MG per tablet 12/29/2019 12:00:00 AM EDT 2 {tbl} Oral active Take 2 tablets by mouth every 4 (four) hours as needed Max Daily Amount: 12 tablets [facility] quetiapine 100 MG Oral Tablet QUEtiapine (SEROquel) ta blet 100 mg QUEtiapine (SEROquel) tablet 100 mg 12/28/2019 09:00:00 PM EDT 100 mg Oral active 100 mg, Oral, Nightly, First dose on Fri12/28/19 at 2 100 [facility] Medication administered onsite Insulin Lispro 100 UNT/ML [...] cover POC glucose at 08:00, 12:00, 17:00.
[facility] Medication administered onsite heparin (porcine) injection 5,000 Units [id number] 12/28/19 20 10:00:00 AM EDT 5000 U Subcutaneous active 5,000 Units , Subcutaneous, Every 12 hours (scheduled), First dose on Fri12/28/19 at 1000
If platelet count is less than 70,000 or hematocrit is less than 25, or if there is a 5 point decrease in hematocrit, do not give the dose and call physician/designee.
[facility] Medication administered onsite Naproxen 250 MG Oral Tablet naproxen (NAPROSYN) tablet 500 mg naproxen (NAPROSYN) tablet 500 mg 12/28/2019 10:00:00 AM EDT 500 mg Oral active 500 mg, Oral, 2 times daily with meals, First dose on Fri12/28/19 at 1000 [facility] Medication administered onsite Cool Carbonate 300 MG Oral Tablet lithium tablet 30 0 mg lithium tablet 300 mg 12/28/2019 10:00:00 AM EDT 300 mg Oral active 300 mg, Oral, Every 12 hours (scheduled), First dose on Fri12/28/19 at 1000 [facility] Medication administered onsite Lisinopril 5 MG Oral Tablet lisinopril (PRINIVIL,ZESTR IL) tablet 10 mg lisinopril (PRINIVIL,ZESTRIL) tablet 10 mg 12/28/2019 10:00:00 AM EDT 10 mg Oral active 10 mg, Oral, Daily, First dose on Fri12/28/19 at 1000 [facility] Medication administered onsite Insulin Glargine 100 UNT/ML [...] to 200 mg/dl &nb sp; No Change
[facility] Medication administered onsite Acetaminophen 325 MG Oral [...] mg from all sources in 24 hours."
[facility] Medication administered onsite Acetaminophen 325 MG / Oxycodone Hydroch loride 5 MG Oral Tablet oxyCODONE- acetaminophen (PERCOCET) 5-325 MG 2 tablet oxyCODONE-acetaminophen (PERCOCET) 5- 325 MG 2 tablet 12/28/2019 09:11:53 AM EDT 2 {tbl} Oral a borted 2 tablet, Oral, Every 6 hours PRN, severe pain (7-10), Starting Fri12/28/19 at 0911, For 7 days [facility] Medication administered onsite Acetaminophen 325 MG / Oxycodone Hydroch loride 5 MG Oral Tablet oxyCODONE- acetaminophen (PERCOCET) 5-325 MG 1 tablet oxyCODONE-acetaminophen (PERCOCET) 5- 325 MG 1 tablet 12/28/2019 03:20:33 AM EDT 1 {tbl} Oral a borted 1 tablet, Oral, Every 4 hours PRN, moderate pain (4-6), severe pain (7-10), Starting Fri12/28/19 at 0320, For 4 doses [facility] Medication administered onsite ondansetron (ZOFRAN) injection 4 mg [id number] 12/28/2019 12:19:2 1 AM EDT 4 mg Intravenous active 4 mg, In travenous, Every 4 hours PRN, nausea, Starting Fri12/28/19 at 0019 [facility] Medication administered onsite Insulin Glargine 100 UNT/ML Injectable S olution Insulin Glargine 100 UNIT/ML Subcutaneous Solution (Lantus) Insulin Glargine 100 UNIT/ML Subcutaneou s Solution (Lantus) 12/28/2019 12:00:00 AM EDT 30 U Subcutaneous aborted Inject 30 Units into the skin nightly [facility] iopamidol (ISOVUE-370) 76 % 70 mL [id number] 12/27/2019 10:25:43 PM E DT 70 mL Intravenous completed 70 mL, Intrav enous, Once in imaging, contrast, Starting Fri12/27/19 at 2225, For 1 dose [facility] Medication administered onsite sodium chloride 0.9% (NS) bolus 2,000 mL [id number] 12/27/2019 09:30:00 PM EDT 2000 mL Intravenous completed 2, 000 mL, Intravenous, Administer over 1 Hours, Once, Fri12/27/19 at 2130, For 1 dose [facility] Medication administered onsite 1 ML Ketorolac Tromethamine 15 MG/ML Car tridge ketorolac (TORADOL) injection 15 mg ketorolac (TORADOL) injection 15 mg 12/27/2019 09:30:00 PM EDT 1 5 mg completed 15 mg, Intravenous Push, Once, M on 12/27/19 at 2130, For 1 dose [facility] Medication administered onsite Morphine Sulfate (PF) injection 4 mg [id number] 12/27/2019 09:30: 00 PM EDT 4 mg completed 4 mg, Intr avenous Push, Once, Fri12/27/19 at 2130, For 1 dose [facility] Medication administered onsite Acetaminophen 325 MG / Oxycodone Hydroch loride 5 MG Oral Tablet oxyCODONE- Acetaminophen 5-325 MG Oral Tablet (PERCOCET) oxyCODONE-Acetaminophen 5-325 MG Oral Tablet (PERCOCET) 11/16/2019 12:00:00 AM EDT aborted 1-2 tablets every 4-6 hours as needed for pain, Max Daily Dose 8 [facility] Lisinopril 20 MG Oral Tablet Lisinopril 20 MG Oral Tab let (ZESTRIL) Lisinopril 20 MG Oral Tablet (ZESTRIL) 11/11/2019 12:00:00 AM EDT 20 mg Oral aborted Take 1 tablet by mouth daily [facility] system Diclofenac Sodium 0.01 MG/MG Topical Gel Diclofenac Sodium (VOLTAREN) 1 % gel 2 g Diclofenac Sodium (VOLTAREN) 1 % gel 2 g 11/10/2019 09:00:00 AM EDT 2 g Topical active 2 g, Topical, Three Times Daily Standard, First dose on Fri11/10/19 at 0900, For 30 days
Apply to painful joint
[facility] Medication administered onsite Lisinopril 20 MG Oral Tablet lisinopril (ZESTRIL) tabl et 20 mg lisinopril (ZESTRIL) tablet 20 mg 11/10/2019 09:00:00 AM EDT 20 mg Oral active 20 mg, Oral, Daily Standard, First dose on Fri11/10/19 at 0900, For 30 days
Check vital signs before administering
[facility] Medication administered onsite Lurasidone Hydrochloride 40 MG Oral Tablet lurasidone HCl (LATUDA) tablet 20 mg lurasidone HCl (LATUDA) tablet 20 mg 11/10/2019 09:00:00 AM EDT 20 mg Oral active 20 mg, Oral, Rita ly Standard, First dose on Fri11/10/19 at 0900, For 30 doses
Administer with food.
[facility] Medication administered onsite Cholecalciferol 1000 UNT Oral Tablet vit brewer D3 (CHOLECALCIFEROL) tablet 2,000 Units vitamin D3 (CHOLECALCIFEROL) tablet 2,000 Units 2019 09:00:00 AM EDT 2000 U Oral active 2,000 Un its, Oral, Daily Standard, First dose on Fri11/10/19 at 0900, For 30 days
25 mcg vitamin D3 = 1,000 international units vitamin D3.
[facility] Medication administered onsite insulin lispro (HumaLOG) injection HIGH DOSE EATING IN SULIN patients 1-22 Units 10944-619-20 11/10/2019 08:00:00 AM EDT U Subcutaneous active 1-22 Units, Subcutaneous, Three Times Daily-With Meals, First dose on Fri11/10/19 at 0800, For 30 days
Nursing MUST open the 'SQ Insulin Dosing Charts' Sidebar Report, or, the Patient Summary or Summary Report within the ED.
[facility] Medication administered onsite Clonidine Hydrochloride 0.1 MG Oral Tabl et cloNIDine HCl 0.1 MG Oral Tablet (CATAPRES) cloNIDine HCl 0.1 MG Oral Tablet (CATAPRES) 11/10/2019 12:00:00 AM EDT 0.1 mg Oral active Take 1 tablet by mouth Two Times Daily [facility] Cholecalciferol 1000 UNT Oral Tablet Vit brewer D3 25 MCG (1000 UT) Oral Tablet (CHOLECALCIFEROL) Vitamin D3 25 MCG (1000 UT) Oral Tablet (CHOLECALCIFER OL) 11/10/2019 12:00:00 AM EDT 2000 U Oral active Take 2 tablets by mouth daily [facility] Lurasidone Hydrochloride 20 MG Oral Tabl et Lurasidone HCl 20 MG Oral Tablet (LATUDA) Lurasidone HCl 20 MG Oral Tablet (LATUDA) 11/10/2019 12:00:00 AM EDT 20 mg Oral aborted Take 1 tablet by mouth d [facility] quetiapine 100 MG Oral Tablet QUEtiapine Fumarate 100 MG Oral Tablet (SEROquel) QUEtiapine Fumarate 100 MG Oral Tablet (SEROquel) 11/10/2019 12:00:00 AM EDT 100 mg Oral active Take 1 tablet by mouth n [facility] gabapentin 100 MG Oral Capsule Gabapentin 100 MG Oral Capsule (Neurontin) Gabapentin 100 MG Oral Capsule (Neurontin) 11/10/2019 12:00:00 AM EDT 100 mg Oral active Take 1 capsule by mo uth Four times daily [facility] quetiapine 100 MG Oral Tablet QUEtiapine (SEROquel) ta blet 100 mg QUEtiapine (SEROquel) tablet 100 mg 11/09/2019 10:00:00 PM EDT 100 mg Oral active 100 mg, Oral, Nightly, First dose on Fri11/09/19 at 220 0, For 30 days [facility] Medication administered onsite Clonidine Hydrochloride 0.1 MG Oral Tablet cloNIDine ( CATAPRES) tablet 0.1 mg cloNIDine (CATAPRES) tablet 0.1 mg 11/09/2019 09:45:00 PM EDT 0.1 mg Oral active 0.1 mg, Oral, 2 Time s Daily, First dose on Fri11/09/19 at 2145, For 30 days
Check vital signs before administering
[facility] Medication administered onsite gabapentin 100 MG Oral Capsule gabapentin (NEURONTIN) capsule 100 mg gabapentin (NEURONTIN) capsule 100 mg 11/09/2019 09:45:00 PM EDT 100 mg Oral active 100 mg, Oral, Four Times Da amanda Standard, First dose on Fri11/09/19 at 2145, For 30 days [facility] Medication administered onsite 0.3 ML Enoxaparin sodium 100 MG/ML Prefi lled Syringe enoxaparin sodium (LOVENOX) injection 30 mg enoxaparin sodium (LOVENOX) injection 30 mg 11/09/2019 09:45:00 PM EDT 30 mg Subcutaneous active 30 mg, Subcutaneous, Every 12 hours, First dose on Fri11/09/19 at 2144, For 30 days [facility] Medication administered onsite Metoprolol Tartrate 50 MG Oral Tablet metoprolol (LOPR ESSOR) tablet 50 mg metoprolol (LOPRESSOR) tablet 50 mg 11/09/2019 09:45:00 PM EDT 50 mg Oral active 50 mg, Oral, 2 Times Daily, First dose on Fri11/09/19 at 2145, For 30 days
Check vital signs before administering
[facility] Medication administered onsite Insulin Glargine 100 UNT/ML Injectable S olution insulin glargine (LANTUS) injection 44 Units insulin glargine (LANTUS) injection 44 Units 0 09:45:00 PM EDT 44 U Subcutaneous active 44 Units, Subcutaneous, Nightly, First dose (after last modification) on Fri11/09/19 at 2145, For 30 doses [facility] Medication administered onsite Glucose 0.417 MG/MG Oral Gel glucose (GLUTOSE) 40 % or al gel 15 g glucose (GLUTOSE) 40 % oral gel 15 g 11/09/2019 09:34:37 PM EDT 15 g Oral active 15 g, Oral, PRN, Low blood s ugar, for gluose 55-69 mg/dl and able to take PO, Starting Fri11/09/19 at 2134, For 30 days [facility] Medication administered onsite Glucagon 1 MG Injection glucagon (human recombinant) ( GLUCAGEN) injection 1 mg glucagon (human recombinant) (GLUCAGEN) injection 1 mg 11/09/2019 09:34:37 PM EDT 1 mg Intramuscular active 1 mg, Intramuscular, PRN, for glucose <55 without IV access, Starting Fri11/09/19 at 2134, For 30 days [facility] Medication administered onsite dextrose 50 % IV solution 25 mL [id number] 11/09/2019 09:34:36 PM E DT 25 mL Intravenous active 25 mL, Intrav enous, PRN, Other, blood glucose <55, Starting Fri11/09/19 at 2134, For 30 days
Not for midline administration.
[facility] Medication administered onsite Nystatin 759420 UNT/ML Topical Cream nystatin (MYCOSTA TIN) cream nystatin (MYCOSTATIN) cream 11/09/2019 09:33:30 PM EDT Topical active Topical, 2 Times Daily PRN, inflamed skin folds PRN, Starting Fri11/09/19 at 2133, For 30 days
Apply to skin folds inflamed PRN
[facility] Medication administered onsite Ibuprofen 400 MG Oral Tablet ibuprofen (MOTRIN) tablet 400 mg ibuprofen (MOTRIN) tablet 400 mg 11/09/2019 09:30:30 PM EDT 400 mg Oral act shane 400 mg, Oral, Every 6 hours PRN, pain, Starting Fri11/09/19 at 2130, For 30 days
Take with food. HOLD if has heart burn or reflux or indigestion and contact provider.
[facility] Medication administered onsite Acetaminophen 325 MG Oral Tablet acetaminophen (TYLENO L) tablet 650 mg acetaminophen (TYLENOL) tablet 650 mg 11/09/2019 09:29:31 PM EDT 65 0 mg Oral active 650 mg, Oral, E very 6 hours PRN, pain, Starting Fri11/09/19 at 2129, For 30 days
Maximum daily dose of acetaminophen is 3,000 mg from all sources in 24 hours.
[facility] Medication administered onsite 3 ML Insulin Glargine 100 UNT/ML Pen Injector [Lantus] Lantu s Solostar 10/12/2019 12:00:00 AM EDT completed [facility] ([facility]) 3 ML Insulin Lispro 100 UNT/ML Pen Injector Insulin Lispro ( 1 Unit Dial) 10/12/2019 12:00:00 AM EDT completed [facility] ([facility]) Metoprolol Tartrate 50 MG Oral Tablet Me toprolol Tartrate 50 MG Oral Tablet (LOPRESSOR) Metoprolol Tartrate 50 MG Oral Tablet (LOPRESSOR) 09/2019 12:00:00 AM EDT 50 mg Oral aborted Take 1 tablet by mouth Two Times Daily [facility] Acetaminophen 325 MG Oral Tablet Acetaminophen 325 MG Oral T ablet 10/08/2019 12:00:00 AM EDT 650 mg Oral aborted Take 2 tablets by mouth every 6 (six) hours as needed for Pain for up to 90 doses [facility] alginic acid 200 MG / Calcium Carbonate [...] for Heartburn for up to 30 doses [facility] Diclofenac Sodium 0.01 MG/MG Topical Gel Diclofenac Sodium 1 % Transdermal Gel (VOLTAREN) Diclofenac Sodium 1 % Transdermal Gel (VOLTAREN) 10/07 12:00:00 AM EDT 2 g Topical aborted Apply 2 g topic ally Three times daily [facility] Insulin Pen Needle 31G X 5 MM (B-D UF III MINI PEN NEEDLES) [id number] 10/08/2019 12:00:00 AM EDT aborted Use as directed. # 200, use 4-6 per day, 1 refill [facility] 3 ML Insulin Glargine 100 UNT/ML Pen Inj darren Insulin Glargine 100 UNIT/ML Subcutaneous Solution Pen-injector (Lantus SoloStar) Insulin Glargine 100 UNIT/ML Subcutaneous Solution Pen-injector (Lantus SoloStar) 10/08/2019 12:00:00 AM EDT aborted Inject 5 5 units subcutaneously at bedtime, MDD 55 units [facility] OneTouch Verio Flex System w/Device Kit [id number] 10/08/19 12:00:00 AM EDT aborted Test 4-6 times d aily. Dx code E11.65 [facility] 3 ML Insulin Lispro 100 UNT/ML Pen Injec tor Insulin Lispro (1 Unit Dial) 100 UNIT/ML Subcutaneous Solution Pen-injector (HumaLOG KwikPen) Insulin Lispro (1 Unit Dial) 100 UNIT/ML Subcutaneous Solution Pen-injector (HumaLOG KwikPen) 10/08/2019 12:00:00 AM EDT aborted # 2 pens, inject Subcutaneous 3 times daily ac TID per the insulin algorithm, MDD: 75 units[facility] 0.7 ML/ML Medicated Pad Alcohol Prep 70 % Pad Alcohol Prep 70 % Pad 10/08/2019 12:00:00 AM EDT aborted Use as directed. Dx code E11.65 [facility] Delica Lancets 33G 42955-847-48 10/08/2019 12:00:00 AM EDT aborted Use 4-6 times daily. Dx code E1 1.65 [facility] Isopropyl Alcohol 0.7 ML/ML Medicated Pad Alcohol Swabs Pad Alcohol Swabs Pad 10/08/2019 12:00:00 AM EDT aborted Use as directed. use 8-10 per day, E11.65, #200, [address] [facility] Glucose Blood [facility] V[facility] 70249 12:00:00 AM EDT aborted Test with 4-6 ti mes daily. Dx code E11.65 [facility] Nystatin 820660 UNT/ML Topical Cream Nys tatin 599159 UNIT/GM External Cream (MYCOSTATIN) Nystatin 006557 UNIT/GM External Cream (MYCOSTATIN) 12:00:00 AM EDT aborted Apply to abdominal folds where red, inflamed two times per day [facility] gabapentin 300 MG Oral Capsule Gabapentin 300 MG Oral Capsule (NEURONTIN) Gabapentin 300 MG Oral Capsule (NEURONTIN) 09/23/2019 12:00:00 AM EDT 300 mg Oral suspended Take 1 capsule by mo uth [facility] Insulin Glargine 100 UNT/ML Injectable S olution Insulin Glargine 100 UNIT/ML Subcutaneous Solution (LANTUS) Insulin Glargine 100 UNIT/ML Subcutaneou s Solution (LANTUS) 09/23/2019 12:00:00 AM EDT 25 U Subcutaneous suspended Inject 25 Units into the skin nightly [facility] Lisinopril 10 MG Oral Tablet Lisinopril 10 MG Oral Tab let (ZESTRIL) Lisinopril 10 MG Oral Tablet (ZESTRIL) 09/23/2019 12:00:00 AM EDT 10 mg Oral suspended Take 1 tablet by mouth Two Times Daily [facility] Insulin Lispro 100 UNT/ML Injectable Bernadine ution Insulin Lispro 100 UNIT/ML Subcutaneous Solution (Admelog) Insulin Lispro 100 UNIT/ML Subcutaneous Solution (Admelog) aborted Inject per Sl iding scale [facility] Insurance Providers Payer name Policy type / Coverage type Policy ID Covered constitution party ID Covered constitution party's relationship to forbes Policy Forbes Plan Information [id number]-[id number] [facility] [id number] S [id number] [facility] I [id number] Self [id number] [facility] MEDICAID [id number] Dorita [id number] [facility] MEDICAID [id number] Dorita [id number] [facility] I [id number] Self [id number] [facility] MEDICAID DUAL I [id number] Self [id number] [place] F [id number] SELF 7 [id number] [place] I [id number] Self [id number] [place] MEDICAID [id number] Dorita 7 [id number] [place] I [id number] Self [id number] MEDICAID [id number] Dorita [id number] Medicaid [facility] Healthcare S D [id number] SELF [id number] [place] MED[place]ID [id number] Dorita 7 [id number] MEDICAID M [id number] Self [id number] MEDICAID [id number] Dorita [id number] MEDICAID [id number] xxxxxxxx [id number] [facility] I [id number] Self [id number] MEDICAID M Self MEDICAID M [id number] Self [id number] [facility] I [id number] Self [id number] [facility] I [id number] Self [id number] UH I [id number] Self [id number] [facility] I [id number] Self [id number] [facility] [id number] xxxxxxxx [id number] [facility] [id number] Dorita [id number] [facility] I [id number] Self [id number] [facility] [id number] SP [id number] SELF [place]Y [place] [id number] SP [id number] MEDICAID M [id number] Self [id number] MEDICAID M [id number] Self [id number] [facility] I [id number] Self [id number] [place] [id number] OAdt [id number] MEDICAID M [id number] Self [id number] [place] [id number] Self [id number] EXCELLUS I [id number] Self [id number] [place] F [id number] SELF 7 [id number] [place] I [id number] Self [id number] [place] MEDICAID [id number] Dorita 7 [id number] [place] MEDICAID [id number] [id number] MEDICAID M [id number] Self [id number] [place] I [id number] Self [id number] [place] I [id number] Self [id number] WORKER'S COMP 08/23/19 Emp 0 WORKER'S COMP [id number] x/xx/xx [id number] [facility] [facility] [id number] S [id number] [facility] MEDICAID [facility] [id number] Dorita [id number] MEDICAID W [id number] S [id number] [place] [id number] S [id number] [place] [id number] SP [id number] SP [id number] [place] UNAVA[place]ABLE S UN AVAILABLE [facility] COMM PLAN BOBY W [id number] S [id number] [place] [id number] SP [id number] SELF PAY ONLY [id number] SP [id number] [facility] [id number] S 1 [id number] [facility] MEDICAID [employer] [id number] Dorita [id number] [facility] COMM PLAN FHP W [id number] S [id number] [facility] [id number] S 1 [id number] [facility] [id number] S [id number] MEDICAID [id number] S [id number] MEDICAID -O/P [id number] SELF PAY 2 UNAVAILABLE 1 [place] BLE [place] 3 [id number] PSY VALUE OPTIONS 2 [id number] Medicaid [id number] [facility] MEDICAID [employer] [id number] Dorita [id number] [facility] [id number] S [id number] Problems, Conditions, and Diagnoses Code Display Name Description Problem Type Effective Dates Data Source(s) R04.2 Hemoptysis Hemoptysis Diagnosis 11/03/2020 12:50:00 PM ED [facility] S72.001A Fracture of unspecified part of neck of right femur, initial encounter for closed fracture Fracture of unspecified part of neck of right femur, initial encounter for closed fracture Diagnosis 03/27/2020 01:31:06 PM [facility] S32.474D Nondisplaced fracture of med ial wall of right acetabulum, subsequent encounter for fracture with routine healing Nondisplaced fracture of medial wall of right acetabulum, subsequent encounter for fracture with routine healing Diagnosis 03/27/2020 01:31:03 PM [facility] Z96.641 Presence of right artificial hip joint 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 Diagnosis 03/27/2020 01:31:[address] [facility] Z47.1 Aftercare following joint replacement benavides rgery Aftercare following joint replacement surgery Diagnosis 03/27/2020 01:31:[address] [facility] S32.401A Unspecified fracture of righ t acetabulum, initial encounter for closed fracture Unspecified fracture of right acetabulum , initial encounter for closed fracture Diagnosis 01/28/2020 12:55:[address] [facility] F19.10 Other psychoactive substance abuse, unco mplicated Other psychoactive substance abuse, uncomplicated Diagnosis 01/28/2020 12:55:18 AM [facility] Y93.01 Activity, walking, marching and hiking A ctivity, walking, marching and hiking Diagnosis 01/27/2020 09:32:[address] [facility] W19.XXXA Unspecified fall, initial encounter Unsp ecified fall, initial encounter Diagnosis 01/27/2020 09:32:[address] [facility] F17.290 Nicotine dependence, other tobacco produ ct, uncomplicated Nicotine dependence, other tobacco product, uncomplicated Diagnosis 01/26 09:32:00 PM [facility] E11.9 Type 2 diabetes mellitus without complic ations Type 2 diabetes mellitus without complications Diagnosis 01/27/2020 09:32:00 PM [facility] I10 Essential (primary) hypertension Essential (primary) h ypertension Diagnosis 01/27/2020 09:32:00 PM [facility] Fall eval Fall eval Diagnosis 01/27/2020 09:32:00 PM [facility] M25.551 Pain in right hip Pain in right hip Diagnosis 01/19 09:49:17 AM [facility] Z87.81 Personal history of (healed) traumatic f racture Personal history of (healed) traumatic fracture Diagnosis 01/20/2020 09:49:14 AM [facility] Post traumatic osteoarthritis of hip Post trauma tic osteoarthritis of hip Diagnosis 01/20/2020 06:03:00 AM [facility] Closed displaced fracture of right femor al neck [S72.001A] Closed displaced fracture of right femoral neck [S72.001A] Diagnosis 01/20/2020 06:03:0 0 AM [facility] R52 Pain, unspecified Pain, unspecified Diagnosis 01/10/2020 02:15:52 AM [facility] Z98.890 Other specified postprocedural states Ot her specified postprocedural states Diagnosis 01/09/2020 08:44:[address] [facility] G89.18 Other acute postprocedural pain Other acute post procedural pain Diagnosis 01/09/2020 08:44:00 PM [facility] Right hip pain Right hip pain Diagnosis 01/09/2020 08:44: 00 PM [facility] E86.0 Dehydration Dehydration Diagnosis 12/27/2019 08:27:57 PM EDT [facility] M25.551 Pain in right hip Pain in right hip Diagnosis 12/26 08:27:57 PM EDT [facility] Right knee pain Right knee pain Diagnosis 12/11/2019 09:4 4:00 PM EDT [facility] E86.0 Dehydration Dehydration [id number] 12/29/2019 12:00:00 AM EDT [facility] R26.2 Inability to walk Inability to walk [id number] 12/28/2019 12:00:00 AM EDT [facility] M25.551 Hip pain, right Hip pain, right [id number] 12/28/2019 12:0 0:00 AM EDT [facility] F31.9 Bipolar disorder Bipolar disorder [id number] 12/28/2019 12 :00:00 AM EDT [facility] E11.65 Type 2 diabetes mellitus wit h hyperglycemia, with long-term current use of insulin Type 2 diabetes mellitus with hyperglyce beatriz, with long-term current use of insulin [id number] 12/28/2019 12:00:00 AM EDT [facility] Surgeries/Procedures Procedure Description Date Indications Data Source(s) OFFICE OUTPATIENT VISIT 25 MINUTES 01/18/2021 12:00:00 AM EST [facility] ([facility]) OFFICE OUTPATIENT VISIT 25 MINUTES 11/29/2020 12:00:00 AM EDT [facility] ([facility]) Psychiatric Diagnostic Evaluation 11/13/2020 12:00:00 AM EDT [facility] ([facility]) OFFICE OUTPATIENT VISIT 25 MINUTES 11/09/2020 12:00:00 AM EDT [facility] ([facility]) XR CHEST FRONTAL AND LATERAL [id number] <td>XR CHEST FRONTA L AND LATERAL 29337</td><td>Routine</td><td>11/03/2020 1:07 PM EDT</td><td> Hemoptysis</td><td> </td> 11/03/2020 01:07:35 PM EDT Hemoptysis [facility] Hemoptysis Brief Emotional/Behav Assessment W/ Scoring Doc Per Standard Inst 11/03/2020 12:00:00 AM EDT [facility] ([facility]) OFFICE OUTPATIENT VISIT 25 MINUTES 11/03/2020 12:00:00 AM EDT [facility] ([facility]) OFFICE OUTPATIENT VISIT 15 MINUTES 10/04/2020 12:00:00 AM EDT [facility] ([facility]) PERIODIC PREVENTIVE MED EST PATIENT 18-39 YRS 10/05/19 12:00:00 AM [facility] X-ray of right knee (procedure) 09/30/2020 11:33:00 PM EDT [facility] x-ray of pelvis and lower extremity (procedure) 09/30/2020 11:32:00 PM EDT [facility] OFFICE OUTPATIENT VISIT 15 MINUTES 09/26/2020 12:00:00 AM EDT [facility] ([facility]) OFFICE OUTPATIENT VISIT 25 MINUTES 08/28/2020 12:00:00 AM EDT [facility] ([facility]) OFFICE OUTPATIENT VISIT 25 MINUTES 07/27/2020 12:00:00 AM EDT [facility] ([facility]) Plain x-ray of pelvis and lower extremity (procedure) 06/04/2020 03:28:00 AM EDT [facility] x-ray of pelvis and lower extremity (procedure) 06/04/2020 03:28:00 AM [facility] PHYSICIAN TELEPHONE EVALUATION 5-10 MIN 05/03/2020 12: 00:00 AM EST [facility] ([facility]) SEDIMENTATION RATE RBC [...] encounterAftercare following right hip joint replacement surgery [facility] Right hip pain Closed nondisplaced fracture of [...] encounterAftercare following right hip joint replacement surgery [facility] Right hip pain Closed nondisplaced fracture of [...] encounterAftercare following right hip joint replacement surgery [facility] Right hip pain Closed nondisplaced fracture of medial w all of right acetabulum with routine healing, subsequent encounter Aftercare following right hip joint repl acement surgery Brief Emotional/Behav Assessment W/ Scoring Doc Per Standard Inst 04/05/2020 12:00:00 AM [facility] ([facility]) OFFICE OUTPATIENT VISIT 25 MINUTES 04/05/2020 12:00:00 AM EST [facility] ([facility]) POCT GLUCOSE, DOCKED <td>POCT GLUCOSE, DOCKED</td ><td>Routine</td><td>02/09/2020 12:17 PM EST</td><td></td><td> </td> 02/09/2020 12:17:00 PM [facility] POCT GLUCOSE, DOCKED <td>POCT GLUCOSE, DOCKED</td ><td>Routine</td><td>02/09/2020 8:13 AM EST</td><td></td><td> </td> 02/09/2020 08:13:00 AM [facility] GLUCOSE QUANTITATIVE BLOOD XCPT REAGENT STRIP <td>POCT GLUCOSE, DOCKED</td><td>Routine</td><td>02/08/2020 9:47 PM EST</td><td></td><td> </td> 02/08/2020 09:47:00 PM [facility] GLUCOSE QUANTITATIVE BLOOD XCPT REAGENT STRIP <td>POCT GLUCOSE, DOCKED</td><td>Routine</td><td>02/08/2020 5:15 PM EST</td><td></td><td> </td> 02/08/2020 05:15:00 PM [facility] GLUCOSE QUANTITATIVE BLOOD XCPT REAGENT STRIP <td>POCT GLUCOSE, DOCKED</td><td>Routine</td><td>02/08/2020 12:26 PM EST</td><td></td><td> </td> 02/08/2020 12:26:00 PM [facility] GLUCOSE QUANTITATIVE BLOOD XCPT REAGENT STRIP <td>POCT GLUCOSE, DOCKED</td><td>Routine</td><td>02/08/2020 8:17 AM EST</td><td></td><td> </td> 02/08/2020 08:17:00 AM [facility] GLUCOSE QUANTITATIVE BLOOD XCPT REAGENT STRIP <td>POCT GLUCOSE, DOCKED</td><td>Routine</td><td>02/07/2020 9:15 PM EST</td><td></td><td> </td> 02/07/2020 09:15:00 PM [facility] GLUCOSE QUANTITATIVE BLOOD XCPT REAGENT STRIP <td>POCT GLUCOSE, DOCKED</td><td>Routine</td><td>02/07/2020 5:30 PM EST</td><td></td><td> </td> 02/07/2020 05:30:00 PM [facility] GLUCOSE QUANTITATIVE BLOOD XCPT REAGENT STRIP <td>POCT GLUCOSE, DOCKED</td><td>Routine</td><td>02/07/2020 12:26 PM EST</td><td></td><td> </td> 02/07/2020 12:26:00 PM [facility] COVID-19 PCR <td>COVID-19 PCR</td><td>Rou alison</td><td>02/07/2020 11:12 AM EST</td><td></td><td> </td> 02/07/2020 11:12:00 AM [facility] GLUCOSE QUANTITATIVE BLOOD XCPT REAGENT STRIP <td>POCT GLUCOSE, DOCKED</td><td>Routine</td><td>02/07/2020 8:50 AM EST</td><td></td><td> </td> 02/07/2020 08:50:00 AM [facility] GLUCOSE QUANTITATIVE BLOOD XCPT REAGENT STRIP <td>POCT GLUCOSE, DOCKED</td><td>Routine</td><td>02/06/2020 9:50 PM EST</td><td></td><td> </td> 02/06/2020 09:50:00 PM [facility] GLUCOSE QUANTITATIVE BLOOD XCPT REAGENT STRIP <td>POCT GLUCOSE, DOCKED</td><td>Routine</td><td>02/06/2020 5:32 PM EST</td><td></td><td> </td> 02/06/2020 05:32:00 PM [facility] GLUCOSE QUANTITATIVE BLOOD XCPT REAGENT STRIP <td>POCT GLUCOSE, DOCKED</td><td>Routine</td><td>02/06/2020 12:47 PM EST</td><td></td><td> </td> 02/06/2020 12:47:00 PM [facility] GLUCOSE QUANTITATIVE BLOOD XCPT REAGENT STRIP <td>POCT GLUCOSE, DOCKED</td><td>Routine</td><td>02/06/2020 8:34 AM EST</td><td></td><td> </td> 02/06/2020 08:34:00 AM [facility] GLUCOSE QUANTITATIVE BLOOD XCPT REAGENT STRIP <td>POCT GLUCOSE, DOCKED</td><td>Routine</td><td>02/05/2020 9:34 PM EST</td><td></td><td> </td> 02/05/2020 09:34:00 PM [facility] GLUCOSE QUANTITATIVE BLOOD XCPT REAGENT STRIP <td>POCT GLUCOSE, DOCKED</td><td>Routine</td><td>02/05/2020 5:31 PM EST</td><td></td><td> </td> 02/05/2020 05:31:00 PM [facility] GLUCOSE QUANTITATIVE BLOOD XCPT REAGENT STRIP <td>POCT GLUCOSE, DOCKED</td><td>Routine</td><td>02/05/2020 12:47 PM EST</td><td></td><td> </td> 02/05/2020 12:47:00 PM [facility] GLUCOSE QUANTITATIVE BLOOD XCPT REAGENT STRIP <td>POCT GLUCOSE, DOCKED</td><td>Routine</td><td>02/05/2020 8:56 AM EST</td><td></td><td> </td> 02/05/2020 08:56:00 AM [facility] GLUCOSE QUANTITATIVE BLOOD XCPT REAGENT STRIP <td>POCT GLUCOSE, DOCKED</td><td>Routine</td><td>02/04/2020 9:56 PM EST</td><td></td><td> </td> 02/04/2020 09:56:00 PM [facility] GLUCOSE QUANTITATIVE BLOOD XCPT REAGENT STRIP <td>POCT GLUCOSE, DOCKED</td><td>Routine</td><td>02/04/2020 5:38 PM EST</td><td></td><td> </td> 02/04/2020 05:38:00 PM [facility] GLUCOSE QUANTITATIVE BLOOD XCPT REAGENT STRIP <td>POCT GLUCOSE, DOCKED</td><td>Routine</td><td>02/04/2020 12:27 PM EST</td><td></td><td> </td> 02/04/2020 12:27:00 PM [facility] GLUCOSE QUANTITATIVE BLOOD XCPT REAGENT STRIP <td>POCT GLUCOSE, DOCKED</td><td>Routine</td><td>02/04/2020 8:13 AM EST</td><td></td><td> </td> 02/04/2020 08:13:00 AM [facility] GLUCOSE QUANTITATIVE BLOOD XCPT REAGENT STRIP <td>POCT GLUCOSE, DOCKED</td><td>Routine</td><td>02/03/2020 9:36 PM EST</td><td></td><td> </td> 02/03/2020 09:36:00 PM [facility] GLUCOSE QUANTITATIVE BLOOD XCPT REAGENT STRIP <td>POCT GLUCOSE, DOCKED</td><td>Routine</td><td>02/03/2020 5:01 PM EST</td><td></td><td> </td> 02/03/2020 05:01:00 PM [facility] POSTOP FOLLOW UP VISIT RELATED TO ORIGINAL PX <td>SUTU RE REMOVAL</td><td>Routine</td><td>02/03/2020 3:30 PM EST</td><td> Closed displaced fracture of neck of right femur 09/21/2019 s/p ORIF</td><td> </td> 02/03/2020 03:30:45 PM EST Closed displaced fracture of neck of right femur 2019 s/p ORIF [facility] Closed displaced fracture of neck of rig ht femur 09/21/2019 s/p ORIF RADIOLOGIC EXAM PELVIS COMPL MINIMUM 3 VIEWS <td>XR PE LVIS 3 VIEWS [id number]</td><td>Urgent</td><td>02/03/2020 2:10 PM EST</td><td></td><td> </td> 02/03/2020 02:10:03 PM [facility] GLUCOSE QUANTITATIVE BLOOD XCPT REAGENT STRIP <td>POCT GLUCOSE, DOCKED</td><td>Routine</td><td>02/03/2020 12:28 PM EST</td><td></td><td> </td> 02/03/2020 12:28:00 PM [facility] GLUCOSE QUANTITATIVE BLOOD XCPT REAGENT STRIP <td>POCT GLUCOSE, DOCKED</td><td>Routine</td><td>02/03/2020 8:48 AM EST</td><td></td><td> </td> 02/03/2020 08:48:00 AM [facility] GLUCOSE QUANTITATIVE BLOOD XCPT REAGENT STRIP <td>POCT GLUCOSE, DOCKED</td><td>Routine</td><td>02/02/2020 9:42 PM EST</td><td></td><td> </td> 02/02/2020 09:42:00 PM [facility] GLUCOSE QUANTITATIVE BLOOD XCPT REAGENT STRIP <td>POCT GLUCOSE, DOCKED</td><td>Routine</td><td>02/02/2020 5:29 PM EST</td><td></td><td> </td> 02/02/2020 05:29:00 PM [facility] GLUCOSE QUANTITATIVE BLOOD XCPT REAGENT STRIP <td>POCT GLUCOSE, DOCKED</td><td>Routine</td><td>02/02/2020 12:43 PM EST</td><td></td><td> </td> 02/02/2020 12:43:00 PM [facility] GLUCOSE QUANTITATIVE BLOOD XCPT REAGENT STRIP <td>POCT GLUCOSE, DOCKED</td><td>Routine</td><td>02/02/2020 8:25 AM EST</td><td></td><td> </td> 02/02/2020 08:25:00 AM [facility] GLUCOSE QUANTITATIVE BLOOD XCPT REAGENT STRIP <td>POCT GLUCOSE, DOCKED</td><td>Routine</td><td>02/01/2020 9:26 PM EST</td><td></td><td> </td> 02/01/2020 09:26:00 PM [facility] GLUCOSE QUANTITATIVE BLOOD XCPT REAGENT STRIP <td>POCT GLUCOSE, DOCKED</td><td>Routine</td><td>02/01/2020 5:29 PM EST</td><td></td><td> </td> 02/01/2020 05:29:00 PM [facility] GLUCOSE QUANTITATIVE BLOOD XCPT REAGENT STRIP <td>POCT GLUCOSE, DOCKED</td><td>Routine</td><td>02/01/2020 12:04 PM EST</td><td></td><td> </td> 02/01/2020 12:04:00 PM [facility] GLUCOSE QUANTITATIVE BLOOD XCPT REAGENT STRIP <td>POCT GLUCOSE, DOCKED</td><td>Routine</td><td>02/01/2020 8:20 AM EST</td><td></td><td> </td> 02/01/2020 08:20:00 AM [facility] GLUCOSE QUANTITATIVE BLOOD XCPT REAGENT STRIP <td>POCT GLUCOSE, DOCKED</td><td>Routine</td><td>01/31/2020 9:17 PM EST</td><td></td><td> </td> 01/31/2020 09:17:00 PM [facility] GLUCOSE QUANTITATIVE BLOOD XCPT REAGENT STRIP <td>POCT GLUCOSE, DOCKED</td><td>Routine</td><td>01/31/2020 5:20 PM EST</td><td></td><td> </td> 01/31/2020 05:20:00 PM [facility] COVID-19 PCR <td>COVID-19 PCR</td><td>Rou alison</td><td>01/31/2020 2:25 PM EST</td><td></td><td> </td> 01/31/2020 02:25:00 PM [facility] GLUCOSE QUANTITATIVE BLOOD XCPT REAGENT STRIP <td>POCT GLUCOSE, DOCKED</td><td>Routine</td><td>01/31/2020 12:08 PM EST</td><td></td><td> </td> 01/31/2020 12:08:00 PM [facility] GLUCOSE QUANTITATIVE BLOOD XCPT REAGENT STRIP <td>POCT GLUCOSE, DOCKED</td><td>Routine</td><td>01/31/2020 8:16 AM EST</td><td></td><td> </td> 01/31/2020 08:16:00 AM [facility] GLUCOSE QUANTITATIVE BLOOD XCPT REAGENT STRIP <td>POCT GLUCOSE, DOCKED</td><td>Routine</td><td>01/30/2020 9:16 PM EST</td><td></td><td> </td> 01/30/2020 09:16:00 PM [facility] GLUCOSE QUANTITATIVE BLOOD XCPT REAGENT STRIP <td>POCT GLUCOSE, DOCKED</td><td>Routine</td><td>01/30/2020 5:17 PM EST</td><td></td><td> </td> 01/30/2020 05:17:00 PM [facility] GLUCOSE QUANTITATIVE BLOOD XCPT REAGENT STRIP <td>POCT GLUCOSE, DOCKED</td><td>Routine</td><td>01/30/2020 12:33 PM EST</td><td></td><td> </td> 01/30/2020 12:33:00 PM [facility] GLUCOSE QUANTITATIVE BLOOD XCPT REAGENT STRIP <td>POCT GLUCOSE, DOCKED</td><td>Routine</td><td>01/30/2020 8:35 AM EST</td><td></td><td> </td> 01/30/2020 08:35:00 AM [facility] COVID-19 PCR <td>COVID-19 PCR</td><td>Rou alison</td><td>01/30/2020 6:42 AM EST</td><td></td><td> </td> 01/30/2020 06:42:00 AM [facility] BLOOD COUNT COMPLETE AUTO&AUTO DIFRNTL WBC COUNT <td>C BC AND DIFFERENTIAL</td><td>Routine</td><td>01/30/2020 6:42 AM EST</td><td></td><td> </td> 01/30/2020 06:42:00 AM [facility] GLUCOSE QUANTITATIVE BLOOD XCPT REAGENT STRIP <td>POCT GLUCOSE, DOCKED</td><td>Routine</td><td>01/29/2020 9:11 PM EST</td><td></td><td> </td> 01/29/2020 09:11:00 PM [facility] GLUCOSE QUANTITATIVE BLOOD XCPT REAGENT STRIP <td>POCT GLUCOSE, DOCKED</td><td>Routine</td><td>01/29/2020 5:13 PM EST</td><td></td><td> </td> 01/29/2020 05:13:00 PM [facility] GLUCOSE QUANTITATIVE BLOOD XCPT REAGENT STRIP <td>POCT GLUCOSE, DOCKED</td><td>Routine</td><td>01/29/2020 12:26 PM EST</td><td></td><td> </td> 01/29/2020 12:26:00 PM [facility] GLUCOSE QUANTITATIVE BLOOD XCPT REAGENT STRIP <td>POCT GLUCOSE, DOCKED</td><td>Routine</td><td>01/29/2020 8:24 AM EST</td><td></td><td> </td> 01/29/2020 08:24:00 AM [facility] GLUCOSE QUANTITATIVE BLOOD XCPT REAGENT STRIP <td>POCT GLUCOSE, DOCKED</td><td>Routine</td><td>01/28/2020 9:01 PM EST</td><td></td><td> </td> 01/28/2020 09:01:00 PM [facility] GLUCOSE QUANTITATIVE BLOOD XCPT REAGENT STRIP <td>POCT GLUCOSE, DOCKED</td><td>Routine</td><td>01/28/2020 5:05 PM EST</td><td></td><td> </td> 01/28/2020 05:05:00 PM [facility] GLUCOSE QUANTITATIVE BLOOD XCPT REAGENT STRIP <td>POCT GLUCOSE, DOCKED</td><td>Routine</td><td>01/28/2020 12:34 PM EST</td><td></td><td> </td> 01/28/2020 12:34:00 PM [facility] GLUCOSE QUANTITATIVE BLOOD XCPT REAGENT STRIP <td>POCT GLUCOSE, DOCKED</td><td>Routine</td><td>01/28/2020 8:36 AM EST</td><td></td><td> </td> 01/28/2020 08:36:00 AM [facility] COVID-19 PCR <td>COVID-19 PCR</td><td>Rou alison</td><td>01/28/2020 1:50 AM EST</td><td></td><td> </td> 01/28/2020 01:50:00 AM [facility] GLUCOSE QUANTITATIVE BLOOD XCPT REAGENT STRIP <td>POCT GLUCOSE, DOCKED</td><td>Routine</td><td>01/28/2020 1:28 AM EST</td><td></td><td> </td> 01/28/2020 01:28:00 AM [facility] CT PELVIS W/O CONTRAST MATERIAL <td>CT PELVIS WITHOUT CONTRAST [id number]</td><td>STAT</td><td>01/27/2020 11:21 PM EST</td><td></td><td> </td> 01/27/2020 11:21:50 PM [facility] XR FEMUR, MINIMUM OF 2 VIEWS [id number] <td>XR FEMUR, MINI MUM OF 2 VIEWS 21698</td><td>STAT</td><td>01/27/2020 10:23 PM EST</td><td></td><td> </td> 01/27/2020 10:23:00 PM [facility] XR HIP- UNILAT, 2-3 VIEWS [id number] <td>XR HIP- UNILAT, 2 -3 VIEWS 22422</td><td>STAT</td><td>01/27/2020 10:23 PM EST</td><td></td><td> </td> 01/27/2020 10:23:00 PM [facility] RADIOLOGIC EXAMINATION PELVIS 1/2 VIEWS <td>XR PELVIS 1-2 VIEWS 50788</td><td>STAT</td><td>01/27/2020 10:23 PM EST</td><td></td><td> </td> 01/27/2020 10:23:00 PM [facility] BLOOD COUNT COMPLETE AUTO&AUTO DIFRNTL WBC COUNT <td>C BC AND DIFFERENTIAL</td><td>Routine</td><td>01/27/2020 9:54 PM EST</td><td></td><td> </td> 01/27/2020 09:54:00 PM [facility] BLOOD TYPING ABO <td>TYPE AND SCREEN</td><td> STAT</td><td>01/27/2020 9:54 PM EST</td><td></td><td> </td> 01/27/2020 09:54:00 PM [facility] BASIC METABOLIC PANEL CALCIUM TOTAL <td>BASIC METABOLI C PANEL</td><td>Routine</td><td>01/27/2020 9:54 PM EST</td><td></td><td> </td> 01/27/2020 09:54:00 PM [facility] POCT GLUCOSE, DOCKED <td>POCT GLUCOSE, DOCKED</td ><td>Routine</td><td>01/21/2020 8:24 AM EST</td><td></td><td> </td> 01/21/2020 08:24:00 AM [facility] BLOOD COUNT COMPLETE AUTOMATED <td>CBC</td><td>Routine </td><td>01/21/2020 3:24 AM EST</td><td></td><td> </td> 01/21/2020 03:24:00 AM [facility] BASIC METABOLIC PANEL CALCIUM TOTAL <td>BASIC METABOLI C PANEL</td><td>Routine</td><td>01/21/2020 3:24 AM EST</td><td></td><td> </td> 01/21/2020 03:24:00 AM [facility] GLUCOSE QUANTITATIVE BLOOD XCPT REAGENT STRIP <td>POCT GLUCOSE, DOCKED</td><td>Routine</td><td>01/20/2020 8:57 PM EST</td><td></td><td> </td> 01/20/2020 08:57:00 PM [facility] GLUCOSE QUANTITATIVE BLOOD XCPT REAGENT STRIP <td>POCT GLUCOSE, DOCKED</td><td>Routine</td><td>01/20/2020 5:38 PM EST</td><td></td><td> </td> 01/20/2020 05:38:00 PM [facility] GLUCOSE QUANTITATIVE BLOOD XCPT REAGENT STRIP <td>POCT GLUCOSE, DOCKED</td><td>Routine</td><td>01/20/2020 12:35 PM EST</td><td></td><td> </td> 01/20/2020 12:35:00 PM [facility] RADIOLOGIC EXAMINATION PELVIS 1/2 VIEWS <td>XR PELVIS 1-2 VIEWS 83917</td><td>STAT</td><td>01/20/2020 10:54 AM EST</td><td></td><td> </td> 01/20/2020 10:54:18 AM [facility] GLUCOSE QUANTITATIVE BLOOD XCPT REAGENT STRIP <td>POCT GLUCOSE, DOCKED</td><td>Routine</td><td>01/20/2020 10:14 AM EST</td><td></td><td> </td> 01/20/2020 10:14:00 AM [facility] US GUIDED PERIPHERAL NERVE BLOCK (OR ONLY) <td>US GUID ED PERIPHERAL NERVE BLOCK (OR ONLY)</td><td>Routine</td><td>01/20/2020 7:31 AM EST</td><td></td><td></td> 01/20/2020 07:31:[address] [facility] US GUIDED PERIPHERAL NERVE BLOCK (OR ONLY) <td>US GUID ED PERIPHERAL NERVE BLOCK (OR ONLY)</td><td>Routine</td><td>01/20/2020 7:00 AM EST</td><td></td><td></td> 01/20/2020 07:00:[address] [facility] GLUCOSE QUANTITATIVE BLOOD XCPT REAGENT STRIP <td>POCT GLUCOSE, DOCKED</td><td>Routine</td><td>01/20/2020 7:00 AM EST</td><td></td><td> </td> 01/20/2020 07:00:00 AM [facility] POCT GLUCOSE, DOCKED <td>POCT GLUCOSE, DOCKED</td ><td>Routine</td><td>01/12/2020 12:41 PM EST</td><td></td><td> </td> 01/12/2020 12:41:00 PM [facility] POCT GLUCOSE, DOCKED <td>POCT GLUCOSE, DOCKED</td ><td>Routine</td><td>01/12/2020 8:40 AM EST</td><td></td><td> </td> 01/12/2020 08:40:00 AM [facility] PARTIAL THROMBOPLASTIN TIME (PTT) <td>PARTIAL THROMBOP LASTIN TIME (PTT)</td><td>Routine</td><td>01/12/2020 5:02 AM EST</td><td></td><td> </td> 01/12/2020 05:02:00 AM [facility] PROTHROMBIN TIME <td>PROTIME INR</td><td>Rout ine</td><td>01/12/2020 5:02 AM EST</td><td></td><td> </td> 01/12/2020 05:02:00 AM [facility] BLOOD TYPING ABO <td>TYPE AND SCREEN</td><td> Routine</td><td>01/12/2020 5:02 AM EST</td><td></td><td> </td> 01/12/2020 05:02:00 AM [facility] GLUCOSE QUANTITATIVE BLOOD XCPT REAGENT STRIP <td>POCT GLUCOSE, DOCKED</td><td>Routine</td><td>01/11/2020 9:07 PM EST</td><td></td><td> </td> 01/11/2020 09:07:00 PM [facility] GLUCOSE QUANTITATIVE BLOOD XCPT REAGENT STRIP <td>POCT GLUCOSE, DOCKED</td><td>Routine</td><td>01/11/2020 5:41 PM EST</td><td></td><td> </td> 01/11/2020 05:41:00 PM [facility] GLUCOSE QUANTITATIVE BLOOD XCPT REAGENT STRIP <td>POCT GLUCOSE, DOCKED</td><td>Routine</td><td>01/11/2020 12:40 PM EST</td><td></td><td> </td> 01/11/2020 12:40:00 PM [facility] GLUCOSE QUANTITATIVE BLOOD XCPT REAGENT STRIP <td>POCT GLUCOSE, DOCKED</td><td>Routine</td><td>01/11/2020 8:21 AM EST</td><td></td><td> </td> 01/11/2020 08:21:00 AM [facility] BLOOD COUNT COMPLETE AUTOMATED <td>CBC</td><td>Routine </td><td>01/11/2020 5:14 AM EST</td><td></td><td> </td> 01/11/2020 05:14:00 AM [facility] BASIC METABOLIC PANEL CALCIUM TOTAL <td>BASIC METABOLI C PANEL</td><td>Routine</td><td>01/11/2020 5:14 AM EST</td><td></td><td> </td> 01/11/2020 05:14:00 AM [facility] GLUCOSE QUANTITATIVE BLOOD XCPT REAGENT STRIP <td>POCT GLUCOSE, DOCKED</td><td>Routine</td><td>01/10/2020 8:43 PM EST</td><td></td><td> </td> 01/10/2020 08:43:00 PM [facility] GLUCOSE QUANTITATIVE BLOOD XCPT REAGENT STRIP <td>POCT GLUCOSE, DOCKED</td><td>Routine</td><td>01/10/2020 5:36 PM EST</td><td></td><td> </td> 01/10/2020 05:36:00 PM [facility] GLUCOSE QUANTITATIVE BLOOD XCPT REAGENT STRIP <td>POCT GLUCOSE, DOCKED</td><td>Routine</td><td>01/10/2020 12:34 PM EST</td><td></td><td> </td> 01/10/2020 12:34:00 PM [facility] ARTHROCENTESIS ASPIR&/INJECTION MAJOR JT/BURSA <td>IR IMAGE GUIDED NEEDLE DRAIN PROCEDURE</td><td>Routine</td><td>01/10/2020 12:21 PM EST</td><td></td><td> </td> 01/10/2020 12:21:50 PM [facility] CUL BACT XCPT URINE BLOOD/STOOL AEROBIC ISOL <td>FLUID CULTURE(SYNOVIAL)</td><td>Routine</td><td>01/10/2020 12:05 PM EST</td><td></td><td></td> 01/10/2020 12:05:00 PM [facility] GLUCOSE QUANTITATIVE BLOOD XCPT REAGENT STRIP <td>POCT GLUCOSE, DOCKED</td><td>Routine</td><td>01/10/2020 11:17 AM EST</td><td></td><td> </td> 01/10/2020 11:17:00 AM [facility] GLUCOSE QUANTITATIVE BLOOD XCPT REAGENT STRIP <td>POCT GLUCOSE, DOCKED</td><td>Routine</td><td>01/10/2020 8:39 AM EST</td><td></td><td> </td> 01/10/2020 08:39:00 AM [facility] CELL COUNT, SYNOVIAL FLUID <td>CELL COUNT, SYNOVIAL FLUID</td><td>Routine</td><td>01/10/2020 7:43 AM EST</td><td></td><td> </td> 01/10/2020 07:43:00 AM [facility] CT LOWER EXTREMITY W/O CONTRAST MATERIAL <td>CT LOWER EXTREMITY WITHOUT CONTRAST [id number]</td><td>Routine</td><td>01/10/2020 7:01 AM EST</td><td></td><td> </td> 01/10/2020 07:01:32 AM [facility] GLUCOSE QUANTITATIVE BLOOD XCPT REAGENT STRIP <td>POCT GLUCOSE, DOCKED</td><td>Routine</td><td>01/10/2020 5:38 AM EST</td><td></td><td> </td> 01/10/2020 05:38:00 AM [facility] GLUCOSE QUANTITATIVE BLOOD XCPT REAGENT STRIP <td>POCT GLUCOSE, DOCKED</td><td>Routine</td><td>01/10/2020 2:59 AM EST</td><td></td><td> </td> 01/10/2020 02:59:00 AM [facility] SEDIMENTATION RATE RBC AUTOMATED <td>SEDIMENTATION RAT E, AUTOMATED</td><td>Routine</td><td>01/09/2020 11:27 PM EST</td><td></td><td> </td> 01/09/2020 11:27:00 PM [facility] BLOOD COUNT COMPLETE AUTO&AUTO DIFRNTL WBC COUNT <td>C BC AND DIFFERENTIAL</td><td>Routine</td><td>01/09/2020 11:27 PM EST</td><td></td><td> </td> 01/09/2020 11:27:00 PM [facility] C-REACTIVE PROTEIN <td>INFLAMMATORY C-REACTIVE PROTEIN (CRP)</td><td>Routine</td><td>01/09/2020 11:27 PM EST</td><td></td><td> </td> 01/09/2020 11:27:00 PM [facility] HEMOGLOBIN GLYCOSYLATED A1C <td>HEMOGLOBIN A1C</td><td>Routine</td><td>01/09/2020 11:27 PM EST</td><td></td><td> </td> 01/09/2020 11:27:00 PM [facility] BASIC METABOLIC PANEL CALCIUM TOTAL <td>BASIC METABOLI C PANEL</td><td>STAT</td><td>01/09/2020 11:27 PM EST</td><td></td><td> </td> 01/09/2020 11:27:00 PM [facility] XR FEMUR, MINIMUM OF 2 VIEWS [id number] <td>XR FEMUR, MINI MUM OF 2 VIEWS 79131</td><td>STAT</td><td>01/09/2020 10:11 PM EST</td><td></td><td> </td> 01/09/2020 10:11:59 PM [facility] XR HIP- UNILAT, 2-3 VIEWS 49421 <td>XR HIP- UNILAT, 2 -3 VIEWS 59753</td><td>STAT</td><td>01/09/2020 10:11 PM EST</td><td></td><td> </td> 01/09/2020 10:11:59 PM [facility] SURGERY CASE REQUEST OUTSIDE FACILITY ONLY <td>SURGERY CASE REQUEST OUTSIDE FACILITY ONLY</td><td>Routine</td><td>01/03/2020 8:36 AM EST</td><td> Closed displaced fracture of neck of right femur</td><td></td> 01/03/2020 08:36:33 AM EST Closed displaced fracture of neck of right femur [facility] Closed displaced fracture of neck of rig ht femur GLUC BLD GLUC MNTR DEV CLEARED FDA SPEC HOME USE <td>P OCT GLUCOSE</td><td>Routine</td><td>12/29/2019 11:33 AM EDT</td><td></td><td> </td> 12/29/2019 03:33:00 PM EDT [facility] GLUC BLD GLUC MNTR DEV CLEARED FDA SPEC HOME USE <td>P OCT GLUCOSE</td><td>Routine</td><td>12/29/2019 8:35 AM EDT</td><td></td><td> </td> 12/29/2019 12:35:00 PM EDT [facility] GLUC BLD GLUC MNTR DEV CLEARED FDA SPEC HOME USE <td>P OCT GLUCOSE</td><td>Routine</td><td>12/28/2019 5:30 PM EDT</td><td></td><td> </td> 12/28/2019 09:30:00 PM EDT [facility] GLUC BLD GLUC MNTR DEV CLEARED FDA SPEC HOME USE <td>P OCT GLUCOSE</td><td>Routine</td><td>12/28/2019 12:13 PM EDT</td><td></td><td> </td> 12/28/2019 04:13:00 PM EDT [facility] BLOOD COUNT COMPLETE AUTOMATED <td>CBC</td><td>Routine </td><td>12/28/2019 10:19 AM EDT</td><td></td><td> </td> 12/28/2019 02:19:00 PM EDT [facility] BASIC METABOLIC PANEL CALCIUM TOTAL <td>BASIC METABOLI C PANEL</td><td>Routine</td><td>12/28/2019 10:19 AM EDT</td><td></td><td> </td> 12/28/2019 02:19:00 PM EDT [facility] LACTATE <td>LACTIC ACID</td><td>STAT </td><td>12/28/2019 1:07 AM EDT</td><td></td><td> </td> 12/28/2019 05:07:00 AM EDT [facility] URINE CULTURE HOLD SPECIMEN <td>URINE CULTURE HOLD SPECIMEN</td><td>STAT</td><td>12/28/2019 1:00 AM EDT</td><td></td><td> </td> 12/28/2019 05:00:00 AM EDT [facility] DRUG SCR QUAL 1 DRUG CLASS METH EA DRUG CLASS <td>URIN E TOX SCREEN</td><td>STAT</td><td>12/28/2019 1:00 AM EDT</td><td></td><td> </td> 12/28/2019 05:00:00 AM EDT [facility] URNLS DIP STICK/TABLET RGNT AUTO W/O MICROSCOPY <td>UR INALYSIS W/O MICRO</td><td>STAT</td><td>12/28/2019 1:00 AM EDT</td><td></td><td> </td> 12/28/2019 05:00:00 AM EDT [facility] CT LOWER EXTREMITY W/CONTRAST MATERIAL <td>CT LOWER EX TREMITY W CONTRAST RIGHT</td><td>Routine</td><td>12/27/2019 11:09 PM EDT</td><td></td><td> </td> 12/28/2019 03:09:33 AM EDT [facility] CT ABDOEN & PELVIS W/CONTRAST MATERIAL <td>CT ABDOMEN PELVIS W CONTRAST</td><td>Routine</td><td>12/27/2019 11:09 PM EDT</td><td></td><td> </td> 12/28/2019 03:09:33 AM EDT [facility] CULTURE BACTERIAL BLOOD AEROBIC W/ID ISOLATES <td>BLOO D CULTURE</td><td>Routine</td><td>12/27/2019 10:08 PM EDT</td><td></td><td></td> 12/28/2019 02:08:00 AM EDT [facility] CULTURE BACTERIAL BLOOD AEROBIC W/ID ISOLATES <td>BLOO D CULTURE</td><td>Routine</td><td>12/27/2019 9:29 PM EDT</td><td></td><td></td> 12/28/2019 01:29:00 AM EDT [facility] BLOOD GASES ANY COMBINATION PH PCO2 PO2 CO2 HCO3 <td>B LOOD GAS, VENOUS</td><td>Routine</td><td>12/27/2019 9:29 PM EDT</td><td></td><td> </td> 12/28/2019 01:29:00 AM EDT [facility] BLOOD COUNT COMPLETE AUTO&AUTO DIFRNTL WBC COUNT <td>C BC AND DIFFERENTIAL</td><td>STAT</td><td>12/27/2019 9:28 PM EDT</td><td></td><td> </td> 12/28/2019 01:28:00 AM EDT [facility] THYROID STIMULATING HORMONE TSH <td>TSH</td><td>STAT</ td><td>12/27/2019 9:28 PM EDT</td><td></td><td> </td> 12/28/2019 01:28:00 AM EDT [facility] THYROXINE FREE <td>T4, FREE</td><td>STAT</t d><td>12/27/2019 9:28 PM EDT</td><td></td><td> </td> 12/28/2019 01:28:00 AM EDT [facility] LACTATE <td>LACTIC ACID</td><td>STAT </td><td>12/27/2019 9:28 PM EDT</td><td></td><td> </td> 12/28/2019 01:28:00 AM EDT [facility] HEMOGLOBIN GLYCOSYLATED A1C <td>HEMOGLOBIN A1C</td><td >Add-On</td><td>12/27/2019 9:28 PM EDT</td><td></td><td> </td> 12/28/2019 01:28:00 AM EDT [facility] ALCOHOL ANY SPECIMEN EXCEPT BREATH <td>ETHANOL</td><td >STAT</td><td>12/27/2019 9:28 PM EDT</td><td></td><td> </td> 12/28/2019 01:28:00 AM EDT [facility] HEPATIC FUNCTION PANEL <td>HEPATIC FUNCTION PANEL</td><td>STAT</td><td>12/27/2019 9:28 PM EDT</td><td></td><td> </td> 12/28/2019 01:28:00 AM EDT [facility] BASIC METABOLIC PANEL CALCIUM TOTAL <td>BASIC METABOLI C PANEL</td><td>STAT</td><td>12/27/2019 9:28 PM EDT</td><td></td><td> </td> 12/28/2019 01:28:00 AM EDT [facility] Results ID Date Data Source [id number] 12/13/2020 06:18:27 AM EDT [facility] XR HIP- UNILAT, 2-3 VIEWS [id number] RE SULTInterpreted by:Trevin Arroyo, MDPELVIS AND RIGHT [...] rce(s) Supporting Document(s) ID Date Data Source [id number] 12/12/2020 01:00:44 PM EDT [facility] Name Value Range Interpretation Code Description Data Maritza rce(s) Supporting Document(s) Progress Note [facility] [id number]/LVTsaSASfk1AsIXtkKEz5NUnfTPOsF1MkIWN8tI6vRCR9MBhCBaTqKvKuPWEk lbm [file] [id number]+ED0mLLn+[id number]XEQx== ID Date Data Source [id number] 11/22/2020 01:50:00 AM EDT [facility] [address] [id number] [phone] NAME SEX PT STATUS ACCOUNT NUMBER JEREMIAH PEREZ [facility] [id number] ORDERING PHYSICIAN LOCATION MEDICAL RECORD NO. Alexander Narayan MD ER [id number] ATTENDING PHYSICIAN DATE OF DATE OF EXAM/TIME [...] rce(s) Supporting Document(s) ID Date Data Source [id number] 11/22/2020 01:30:00 AM EDT [facility] [address] [id number] [phone] NAME SEX PT STATUS ACCOUNT NUMBER JEREMIAH PEREZ [facility] [id number] ORDERING PHYSICIAN LOCATION MEDICAL RECORD NO. Alexander Narayan MD ER [id number] ATTENDING PHYSICIAN DATE OF DATE OF EXAM/TIME [...] rce(s) Supporting Document(s) ID Date Data Source [id number] 11/22/2020 01:13:00 AM EDT [facility] [address] [place] [address] [phone] NAME SEX PT STATUS ACCOUNT NUMBER JEREMIAH PEREZ [facility] ER [id number] ORDERING PHYSICIAN LOCATION MEDICAL RECORD NO. Alexander Narayan MD ER [id number] ATTENDING PHYSICIAN DATE OF DATE OF EXAM/TIME [...] 11/22/2020 (01:13 Time ) Signed by: Beau Morales M.D. Reported By Beau Mroales MD on 11/22/20112 Signed By Beau Morales MD on 11/22/20112 Date Time CC: Beau Morales MD; RADHA MCDANIELS MD Techn: BAIAB Trans Dt/Tm: Trans by: DT Prt Dt/Tm: : Total DLP = 0.00 mGy-cm Fluoroscopy Time (in secs): Name Value Range Interpretation Code Description Data Maritza rce(s) Supporting Document(s) ID Date Data Source [id number] 11/22/2020 01:10:00 AM EDT [facility] Name Value Range Interpretation Code Description Data Maritza rce(s) Supporting Document(s) Acetone [Presence] in Serum or Plasma NEGATIVE [facility] @Reenter manual test result: NEG@by Liss Easton at 11/22/20109.@Enter lot# for AimTab tablets LOT [id number] EXP 03/02/22 ID Date Data Source [id number] 11/22/2020 12:48:00 AM EDT [facility] Name Value Range Interpretation Code Description Data Maritza rce(s) Supporting Document(s) Lipase [Enzymatic activity/volume] in Serum or Plasma 45 U/L 73-393 Below low normal [facility] ID Date Data Source [id number] 11/22/2020 12:56:00 AM EDT [facility] Reason for ordering culture: Abnormal fi ndings UAMethod of Collection:: Voided Name Value Range Interpretation Code Description Data Maritza rce(s) Supporting Document(s) Urea nitrogen [Mass/volume] in Serum or Plasma 10 mg/dL 9-23 N [facility] Sodium [Moles/volume] in Serum or Plasma 133 mmol/L 132-146 N [facility] Potassium [Moles/volume] in Serum or Plasma 4.1 mmol/L 3.5-5.5 N [facility] Chloride [Moles/volume] in Serum or Plasma 98 mmol/L 99-109 Belo w low normal [facility] Carbon dioxide, total [Moles/volume] in Serum or Plasma 31 mmol/L 20 -31 N [facility] Anion gap in Serum or Plasma 8 mmol/L 8-16 N [facility] Glucose [Mass/volume] in Serum or Plasma 546 mg/dL 74-106 No range defined, or normal ranges don't apply [facility] @Instrument will autodilute@review test & document.Called to JENNIFER THOMAS @ 0054 by Liss Young.Results read back.Repeated by: Liss Young 11/22/2055.Result Confirmation: >500 mg/dL Creatinine 0.9 mg/dL 0.5-1.1 [facility] Glomerular filtration rate/1.73 sq M.pre dicted [Volume Rate/Area] in Serum or Plasma Greater Than 60 ABOVE 60 [facility] Alanine aminotransferase [Enzymatic acti vity/volume] in Serum or Plasma by With P-5'-P 48 U/L 10-49 N [facility] ital Aspartate aminotransferase [Enzymatic ac tivity/volume] in Serum or Plasma by With P-5'-P 19 U/L 0-33 N [facility] pital Alkaline phosphatase [Enzymatic activity/volume] in Serum or Plasma 138 U/L 45-129 Above high normal [facility] Calcium [Mass/volume] in Serum or Plasma 8.7 mg/dL 8.5-10.1 [facility] Bilirubin.total [Mass/volume] in Serum or Plasma 0.2 mg/dL 0.3-1.2 Below low normal [facility] Albumin [Mass/volume] in Serum or Plasma by Bromocresol purple (BCP) dye binding method 3.1 g/dL 3.2-4.[address] [facility] Protein [Mass/volume] in Serum or Plasma 7.0 g/dL 5.7-8.2 N [facility] ID Date Data Source [id number] 11/22/2020 12:57:00 AM EDT [facility] Reason for ordering culture: [facility] UAMethod of Collection:: Voided Name Value Range Interpretation Code Description Data Maritza rce(s) Supporting Document(s) Prothrombin Time (Patient) 10.0 s 9.6-12.3 N [facility] INR 0.9 0.9-1.1 [facility] THE INR IS OPERATIONALLY DEFINED FOR DARA SH PLASMA FROMPATIENTS STABILIZED ON ORAL ANTICOAGULANTS.ROUTINE ANTICOAGULANT THERAPY 2.0-3.0RECURRENT SYSTEMIC EMBOLISM/HEART VALVE REPLACEMENT 2.5-3.5 aPTT.lupus sensitive (LA screen) 24.2 s 22.7-31.6 [facility] ID Date Data Source [id number] 11/22/2020 06:36:00 AM EDT [facility] Reason for ordering culture: [facility] UAMethod of Collection:: Voided Name Value Range Interpretation Code Description Data Maritza rce(s) Supporting Document(s) Leukocytes [#/volume] in Blood by Automated count 8.6 10*3/uL 4.45-[address] [facility] Erythrocytes [#/volume] in Blood by Automated count 4.51 10*6/uL 4.3- 6.1 [facility] Hemoglobin [Moles/volume] in Blood 12.7 g/dL 13-18 Below low no rmal [facility] Hematocrit [Volume Fraction] of Blood by Automated count 39.6 % 42-52 Below low normal [facility] Erythrocyte mean corpuscular volume [Ent itic volume] in Cord blood by Automated count 88 fL 80-96 [facility] ital Erythrocyte mean corpuscular hemoglobin [Entitic mass] by Au tomated count 28 pg 27-31 N [facility] Erythrocyte mean corpuscular hemoglobin concentration [Mass/volume] in Cord blood 32 g/dL 33-[address] [facility] Erythrocyte distribution width [Entitic volume] by Automated count 13 % 11-15 N [facility] Platelets [#/volume] in Blood by Automated count 317 10*3/uL 130-472 N [facility] Platelet mean volume [Entitic volume] in Blood 10.2 fL 9.1-13.1 N [facility] Neutrophils/100 leukocytes in Blood by Automated count 69.9 % 41- 77 N [facility] Neutrophils [#/volume] in Blood by Automated count 6.0 U 1.7-7.6 N [facility] Lymphocytes/100 leukocytes in Blood by Automated count 20.3 % 14- 46 N [facility] Lymphocytes [#/volume] in Blood by Automated count 1.7 U 0.6-4.6 N [facility] Monocytes/100 leukocytes in Blood by Automated count 7.9 % 4-12 N [facility] Monocytes [#/volume] in Blood by Automated count 0.7 U 0.2-1.2 N [facility] Eosinophils/100 leukocytes in Blood by Automated count 0.8 % 0-7 N [facility] Eosinophils [#/volume] in Blood by Automated count 0.1 U 0.0-0.5 N [facility] Basophils/100 leukocytes in Blood by Automated count 0.4 % 0.4-1 .3 N [facility] Basophils [#/volume] in Blood by Automated count 0.0 U 0.0-0.2 [facility] NUCLEATED RED BLOOD CELL 0 % [facility] NUCLEATED RED BLOOD CELL# 0 U [facility] Immature granulocytes [Presence] in Blood by Automated count 0-2 N [facility] Immature granulocytes [#/volume] in Blood by Automated count 0.1 U 0-0.1 N [facility] Manual Differential panel - Blood NO [facility] ID Date Data Source [id number] 11/22/2020 12:43:00 AM EDT [facility] Reason for ordering culture: Abnormal fi ndings UAMethod of Collection:: Voided Name Value Range Interpretation Code Description Data Maritza rce(s) Supporting Document(s) Color of Urine [facility] Appearance of Urine CLEAR [facility] pH of Urine by Test strip 6.0 5-8 [facility] Specific gravity of Urine by Refractometry 1.033 1.005 -1.030 Abnormal (applies to non-numeric results) [facility] Leukocyte esterase [Presence] in Urine by Test strip NEGAT SHANE [facility] Nitrite [Presence] in Urine by Test strip NEGATIVE [facility] Protein [Presence] in Urine by Test strip NEGATIVE [facility] Glucose [Mass/volume] in Urine by Automated test strip > 1000 mg /dl NEGATIVE Abnormal (applies to non-numeric results) [facility] Ketones [Presence] in Urine by Test strip NEGATIVE [facility] Urobilinogen [Presence] in Urine 0.2-1 EU/dl [facility] Bilirubin.total [Presence] in Urine by Automated test strip NEGATIVE [facility] Erythrocytes [#/volume] in Urine by Test strip NEGATIVE NEGATIVE [facility] URINE MICROSCOPIC? (CIF) NO [facility] ID Date Data Source [id number] 11/22/2020 12:15:00 AM EDT [facility] ED Physician Documentation NAME: JEREMIAH PEREZ : 1990 AGE: 30 MR#: [id number] SERVICE DATE: 11/21/[address]: Alexander Narayan [...] Appearance Clear, Urine pH 6.0, Ur Specific [place] 1.033 A, Urine Protein Negative, Urine Ketones [...] rce(s) Supporting Document(s) ID Date Data Source [id number] 11/03/2020 01:20:36 PM EDT [facility] XR CHEST FRONTAL AND LATERAL [id number] RESULTInterpreted by:Marcelino Waller DOINDICATION: HemoptysisCOMPARISON: Portable supine [...] rce(s) Supporting Document(s) ID Date Data Source [id number] 10/04/2020 03:03:00 PM EDT [facility] ([facility]) Name Value Range Interpretation Code Description Data Maritza rce(s) Supporting Document(s) Hepatitis C virus Ab [Units/volume] in Serum by Immuno assay Laboratory test result [facility] ([facility]) <content>S/CO Ratio >/=1.0 is REACTIVE. S/CO <5.0 is Low Reactive. S/CO >/=</content>
<content>5.0 is High Reactive. Effective Oct 25, 2016 all anti-HCV reactive</content>
<content>samples are sent for quantitative PCR confirmation.</content>
<content></content> Cholesterol in LDL [Mass/volume] in Serum or Plasma by Direc t assay 106 mg/dL 20-99 [facility] ([facility]) <content>Per NCEP ATP III Guidelines:</c ontent>
<content>Normal population: <130</content>
<content>Patients with medical conditions: CHD/DM</content>
<content>Optimal range: <100</content>
<content>Borderline high: 130-159</content>
<content>High: 160- 189</content>
<content>Very high: >189</content>
<content></content>
<content></content> ID Date Data Source [id number] 10/04/2020 03:03:00 PM EDT [facility] ([facility]) Name Value Range Interpretation Code Description Data Maritza rce(s) Supporting Document(s) Sodium 132 mmol/L 135-146 [facility] ([facility]) Updated reference range on new analyzer Potassium 4.5 mmol/L 3.5-5.2 [facility] ([facility]) Chloride# 94 mmol/L 97-110 [facility] ([facility]) Updated reference range on new analyzer Calcium 9.5 mg/dL 8.5-10.5 [facility] ([facility]) Updated reference range 07-01-2018 Carbon Dioxide 32 mmol/L 24-34 [facility] ([facility]) Glucose 461 mg/dL 70-105 [facility] ([facility]) Creatinine 0.8 mg/dL 0.5-1.4 [facility] ([facility]) BUN 12 mg/dL 6-26 [facility] ([facility]) Total Protein 6.9 g/dL 6.0-8.0 [facility] ([facility]) Albumin 3.9 g/dL 3.6-4.9 [facility] ([facility]) A/G Ratio 1.3 Ratio 1.0-2.2 [facility] ([facility]) Total Bilirubin 0.4 mg/dL 0.1-1.3 [facility] ([facility]) Globulin 3.0 g/dL 2.0-3.5 [facility] ([facility]) Alkaline Phosphatase 175 U/L 24-140 [facility] ([facility]) Alt 44 U/L 3-42 [facility] ([facility]) Anion Gap 6 mmol/L 5-15 [facility] ([facility]) Updated Reference Range 2-2018 Laboratory test finding (navigational concept) 105 [facility] ([facility]) <content>Concerning GFR Guidelines for A frican Americans:</content>
<content>Normal function or mild renal disease, if clinically at risk: >/= 60</content>
<content>mL/min</content>
<con tent>Moderately decreased: 30-59</content>
<content>Severely decreased: 15-29</content>
<content>Renal failure: <15</content>
<content>There is reduced accuracy above 60ml/min/1.73 m squared, but the</content>
<content>numeric value may be clinically useful in the near 60 range</content>
<content></content> Ast 23 U/L 8-42 [facility] ([facility]) Laboratory test finding (navigational concept) 121 [facility] ([facility]) <content>Concerning GFR Guidelines:</con tent>
<content>Normal function or [...] kidneys.</content>
<content></content>
<content></content> ID Date Data Source [id number] 10/04/2020 03:03:00 PM EDT [facility] ([facility]) Name Value Range Interpretation Code Description Data Maritza rce(s) Supporting Document(s) RBC 5.08 M/uL 4.60-6.10 [facility] ([facility]) Updated Reference Range 01/2019 WBC 8.5 K/uL 4.1-11.0 [facility] ([facility]) Updated Reference Range 01/2019 Hematocrit [Volume Fraction] of Blood by Automated count 42.9 % 4 1.0-53.0 [facility] ([facility]) Updated Reference Range 01/2019 Hemoglobin 14.4 gm/dL 13.5-18.0 [facility] ([facility]) Updated Reference Range 01/2019 MCH 28.4 pg 27.0-32.0 [facility] ([facility]) Updated Reference Range 01/2019 MCV 84.6 fL 80.0-95.0 [facility] ([facility]) Updated Reference Range 01/2019 MCHC 33.6 g/dL 32.0-36.0 [facility] ([facility]) Updated Reference range [...] Reference Range 01/2019 ID Date Data Source [id number] 10/04/2020 03:03:00 PM EDT [facility] (Famil y [...] negative risk factor. ID Date Data Source [id number] 10/04/2020 03:03:00 PM EDT [facility] ([facility]) Name Value Range Interpretation Code Description Data Maritza rce(s) Supporting Document(s) Microalb/Creat Urine 70.19 ug/mgCreat 0.00-30.00 [facility] ([facility]) Creatinine, Urine 46.3 mg/dL [facility] ([facility]) Microalbumin/Creatinine [Mass Ratio] in Urine 32.5 ug/ml 0.0-20.0 [facility] ([facility]) ID Date Data Source [id number] 10/04/2020 03:03:00 PM EDT [facility] ([facility]) Name Value Range Interpretation Code Description Data Maritza rce(s) Supporting Document(s) Hemoglobin A1c @ Laboratory test result 4.0-6.0 [facility] ([facility]) Testing performed by [facility] [address] [place] [address] Performed using Siemens Cambria immunoassay. Care must be taken when interpreting HbA1c results in patients with a hemoglobin variant or decreased erythrocyte lifespan. Values 5.7 - 6.4% suggest prediabetes. Values >=6.5% are diagnostic for diabetes. REFERENCE: DIABETES CARE 2018: 41(S13-S27). RESULT VERIFIED BY REPEAT TESTING. Est Average Glucose Laboratory test result [facility] ([facility]) NOT CALCULATED DUE TO HbA1c >14.0%. Unless otherwise specified, testing performed by [facility] [address] [place] [address] ID Date Data Source [id number] 10/05/2020 11:32:31 PM EDT [facility] Name Value Range Interpretation Code Description Data Maritza rce(s) Supporting Document(s) HEMOGLOBIN A1C @ >14.0 % (4.0-6.0) H [facility] Performed using Siemens Cambria immunoassa y.Care must be taken when interpreting KaK2ztqsalhv in patients with a hemoglobin variantor decreased erythrocyte lifespan. Values 5.7 - 6.4% suggest prediabetes.Values >=6.5% are diagnostic for diabetes.REFERENCE: DIABETES CARE 2018: 41(S13-S27).RESULT VERIFIED BY REPEAT TESTING. EST AVERAGE GLUCOSE Laboratory [facility] ID Date Data Source [id number] 09/30/2020 01:31:00 AM EDT [facility] [address] [place] [address] [phone] NAME SEX PT STATUS ACCOUNT NUMBER JEREMIAH PEREZ [facility] ER [id number] ORDERING PHYSICIAN LOCATION MEDICAL RECORD NO. Alexander Narayan MD ER [id number] ATTENDING PHYSICIAN DATE OF DATE OF EXAM/TIME [...] by: Angie Unger M.D. Reported By Angie Unger MD on 09/30/20130 Signed By Angie Unger MD on 09/30/20130 Date Time CC: RADHA MCDANIELS MD; Angie Unger MD Techn: PALHE Trans Dt/Tm: Trans by: DT Prt Dt/Tm: : Total DLP = 0.00 mGy-cm Fluoroscopy Time (in secs): Name Value Range Interpretation Code Description Data Maritza rce(s) Supporting Document(s) ID Date Data Source [id number] 09/30/2020 01:24:00 AM EDT [facility] ED Physician Documentation NAME: JEREMIAH PEREZ : 1990 AGE: 30 MR#: [id number] SERVICE DATE: 09/29/[address]: Alexander Narayan [...] History (Updated 09/29/20 @ 23:14 by Jennifer Thmoas RN) H/O arthroscopic knee surgery (Surgical) Z98.890 [...] HPI. Otherwise acutely negative at this time [facility] Medical History Obesity Surgical History (Updated [...] rce(s) Supporting Document(s) ID Date Data Source [id number] 09/30/2020 01:18:00 AM EDT [facility] [address] [id number] [phone] NAME SEX PT STATUS ACCOUNT NUMBER JEREMIAH PEREZ [facility] ER [id number] ORDERING PHYSICIAN LOCATION MEDICAL RECORD NO. Alexander Narayan MD ER [id number] ATTENDING PHYSICIAN DATE OF DATE OF EXAM/TIME [...] Trans Dt/Tm: Trans by: DT Prt Dt/Tm: [id number]: Total DLP = 0.00 mGy-cm Fluoroscopy Time (in secs): Name Value Range Interpretation Code Description Data Maritza rce(s) Supporting Document(s) ID Date Data Source [id number] 06/12/2020 01:25:28 PM EDT [facility] CT LOWER EXTREMITY WITHOUT CONTRAST [...] rce(s) Supporting Document(s) ID Date Data Source [id number] 06/12/2020 01:22:27 PM EDT [facility] Name Value Range Interpretation Code Description Data Maritza rce(s) Supporting Document(s) Progress Note [facility] FRJGIj1bHcASJkTs57/ZTTtvPXCvg8NkEBsoVEe0VKzlAVQiC8EuCPL8wA8fHDC6SMrRLhGvErJpYZEr lbm [file] C5Pt4DuU3V3AxuqOpDJW9GhsvBG4lKBzWEHCTTeDVEUKNcXQD6dAhOQG/Construction Management Instructor/axWF0cIggoPgMYF2VP8S [file] AgICAgICAgICAgICAgICAgICAgICAgICAgICAgICAgICAgICAgICAgICAgICAgICAgICANCiAgICAgIC AgICAgICAgICAgICAgICAgICAgICAgICAgICAgICAg ICAgICAgICAgICAgICAgICAgICAgICAgICAgICAgICAgICAgICAgICAgICAgICAgICAgICAgICAgICAg ICANCiAgICAgICAgICAgICAgICAgICAgICAgICAgICAgICAgICAgICAgICAgICAgICAgICAgICAgICAg ICAgICAgICAgICAgICAgICAgICAgICAgICAgICAgIC AgICAgICAgICAgICANCiAgICAgICAgICAgICAgICAgICAgICAgICAgICAgICAgICAgICAgICAgICAgIC AgICAgICAgICAgICAgICAgICAgICAgICAgICAgICAgICAgICAgICAgICAgICAgICAgICAgICANCiAgIC AgICAgICAgICAgICAgICAgICAgICAgICAgICAgICAg ICAgICAgICAgICAgICAgICAgICAgICAgICAgICAgICAgICAgICAgICAgICAgICAgICAgICAgICAgICAg ICAgICANCiAgICAgICAgICAgICAgICAgICAgICAgICAgICAgICAgICAgICAgICAgICAgICAgICAgICAg ICAgICAgICAgICAgICAgICAgICAgICAgICAgICAgIC AgICAgICAgICAgICAgICANCiAgICAgICAgICAgICAgICAgICAgICAgICAgICAgICAgICAgICAgICAgIC AgICAgICAgICAgICAgICAgICAgICAgICAgICAgICAgICAgICAgICAgICAgICAgICAgICAgICAgICANCi AgICAgICAgICAgICAgICAgICAgICAgICAgICAgICAg ICAgICAgICAgICAgICAgICAgICAgICAgICAgICAgICAgICAgICAgICAgICAgICAgICAgICAgICAgICAg ICAgICAgICANCiAgICAgICAgICAgICAgICAgICAgICAgICAgICAgICAgICAgICAgICAgICAgICAgICAg ICAgICAgICAgICAgICAgICAgICAgICAgICAgICAgIC AgICAgICAgICAgICAgICAgICANCiAgICAgICAgICAgICAgICAgICAgICAgICAgICAgICAgICAgICAgIC AgICAgICAgICAgICAgICAgICAgICAgICAgICAgICAgICAgICAgICAgICAgICAgICAgICAgICAgICAgIC ANCjw/hQVhP5kocBBilyU0W5xiNf1DJc0KHI2oq3Vd KPKnLCfpgaYjMznTSqSpUOXvZslLGtc3WUvmWL4BuIDoF6XrS4IkXWnxGY4PWLYcVIBcyLAnIIHwSXDn ZqN1XEJlGAouBV6AySJkGSvlNQLmTIVsXgJyAOBpWY2XXFPhD754puLbYk7LLz9BPyGhEK5esy9ZHqPc QKWrSjxUWvv7NXvdVY9AnANwzKNhMDOzCWJJAtNuH2 zgu3SrFfCzKYDBKEruIL4Hp6NzsLOxCQg+Gk3YZK7ys6LzKTmrAYMzVN5aqn3BKYuKAkXdB0DwiEswYJ Zio8ylBQVnYS5yrQZdOCZ3QDPpBdPdfQKNAWTdGGRzSX1wKH2QGNR3GJPjURNhZcHbBCKnSReyRBXOGZ oQAaXqT6Bno2ZmZdR1ZPPbMqEgHSmrCNOxUbU2PT91 oQbaTO2KGEDuOLQxRC96JUF3HHMiWx1QIt6VPdRiVB3tly3FXzBkQHQjQxsPLqn8WPjlXL9CzLFlA7Ub kVRki5uTWnCiF2MSJOHaXDMlNj2UJBFhChEvEIDoGSlbOK9vIDPuARJSxGgvbkZ9GT1SNE2fgkJfLE4W IxKfWq8aLn1WLtAbB3DgI3QjQQJrNDBCSFbaCS0GIQ roYR9kYZ3Xg2YFyRDlkZ4eol7JEMHmHLBkBhikvb6LTwnmR5N6iWxxQKVrSkLuSKAJBJhlOW7XAWNyCO U2BETpTwGlSQLUSfRrT88nPP2UO5Yhm66aRvN5HWOdUhEoKFajWX62jYyxkrJbcYEyeXebGF1TBb2+DQ plbmRvYmoNCnhyZWYNCjAgMjcNCjAwMDAwMDAwMDAg LgJ8EmVoSg8WUOTpQDSoKBGaFwVhOGUwVTTtNNnpUMAxFBXjANQ1XRWwDZGxVQ0QSkIaDSXeMsSkUoSy ESKwQCIcyr2VMAPhQPZvUWQ4RnGhMHThIPPxDPjbPGBiVAQdMFH8WTIdQJIvOJ0SEfDeFKXvYTG6SLer NRLrWEBjpa0RBXHmLHEeXwx0WqYdXVZpPSBcIEijQT AgYWR3KOUvOYOfQFTvKS3DNbOhRXMcENpgVBlcYLJiQBAqro7ZIMTkCMMlGXKfMFPhBLUiDXPvKTyqBA OdOUD1Gaz3PXUaVEOzFX0LLrArYKMdRDazUNVrJZXxEYNkkz8TMWNcEWMtMYQ8FfSqWCMiJOIcDAqgPK MsZBK8MkW5JTBmGMYdIY1BBgWsKKWkXpJsYbXjMOLa AYJrzg4STSNpNIPvTFV2ZVTiXJIhWMTpYTegROPaEWJkKjd9OKPuESCmMQ6BMdWqUULvRqQ4JOmrCLGc EIGuhh7HGBUzVVIfBvY1TXNcGNIcHINtEQsbRJWmDKVuZJT2YAVwUGHpJO9HGfRvYDMjMsGwQvzsWBJo QOAnyo3VIFWdXDGuRuJgFZZsFZJeJJXqNVovKQVbDH IfKEAoJHMeHXRhES7FZxBpUMFcOqHhWhNgXCQqZABvfs3YSELzWVDtPFYwWfCtBTDdKDLoMNutARArDA R8JVp2IKGnRIPsMU9XPfTaXJjyDVKSPeq3CRuzO6a1DVUhPw4BC5Nwd8XvMuRwHTRPWKtrSP7amfEaIN LlBv3LI4tLRwd8ZPUyWyJqFlieRZU7EeMjIeTnIPO4 ERZoSvQ0AGC5Si0hOWd0GpPsPwUrM5AnSwDxKLW4ClS4TDJbROQqYhqlKEu4JyDoXL5KBw8LKvI6UQO0 nQEnAw0EIkV7QcVLVkAzDD5JFVz= ID Date Data Source [id number] 06/04/2020 03:54:00 AM EDT [facility] [address] [place] [address] [phone] NAME SEX PT STATUS ACCOUNT NUMBER JEREMIAH PEREZ REG ER [id number] ORDERING PHYSICIAN LOCATION MEDICAL RECORD NO. Radha Jacob MD ER [id number] ATTENDING PHYSICIAN DATE OF DATE OF EXAM/TIME [...] Trans Dt/Tm: Trans by: SHIRA Prt Dt/Tm: [id number]: Total DLP = 0.00 mGy-cm Fluoroscopy Time (in secs): Name Value Range Interpretation Code Description Data Maritza rce(s) Supporting Document(s) ID Date Data Source [id number] 06/04/2020 03:03:00 AM EDT [facility] ED Physician Documentation NAME: ANAGENAROKATHERINE Nettles : 1990 AGE: 30 MR#: [id number] SERVICE DATE: 06/04/[address]: Radha Jacob [...] at that time. Second instance happened after mormon. Patient states he slipped on some mud [...] rce(s) Supporting Document(s) ID Date Data Source [id number] 05/01/2020 06:44:[address] [facility] XR HIP- UNILAT, 2-3 VIEWS [id number] RE SULTInterpreted by:MILADY VelazquezVIS AND RIGHT HIPCLINICAL [...] rce(s) Supporting Document(s) ID Date Data Source [id number] 05/01/2020 01:37:[address] [facility] Name Value Range Interpretation Code Description Data [facility] rce(s) Supporting Document(s) Progress Note [facility] UONFYs0wFdBSKmZy35/BMYusZUOqq9YyZWhjLIy1VSpkMZJdC0PmBOZ8xJ0kAII4AAyCFiMbYrOmZrQx [facility] [file] AgICAgICAgICAgICAgICAgICAgICAgICAgICAgICAgICAgICAgICAgICAgICAgICAgICAgICAgICAgIC AgICAgICAgICAgICAgICAgDQogICAgICAgICAgICAg ICAgICAgICAgICAgICAgICAgICAgICAgICAgICAgICAgICAgICAgICAgICAgICAgICAgICAgICAgICAg ICAgICAgICAgICAgICAgICAgICAgICAgICAgDQogICAgICAgICAgICAgICAgICAgICAgICAgICAgICAg ICAgICAgICAgICAgICAgICAgICAgICAgICAgICAgIC AgICAgICAgICAgICAgICAgICAgICAgICAgICAgICAgICAgICAgDQogICAgICAgICAgICAgICAgICAgIC AgICAgICAgICAgICAgICAgICAgICAgICAgICAgICAgICAgICAgICAgICAgICAgICAgICAgICAgICAgIC AgICAgICAgICAgICAgICAgICAgDQogICAgICAgICAg ICAgICAgICAgICAgICAgICAgICAgICAgICAgICAgICAgICAgICAgICAgICAgICAgICAgICAgICAgICAg ICAgICAgICAgICAgICAgICAgICAgICAgICAgICAgDQogICAgICAgICAgICAgICAgICAgICAgICAgICAg ICAgICAgICAgICAgICAgICAgICAgICAgICAgICAgIC AgICAgICAgICAgICAgICAgICAgICAgICAgICAgICAgICAgICAgICAgDQogICAgICAgICAgICAgICAgIC AgICAgICAgICAgICAgICAgICAgICAgICAgICAgICAgICAgICAgICAgICAgICAgICAgICAgICAgICAgIC AgICAgICAgICAgICAgICAgICAgICAgDQogICAgICAg ICAgICAgICAgICAgICAgICAgICAgICAgICAgICAgICAgICAgICAgICAgICAgICAgICAgICAgICAgICAg ICAgICAgICAgICAgICAgICAgICAgICAgICAgICAgICAgDQogICAgICAgICAgICAgICAgICAgICAgICAg ICAgICAgICAgICAgICAgICAgICAgICAgICAgICAgIC AgICAgICAgICAgICAgICAgICAgICAgICAgICAgICAgICAgICAgICAgICAgDQogICAgICAgICAgICAgIC AgICAgICAgICAgICAgICAgICAgICAgICAgICAgICAgICAgICAgICAgICAgICAgICAgICAgICAgICAgIC XuJTRfEXJmBOMdLPYnGZVcPVUzZOSaGOWcBSs9W7bm DUFsEFJcGC9kRMu5Vv5+NTbWOqJtBBJ9imSeiT0JUP9ar8FdWGitVPAkb6HoRJk4IE4DDIPnLFjkNV9G ZZzfoq6HQSIbPTJwoTHEn2nnQhExOPA7NJWxNutdYS3YKLTaQ4rungCxGGBtGRZASMmiXYLRMNufYVCP LP6YRmNfR1ZwuU21XZHSTb2+ULkubjUjCfxLMlJ9AC Vsm7RlHYh2JO5DKZJbOetrp1MtXgpvQVGNXXbgCS4GICU8DIM3CJVjRk9KGZYyJ708tlRsWY5AMg7CUt IyHV4gpe8XDmhnXMTuGyiHLxm1KNxvGK0UqPImSXkTin8qtiZxbwPEp5AchcFtbLRJc2UvcwPtLCOExD VybWFuLCBNRCBhdCAzLzEvMjAyMSAgMTowMCBQTSkN PeNyG5Dzk3UkAkX9IKFeQmLiHKjuFWTpAjY4HX95rEkgIO6XRZAzRZLvHL42HUS1DIWwQd7VBi1SKxDt NT7zdj1JCwbzDCXlIqxUKqs3FSwaUF7IxQPnT9KxlVYmb9zBWiLfU3RSORB8ZRFnEz7PMYTrPiMuICVj MNnwLZ4mIQOhLKZMtYiupfY7OU9XKW1owzCzUZ1HNq ByCi3bAm6UHxBjE4WrT2NvBCCpMFLJDVffCX7LFOaaGR0aZZ6Ap6YMtAAjlV3duy9CEHOzRIFmScwaup 6OCdxpA6E1kSreKPFlMuOzQWHRUPplKX3IIMTvTIH5VOZqJICsPKZFXaOnX68eLD1TD1Wtd11aXrZ5ZM MrUpNmOGgmXP89mMokatRwkJBnhJisRY9VQp9+DQpl llEmHiaZEvsgSYNFXuYdWotDOyApWMOdGBLtTNWgRtO5QjCqSf1OQZWzRFNvYKThWgWqJLCeEQLrLKtn RFSiHZR0MjN6CGTgCOSfRB8KEvZdTGZvNlDjDVerHYQzKZTmtk4LZVUjFPVwSLJ9SvEgRHHzEWBuYUbh CJSlFEFqQne2MDJqQABhLF6RKtAuXJGnUVD4BBEuWK TyXGLtzn6SCLUoAXJmJrXnISGuBRFpKVQeCCcfMJTtWXM4KtT3UCLjKUClBN0EMpLhVYFfOCqtZbbjES DeIALsed1QDXIaQXYtRMP0SeDiUUFtHVTuKKrhMYVvWGV5BzByNZGfCVAwQY4GMtUsGUZlVCq0ZGNvXN NvWZTzco4AVEVePKKtKJPoCcOtOIMhHDVdVKhrZLXq ZHUoQPtdPMHmXFSlXY6JTdRzWVSgOZJ3HFXiQLIrWEJdic9APLIzZKTfGBo1JuDjDMQsKNGiPIxaZSOu VHUwIWCuFOHnZKLbIY2FYtPzSWJbSjN5SwjrNDGdOWLnia9LULPtZMWoUpqhZnAeTBFhEQDqUDxzKAYn OXHrDMq4FZUiAMFsEZ9XZwKfDOIlWqHoZpDxDMArCG Iasg4DLBDvEQUlNGP2LaXyHSFdADJqTHnbLEKqOIW9KBZ1KVBaHEWdBQ4WNeZbUDNzRkW2YQZyCDOvQQ Ztin2EHEXdIHWiLHU1GUDgXFWkDAXjIIyzXZPiVNO9MNX3BZQhWJZrFB2GGtXzRWYbFuB1ZYOgJPKsUG Dkvs5WMZSuNKUjMennYCUjZSUcGFWiYCs4xwBcmWUn IUi0FY7JA5XeyyKgCenIVs5Zv423HSB7DLSgDn3TA6dtSt5fNOOjAJZJDv2QETu7EJPtPPzzKLUsBJTl YhPsOiItZUYpAtC5PfBmGQd8KVo+RMynNAB1QgAvUkSwBTEsDPR9RSPtTCQ6BmYaKKPkEMxnZX1vXEFQ Cj4+FIgseOXybHisJZAYIgP6DZp7SKdlTHYCBu9A ID Date Data Source [id number] 05/01/2020 07:27:[address] [facility] Name Value Range Interpretation Code Description Data Maritza rce(s) Supporting Document(s) Leukocytes [#/volume] in Blood by Automated count 8.9 10*3/uL 4-10 [facility] Erythrocytes [#/volume] in Blood by Automated count 5.39 10*6/uL 4.6- 6.1 [facility] Hemoglobin [Mass/volume] in Blood 13.6 g/dL 13.5-18 [facility] Hematocrit [Volume Fraction] of Blood by Automated count 42.9 % 4 1-53 [facility] Erythrocyte mean corpuscular volume [Entitic volume] by Auto mated count 79.7 fL 80-96 L [facility] Erythrocyte mean corpuscular hemoglobin [Entitic mass] by Automated count 25.3 pg 27-33 L [facility] Erythrocyte mean corpuscular hemoglobin concentration [Mass/volume] by Automated count 31.8 g/dL 32.0-36.0 [facility] Erythrocyte distribution width [Ratio] by Automated count 15.0 % 11.5-14.5 H [facility] Platelets [#/volume] in Blood by Automated count 410 10*3/uL 150-400 H [facility] Differential cell count method - Blood [facility] Neutrophils/100 leukocytes in Blood by Automated count 70 % [facility] Lymphocytes/100 leukocytes in Blood by Automated count 22 % [facility] Monocytes/100 leukocytes in Blood by Automated count 6 % [facility] Eosinophils/100 leukocytes in Blood by Automated count 1 % [facility] Basophils/100 leukocytes in Blood by Automated count 1 % [facility] Neutrophils [#/volume] in Blood by Automated count 6.28 10*3/uL 1.8-7 .0 [facility] Lymphocytes [#/volume] in Blood by Automated count 1.99 10*3/uL 1.2-4 .0 [facility] Monocytes [#/volume] in Blood by Automated count 0.56 10*3/uL 0-0.8 [facility] Eosinophils [#/volume] in Blood by Automated count 0.05 10*3/uL 0-0.5 [facility] Basophils [#/volume] in Blood by Automated count 0.05 10*3/uL 0-0.2 [facility] Nucleated erythrocytes/100 leukocytes [Ratio] in Blood by Automated count 0 /100{WBCs} 0-0 [facility] ID Date Data Source [id number] 05/01/2020 07:35:[address] [facility] Name Value Range Interpretation Code Description Data Maritza rce(s) Supporting Document(s) Erythrocyte sedimentation rate 27 mm/hr <15 H [facility] ID Date Data Source [id number] 05/01/2020 07:54:[address] [facility] Name Value Range Interpretation Code Description Data Maritza rce(s) Supporting Document(s) C reactive protein [Mass/volume] in Serum or Plasma 6.6 mg/L <8.0 [facility] ID Date Data Source [id number] 03/27/2020 03:49:[address] [facility] XR HIP- UNILAT, 2-3 VIEWS [id number] RE SULTInterpreted by:Delon Hennessy MD80 pelvis and [...] rce(s) Supporting Document(s) ID Date Data Source [id number] 03/27/2020 01:38:[address] [facility] Name Value Range Interpretation Code Description Data Maritza rce(s) Supporting Document(s) Progress Note [facility] JNYKBl9xIfGHWqHj34/POCnpZHVfr3LkTAruTWz2KUmcRXRzM7WcOAF1uN6pGEM8FSySWaNjPvVdONV6 m [file] QfBpc7CKDiPRDhKY4hEZPOUm7+PNcofGBwlBodLQUGOqT7PXD6XGbzPFJJXl4N ID Date Data Source [id number] 02/23/2020 03:55:[address] [facility] XR HIP- UNILAT, 2-3 VIEWS [id number] RE SULTInterpreted by:LIANE Velazquez AND RIGHT HIPCLINICAL [...] rce(s) Supporting Document(s) ID Date Data Source [id number] 02/23/2020 03:55:[address] [facility] XR PELVIS 3 VIEWS [id number] RESULTInter preted by:LIANE Velazquez AND RIGHT HIPCLINICAL [...] rce(s) Supporting Document(s) ID Date Data Source [id number] 02/23/2020 01:05:[address] [facility] Name Value Range Interpretation Code Description Data Maritza rce(s) Supporting Document(s) Progress Note [facility] YHGOLx7tCzUYZvUh30/KZTchFWLwq2ChHEzaAEy4SUudGPMpL9GeCMZ3nX2aPPA1PGiLMoZhLrCwIsXq [facility] [file] LLA7mNCeFd2FYtK2OrNGKbWxIG6YUOj= ID Date Data Source [id number] 02/09/2020 02:49:34 PM EST [facility] Name Value Range Interpretation Code Description Data Maritza rce(s) Supporting Document(s) Discharge Summary [facility] CROAYn1dYdSEOjPb19/KPCibQGKaf8HeEEnhFYx3KBigDVDoO3TfSUJ3dO9yHMU8VFzXWrRfFgSlXuB2 lbm [file] AgICAgICAgICAgICAgICAgICAgICAgICAgICAgICAg IYFpYHNvGVFgZAHgGVQmHOZoHZFuZRCdRJYqOINpCSErLMLlQY6INOKaQHQtRJDrRAYgRVUdNRJqJYHw ICAgICAgICAgICAgICAgICAgICAgICAgICAgICAgICAgICAgICAgICAgICAgICAgICAgICAgICAgICAg TWHeHNVjTCBzRGEdAOUgZHJwIN0FCHYjDWTvPBJsNS AgICAgICAgICAgICAgICAgICAgICAgICAgICAgICAgICAgICAgICAgICAgICAgICAgICAgICAgICAgIC FqXQXxFUAjINAwQRFfXDWrUNZpGBNkMUErHWRkJU4RSBAzAUSmSTSnALMrKQVnRZJrQJTnSCTzAWWbGM AgICAgICAgICAgICAgICAgICAgICAgICAgICAgICAg WUEfUSUoGZKkCRVrIPYxMEFwKDIjNAKmSQGvETQsNHFuAYZyKAOsZZ0ASPKhQZNpCLGeGPVqWIEoFPRv ICAgICAgICAgICAgICAgICAgICAgICAgICAgICAgICAgICAgICAgICAgICAgICAgICAgICAgICAgICAg RZPfFACmZRBsMEJwULCnRGExTHQuML4FMRXvSIBmLI AgICAgICAgICAgICAgICAgICAgICAgICAgICAgICAgICAgICAgICAgICAgICAgICAgICAgICAgICAgIC XwXTQzNIIxYVXpVTDsNXUrIHFlYPOpUWXbXLObPZZvLY9ZVLLdZWItMCBpPUWrFNCyUWUzPVDaDNJhDF AgICAgICAgICAgICAgICAgICAgICAgICAgICAgICAg QKEvXXMiGDTySTFlIBEmCJLbGWJpEKBoOFNbLSMiRCDdRTCrLCYgEGIwTA9GHMGaZWWpZYHnZDTgLYDc ICAgICAgICAgICAgICAgICAgICAgICAgICAgICAgICAgICAgICAgICAgICAgICAgICAgICAgICAgICAg NYKfGZDnNARzUUPjEGUmNXHaKJMeNYIiHB5TMAAgUQ AgICAgICAgICAgICAgICAgICAgICAgICAgICAgICAgICAgICAgICAgICAgICAgICAgICAgICAgICAgIC EzBIVnWGYkEDIsANKlVZZuMLVbLGXjYVQzMCLnUJYcACBmKC4WLPMqZCPhNIKlOJUdZNNgCNQeOYSzHQ AgICAgICAgICAgICAgICAgICAgICAgICAgICAgICAg UJMzAPMmCSOvTWNeNPQbUCFsEXQqHSXjDCXmAPHqQVHaFNGdAXWzSXWkBXTnCD2SKD79zQOcs4D1KUNt SG2upia/Wt6CEVuieqRinAIeQR7NLlHqPU8asa1WClOlRK8gah7FVQiIDgCgG9O4vAGbPCBjDYDXDuYh C03dZXmdOn61UVhjXNZvYgWzIWv8Dl9PSrHnW6uaMY TzTzW8RAJcSlT7NWRhYiD2KAMgGfNkQRQvXCNbPIPcNEALVM1DNaHkA2KegJ76TLKKTh4+DQplbmRvYm pSSbChQTVcl1MmOCp8JV5BSNBaXvliy4DcIvHtPJENASpaTU7CEJD8NKKhYYBfSa0PNTQvO522orOrNQ 6XIc5UJhMbNX9hqv9LZeNiYHDgFscRDwe6YGogKO7P qOGpBKkWlQUxfRQdC3AsY7BfmKFbgLRoaICOPGC1kPThZBJuE4N8v3RcNYokFHPsHXMbJTDrWJ1vPLUs ZKOgZxTmCYUVYU3USVAiLVMbfAWjQSCeDESMOP0HUVnrKTE7BVUxpwIbaBXdPJsbCI2DECDznlDnOyNh MCBSDQo+Gy8NPD9dl1WkSMtiSmQoJA1avv6MQZmHNj DhH6H1oQNyH4N8BThpXs5XVYBkIQXlQlykNAPLBBxxYS9QQJ6gypY0LW5XlKWfBMWpCRQdbKClKZe6G0 1ylLWvOPrwAL0OHDQ+Driss+Va4NQSMiHCAsPMTbCpToBWUUIwXyU6RxO9AFh2FjN1CxXO74xHmhcvBqTM pmOX6IZD6pCQTtHGFAYL8KnXZnhJ5pbxXrHTAaVDOZ XhVdM63zzDBoSUPjOJC0PSNbVg2RGWHaT9ThoqFvzKldqoPiTJUmSGWEAQ9DVLssqnVlfPButIebAY03 iGwqKZ6GEg0OOlWqKP0uzb6LkRVyWi7JAUUsQb4VAXEwSUKpSQZdLHJ6IUNvDvEzYCnxEKHgSNJhSSR6 JLQkEHIuOO6CXpKqIVCjLyC4FYvgNATcNLBpzx0GRQ LoEHPjLTD1AuYvFDYmCJGrOZneKSUwCPRdJDC6XYYoSCVjTV0NSjSlQXPdLTF9VaRcLFGsDKIycr8TLQ KzEDIfIvF0PwIqLIZiELVnYHiwXIQlMZO1PAYsMYIcAQJcDY4WJsNoXPNyPHZpPPNpAHHaDIMgzb4HAM AgRWRbGGv0SqGqLAAuZSDyXBjuKCTnQSZ3VRqyQRMw USQeIB5QRsMrGLQyMUUqOYUbTSXfXQKqsi2BYJWnRXOgHOG3YpUyXJGmSJIkYBtdCFDpPMFgKff4LONq NUSeIF1NQhNyQDHxNQV0ESJqVJRqPXHnii0IINFmFJUdCSl7SMYbTJPxDLZnVTtjEHPbQIC3GLGtROAn DXPePL3QGwImTAByJVBlEgMeBXQkNBPtdv5PUHKcPT TtEqG5QkSkNNZjYTNkQQxgPEApSLK3XAd4YPAsDYJhHS8YQwJnTDHuJPY1LxIfLKEoVIYwzo5DZVLzBL UzPyOcHwLrJEMiYYZaMBlxBPQoKYI4QDCoEOWpNTVfSC6JWgXiFFKmTPeoJMNiQKNiZYSuxq0LZSFyWD ZhBsk1ERKpAAObKKLcUUvpYBLiJROcINp4EYGaKENg HS6XDtIlIQEtNjRhRHbfXRWzGXLehy7PCGLlLAExTqLaFVJcTTXoCQZeEEniBROrASKiZfj0QXLjZNAy WH8CMsTjGOYoApNxCNQmLYRvBJDiid2VJZUiMMKjVWD3SgWuMLSpVTSyMDcgOAOhABI6XdX9PYCgEYQa MC5OKxDvUHKnDwO4CNVsEGGoLTTctv5SiPGxsYfwke 6LCOiFIx2SnCszLXZqIInyMf8rwLHpFgSpNPNLCo5BblYhLEGsHJGFOQteQBUvAVHrVFCzETNnRsYoB4 E2SPK1Qet8DwH6UVGnWYS6E6MjGxQ8NZNzHMBfBkIrCLQxQqz9SPMtMqYmWyssLSJ9WBp7WPS+IF0gDQ o+Ai2Wl9WsbrH2gmZdFPcdVvZtVs6SSABPE0ZSLy== ID Date Data Source [id number] 02/09/2020 12:18:58 PM [facility] Value Range Interpretation Code Description Data Maritza rce(s) Supporting Document(s) Glucose [Mass/volume] in Capillary blood by Glucometer 166 mg/dL 70- 140 H [facility] ID Date Data Source [id number] 02/09/2020 08:21:[address] [facility] Name Value Range Interpretation Code Description Data Maritza rce(s) Supporting Document(s) Glucose [Mass/volume] in Capillary blood by Glucometer 126 mg/dL 70- 140 [facility] ID Date Data Source [id number] 02/08/2020 09:48:[address] [facility] Name Value Range Interpretation Code Description Data Maritza rce(s) Supporting Document(s) Glucose [Mass/volume] in Capillary blood by Glucometer 195 mg/dL 70- 140 H [facility] ID Date Data Source [id number] 02/08/2020 05:16:[address] [facility] Name Value Range Interpretation Code Description Data Maritza rce(s) Supporting Document(s) Glucose [Mass/volume] in Capillary blood by Glucometer 176 mg/dL 70- 140 [facility] ID Date Data Source [id number] 02/08/2020 04:48:[address] [facility] Name Value Range Interpretation Code Description Data Maritza rce(s) Supporting Document(s) [facility] XZGNEc5jIhVESoIz95/JFOhgBYGdf3XkFOuxRVh2AZdoKYUdN9LcNPX0xE8rCIX4YUxIOiEnYeFePgF3 m [file] YoofJ0faQbLFjaLLO7OX5RLKJKJ0CVLc== ID Date Data Source [id number] 02/08/2020 12:28:01 PM [facility] Name Value Range Interpretation Code Description Data Maritza rce(s) Supporting Document(s) Glucose [Mass/volume] in Capillary blood by Glucometer 215 mg/dL 70- 140 H [facility] ID Date Data Source [id number] 02/08/2020 08:18:[address] [facility] Name Value Range Interpretation Code Description Data Maritza rce(s) Supporting Document(s) Glucose [Mass/volume] in Capillary blood by Glucometer 148 mg/dL 70- 140 H [facility] ID Date Data Source [id number] 02/07/2020 09:20:[address] [facility] Name Value Range Interpretation Code Description Data Maritza rce(s) Supporting Document(s) Glucose [Mass/volume] in Capillary blood by Glucometer 159 mg/dL 70- 140 [facility] ID Date Data Source [id number] 02/07/2020 05:32:35 PM [facility] Value Range Interpretation Code Description Data Maritza rce(s) Supporting Document(s) Glucose [Mass/volume] in Capillary blood by Glucometer 213 mg/dL 70- 140 [facility] ID Date Data Source [id number] 02/07/2020 12:28:19 PM [facility] Value Range Interpretation Code Description Data Maritza rce(s) Supporting Document(s) Glucose [Mass/volume] in Capillary blood by Glucometer 191 mg/dL 70- 140 [facility] ID Date Data Source [id number] 02/07/2020 11:12:00 AM EST [facility] Name Value Range Interpretation Code Description Data Maritza rce(s) Supporting Document(s) SARS-CoV-2 RNA [facility] This lab was ordered by [facility] and reported by [facility]. ID Date Data Source [id number] 02/07/2020 06:06:[address] 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 [facility] Patient has symptoms related to [facility] When did you start to experience these symptoms [Date and time] [Phen X] [facility] Patient was hospitalized because of this condition [facility] patient was admitted to ICU for condition [facility] Patient resides in a congregate care setting [facility] status [facility] ID Date Data Source [id number] 02/07/2020 08:51:47 AM [facility] Value Range Interpretation Code Description Data Maritza rce(s) Supporting Document(s) Glucose [Mass/volume] in Capillary blood by Glucometer 174 mg/dL 70- 140 [facility] ID Date Data Source [id number] 02/06/2020 09:53:08 PM [facility] Value Range Interpretation Code Description Data Maritza rce(s) Supporting Document(s) Glucose [Mass/volume] in Capillary blood by Glucometer 145 mg/dL 70- 140 [facility] ID Date Data Source [id number] 02/06/2020 05:38:50 PM [facility] Value Range Interpretation Code Description Data Maritza rce(s) Supporting Document(s) Glucose [Mass/volume] in Capillary blood by Glucometer 209 mg/dL 70- 140 [facility] ID Date Data Source [id number] 02/06/2020 12:50:30 PM [facility] Value Range Interpretation Code Description Data Maritza rce(s) Supporting Document(s) Glucose [Mass/volume] in Capillary blood by Glucometer 168 mg/dL 70- 140 [facility] ID Date Data Source [id number] 02/06/2020 08:35:56 AM [facility] Value Range Interpretation Code Description Data Maritza rce(s) Supporting Document(s) Glucose [Mass/volume] in Capillary blood by Glucometer 142 mg/dL 70- 140 [facility] ID Date Data Source [id number] 02/05/2020 09:43:48 PM [facility] Value Range Interpretation Code Description Data Maritza rce(s) Supporting Document(s) Glucose [Mass/volume] in Capillary blood by Glucometer 135 mg/dL 70- 140 [facility] ID Date Data Source [id number] 02/05/2020 05:32:50 PM [facility] Value Range Interpretation Code Description Data Maritza rce(s) Supporting Document(s) Glucose [Mass/volume] in Capillary blood by Glucometer 138 mg/dL 70- 140 [facility] ID Date Data Source [id number] 02/05/2020 12:49:57 PM [facility] Value Range Interpretation Code Description Data Maritza rce(s) Supporting Document(s) Glucose [Mass/volume] in Capillary blood by Glucometer 164 mg/dL 70- 140 [facility] ID Date Data Source [id number] 02/05/2020 08:58:33 AM [facility] Value Range Interpretation Code Description Data Maritza rce(s) Supporting Document(s) Glucose [Mass/volume] in Capillary blood by Glucometer 130 mg/dL 70- 140 [facility] ID Date Data Source [id number] 02/04/2020 09:57:55 PM [facility] Value Range Interpretation Code Description Data Maritza rce(s) Supporting Document(s) Glucose [Mass/volume] in Capillary blood by Glucometer 156 mg/dL 70- 140 [facility] ID Date Data Source [id number] 02/04/2020 05:40:02 PM [facility] Value Range Interpretation Code Description Data Maritza rce(s) Supporting Document(s) Glucose [Mass/volume] in Capillary blood by Glucometer 138 mg/dL 70- 140 [facility] ID Date Data Source [id number] 02/04/2020 12:41:21 PM [facility] Value Range Interpretation Code Description Data Maritza rce(s) Supporting Document(s) Glucose [Mass/volume] in Capillary blood by Glucometer 175 mg/dL 70- 140 [facility] ID Date Data Source [id number] 02/04/2020 11:21:49 AM [facility] Value Range Interpretation Code Description Data Maritza rce(s) Supporting Document(s) Discharge Summary [facility] VUUTZm9hDlVVYoIq69/QMYebWYKjt0TyNVsyOLx5ZOhwYRHaG7GuJVE8vR1eDRM2SSiRLpDwLhRmOzX7 [facility] BhQbjYKmUgKRXdTjcNUjOeYEdjTriiuGXnSE5ShWA3MYZqL84cSUQvCZZoD0UyBFR1ENk+Il6AWREkpB DyLO4SJppQ8PdIipiL5n6F/4XOAsrGQGsS0v15KwDzqkWMUr5AxLudOf6dlQWXvllup54NrnfmoQeLZY vkJkCSB/tgZs6+nUYmTas4i309QxkiUk+3v/qhYJMH 9vNPrJpmi+451bv9GRqMPJT+Radha+uajvAajRy5Y7rjP0We1Ea0ma7Jt3NaMEpaghsvHLtCzgyywA1wkn [file] AgICAgICAgICAgICAgICAgICAgICAgICAgICAgICAgICAgICAgICAgICAgICAgICAgICAgICAgICAgIC IdQERiODLgASJgSTYfABHkYCSyZVOrEYLvXX3WDDLzVMSfPBPaCLDtJDXwYDArFRVxAMPtBBTeDGCoXO AgICAgICAgICAgICAgICAgICAgICAgICAgICAgICAg UZVcXAQlESGcKCNlFGWlGSFuZYXbYHGwZAHuUZKiEMIbAULzSS8RLFJuOLAhAITwDODiTVBuGGTrZIKo ICAgICAgICAgICAgICAgICAgICAgICAgICAgICAgICAgICAgICAgICAgICAgICAgICAgICAgICAgICAg CNEoZILiPWBsPESnBRGfIKGbVR8WULKaYNAkFHKxHS AgICAgICAgICAgICAgICAgICAgICAgICAgICAgICAgICAgICAgICAgICAgICAgICAgICAgICAgICAgIC JgGPUnSVXlQNLhSQGcARAsUPQwPPEfIRLmUYXbAF6NXZTuCBOsQFWkOEHlCFOmMYIyTXMuUSRtGFOnAW AgICAgICAgICAgICAgICAgICAgICAgICAgICAgICAg MCGmIQByBASzQVZdNNCcDEJoXVFgLHOhNJMnPKBzVBPuEDGqMXHyKC4UYBSfCCDjIENmZHKnRWTcRBOo ICAgICAgICAgICAgICAgICAgICAgICAgICAgICAgICAgICAgICAgICAgICAgICAgICAgICAgICAgICAg LZRbDIHlFVVcKNQyKRZqQFQyJSRbDN1KCCUaAZYvQS AgICAgICAgICAgICAgICAgICAgICAgICAgICAgICAgICAgICAgICAgICAgICAgICAgICAgICAgICAgIC DiPCMoGTCaCSGpPRNcBYDkIFOkJVVtUQKyQBUaZGEpZL1YOKNyKIGbIRPdOBXeBOCxOTFlHYAmIFBkTL AgICAgICAgICAgICAgICAgICAgICAgICAgICAgICAg VNNcMPRrWECxTAYuDWRvZLOaEPXtBSSaTOCcCMFdRDInPBGlUKVaAGUyFI7LCEKsOTOmGSMoGDZjNCTt ICAgICAgICAgICAgICAgICAgICAgICAgICAgICAgICAgICAgICAgICAgICAgICAgICAgICAgICAgICAg KWPwZAAjQKWuROThQIBtXQZeCHFrMOIsPG1VFAZmNW AgICAgICAgICAgICAgICAgICAgICAgICAgICAgICAgICAgICAgICAgICAgICAgICAgICAgICAgICAgIC BoXHQgETWrEPWyIILhWBOmAWWcXKMhDCUdDWLnBEOeMYYoAS1MJT31yPXnf9O1MSBkBS5klqe/Pg0KDQ lqqzEbpYRiJB6OGoSfFC8byd3GSmGhEI0xwc1ZIMgO DhDxX4W8qRBmAGXvLPMRXrDjZ92yMLmnBq24RAvaPGDtXwCtKLq7Th0JYwUyF7ydBEGwPgY1NHOrScC2 XJVvOtG9THEdPsPaKAMnXIBoALNoHISYBD2YEvEeW6LtdP17ALVBOl2+RPqdgwLmPpeZUiCjURTqr9No YVw7IM8CKWDgNmaei4QoQyXrCXPDQXgxXQ8PGUY6PH ZoCMYrBg5JISLjP803usLfNQ2OEv2VHmYaCD0rnl4KNwUcFVXuLnyBNxf4PZrmVD6NnEPnLBmMyVXajZ NkK6YzE8QrdQWghGKajEAIAFS1rOOlJVOuT1I9j6BiCKnkCHGhWJFmJRHcQJ9iQUPmANWxEaPoLGAXOS 0IOYUoTIGfcYNpTZZbOSIETY1WYCnkFSF2KDBvpyEm aPHqYCngLZ5MOSNdioTtZcIwSWLHHTc+Oo4BBO2bl1LiEVlcZfWzUD2vzr9ZJBcPOeNyR3K5hXZeI7R0 IXgaTs1GUQRcKTXkHpstKEVRAYljTY8BNE2wslE5KX7HmWFvGDYiFLLdfWCxMRu0J33muCVbCSksRH8E ICA+Driss+Hk8SLZOjDCXoWMDiKvRzXZOCTrSxB7UuM7 GRt4OyE2JiUM93bTietrOpXXamRW1TFQ8oXRHkLWSNOG0FpZTxiL6bgbJzCZHdLKWDHrNdF15qyCBdAK QvRRF5KAOdOs0VAOAuD0ErhlUydCnesuWwHOGfRSPGUF8YURdsnwYhvCSgrXoeWM16kNlrZN2CZh7OJy FtCG2wic7FuCIkUv8RTLDsGv8UFLGhMSAcYLDdAXP5 TUTdHsOmFAemRXBvSAEbBGN7LZInLIMxZY3KPlYxLJZxIqU5IZKuDIDtXDCbkf2INEZfEWJwBREbCDZy TAEtBEYjRNnkCKWoFKSvBAM0AIHyIDWpTV1UXlBlUEQtSAF8LWVuLKEoUQZnke4QLTMdBZDzOgM0FHFn OBDbQCWzBQuvQHGvVGZ9MDM6VVMzBSGxHM0RPoCfMB SxUHPrTbEuDTEnXBObsz3SKLDmATOcXIO3PIBhNPVdIJTdWRyeCDDcJNY9YzecVOAkQDEvGQ0ZZaGnLM KmBHIcHpJyFDHbKDZvlz8GZXZyCMIfLPF7LiDvRUTuYMQbHRftZAZoNWObBAA1RRGuSMPfKQ8VKlWaYW EcOFP8IoHbDKIaJRZvbi4ELGDvPYFtVzTnEVFeKZFu TVXzIPcnWVQoRVDgVZQ6ZCFnMCMsBL1BJgCbWCRpZNUoCXOxXPRoHHEnpy2XMPQhEBEdYHr1HREeFQIt FOLpJOdeEYNcJCU1YMwtHCLeMWYeER3KRlQpHHFwNTOyADptTGMxTICqur1NQSFyNFUzEhVnSNYbITVd QVDjSYrhCUVkKGC6JFW0BWXjJBOpJI8TCiUaIBUmVW M5OWddSPGvPEOptk6BFDNfCTGpMBA7VEWlYKLzKOOlSOqlNOGhHJGpKElbVQLwHCIzTT7BOsFhCTBeAg HuDVUzDRViWPGdko0OFKLuVMRtImLjQLXzXYQsRGLwWBweNHAbXQMpBVapOBVfFRFnJP6ITnKpYZKlUi L4GNzcNCUmHNWxxs7RNVRfIADjECE7AvAwPXIsTZTm POutIXQzGEZ6XTJgZTStEYWmVY0FFrSpOURlCdB4YwmvQJVaOIRhvh6IsZQjeIxrvp2KARgEMw3KtQpp CSClVIrlWm9xiLPsIqCfAJJJPc9CobGsVNZgRIOGBGbgLTJaMLWzLre4HcO7UbQqSJU2ZBY8FyQ6CXJp YTCbZOIuKlMgGvN9BXPzOgR4COv6RlUgTnU2NWVoVK svC9RnYxQlSQElBWB+BU4sIFj+Dq9Xi9BoruS4axKuJHuyQNwfIj3BELOWC7EMGj== ID Date Data Source [id number] 02/04/2020 08:21:34 AM EST [facility] Name Value Range Interpretation Code Description Data Maritza rce(s) Supporting Document(s) Glucose [Mass/volume] in Capillary blood by Glucometer 159 mg/dL 70- 140 H [facility] ID Date Data Source [id number] 02/03/2020 09:38:03 PM [facility] Value Range Interpretation Code Description Data Maritza rce(s) Supporting Document(s) Glucose [Mass/volume] in Capillary blood by Glucometer 169 mg/dL 70- 140 H [facility] ID Date Data Source [id number] 02/03/2020 05:13:43 PM [facility] Value Range Interpretation Code Description Data Maritza rce(s) Supporting Document(s) Glucose [Mass/volume] in Capillary blood by Glucometer 162 mg/dL 70- 140 H [facility] ID Date Data Source [id number] 02/03/2020 02:50:[address] [facility] XR PELVIS 3 VIEWS [id number] RESULTInter preted by:Jazmin Nwe MDINDICATION: 30-year-old male with acetabulum fracture.TECHNIQUE: AP [...] rce(s) Supporting Document(s) ID Date Data Source [id number] 02/03/2020 12:29:40 PM [facility] Value Range Interpretation Code Description Data Maritza rce(s) Supporting Document(s) Glucose [Mass/volume] in Capillary blood by Glucometer 159 mg/dL 70- 140 H [facility] ID Date Data Source [id number] 02/03/2020 08:59:34 AM [facility] Value Range Interpretation Code Description Data Maritza rce(s) Supporting Document(s) Glucose [Mass/volume] in Capillary blood by Glucometer 126 mg/dL 70- 140 [facility] ID Date Data Source [id number] 02/02/2020 09:54:[address] [facility] Name Value Range Interpretation Code Description Data Maritza rce(s) Supporting Document(s) Glucose [Mass/volume] in Capillary blood by Glucometer 192 mg/dL 70- 140 [facility] ID Date Data Source [id number] 02/02/2020 05:38:34 PM [facility] Value Range Interpretation Code Description Data Maritza rce(s) Supporting Document(s) Glucose [Mass/volume] in Capillary blood by Glucometer 143 mg/dL 70- 140 [facility] ID Date Data Source [id number] 02/02/2020 03:32:49 PM [facility] Value Range Interpretation Code Description Data Maritza rce(s) Supporting Document(s) [facility] GYRMOr5lHuDXEyLx22/JCPhnWRMxw0YwIGtjBRw3PZbnWLLkZ3DzFIQ0zH6pURB2NTaYApYeVlDaAkXg lbm [file] Senior Java Software Developer+PvOqAxs7JkHkmyKCgnbEN1+2MDkV9qR0RDhujXJ [file] [id number]+SJKI/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 medicine 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 [file] OxPZg5RxC1Yd8UNQKSD1TNYt== ID Date Data Source [id number] 02/02/2020 02:51:05 PM [facility] Name Value Range Interpretation Code Description Data Maritza rce(s) Supporting Document(s) Consultation [facility] CTIGSg1gOcIJLaCd24/SMQipZFZaz1DwVQyjTVj2JPibBBGcB8WiIMT0qX1rVUG4AFoWYpTsIhRvEqAa lbm [file] [id number] ID Date Data Source [id number] 02/02/2020 12:44:57 PM [facility] Value Range Interpretation Code Description Data Maritza rce(s) Supporting Document(s) Glucose [Mass/volume] in Capillary blood by Glucometer 180 mg/dL 70- 140 H [facility] ID Date Data Source [id number] 02/02/2020 08:40:56 AM [facility] Value Range Interpretation Code Description Data Maritza rce(s) Supporting Document(s) Glucose [Mass/volume] in Capillary blood by Glucometer 144 mg/dL 70- 140 [facility] ID Date Data Source [id number] 02/01/2020 09:52:10 PM [facility] Value Range Interpretation Code Description Data Maritza rce(s) Supporting Document(s) Glucose [Mass/volume] in Capillary blood by Glucometer 154 mg/dL 70- 140 [facility] ID Date Data Source [id number] 02/01/2020 05:35:28 PM [facility] Value Range Interpretation Code Description Data Maritza rce(s) Supporting Document(s) Glucose [Mass/volume] in Capillary blood by Glucometer 207 mg/dL 70- 140 [facility] ID Date Data Source [id number] 02/01/2020 12:15:41 PM [facility] Value Range Interpretation Code Description Data Maritza rce(s) Supporting Document(s) Glucose [Mass/volume] in Capillary blood by Glucometer 157 mg/dL 70- 140 [facility] ID Date Data Source [id number] 02/01/2020 08:23:45 AM [facility] Value Range Interpretation Code Description Data Maritza rce(s) Supporting Document(s) Glucose [Mass/volume] in Capillary blood by Glucometer 159 mg/dL 70- 140 [facility] ID Date Data Source [id number] 01/31/2020 09:18:35 PM [facility] Value Range Interpretation Code Description Data Maritza rce(s) Supporting Document(s) Glucose [Mass/volume] in Capillary blood by Glucometer 154 mg/dL 70- 140 [facility] ID Date Data Source [id number] 01/31/2020 05:27:23 PM [facility] Value Range Interpretation Code Description Data Maritza rce(s) Supporting Document(s) Glucose [Mass/volume] in Capillary blood by Glucometer 164 mg/dL 70- 140 H [facility] ID Date Data Source [id number] 01/31/2020 02:25:00 PM EST [facility] Name Value Range Interpretation Code Description Data Maritza rce(s) Supporting Document(s) SARS-CoV-2 RNA [facility] This lab was ordered by [facility] and reported by [facility]. 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 [facility] Patient has symptoms related to [facility] When did you start to experience these symptoms [Date and time] [Phen X] [facility] Patient was hospitalized because of this [facility] patient was admitted to ICU for [facility] Patient resides in a congregate care setting [facility] status [facility] ID Date Data Source [id number] 01/31/2020 12:10:49 PM [facility] Value Range Interpretation Code Description Data Maritza rce(s) Supporting Document(s) Glucose [Mass/volume] in Capillary blood by Glucometer 169 mg/dL 70- 140 H [facility] ID Date Data Source [id number] 01/31/2020 08:17:14 AM [facility] Value Range Interpretation Code Description Data Maritza rce(s) Supporting Document(s) Glucose [Mass/volume] in Capillary blood by Glucometer 145 mg/dL 70- 140 H [facility] ID Date Data Source [id number] 01/30/2020 09:20:51 PM [facility] Value Range Interpretation Code Description Data Maritza rce(s) Supporting Document(s) Glucose [Mass/volume] in Capillary blood by Glucometer 212 mg/dL 70- 140 H [facility] ID Date Data Source [id number] 01/30/2020 05:19:22 PM [facility] Value Range Interpretation Code Description Data Maritza rce(s) Supporting Document(s) Glucose [Mass/volume] in Capillary blood by Glucometer 154 mg/dL 70- 140 H [facility] ID Date Data Source [id number] 01/30/2020 12:35:[address] [facility] Name Value Range Interpretation Code Description Data Maritza rce(s) Supporting Document(s) Glucose [Mass/volume] in Capillary blood by Glucometer 164 mg/dL 70- 140 H [facility] ID Date Data Source [id number] 01/30/2020 08:37:06 AM [facility] Value Range Interpretation Code Description Data Maritza rce(s) Supporting Document(s) Glucose [Mass/volume] in Capillary blood by Glucometer 138 mg/dL 70- 140 [facility] ID Date Data Source [id number] 01/30/2020 07:12:11 AM [facility] Value Range Interpretation Code Description Data Maritza rce(s) Supporting Document(s) Progress Note [facility] NHSNBg4yAkESUxGo76/IARucPHVld7OjDUpvHZu7ISjvQWHyR5HrIZH1uD6fRAK6UCsIBtCtSuMgEKF0 lbm [file] ICAgICAgICAgICAgICAgICAgICAgICAgICAgICAgICAgICAgICAgICAgICAgICAgICAgICAgICAgICAg ICAgICAgICAgICAgICAgICAgICAgICAgICANCiAgIC AgICAgICAgICAgICAgICAgICAgICAgICAgICAgICAgICAgICAgICAgICAgICAgICAgICAgICAgICAgIC AgICAgICAgICAgICAgICAgICAgICAgICAgICAgICAgICAgICANCiAgICAgICAgICAgICAgICAgICAgIC AgICAgICAgICAgICAgICAgICAgICAgICAgICAgICAg ICAgICAgICAgICAgICAgICAgICAgICAgICAgICAgICAgICAgICAgICAgICAgICANCiAgICAgICAgICAg ICAgICAgICAgICAgICAgICAgICAgICAgICAgICAgICAgICAgICAgICAgICAgICAgICAgICAgICAgICAg ICAgICAgICAgICAgICAgICAgICAgICAgICAgICANCi AgICAgICAgICAgICAgICAgICAgICAgICAgICAgICAgICAgICAgICAgICAgICAgICAgICAgICAgICAgIC AgICAgICAgICAgICAgICAgICAgICAgICAgICAgICAgICAgICAgICANCiAgICAgICAgICAgICAgICAgIC AgICAgICAgICAgICAgICAgICAgICAgICAgICAgICAg ICAgICAgICAgICAgICAgICAgICAgICAgICAgICAgICAgICAgICAgICAgICAgICAgICANCiAgICAgICAg ICAgICAgICAgICAgICAgICAgICAgICAgICAgICAgICAgICAgICAgICAgICAgICAgICAgICAgICAgICAg ICAgICAgICAgICAgICAgICAgICAgICAgICAgICAgIC ANCiAgICAgICAgICAgICAgICAgICAgICAgICAgICAgICAgICAgICAgICAgICAgICAgICAgICAgICAgIC AgICAgICAgICAgICAgICAgICAgICAgICAgICAgICAgICAgICAgICAgICANCiAgICAgICAgICAgICAgIC AgICAgICAgICAgICAgICAgICAgICAgICAgICAgICAg ICAgICAgICAgICAgICAgICAgICAgICAgICAgICAgICAgICAgICAgICAgICAgICAgICAgICANCiAgICAg ICAgICAgICAgICAgICAgICAgICAgICAgICAgICAgICAgICAgICAgICAgICAgICAgICAgICAgICAgICAg ICAgICAgICAgICAgICAgICAgICAgICAgICAgICAgIC AgICANCjw/zNBcA1hsuPEgdbC5Y2hiDm1KTd8LGH3mn7IcFAZfFMwkluDdJpuUFgTtDEUdIzbPQqe2TB mkYS9NrFTzE2RnS9YnYBxgJS1INWKrEDGvaFMhZAFbHSPzOiY0WMXiAFlyRC5UzVRjEBphRIMkEPXxTj GnCSOrJASoYGYqIG6BARXuA215uqWqFc1ZUx7XWaMu JF5foz4AClDmWDJaKjpIJdt6GSjdMK5PtNSurYLaSFXxGFKXKgSjW1zpv6QxEtFzFDAWIEcnBL6Bi1Gw dCAxDQo+Gq8ZBU6tl7JeRYicTFRrQL6ehi4SRRaPZgOiN2NleIouXBVnk4zkTCVyRY5mfCMnOQL5QDxc tlJpkZORh4KhSFDHPURzdZKrDF0sGC9cIXBvLVX2Ra E7VPRXWI1YXZYkYIWmdYLcCJNdSOGXTT1RHYyeEPR4RXQnnmOyuIIlZGjiDA0SNRGxraBtEfNfFDIEIE o+Tu0PIY7sy0YfLKycKaFtBS4myn9YYVqNWrQoO9L3aWTfN3G7ALgbWf8TQOBlGFFaUxMmRSTZXTjyDH 6NNF9anfG4XU4SpCIiJDNpFWCipISaPFy7X46ydMVd UEoxCV8IFUJ+Driss+Kx9ECHJcOAEfDDIdDpMbNWMAHjIxC4TgY9MAf6ZrD0TkDS92iInbugYmZSllEU2F AL1iBFXhCQXURW2RbKBfiG9bvuVwTAOtBOYZSoZeD61gyCNeZBEnENDqICJsQb0OFRPdD9SzgpEqiMrq ciYnDQSzYXTFEV8QOHuhmnZmhBRqtNaxFH50jByxCF 3IWz4PWhTyIY5rue6PgBEaPb4WOWKeBn2PTAYkLUNtABHxOJB7JRGwCrWrZAviNHViUFLtPBK0XGBwOM YtBX5CCdXoXYInFZQyKPmzYEDaCOVmnu8VVPJsJILnVIu3NANmGGLnGMEvNFwkSOBvNJUiFOW7GNOyYK HhHS5BGuNcFTPuHOKlXQRjHXVpHAObjy3BPPWsURLh AmNiPEMhXLBwQCHgLHdwDKLhWIW5KnA2QWBrKDXqVR2XYjWmRJMrVAO0IVIhGLRbGNBtkg5TSRPsJNNe ISJ9NmKjEIGxSCNfTSwuAGIuCAD9VuliPTWeFAAuME1HPlXqSQNaORj5EDWjAXOnPRZulb4UMHBmBDBz MHt5SLJqBSFbQCZbYKmlARAkQWQrMWZrLRYcRPFcAW 8ULqCfHYCtVQBaJXAgPMBgXKQzkg7TRSWgYKEqIDE2WvUgJIHqJPAiLQkqXYDoXFOaBSrrQRGhFWVqNM 5CKtKbRKSyGWG9QFQrYPSgOZGjgt3WCTAiWFOmZsBgUnRvKOFdWBEmFKxlXIFyISOeFEAzLXNhYDAlWX 0ZQaGiJKGtXAI2KWUjXGFeUKPxmh5CRZKmOEMaGgw8 BQBcBJMtTLHtVTkhFSKfZJR0FTp9HSYoUZOcPT6JFwSvTMTnVYR8FEQmJNWbGDOumb3RINOyAPAgMbW0 HOQmCCRdRUDqIYwnLRRtRGL5MHL6CZZfSXIuTJ5GFwKxTBRsXMVeJMFlYGIdNLUuqc8MhSQtoSfwtp0U HPzGMy5CgKfeVSW8HJmyYd6saAJpTiUwUTAVKv5Hmq DiMQUdLGIEJQigNYXsQGSoBPVdRMY9GeBnYEC0BtxqQGD5QOvjNgPvOgZlYdZhDoP3WjL2DOAmLrp1UB T9Cxc4PBX9StD2MlM9VLYyInGmFHF+YA3zLKd+Hz5Kr9SuwmF3lyPuHQyhEnSfKm0NKNFJV1RQAd== ID Date Data Source [id number] 01/30/2020 06:42:00 AM EST [facility] Name Value Range Interpretation Code Description Data Maritza rce(s) Supporting Document(s) [facility] was ordered by [facility] and reported by [facility]. 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 Name Value Range Interpretation Code Description Data Maritza rce(s) Supporting Document(s) Leukocytes [#/volume] in Blood by Automated count 8.8 10*3/uL 4-10 [facility] Erythrocytes [#/volume] in Blood by Automated count 3.52 10*6/uL 4.6- 6.1 [facility] Hemoglobin [Mass/volume] in Blood 9.3 g/dL 13.5-18 L [facility] Hematocrit [Volume Fraction] of Blood by Automated count 27.7 % 4 1-53 [facility] Erythrocyte mean corpuscular volume [Entitic volume] by Auto mated count 78.6 fL 80-96 [facility] Erythrocyte mean corpuscular hemoglobin [Entitic mass] by Automated count 26.5 pg 27-33 L [facility] Erythrocyte mean corpuscular hemoglobin concentration [Mass/volume] by Automated count 33.7 g/dL 32.0-36.0 [facility] E[facility]th[facility] distribution width [Ratio] by Automated count 15.5 % 11.5-14.5 [facility] Platelets [#/volume] in Blood by Automated count 525 10*3/uL 150-400 H [facility] Differential cell count method - Blood [facility] Neutrophils/100 leukocytes in Blood by Automated count 74 % [facility] Lymphocytes/100 leukocytes in Blood by Automated count 18 % [facility] Monocytes/100 leukocytes in Blood by Automated count 7 % [facility] Eosinophils/100 leukocytes in Blood by Automated count 1 % [facility] Basophils/100 leukocytes in Blood by Automated count 0 % [facility] Neutrophils [#/volume] in Blood by Automated count 6.41 10*3/uL 1.8-7 .0 [facility] Lymphocytes [#/volume] in Blood by Automated count 1.61 10*3/uL 1.2-4 .0 [facility] Monocytes [#/volume] in Blood by Automated count 0.61 10*3/uL 0-0.8 [facility] Eosinophils [#/volume] in Blood by Automated count 0.11 10*3/uL 0-0.5 [facility] Basophils [#/volume] in Blood by Automated count 0.03 10*3/uL 0-0.2 [facility] Nucleated erythrocytes/100 leukocytes [Ratio] in Blood by Automated count 0 /100{WBCs} 0-0 [facility] ID Date Data Source [id number] 01/29/2020 10:22:[address] [facility] Name Value Range Interpretation Code Description Data Maritza rce(s) Supporting Document(s) ED Provider Note [facility] PKKOYw9uWzLVIaPc20/CJVtdYPGpt9NlJKicIYb1DRxaHWOtA5HvMVZ3tC0wNJP6MIzQEhCrPvElKQU4 [facility] LsTapYPbLzDGByKftGNgUkTHxcPqpvuFIxII1BeWP0VWSoU99mCVNwMNJoO8ZiWWI7QcE+Im7TLKIfqE EwDH2EMmcX4X8bf7kVBM1t1P7dh4dqaRGXx7HfsHq52G9V76xOf3UTT7qcSJ0fYvmSWaL/vzelTeu6Q3 2Dyz3OwCmdcEOun9YdVJQL/uj5odaodwRX4S/HS9dX YjATf/6VlQecsnilB4jsUbbLIY4v3s5kk0z57tA0aHFjQAnDncyrBdoSieYrxcZltbgUV++CxOHZp6Gg edsySchbfV7Kr6vqHE36vka5gpmF3keyyxoD0S0W545meMMaCiaRxRsRxLHCx7M3fns9iUZVKuWHge6S eTbhVRYQ3yl3tA2hK9rKCQXLFzLy/U41Pm2zVjWNjO e1UU2i5ghaLxtrpJz5W7xXqfTA2eu0bBSToR0rRpEH6n3sxObH2tvMYSos3hSAJJpC2KRYXxwkEfzQoR FiA8ypeUkRw85LJEG9nAYwEATvj5tnm0VOjMqdkhPKioQWm7Ih3NG7K6/gJyNJxE4HbxmqSvlvIcS9Bl VkFpRqPEfJ8riPFfSZIwYO1IhFobrXPiLsEYOrq9w2 X4NQLIgE01DNd9d3fcQcZV8laowmOPD6Ch2tTodQLAxSpk1rE7CKHjqtVgmmsAUYUFfm9k5xNB8xVNzR sZDZyeVAgcCeHVFkFY5L072PmhtmzH10yMa69hVWqq9Th0ioTgLUeLGinlEegmWUspaudg+4hqEu6dYB 6EFrl3E2qwgpyB9shTffNnqPoJpWrw8WsASlUpiVzg HwkJK5HNgOWnQDVavfkr2FLyEuPUdf5Pd+IdZa0LsFaNHDqrFEQO68CWdsfMtTTr4VovbZ5hh93vfXbg 2yXVgnK5RMR5VydLwxKYCmZZ7pMzMvsWfqqOM7pon0Gg11SJ93MIqUiWG7huCo6fnSgDd4e/UFUjXsZE fw61YPrV770Up2J41An8jptMpJ30k7Coj7fSHR3Su8 [file] NzISovJS6QZXM+Driss+Tj2NFLEtMXSaXDWtEpAqJSBLCgZeJ1XzU4BDi2KuR4FbKR75xXqzxhAhUXyiJW 8SQG2zDVHmZAVVLV6EmSJmuN7wcqY6LiCjJJMCCjBw D51qiBOvBMDcXSXdQODeOl6GZXZsU8UwvnEguZcfkaXuTYRnCOLHYB4NBKjvykSwvOCxeZvgGR84cNuu CF3RHc2RSdMfSK2njx0GxHKjPe7CYDP1FL4DPYZcLVHfXNGxCOK6MIFaSqHpFErwLOGnRGOuDCF7OHWx PBMkXA0CIjAxPDPkHFVgQoihXCEzKEQyqc8MUVCoCJ F8MTO0AYEiNWKcPRRrTVxfLTLnJOVdAFF3WDQwLZWgZC4ZQqCxWZJwYLJ3EbWoHPEdBXPkzx5UZFXuMD JcVvH5RFJhUMWjHNIqNYcnDYWqHDR4TcK5ZVQhCBJcPF1JXhTuKNSjTTK8CEkbKQHmAMHtrl2TNVYpGJ IgHXH4GiXzFIWiHDNsCIzsRWJsYFJ0INY8RWYwOQQv QA0IVaElBGKwRLN8ZlDsKWRdJXEpyc4SVTGoXVWmTRMiHMAkPZTzFMYcUWqtBLWqPZN5IcF3LNGhEKSm CR3HWiSiTPHaOIE5HtXvHUUsPZAxib7TYNYtJTJjJjW3UNMlPMNzXDVqAEnfCDMoEYQ8HRg7FGYiWOYc WK5XWvSyZKPtSpNsQfyvMAUdQDWrvk7RYLGiDVMpCI KpYKZtBGLuMIIwALsfPYUfPODrAZC7WHIzVAJyPH0CElKsGUSmBrUmBUJbNCZsJFZned3VIEIjDYAnEH YcGBPsWHKaMMWpOGlgBUCgCEU4FFYzUXLjGGIeXF8XGvWqSTOgFuL5MRNdUWPkMBXsik1WKWYzOOSwHK P2DEShGAUlUFIcGEylCIGdVSR0JAD6SLEgKZRaOD8F ZnGaSXNaPmPgFdVhCMZaEDIcol4UFZWiLOWeBgIiVMTtBKUqMUBgAIewVFEzYUO7OiA0DZMdAPXtUA5F LjAyQDFwBzv4UNYqFBHmAKGoon3WSYNrJMFgNFW7MNOtWRCgHIYbGGdwWTPmUGD7OvMdBEBnIWHrVA9D GlHkMAHoUgjiOkQhMCAaOAQbqt1HBJOtCZJvVHV7Mg IhJZMnPNPbNDwcEMUnPPQ5JeUkYHElEHEaOS1VGqNwZNEdZYY7FOAvIGSkLJPkcc9YFZWcJCW6LHd7Bm IdAXIxBCDkQUdrGGOtQRGtHRU9UIUoGPPwFA1ZRvZzKEAzFLD1TKDgAWPaEHSxvl6OPUHkVDL6YwE9Wy AdZEGxBGKcZYkgHRWwUODnTjE5QTKfWRJoRP4UCbCs EQGtKIC8BEKrTPDmZFKlqj2AVJRoIDS2YAH9NTGsGGCiANZfBVedIDGpRMN9ZyTsOAZeHVSvRP2YXjPs ZLShVRR1OcQxOGGbFCOlge9YLTRyHJJ1HMRnWOMtNCYpTCJfGFpbOBLnTHM9AUGjPRMvPMCzFB7QFwTg SBDhAQG2NdzrVZGpURXcyp8NzZQodMhnqd0FIYrFZk 1SwVpfXIM5SCzoWa5lgEY6BvQaUZQSTi4SgbMxGUXbSPNANNuaOSZaOBA3HlFlYhY6UjU0MWtaCQUwBl FhXMb3SBH9WKJrLmK1PnL2TDDqEEZnEAH5KGF3USFzYAZtBJMbHxlbDMGrMHZ0LbY+XY6nSYb+Pg0Kc3 MjhrM2lfGfRGe7VLCsWq4ZMNCTE8JPEa== ID Date Data Source [id number] 01/29/2020 09:22:14 PM [facility] Value Range Interpretation Code Description Data Maritza rce(s) Supporting Document(s) Glucose [Mass/volume] in Capillary blood by Glucometer 183 mg/dL 70- 140 H [facility] ID Date Data Source [id number] 01/29/2020 05:15:45 PM [facility] Value Range Interpretation Code Description Data Maritza rce(s) Supporting Document(s) Glucose [Mass/volume] in Capillary blood by Glucometer 162 mg/dL 70- 140 [facility] ID Date Data Source [id number] 01/29/2020 12:28:34 PM [facility] Value Range Interpretation Code Description Data Maritza rce(s) Supporting Document(s) Glucose [Mass/volume] in Capillary blood by Glucometer 141 mg/dL 70- 140 [facility] ID Date Data Source [id number] 01/29/2020 08:25:11 AM [facility] Value Range Interpretation Code Description Data Maritza rce(s) Supporting Document(s) Progress Note [facility] RRVEUv0zJuBHJlRe91/PDEjmFOKxn7LuATgqPAi8EEukKSHeX4GiHAU0vR7qCDF7WOpRTxQgGhZwBJU8 [facility] [file] o= ID Date Data Source [id number] 01/29/2020 08:25:59 AM [facility] Value Range Interpretation Code Description Data Maritza rce(s) Supporting Document(s) Glucose [Mass/volume] in Capillary blood by Glucometer 143 mg/dL 70- 140 H [facility] ID Date Data Source [id number] 01/28/2020 09:03:07 PM [facility] Value Range Interpretation Code Description Data Maritza rce(s) Supporting Document(s) Glucose [Mass/volume] in Capillary blood by Glucometer 226 mg/dL 70- 140 H [facility] ID Date Data Source [id number] 01/28/2020 05:06:12 PM [facility] Value Range Interpretation Code Description Data Maritza rce(s) Supporting Document(s) Glucose [Mass/volume] in Capillary blood by Glucometer 155 mg/dL 70- 140 H [facility] ID Date Data Source [id number] 01/28/2020 03:43:59 PM EST [facility] Name Value Range Interpretation Code Description Data Maritza rce(s) Supporting Document(s) Progress Note [facility] NCCYRp6rWePWLnWt89/VHZmsAPAoc9QaIZkgCRr4ORzxRPTvD1QgLQT2sY9tOQD4ZZpKRySiPeTgJRO0 lbm [file] W3DvJ9GJF4LGX8IYZ9JBT+BW6qTVn+Jw2Xz0VwzeQ3emTzRGnlCErwXL9SXMJAQ0NAYg== ID Date Data Source [id number] 01/28/2020 12:36:28 PM EST [facility] Name Value Range Interpretation Code Description Data Maritza rce(s) Supporting Document(s) Glucose [Mass/volume] in Capillary blood by Glucometer 162 mg/dL 70- 140 H [facility] ID Date Data Source [id number] 01/28/2020 11:28:23 AM EST [facility] Name Value Range Interpretation Code Description Data Maritza rce(s) Supporting Document(s) ED Provider Note [facility] PVAXRp5tGiNEVeUs36/GCYzdRMVxj6XaUBkyVWm8DAxsSOZfC6WtXGC4oQ0fOFT2YRmIEuQkScBwAQX6 lbm GvZvgAEwDjPDVvGzhMXsIsDEthSamowSDjMN2XaXW9LJHuT33iJJHdEQGrL5LdRARaYKE+Lc6KGXDpbT TxKA5TSzuK0F5Naoc6Cx9tBl6Zh1LvHIaRsWt0A9AvNAeKPtsdtHQzaLOZNCNGxmCt/83+1AznxekW+I nnJClNjb9gJzL9Yts1GwShY1U++Z/Av8FJ44Why/Mz YjS3hVZ//kFEJnCRJ5g1rf8xTodq7sOed/ynLx9+8NcLsf/fIqp5raD54aoCARqO89QXoNYk0i+Du+vB xLQa5zkLm+h4upK6g5NYyIh8/Htu2GVFcvLA7VOk2+Amarilys+T3IgeevTiX+Bm1xzD8nuhhD2Q1wxPDSXjE [file] BPg2ywLi9rz5wmO37hfI2kSawkkL31fI/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 [file] MD2SWGL+Driss+Vi3TIKCfYCOeBLDvOuIyBUHVKbVeS8BmA6QMb9SfB2LvPA49dHgvpqReLAxuJF7VFO1l RNVdENIZHV5DsYDraI6oexSgWpEaLJPULoGlD78buWKyNGCyZRP6UVRnSo3CWMSiR9VzvcXmcAxllxUc UYDtWGZTGQ5ZIUnoqqPwoQUqeWxwTF43pSndZN2WGc 7YEkXzOV6ntg9LfEDtHs2OGJRyGn2HBHNdENPgVISuLFF2ARPxDpFsWRawCPZjQJUuZBW2PQMxBGFfCQ 1YQaLfSQCnNrXiRXRiPNWtUXAaoj8NLTWyVSOoYbe2IbPmGDEoBZLlARzgVHXzCTJhKAS3ZTUgKZHeKU 6ODwBnYFEiAUXzOSffPZZiGFOjso6UTTYfNSYuHrT3 TlWcJBOqPRRxYGkaJXJsSDL1AYk1ITDwXVXeSV1ODjTqTQUjKNU7DWLwPBGlBQCykm5PPBXpYQEhXMW6 CpWuJJPxOSIsDZjrAVTuGND2PER6LUOjXVDwKX4LQoQsVJYuZWG2DfecFWCwKLZgbj4TLKAdPAWrDvA8 WVLwNRTwEKNnIAcrSDElLSA6OVIqWNWbAYCbMS1GKa MuEWXdJOnbMFlmHBWgLQTvxm2NKTWjJGNdNKA3SdTaGDVkEAPuEQamVOTuOAL7DkV1XGSdHUKgEY8BLl PkNBTgQDy4PNSfWYBvVUJhzw6MJFRsRINiVOUrDXWfGNFrOSSuKEyrIMBpXUW0WyT0CCCuSDWpNP6LMa DlMCXhKNd9QMOaYIWhBDKacd2XXIEmAETtZIW4NPRl FKUcNKBaUEccOAThNNMvBjk6VXWkEDTbIN2KQiXzVSMmAzU6JMleZAUoDVIkgt6MISFmSBGoKCxgUeIp FJYsLBMyYXwjPRJtEMMmPRsrYKZyUSYcJD7PJnVdEVKcNuA7ORSoWSFtUFNmqc4RDHUlGATjVoj5VXWf GSTqYNGbKPemLYOgWANjPVWfMQWcGOIqTP3AGyFkLE JeQrMxXXPyELGcZYUtkf7EJVStXGSzYJP7EQGtPZYtHMWtTKgbZIRtIBF7JAFsWNZwMJMkII6WBwFjFA wpGMWCDvw7ZKhlY2h9TEBbXe1GT3Utc8TlAlByDEYUVErcGM5iveCxELGhRt8GA6rHNrkbCPWcXFJ6WB H1Q5K5DbA3WyUmILKaUBP7YLs4LuLbTd6aXMUwLgX0 VWb5Lba7DFm7QCrkZDYuTsB2Ifr3YlXuTlV8VpEeSN6IOn1OMoE2LPA3kVVbIk9MRuN4NXEVHnKdPJ2E DQo= ID Date Data Source [id number] 01/28/2020 10:54:25 AM EST [facility] Name Value Range Interpretation Code Description Data Maritza rce(s) Supporting Document(s) Progress Note [facility] FQWFGt3tDgVYKrCd31/RLZpzMNLba9XrXJblQWg9GYdyVNMrJ1ZrKNB1pW6kJQI7JNiDWaBiKyNiYUN4 lbm [file] ICAgICAgICAgICAgICAgICAgICAgICAgICAgICAgICAgICAgICAgICAgICAgICAgICAgICAgICAgICAg ICAgICAgICAgICAgICAgICAgICAgICAgICAgICAgIC AgICANCiAgICAgICAgICAgICAgICAgICAgICAgICAgICAgICAgICAgICAgICAgICAgICAgICAgICAgIC AgICAgICAgICAgICAgICAgICAgICAgICAgICAgICAgICAgICAgICAgICAgICANCiAgICAgICAgICAgIC AgICAgICAgICAgICAgICAgICAgICAgICAgICAgICAg ICAgICAgICAgICAgICAgICAgICAgICAgICAgICAgICAgICAgICAgICAgICAgICAgICAgICAgICANCiAg ICAgICAgICAgICAgICAgICAgICAgICAgICAgICAgICAgICAgICAgICAgICAgICAgICAgICAgICAgICAg ICAgICAgICAgICAgICAgICAgICAgICAgICAgICAgIC AgICAgICANCiAgICAgICAgICAgICAgICAgICAgICAgICAgICAgICAgICAgICAgICAgICAgICAgICAgIC AgICAgICAgICAgICAgICAgICAgICAgICAgICAgICAgICAgICAgICAgICAgICAgICANCiAgICAgICAgIC AgICAgICAgICAgICAgICAgICAgICAgICAgICAgICAg ICAgICAgICAgICAgICAgICAgICAgICAgICAgICAgICAgICAgICAgICAgICAgICAgICAgICAgICAgICAN CiAgICAgICAgICAgICAgICAgICAgICAgICAgICAgICAgICAgICAgICAgICAgICAgICAgICAgICAgICAg ICAgICAgICAgICAgICAgICAgICAgICAgICAgICAgIC AgICAgICAgICANCiAgICAgICAgICAgICAgICAgICAgICAgICAgICAgICAgICAgICAgICAgICAgICAgIC AgICAgICAgICAgICAgICAgICAgICAgICAgICAgICAgICAgICAgICAgICAgICAgICAgICANCiAgICAgIC AgICAgICAgICAgICAgICAgICAgICAgICAgICAgICAg ICAgICAgICAgICAgICAgICAgICAgICAgICAgICAgICAgICAgICAgICAgICAgICAgICAgICAgICAgICAg ICANCiAgICAgICAgICAgICAgICAgICAgICAgICAgICAgICAgICAgICAgICAgICAgICAgICAgICAgICAg ICAgICAgICAgICAgICAgICAgICAgICAgICAgICAgIC AgICAgICAgICAgICANCjw/mYAmF6hlpVOynzO5E9bwMd6GPv8WZV0lc0IfSKQsJZmqgtOgBxaTItEgNW YuCooSWya9FWwaXH9JaTJsL4NjR6PaBMlgHW9MORFcOGDhuMGqYZKiZZXmVzX0QJRgJIfwDN6EuLYjKU faIFRfXHRrGrXdCJQpPQQtDXOmQF9ABJIoC717goWe Gj2BTo4QMoRtBL0pye0ETyKkLAAvGtuAJto0KAxvAN6XmIAfnUOmIGXeZLQNZkZvI2bbi7CwCeMsAPVH TLxqGI1Bz3JhwTWoJAa+Hr9WFR1yd7PgYTdqXXReDE2sqz7OCCnZRnWlI9MjcKwmGRJre7ugTAMnNK8x zIZoRMI1BEepPMBjNKGtXyCIZQt1ZKBsLKEMJQSmyM VcNX2rEs6gOKNdTZYmYeWmFFHXAN3UHMKnUHKxsZAcYNJrFXIEOZ5NQKgfNAK5COEibaJvwDVxYWegTE 9QYXJlbnQgMjQgMCBSDQo+Zv5LGQ4ey3LoZIdxOfEnNQ0mwt8UEDmDVaIlH5E7xXOiG0C8RFqwJx8QYX NbQFBuGkMtEGPUJEmoTQ7HCE5davU2VH7TpSMdGLFa DWLtmCOgVXj6H07nbFHxRItpQN7AUYF+Driss+Mo3ZKUTcPZJmIDWnXwHkJBWRCzCdX3PuW2DCi9UiZ4Gl EC64wHdpxrZvDYtvUA2BAN7tGHVpXCTTPA7GfYGqyT1opwGhXCCpEKNCDoUuG36brOCkKJSpBKFsPNJv Bd8KVGUlJ0WiwyJbqUjhnfObNGQxREHHQI1SFJfoum JktSCpoSjeDZ70xXhnGE9PUp8NJzXbPG5gip6AcBGtXt7GAAYjTi1AGJGlWRPvWDYcIAH9MONkHiPtNW gjMNVoEGEaRBX6BQFiIZOmUV1DEaDiGZVuAOVkAMkdMWJbVXSjsc9MIPGaJSVmMNp4HEWsLWHgUTAgSJ dbPLKiSDGmPPY2TPJuNOLfDD6AUfEkQRLgNFN9EMYa KOFrJCQivw0IMILvZMBtTjNtLDShGNWqKOEyAEtvNCPyGOD6QYD4DJTbOLQcAO2YXrKzXYImEDT8QJij YQLoQVCtni8OWBPxIOVuRFU9VuMkNSSwUPTkCTciYCCuAVY7TGFsDBAjLGLqUV3BAfLaSPGcFEs0KxYc FGFtZLEryl4DXPCpRPPeISn1KnOvPVJnIWOkOOxvEM TaJWEaXCUxNGRaEQCzCE7GNiJrVQQzVUSuFRaoHKLbCYQbcx4IHISkBWFuUKUeFULfWFBnKBFsXGrnTB UcHHQmXQs0FGKrQJYfIA6MAjBhOCYmXQM5RWivXCPmYWHuxb2ALTDsNQRxNzU8CfYeJTEcMDRySTqeDP FpMDXjSHZ0KESiFLRyLV3UMwWeFXVdGVZ8OMjwQPPv OFChbb4APCWnDGAgZck3QtKkZGZqIBMeIBoeUDPnHCF7HIccRTHjIGWgLM6NEjRmQEZjMYI0ObKyRUHf IHFnmd5XYCKsFYXjKuD3YPYmADLiRMIxYJneQVYwJBU7RVT0FXIyPNDoJW4PTcFkWXQjQNDhVGrlUWKt YLOiug6AkKRwqPpasv4ZLKaJJp9HlPvjWKF1RDpvWn 8fpYUkNuEhQQHMTd8VpsHuSBIbDEHKOOeeRMAfELGbNksmEWJ3KnB8QRH6GoYsFOW1J8DpYSBsDqTbTE Q6OtH1GuWqAyE2TyqgIdEvIvXkWzG3IZP9EWAaBXW2AvGdXpI+EN8fSOz+Bh3Lm9QavaI0auWuLLpyMf J4Jz5OIKZKG2XWAp== ID Date Data Source [id number] 01/28/2020 10:25:41 AM [facility] Name Value Range Interpretation Code Description Data Maritza rce(s) Supporting Document(s) Progress Note [facility] SIPFPj2dBeLCKuFw27/RHElvVJTqe1KwFYdiJJi3LSkzWMHvK2HySFP6nE1qKUE7PMaTIeEmYcSvPFT5 lbm [file] CpAd8BZHW2UxcOWsYuMB0WBEj= ID Date Data Source [id number] 01/28/2020 08:40:[address] [facility] Name Value Range Interpretation Code Description Data Maritza rce(s) Supporting Document(s) Glucose [Mass/volume] in Capillary blood by Glucometer 187 mg/dL 70- 140 H [facility] ID Date Data Source [id number] 01/28/2020 07:49:[address] [facility] Name Value Range Interpretation Code Description Data Maritza rce(s) Supporting Document(s) History and Physical [facility] MVLFVk1sHzCILtUz78/FGUofDDNkp3CwPUruAJc9PQxpZWOvG1BnUCH8mF1oIVR0BPmVRtFhJnLyBVE8 m [file] ICAgICAgICAgICAgICAgICAgICAgICAgICAgICAgIC MlDQPaGVJqEKHhGOPdCWXcCWUyOBNmYOQpUGNzLNXpNA3OZBSoMYUjUPWhWBCnLATjHDXnNYDfQDXcRA AgICAgICAgICAgICAgICAgICAgICAgICAgICAgICAgICAgICAgICAgICAgICAgICAgICAgICAgICAgIC BvREZcWPEjKCSeIDLmUH0HCNPvDFWuZKYrZQAvWFMn ICAgICAgICAgICAgICAgICAgICAgICAgICAgICAgICAgICAgICAgICAgICAgICAgICAgICAgICAgICAg GPMbQSCdKMMqVKKcITUtYEHtOXDwSOPwSC5PMABwSGAaNOJsLWMcYWAsFUIlXNZqLOJlSOQfMFByHTVy ICAgICAgICAgICAgICAgICAgICAgICAgICAgICAgIC IuCPQcBTHdHHWpJXAcPIDzGHGeQCFkWVCdBMVpUTNiVEAoYS8NAJElTSAqVGVpSKGiGVUfFOGbVGWhKS AgICAgICAgICAgICAgICAgICAgICAgICAgICAgICAgICAgICAgICAgICAgICAgICAgICAgICAgICAgIC NpVWOdEVIoBHTpBGMpGQAvZV8TIRSqABKyDHJiLHPi ICAgICAgICAgICAgICAgICAgICAgICAgICAgICAgICAgICAgICAgICAgICAgICAgICAgICAgICAgICAg YGUwSKXtNSSbHVCkYKHuMPKlSFEmBIHtZAVmPN5EBYPcVGNwWBPjFEWdUQVvYHFiQJJtPNXmJTKxSNVx ICAgICAgICAgICAgICAgICAgICAgICAgICAgICAgIC OlSRAcELNdNYMrBOKyOFTtAXCaRDHvUIGhQJBkCGZxJLRkHEUdGA5RNUGfUGMjOUSoOVMxOIAbWVEpHN AgICAgICAgICAgICAgICAgICAgICAgICAgICAgICAgICAgICAgICAgICAgICAgICAgICAgICAgICAgIC GcFRPkWPXqTAAaKUQsFSMhVHMhIF7WLXEvIHRxLNDg ICAgICAgICAgICAgICAgICAgICAgICAgICAgICAgICAgICAgICAgICAgICAgICAgICAgICAgICAgICAg FPWfIMRvUTKrLTUbVJYpIVXgXIDlNUXtFHTrUNFwJZ9LVFKpRBGbYUBwWHBwDGFsMUGuCUQrPOXfSIUf ICAgICAgICAgICAgICAgICAgICAgICAgICAgICAgIC EhOJPxFYSwMMViTRToPZLjBYFxXLStLIErQUBrWSFlWYLiMXCiWAGrLX7DAT68oLQwx3Y1HNKoKX9tfl c/Wf7ERAizgeTunVOsHS4ZOmSrBE0hbr8QDdRdNU2sjw3ALBbTFmLbH0F9fNVbIJRbGUGRJxRoY42iJH tfHc07SHsaLXLkFcTiRQx3Eq0ZPuUbM7spLWFcKbN3 MXUdFxJ4PYJuKdV8UDEvGtNwBOCnGPUlYDDqSQATFU5HXlKcQ5ZzkS09STZKLj9+DQplbmRvYmoNCjMz JPVfc1WfNLx4JQ7XWWXhQmguc0UoUeKcECYVOWiyXO7OAYR8JFS4UHVxKj8DRAUpV761mqWeUS0RYl8C FnQtEZ9znw9CJcOrDTCnQvbRSft7CRqfRB3LzTDySM pMWuLsUmcjKcSbL7J3VWZwM8wkq3YhoTScDXDMAZC0DMQwTtW0JiPmBkWlYSE7RQmiFN1zLIorGA3STV M3AIgnGSCeGCYtM2zDCtAtBLSbGQRlfRcrIZ8MMrAiF0McgfHzxGGyWhKeSXQFRh7+DQplbmRvYmoNCj Q8PXZfc7KbCWm1GD6IGMAvGPvnCR0JCXNsjI2cMTnd OI8DBlDrRBYqKZWHGxOkO12zfNZbTNw6I1XzIcGdODSiHofyJIMnBFktPvFsRHVqDdUzYJjwBS0+ID4+ WLnbJM8SVNrfheRqLCMaRw5TFPSuGOXsPJ7zJHMjUFKjZ2C6fUcnZTCVYrSsN2trkbtnUG3fCJDpA898 lZadrpPjJDEdSGUvFv5VWHSwVNL9TXYdcWUhLpZwJU PEZOehGW5UcBQpTWU2eF5zJGeuKWAuKYFzB1aBJlZkuDyiEF31rEsjjeAsiTKyKCy+Cx7TDT6yl9YkIT i6epSuCOkzWEG0EOjrJUVrDCRyGTIhOLJ8AON5CZIONnAuKTHaXROiUDizMTFyDIIrta2TAOEoUJA2Ik C4IFIyHMNqAHHwTZcnYFYqZJQ0REBtDWKxXIFeUH5E FmPjKQOxLLZzBKzmPXInWXIvtc2LCREaQBKwWww9QkPkTVCfCHEgYHytVFIzDJXjTQlmFFVfQNIoLE9O FjIwDNAjMFjlINFzCLBgFBYwvy8FQCToGRNpInP1FIEeBDUwCXVnGJmkHNKnKFKrJRmiZEWjJFDxOG2K HjQmQGYgUATdBGXwYHStZMPolk5YMXZzCJKeIFTvDt QcWKAeBYXiUCwsILWxLOO9XiC8WUYyOGGiVP0KSnSgLALpYDL7DEPrNMVyWSNefz5HSULoKKGcKuw8MK MrUWBfZSMsKMkvBMItBHK8ItV8ZRQnQDOhCV8LJeJlTYSbLZu2NBXhCFAtOLPikt1BAFXuUEWhPTX2UK PpBUNhKBGqERwbASLbTAQ3TAK1DJAwZEQjMS7ZPoKy WSPeMUpkTYQvZLDpVXRrpr8XWHJaYFJyVWWwGZWjHTXoIBSpPRhqGCRrHOJiPxs8JLRrRYTlJI1DUwVu EPMaFtQ6LSBpBNPwDWFhlf3MOZYzVCUsWPf4PUHxAUGiGTGlLNzvVTNnNTOeEAjoTTNsAVPiQM9XKvPd QCPkZWD2PpNqAKEkZQOdad4OKLDfOVM8PWV8XxZfWF MdPLMvAPjlVNAdHEO5GDvyZPEuXXAkVL8IVqUxHBXvQWQiAqoeHTZvJVLiaf0LZNBuDDR7IUi0RKSkJQ PvGKMmNBkwOGGbTFR9ZXG0QOLiPSXxPW1TNbOiMSPwSIDfKqszLJRvWUFjpr6DTRHdYTX9Gfo4RMDiEV HmWQRnMYvkBTExNCA1PnB1NSKiNSBiZD2LZrZsZLBe WTfxIGSaCCVmTVAjed2ESKLwZCF7NXA7SjQoTOEdJXCoPZy1cuExfPXmGCt4SV4NC2BlnnLbTtWTNv3Z z368USP1RISiLh2OC9jhRk5oSJQrSNIPCt1ADZo9NpfmAVjfUBTgTLmtDXKwWPzeUQg7IfJeDhS9JIP2 Mjc+UUm8DBAuARC2EJBpYYYsBBZ2CLR7TMOnMiFbPP a4GEwrDu4hAOWJMn6+NSrmqJCvwJgiXHJOBuW7WdglRKvpQWELTo1M ID Date Data Source [id number] 01/28/2020 12:00:[address] 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 [facility] Patient has symptoms related to [facility] When did you start to experience these symptoms [Date and time] [Phen X] [facility] Patient was hospitalized because of this condition [facility] patient was admitted to ICU for [facility] Patient resides in a congregate care setting [facility] status [facility] ID Date Data Source [id number] 01/28/2020 01:50:00 AM [facility] Value Range Interpretation Code Description Data Maritza rce(s) Supporting Document(s) SARS-CoV-[address] [facility] This lab was ordered by [facility] and reported by [facility]. ID Date Data Source [id number] 01/28/2020 01:34:[address] [facility] Name Value Range Interpretation Code Description Data Maritza rce(s) Supporting Document(s) Progress Note [facility] FJDHUf9jXmAHUyNr28/JHNruLMMmv7WuJPqiEJy9DZkiAEDgO8MpJOM0aX5uAZM2PKeDXcEyBzVvNVF9 lbm [file] YmVmYzYwZTE+LB8hRCi+Bk9Je5OivzC8hzJxKPu7WKf5FSbxJOQEOi5C ID Date Data Source [id number] 01/28/2020 01:29:[address] [facility] Name Value Range Interpretation Code Description Data Maritza rce(s) Supporting Document(s) Glucose [Mass/volume] in Capillary blood by Glucometer 146 mg/dL 70- 140 H [facility] ID Date Data Source [id number] 01/27/2020 11:34:[address] [facility] CT PELVIS WITHOUT CONTRAST [id number] RE SULTInterpreted by:Kristina Garcia MDPROCEDURE INFORMATION: Exam: [...] rce(s) Supporting Document(s) ID Date Data Source [id number] 01/27/2020 10:42:[address] [facility] XR HIP- UNILAT, 2-3 VIEWS [id number] RE SULTInterpreted by:TILA AmayaEDRENAN INFORMATION: Exam: XR Right Hip with Pelvis when Performed Exam date and time: 01/27/2020 9:43 PM Age: 30 years old Clinical indication: Hip pain; Right hip; Prior surgery; Surgery date: <1 month; Additional info: Possible FX or do TECHNIQUE: Imaging protocol: XR Right hip with pelvis when performed. Views: 2 or 3 views. COMPARISON: CR XR PELVIS 1-2 VIEWS [id number] PORTABLE 01/20/2020 10:34 AM, CT right lower [...] rce(s) Supporting Document(s) ID Date Data Source [id number] 01/27/2020 10:40:[address] [facility] XR FEMUR, MINIMUM OF 2 VIEWS [id number] RESULTInterpreted by:DESTINI AmayaROCEDRENAN INFORMATION: Exam: XR Right Femur Exam date and time: 01/27/2020 9:43 PM Age: 30 years old Clinical indication: Pain; Hip; Right; Prior surgery; Surgery date: <1 month; Additional info: Ho replacement and orif pain and def after fall TECHNIQUE: Imaging protocol: XR Right femur. Views: 2 views. COMPARISON: CR XR FEMUR, MINIMUM OF 2 VIEWS [id number] PORTABLE 01/09/2020 10:01 PM FINDINGS: Bones/joints: Unremarkable. No acute fracture. Soft tissues: Unremarkable. IMPRESSION: There is no evidence for a fracture. THIS DOCUMENT HAS BEEN ELECTRONICALLY SIGNED BY KRISTINA GARCIA MDThis document has been electronically signed by Kristina Garcia MD on 01/27/2020 10:40 PM Name Value Range Interpretation Code Description Data Maritza rce(s) Supporting Document(s) ID Date Data Source [id number] 01/27/2020 10:38:[address] [facility] XR PELVIS 1-2 VIEWS [id number] RESULTInt erpreted by:TILA AmayaEDRENAN INFORMATION: Exam: XR Pelvis Exam date and time: 01/27/2020 9:43 PM Age: 30 years old Clinical indication: Hip pain; Right hip; Prior surgery; Surgery date: <1 month; Additional info: Right hip possible do TECHNIQUE: Imaging protocol: XR pelvis. Views: 1 or 2 view. COMPARISON: CR XR PELVIS 1-2 VIEWS [id number] PORTABLE 01/20/2020 10:34 AM FINDINGS: Bones/joints: Status [...] rce(s) Supporting Document(s) ID Date Data Source [id number] 01/28/2020 01:06:[address] [facility] Name Value Range Interpretation Code Description Data [facility] rce(s) Supporting Document(s) Leukocytes [#/volume] in Blood by Automated count 13.7 10*3/uL 4-10 H [facility] Erythrocytes [#/volume] in Blood by Automated count 3.72 10*6/uL 4.6- 6.1 [facility] Hemoglobin [Mass/volume] in Blood 9.7 g/dL 13.5-18 [facility] Hematocrit [Volume Fraction] of Blood by Automated count 29.4 % 4 1-53 L [facility] Erythrocyte mean corpuscular volume [Entitic volume] by Auto mated count 79.1 fL 80-96 [facility] Erythrocyte mean corpuscular hemoglobin [Entitic mass] by Automated count 26.2 pg 27-33 [facility] Erythrocyte mean corpuscular hemoglobin concentration [Mass/volume] by Automated count 33.1 g/dL 32.0-36.0 [facility] Erythrocyte distribution width [Ratio] by Automated count 15.9 % 11.5-14.5 [facility] Platelets [#/volume] in Blood by Automated count 656 10*3/uL 150-400 H [facility] Differential cell count method - Blood [facility] Neutrophils/100 leukocytes in Blood by Automated count 77 % [facility] Lymphocytes/100 leukocytes in Blood by Automated count 15 % [facility] Monocytes/100 leukocytes in Blood by Automated count 6 % [facility] Eosinophils/100 leukocytes in Blood by Automated count 1 % [facility] Basophils/100 leukocytes in Blood by Automated count 1 % [facility] Neutrophils [#/volume] in Blood by Automated count 10.71 10*3/uL 1.8- 7.0 H [facility] Lymphocytes [#/volume] in Blood by Automated count 2.02 10*3/uL 1.2-4 .0 [facility] Monocytes [#/volume] in Blood by Automated count 0.84 10*3/uL 0-0.8 H [facility] Eosinophils [#/volume] in Blood by Automated count 0.12 10*3/uL 0-0.5 [facility] Basophils [#/volume] in Blood by Automated count 0.07 10*3/uL 0-0.2 [facility] Nucleated erythrocytes/100 leukocytes [Ratio] in Blood by Automated count 0 /100{WBCs} 0-0 [facility] ID Date Data Source [id number] 01/28/2020 01:09:[address] [facility] Name Value Range Interpretation Code Description Data Maritza rce(s) Supporting Document(s) Bicarbonate [Moles/volume] in Serum 26 mmol/L 22-29 [facility] Chloride [Moles/volume] in Serum or Plasma 100 mmol/L 98-107 [facility] Creatinine [Mass/volume] in Serum or Plasma 0.59 mg/dL 0.70-1.20 L [facility] Glucose [Mass/volume] in Serum or Plasma 113 mg/dL 70-140 [facility] Potassium [Moles/volume] in Serum or Plasma 4.2 mmol/L 3.4-5.1 [facility] Hemolyzed Sodium [Moles/volume] in Serum or Plasma 137 mmol/L 136-145 [facility] Urea nitrogen [Mass/volume] in Serum or Plasma 12 mg/dL 6-20 [facility] Anion gap 3 in Serum or Plasma 11 mmol/L 8-15 [facility] Osmolality of Serum or Plasma by calculation 285 mosm/kg 275-300 [facility] Creatinine/Urea nitrogen [Mass Ratio] in Serum or Plasma 21 [facility] Calcium [Mass/volume] in Serum or Plasma 9.4 mg/dL 8.6-10.0 [facility] Glomerular filtration rate/1.73 sq M pre dicted among non-blacks [Volume Rate/Area] in Serum or Plasma by Creatinine-based formula (MDRD) >6 0 [facility] Glomerular filtration rate/1.73 sq M pre dicted among blacks [Volume Rate/Area] in Serum or Plasma by Creatinine-based formula (MDRD) >60 [facility] ID Date Data Source [id number] 01/28/2020 12:16:[address] [facility] Name Value Range Interpretation Code Description Data Maritza rce(s) Supporting Document(s) ABO and Rh group [Type] in Blood [facility] Blood group antibody screen [Presence] in Serum or Plasma [facility] Blood bank comment Health system ID Date Data Source [id number] 01/21/2020 02:47:[address] [facility] Name Value Range Interpretation Code Description Data Maritza rce(s) Supporting Document(s) Discharge Summary [facility] VTRZPl0lZvTXDtVb05/UCFjwUZAvc4YsJCsjUEr3DYtaSVDoD5AbHWG6sT3dVOR4UNnQLaIwSiFhRWFa lbm [file] TCF9ESpsEW9nWJGLHd0+YSkgyZQrzQvkEAPTKeBhKAP7KQbaXJSONi8U ID Date Data Source [id number] 01/21/2020 08:28:13 AM [facility] Value Range Interpretation Code Description Data Maritza rce(s) Supporting Document(s) Glucose [Mass/volume] in Capillary blood by Glucometer 248 mg/dL 70- 140 [facility] ID Date Data Source [id number] 01/21/2020 04:00:56 AM [facility] Value Range Interpretation Code Description Data Maritza rce(s) Supporting Document(s) Leukocytes [#/volume] in Blood by Automated count 15.4 10*3/uL 4-10 H [facility] Erythrocytes [#/volume] in Blood by Automated count 3.80 10*6/uL 4.6- 6.1 [facility] Hemoglobin [Mass/volume] in Blood 9.7 g/dL 13.5-18 [facility] Hematocrit [Volume Fraction] of Blood by Automated count 30.0 % 4 1-53 [facility] Erythrocyte mean corpuscular volume [Entitic volume] by Auto mated count 79.0 fL 80-96 [facility] Erythrocyte mean corpuscular hemoglobin [Entitic mass] by Automated count 25.5 pg 27-33 [facility] Erythrocyte mean corpuscular hemoglobin concentration [Mass/volume] by Automated count 32.3 g/dL 32.0-36.0 [facility] Erythrocyte distribution width [Ratio] by Automated count 15.2 % 11.5-14.5 [facility] Platelets [#/volume] in Blood by Automated count 423 10*3/uL 150-400 [facility] ID Date Data Source [id number] 01/21/2020 04:10:11 AM [facility] Value Range Interpretation Code Description Data Maritza rce(s) Supporting Document(s) Bicarbonate [Moles/volume] in Serum 27 mmol/L 22-29 [facility] Chloride [Moles/volume] in Serum or Plasma 101 mmol/L 98-107 [facility] Creatinine [Mass/volume] in Serum or Plasma 0.57 mg/dL 0.70-1.20 [facility] Glucose [Mass/volume] in Serum or Plasma 268 mg/dL 70-140 [facility] Potassium [Moles/volume] in Serum or Plasma 4.3 mmol/L 3.4-5.1 [facility] Sodium [Moles/volume] in Serum or Plasma 135 mmol/L 136-145 L [facility] Urea nitrogen [Mass/volume] in Serum or Plasma 16 mg/dL 6-20 [facility] Anion gap 3 in Serum or Plasma 8 mmol/L 8-15 [facility] Osmolality of Serum or Plasma by calculation 291 mosm/kg 275-300 [facility] Creatinine/Urea nitrogen [Mass Ratio] in Serum or Plasma 28 [facility] Calcium [Mass/volume] in Serum or Plasma 8.4 mg/dL 8.6-10.0 L [facility] Glomerular filtration rate/1.73 sq M pre dicted among non-blacks [Volume Rate/Area] in Serum or Plasma by Creatinine-based formula (MDRD) >6 0 [facility] Glomerular filtration rate/1.73 sq M pre dicted among blacks [Volume Rate/Area] in Serum or Plasma by Creatinine-based formula (MDRD) >60 [facility] ID Date Data Source [id number] 01/20/2020 08:59:[address] [facility] Name Value Range Interpretation Code Description Data Maritza rce(s) Supporting Document(s) Glucose [Mass/volume] in Capillary blood by Glucometer 272 mg/dL 70- 140 H [facility] ID Date Data Source [id number] 01/20/2020 05:42:11 PM [facility] Value Range Interpretation Code Description Data Maritza rce(s) Supporting Document(s) Glucose [Mass/volume] in Capillary blood by Glucometer 331 mg/dL 70- 140 H [facility] ID Date Data Source [id number] 01/20/2020 12:40:42 PM [facility] Value Range Interpretation Code Description Data Maritza rce(s) Supporting Document(s) Glucose [Mass/volume] in Capillary blood by Glucometer 220 mg/dL 70- 140 H [facility] ID Date Data Source [id number] 01/20/2020 10:59:[address] [facility] XR PELVIS 1-2 VIEWS [id number] RESULTInt erpreted by:George Crockett, MDPelvis, one to [...] rce(s) Supporting Document(s) ID Date Data Source [id number] 01/20/2020 10:15:[address] [facility] Name Value Range Interpretation Code Description Data Maritza rce(s) Supporting Document(s) Glucose [Mass/volume] in Capillary blood by Glucometer 216 mg/dL 70- 140 H [facility] ID Date Data Source [id number] 01/20/2020 09:49:[address] [facility] Name Value Range Interpretation Code Description Data Maritza rce(s) Supporting Document(s) Operative Note [facility] OHETTg4fLoBKEpRk16/HXYezSFCbl8BmZCazIUu2DYydYSTbZ7PoGKS6rA3nVRH3GLiSTxSvSdHiBLR9 lbm [file] MTIgMCBSDQogICAgICAvRjEgMTUgMCBSDQogICAgIC OnQcPnASysFPDXOi9TToQdFTViSZ5hhpHprVH2XKO+Ax5VDGWyZC2GbJRAG9LniDQbVIcdO8XTSN6OHZ O2XV8YdMYaGJ2EpAFIQ4UbeEOqIp3eNZAhn7EwUg0mC0ENNCLLWVWoGWdxGLncTYAbVBm8Q4H1QUMhO5 JGV488sESpqKy2Zy4xH0OQNNoIIqFqEZayCTllOQOi IXu7J0E4JKPmY9EGI4FmEbMpljLbS6H+VyBlFABWIH9SKSSXMPr1V2B7dGLmA7R6mCuHwYG8GO2DLX6P hESigVUdt34+TbBOVnJmKRLvT3HULOOALpGkUBtzVWecLPAlFEf9G6V4PPOhZ4NEM1zzL8i4ZM9+PiAN ZuQyQKLqRz5LUqCgFv9EViBmTE5zuj7NVbOlBFHvEi jBBmj2X9pyywl0iVKjGjX7Q3N8WrR6fWBrWM3RJ7N3jWEmPSL1WGRhsDN+Qf4Em7MxXUCuNAe1I2ucWA JuWAZvJpGhkV20S++6jfvfuVF3S7u7RTTLlOYbyUfUypQgU0cVFNS6x2B5MJi/Bt2FEBA4xGw5hJMjOZ XsMQm6sU3fgOy9YqPgJW42JDOeJQpalV5fTos4M5Wn q9AgOc4nPr9mfSFvXy3DUdNtKAF9exZdKyXMYvM2fDfcmyvsBCJ1C5f4aNG9Zs14n0bcwoLbu3ExJdY2 VQdxJOYmEnXnakXsDVB4weLetX8ykhGmEo5CYNJcGOctzfVzDxTBLq1DDkIzEU40MwntfM5jeUG+DQog ICAgICAgICAgICAgICAgICAgICAgICAgICAgICAgIC AgICAgICAgICAgICAgICAgICAgICAgICAgICAgICAgICAgICAgICAgICAgICAgICAgICAgICAgICAgIC AgICAgICAgDQogICAgICAgICAgICAgICAgICAgICAgICAgICAgICAgICAgICAgICAgICAgICAgICAgIC AgICAgICAgICAgICAgICAgICAgICAgICAgICAgICAg ICAgICAgICAgICAgICAgICAgDQogICAgICAgICAgICAgICAgICAgICAgICAgICAgICAgICAgICAgICAg ICAgICAgICAgICAgICAgICAgICAgICAgICAgICAgICAgICAgICAgICAgICAgICAgICAgICAgICAgICAg DQogICAgICAgICAgICAgICAgICAgICAgICAgICAgIC AgICAgICAgICAgICAgICAgICAgICAgICAgICAgICAgICAgICAgICAgICAgICAgICAgICAgICAgICAgIC AgICAgICAgICAgDQogICAgICAgICAgICAgICAgICAgICAgICAgICAgICAgICAgICAgICAgICAgICAgIC AgICAgICAgICAgICAgICAgICAgICAgICAgICAgICAg ICAgICAgICAgICAgICAgICAgICAgDQogICAgICAgICAgICAgICAgICAgICAgICAgICAgICAgICAgICAg ICAgICAgICAgICAgICAgICAgICAgICAgICAgICAgICAgICAgICAgICAgICAgICAgICAgICAgICAgICAg ICAgDQogICAgICAgICAgICAgICAgICAgICAgICAgIC AgICAgICAgICAgICAgICAgICAgICAgICAgICAgICAgICAgICAgICAgICAgICAgICAgICAgICAgICAgIC AgICAgICAgICAgICAgDQogICAgICAgICAgICAgICAgICAgICAgICAgICAgICAgICAgICAgICAgICAgIC AgICAgICAgICAgICAgICAgICAgICAgICAgICAgICAg ICAgICAgICAgICAgICAgICAgICAgICAgDQogICAgICAgICAgICAgICAgICAgICAgICAgICAgICAgICAg ICAgICAgICAgICAgICAgICAgICAgICAgICAgICAgICAgICAgICAgICAgICAgICAgICAgICAgICAgICAg ICAgICAgDQogICAgICAgICAgICAgICAgICAgICAgIC AgICAgICAgICAgICAgICAgICAgICAgICAgICAgICAgICAgICAgICAgICAgICAgICAgICAgICAgICAgIC ZdGOZoPTYcOZKwBMKkITOpWVy0J1wiLURvARHbVB5mQIx4Lc2+AZbNLhVmTNY8uhBldZ3IHG5vg8PrKE srUPAzw3MmRAe1GJ9VCPQxDEytOF2FFZahko5BPXWo PZWjqHYHz1wxIeSpSDC2AKXrUlrkSL6AYGZhE0ucjiKzBLFsKIYGOIslEAILRGnlZNASUR4LWvWsX4Vi tB59FFKFMe5+ZTuobnBzFnzCTaVhPGZul2OxIQm7FK0LCNWfVbjkb8VuLjMjILKLHYntVV9TWOY0YOFa FFMqSo9ROAKjM656ezMoVI4OWf0TIdAhUM7yxy0EZm DeLUYfJnjVGpn9YAapQC4BmUPrBEjNiFGxWPVtfaRzQh76QYKiiYMBy7CegnBrTXPAgPLrcMMtQVNDTC SprRXsZS5gSB9lWJFoGNH9FzA0BYLSKY5LFPMvVUVnnLBhNZDvWEBVNJ4DGCnzUAK9HAJsldGbhWMuXY bkCI1AIGKbfdIlIdWdWOJPSIi+Ij9XGB5ke9LdWYfe BzToJH9sam3TYDwTPiVqO5Z6vKKjC4K4LVceWu4SEOSnYJWwUIymPHDPRZwyML0QSD0lbuW1WW5RpNPg WTGoYDSvgZDhMYh0F73kyXBkHNkzJQ3UQBH+Driss+Mp9UTSRkIULkPNMpQtKzFZACPbByX0AjL0MTg1Hh N8WiSK93hHgrfdIdUVtfZU7BRA8sEEKdCUWXNP2QjR ZeoU0xocPdBWZvQUEIGyTsJ30knCGqKCWhUWAcBEIeAa2EMGZrP5IjqvSdlKyathSeFIMoJHEUUZ2DCW kijvIjqHHyvNpiTA20pTijNS0GUy0KZvAhXF5puv5DdYMkMj2SPPVjGA3AOZZtOBSyENNpHIK7MLJcFs MeXIanCDTfIXNsRKS0GLRjBUFgQF7UTbJaMQMgOCT7 HnFpPSLdITRrdq1WYKMrCCTpJHLfMePfCOPkSMToCGotFRZgJMEjHYP7YLWcJZHaZD6QGsZvQSSaTED2 JxQcHNBrDEGnfb6UJACyJTPaJvb7CrZqASSpTMSgEWafZXOjGSM9CwtiPLMaGHXiTE6VDiDbRMWzQPu0 YhCtVXFrAOVrsp9JOPSeZGOeAWWxEgOwEWAqRWOcDZ odJAVoSFS0RyKySAUqHQBkYI9XVhVmSCLdIIg4OYOpSUXyZHYnxv4WNHFiQAFaUPj1TQFdWRZuRGJuIX wdQUFzCVWpIADeXEVbNBJrHR7TYtEoQVNxASXxHdAwIFTkBSQvem2CXYSyOHKaEOXcSeJeHPHlJJPlGM hyAHXbBBAvSRMsSTGlWCBbXT2JRtQuQSJuOMWkZcIl KRQnMMYvmt7CYXQyJUWwBiM9WnPnQGJuPHTmNAflRVQtANJzRkRoPXTgGYSaAT3WNdFfPGYvKRUmCvBb UQWoKOJdyx2HQRFcCJFnKVAtUiVmEFEsFVIpRSzsFNGyPWB4Htn3DLYtHUVuAT0GMpRrFBAqNVZ8RXYo VYOlVPMgkp4YjUOzvMdcik0UJHrRUq5LeAzgUPS8WI pbEm0djFPwSjPeNVKVYi6ActFlKJGkGFTFTGyjAMRnWJWuKbDpOrW9FpJcZaviUtd8RWViDVKxDINmJs NtYXH2UbL9IJWdOGHlIYI1VKQnARUxShM7AZDuUFIdRLU8FEToBbu+EY4sGYw+Rv5Jk2DesiV8kcAnGZ bnKPW3LZ1ASTRGI6JXEf== ID Date Data Source [id number] 01/20/2020 07:31:30 AM EST [facility] Name Value Range Interpretation Code Description Data Maritza rce(s) Supporting Document(s) History and Physical [facility] TNCCIk0iRkIHEuVe43/OAHcnMPVnx3AwQUeyHQi6BHlpTVTnI2GkPYO6zO0bSNO1SJeTOlYpGsYcYZV6 lbm [file] RQzPzXV09ckFhJekpdMHVg853FAyUA/1E/RHMXNT6lrS+[employer]+I2zwEdKNtK0Fpk1anvIC7nfzD1fE/++6 [file] HAGcJRXdLFH7BDM3N2Y9HJS+RG1wFCm+Cv8Uc1IdecS0inOlWJl4GDF0XO9WGPFEY2RFCq== ID Date Data Source [id number] 01/20/2020 07:05:[address] [facility] Name Value Range Interpretation Code Description Data Maritza rce(s) Supporting Document(s) Glucose [Mass/volume] in Capillary blood by Glucometer 164 mg/dL 70- 140 H [facility] ID Date Data Source [id number] 01/21/2020 02:06:[address] [facility] Surgical Pathology ReportName: JERMEIAH PEREZMRN: [id number] Number: [id number] Date: 01/20/2020 00:00Received Date: 01/20/2020 08:25Physician(s): SARAN JARA MD SHERMAN, ROBERT A, MDSpecimen(s) ReceivedA: Soft tissue right hip FSB: Right femoral headClinical HistoryFractured right femoral neck.DiagnosisA) SOFT TISSUE, RIGHT HIP, CURETTAGE: LAMELLAR BONE AND ABUNDANTNECROTIC DEBRIS. NO ACUTE INFLAMMATION OR NEOPLASIA IDENTIFIED.B) BONE, RIGHT HIP, ARTHROPLASTY: DEGENERATIVE JOINT DISEASE (GROSSONLY). /pws Rhoda Sanchez MD;Resident PathologistElectronically Signed By Naomi Hook M.D., Attending [id number]/20/2020 14:06:12Processed at [facility] at [facility], [address] [place] [address]. The attending pathologist named aboveattests that he/she has personally reviewed the relevant preparation(s)for the specimen, performed microscopic examination when indicated, andrendered the final diagnosis. Unless 'gross-only' is specified, the finaldiagnosis is based on a microscopic examination of senior customer service representative sectionsof tissue.Intraoperative Consultation FSA1-3) Necrosis, dystrophic [...] received in formalin labeled with the patient's name"Jeremiah Perez" and "right femoral head". It consists [...] developed and their performance characteristics determined by [facility] Pathology department. They have not been cleared or approved by the USFood and Drug Administration. The FDA has determined that such clearanceor approval is not necessary. Name Value Range Interpretation Code Description Data [facility] rce(s) Supporting Document(s) ID Date Data Source [id number] 01/17/2020 12:16:[address] [facility] Name Value Range Interpretation Code Description Data [facility](s) Supporting Document(s) Progress Note [facility] NGHOZp4qZhYGSjQk83/TYCaoUPYvg1FmACexZQz1TGqvRIOvL5CkSLC2tV4lOHU6MFvTJrKtEjLdAAS3 lbm WfDkyOBpSbRCYqHyuZGaWkUPthAdksgJBtBB0PsJE7SPPmS67oBCJjTZGdD3OgNBW7UXK+Bi0RYIMqmS QjXY2BVtpU6FnfRkmOIY8w6F4sJfQjyHFanbaRoky19IECgPE3v4NRVmp4LMi+hW4C6u708r13+jtZTj QeN4wVyUJUY/i25u4t0zYH7g/fYj/2QlcNy6/VxzCW 2xiraohPBIzUXF6uWsVZ3OY7HeboFcFbgzv4I53l0eWFQcDcEP880k9UGk/jeQ9nzv3j251CaTsIkMzu vVNgJ25V20zclsPXtDe+2jaCI8HH4F++yMKKJ3MiFI+3QyskpYLY5Cx9g9ABNYqcNZ2YLGuFLjvtDcgE IfQ6jRaG05clvK74tPLGda6j+FgA9gzfu6LpdCgeW8 zABVzI0amf93elf/aVE0cO+sCbG8Wl8nfoKGeFfTMKrajQnoPIFi0vKZoVeJ4zGIe1/tJxPvmVLdMgWD yFUEyrEIurA0p2Rk4kgVtm/j4wbPFy9raUwuqAHkRLpGQvpMwc5Fc3CZRZBWtLTKh20N7oDciO0okX+i x5Mc1ROGhQ4zQVrj+upXaz38/MiwOoVbIVE2Qapz+a B14z3OqfSmuxnwGj7hcGySiK2lSNfXeZq42w0PF4TvvNnsGwmObqvPJrDpo9z4N0dxe3WPyClNI5eFmd 5qJaOl5i/FZfg2fdGM9wqd9I0bBYfy5yWZk3X3avIFQtDo7EWn4E7PAv90YGAvPhbUZonLrymyOmZ3g2 5YwZNUAcXw1xNod7LBWFYLPfMZPZTZKaEQ2Rp1GjfY [file] ICAgICAgICAgICAgICAgICAgICAgICAgICAgICAgICAgICAgICAgICAgICAgICAgICAgICAgICAgICAg ICAgICAgICAgICAgICAgICANCiAgICAgICAgICAgIC AgICAgICAgICAgICAgICAgICAgICAgICAgICAgICAgICAgICAgICAgICAgICAgICAgICAgICAgICAgIC AgICAgICAgICAgICAgICAgICAgICAgICAgICANCiAgICAgICAgICAgICAgICAgICAgICAgICAgICAgIC AgICAgICAgICAgICAgICAgICAgICAgICAgICAgICAg ICAgICAgICAgICAgICAgICAgICAgICAgICAgICAgICAgICAgICANCiAgICAgICAgICAgICAgICAgICAg ICAgICAgICAgICAgICAgICAgICAgICAgICAgICAgICAgICAgICAgICAgICAgICAgICAgICAgICAgICAg ICAgICAgICAgICAgICAgICAgICANCiAgICAgICAgIC AgICAgICAgICAgICAgICAgICAgICAgICAgICAgICAgICAgICAgICAgICAgICAgICAgICAgICAgICAgIC AgICAgICAgICAgICAgICAgICAgICAgICAgICAgICANCiAgICAgICAgICAgICAgICAgICAgICAgICAgIC AgICAgICAgICAgICAgICAgICAgICAgICAgICAgICAg ICAgICAgICAgICAgICAgICAgICAgICAgICAgICAgICAgICAgICAgICANCiAgICAgICAgICAgICAgICAg ICAgICAgICAgICAgICAgICAgICAgICAgICAgICAgICAgICAgICAgICAgICAgICAgICAgICAgICAgICAg ICAgICAgICAgICAgICAgICAgICAgICANCiAgICAgIC AgICAgICAgICAgICAgICAgICAgICAgICAgICAgICAgICAgICAgICAgICAgICAgICAgICAgICAgICAgIC AgICAgICAgICAgICAgICAgICAgICAgICAgICAgICAgICANCiAgICAgICAgICAgICAgICAgICAgICAgIC AgICAgICAgICAgICAgICAgICAgICAgICAgICAgICAg ICAgICAgICAgICAgICAgICAgICAgICAgICAgICAgICAgICAgICAgICAgICANCiAgICAgICAgICAgICAg ICAgICAgICAgICAgICAgICAgICAgICAgICAgICAgICAgICAgICAgICAgICAgICAgICAgICAgICAgICAg ICAgICAgICAgICAgICAgICAgICAgICAgICANCjw/eH DgP3yqzANxntD5Q4tfHd5FSe1ZCM4yg1KpMROxMRyaxmQvFkkABtPuTLKiLbhYYhk0LQuyBP9SvZRcF0 YpM5JuXEhhKA1SRKQbYEPprHIhLBNmHBIeLuW7UJRyUYakGH9QrFBkJLyoUYFdYSBoCM3ZMDYqO346pm BsGZ3NNh1IPaCsVO9dhh6SUVmmGFPxHjnLPqa9UXzy CO9HwRMnzUOkELPpTXXGFqJoA6qud4FuDcYsAUISYQqgEP2Qr2VbdBIyGQc+At0JOU5ty7AsLQlkRGBj IJ9bmy1UMNcTWwDkW4GovAsyCFBss0ikYSPhBM3kmJDrTOO4VLKwjqHkRGFaoIVpB7GkbNGiKTANIlNm oFFeYI0eIv4rHZQrBDGpXdIrVNEHRU1XAPHgMAFlzP EnCJKzYMJBNL2HUOigENN6PGMusvYyiOUkYSplRW0IPWKjgmAmBJugNQRNDAo+Kd1SIV0nl9RyIQwwIZ LtYG2jmv3KOIpQUqNcX9Y5uRThP2M6JVomAv6EOTWoIBZnKNqpPXGPSHpqGI7GZP9ejuB5GV2KmZVpSI NeFXDctJQtZXp1K81fiUZtHGdwNX8XRGE+Driss+Pg0K SKUgVZUnLVLwLhZiHDMBHvIsL2PnQ0MIl9CfK8AdWI64dWbigwFjNQtsEJ6BWF0gTUYyEWYDJP5QfASx oO1gljWmHSLsZLZHMnYiD64jjTLmWNIeRMF3YEGyBs5JRMLpX3IuuoHwfYgzmxJnOQMeWYLNNY1ACNbn vaXldFVjxUzlVW97pUpoJH1VYq8QVbIePU3lii6RiT XuZk9GIZZcFz5LDSLcFSSeUIJrRHM0XAKtBwYsBTnkRZUfLSRkFMF0ZPLfUZPbDH9QRmBpRYUeYLsmHK swKFQeNGKczc3XNPYbHPHiLXv4VqRiZJGaNGKzJJcqWBGwOMNhVEY0TIFjUKOgDP0BXdFdXOAnZYPcMQ XlEOQqUFXyxg5TVMEeDBVuPhP5ABVaBWEaKKFsUDdm LRLiHGEsItP6WWGbAWUvXE1TLuWuWHUyPBI5THKiGBTmJWJdrm7RSAKvDJPzCuNhZfVeOBIfWUFjPIlh XPLbBYB6MDuuXXNwZWOxVH2TGjPuESYrXFT0PSNeABGuNEDzra6RHFCyOUVsYSn9JNJwKIUjAENuOTqq YWHeSPN4ZhF8URSfLWNhTX8TDzJoXLReHNB9ZEYpKP NfIDMdye0REFLsMGRzKbf0FASlQAAuFWYtMEdyKPEiCMD1ZKuxZBUhGZYuKW7RPiXtJSCvAXdlSzAhUE XiIHIgyd2WKLYrQTJzHsBpSpFiLIVuLFEuUFlpISFiNCL4YYq0IFBuNPTaZD1LKwWtFAFuBWcyEFMgEQ XsTEUaxc6TFJFhDETbYOL5QEIyFUYmVKQcVSg7yvGc eNHbWFg3ED6DR7FhzeBcYaMEHo9Sr245IPErAIWvOo9UY8fzFw6oCONxYKSDGs6DBDn9PrEzCps9DEF5 Kwn7I7LxDFF6RHLzUYLpODIbGbS7PyS+TGxkR1Q3XaPiUngmXUY3GHU7MEcoGCSqYSZ6JBZoKAwrJN2t XSANCj4+IHanmGTlfOymHMJISmO4UUVeBYcdKUNUHz2H ID Date Data Source [id number] 01/18/2020 12:02:58 PM [facility] Value Range Interpretation Code Description Data Maritaz rce(s) Supporting Document(s) Specimen source [Identifier] of Unspecified specimen [facility] SARS-CoV-2 RNA 2018 nCoV Real-Time RT-PCR: NOT DETECTED [facility] Assay Performed [facility] Initial validation was performed by the Centers for Disease Control and Prevention (CDC) and additionally validated by the Dept. of Pathology [facility]. Negative results do not preclude SARS-CoV-2 infection and should not be used as the sole basis for patient management decisions.Additional information is available on the following FDA websites for health care providers and patients. https://www.fda.gov/media/032466/download, https://www.fda.gov/media/418326/download. 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 Name Value Range Interpretation Code Description Data Maritza rce(s) Supporting Document(s) SARS-CoV-[address] [facility] This lab was ordered by [facility] and reported by [facility]. ID Date Data Source [id number] 01/13/2020 07:18:12 AM [facility] Value Range Interpretation Code Description Data Maritza rce(s) Supporting Document(s) Discharge Summary [facility] FOOLFf3fOgEESyXc55/EXOavXTZst7XrWGfeETn9GKkyUZWuV8BeJHI6lS4bTPH1FWlTDzUjMvMeFSQs [facility] CcVmqHEbFtTLXwYkvSIlHoFQmyLaxtrPKjMZ6FyGL4CCKbB74sYCLwSIWmN5JnCQO5Sgg+Ar8OBEXxkE CsXW1KKkyV8GroZzGI9z6p/FhWJqzLEF4y9x7Tl2tdCLBc4q7YLEmWj1NNKhMjcuyt/q79PQy3P5VVCK ZX0Q77GriU5jad7sEKM//9z884poONWM+//dP7ZRv4 sr/+qN5ulDN2dfYtbrZWDRAhohsp+6GzxfnmxTlTF5Gg9Gv3Rvh9N1Ox5VjAvQu5ocISMN2K2DD+OWGt OSEnbzceTZviAne99xX2JdpN1Syp04U4/wsFqoi97tM52Ef9EQ6K5sjWA4EXYMEWmVcOXKlC6jjkTeeG im7k0m4X0shimmALB4QA2a2GqF3pEW0nIcaY4S5b/g p5fJwTrwzOhXBAc4ZghskqOZDWDN7YOYS/oFU6zlO3/Ha4S2Up0Tya7ceZ2wn5ffMne8/acqGHkwZ7Cs qVmrOMBbsBG3uAopjoSCGBOKinMm5RShAh2JvY/0ClzjYgzLxAX5vA69JwlqShIyU24DWcEMi2FvIzj+ y/wz850QTffLtvynug7KDvibqO3bYGYCLfia5gZGd+ 4dlFCTeTilGDj2wwhBNCy0syhvp1bfxOwz5td09EKlspVT27WjIoCbPk7DEi+2vGL18nJjPPNjZ6/cVz Nikita+MVZ1JYjUVa/KaauO2wxdvW/9fOFU0VKug7O/xQAhXPCK7gd/xi0zXcvzgKvD0EevANUqcYBowHpgH [file] PtKtBMb4WiCvEP6PVi0WDkB1VBW1kOWkFx3ANsYmUVaNTqIwYV0PNBc= ID Date Data Source [id number] 01/12/2020 12:44:[address] [facility] Name Value Range Interpretation Code Description Data Maritza rce(s) Supporting Document(s) Glucose [Mass/volume] in Capillary blood by Glucometer 221 mg/dL 70- 140 H [facility] ID Date Data Source [id number] 01/12/2020 12:14:[address] [facility] Name Value Range Interpretation Code Description Data Maritza rce(s) Supporting Document(s) [facility] QRDGPb3hAgWZPtHd60/IXEemTWQbx3WdDUaiJNq4KHwfFKAkA6CcJBG5vD7xIIT8BFySCpZyVxWxNJPj lbm [file] EVIaMvXuQFCqZYHeEhN6NpV+AO8bPLp+Qw1Zl9YltnC6laAuNPvqLuXtGn4YOHLQT8OSRg== ID Date Data Source [id number] 01/12/2020 08:44:25 AM [facility] Value Range Interpretation Code Description Data Maritza rce(s) Supporting Document(s) Glucose [Mass/volume] in Capillary blood by Glucometer 172 mg/dL 70- 140 H [facility] ID Date Data Source [id number] 01/12/2020 06:33:34 AM [facility] Value Range Interpretation Code Description Data Maritza rce(s) Supporting Document(s) ABO and Rh group [Type] in Blood [facility] Blood group antibody screen [Presence] in Serum or Plasma [facility] Performed at [facility] Type Confirmed ID Date Data Source [id number] 01/12/2020 06:03:04 AM [facility] Value Range Interpretation Code Description Data Maritza rce(s) Supporting Document(s) Prothrombin time (PT) 13.0 s 12.5-14.9 [facility] INR in Platelet poor plasma by Coagulation assay 0.97 [facility] Routine intensity oral anticoagulation I NR is typically 2.0-3.0. Target INR must be clinically individualized. ID Date Data Source [id number] 01/12/2020 06:03:04 AM [facility] Value Range Interpretation Code Description Data Maritza rce(s) Supporting Document(s) aPTT in Platelet poor plasma by Coagulation assay 30.5 s 24.0-33. 0 [facility] ID Date Data Source [id number] 01/11/2020 09:19:[address] [facility] Name Value Range Interpretation Code Description Data Maritza rce(s) Supporting Document(s) Glucose [Mass/volume] in Capillary blood by Glucometer 170 mg/dL 70- 140 H [facility] ID Date Data Source [id number] 01/11/2020 05:47:17 PM [facility] Value Range Interpretation Code Description Data Maritza rce(s) Supporting Document(s) Glucose [Mass/volume] in Capillary blood by Glucometer 194 mg/dL 70- 140 H [facility] ID Date Data Source [id number] 01/11/2020 12:41:25 PM [facility] Value Range Interpretation Code Description Data Maritza rce(s) Supporting Document(s) [facility] BVZYOy7rJeMVQgOo38/ISAhnZYBaq9EhNVeqKWm3JLtwVDKzB7RhVRR8fG1jNVF5JNzZBxLpGiAcYDSq lbm [file] ZyhWKcEpNN8LFQa= ID Date Data Source [id number] 01/11/2020 12:42:11 PM [facility] Name Value Range Interpretation Code Description Data Maritza rce(s) Supporting Document(s) Glucose [Mass/volume] in Capillary blood by Glucometer 234 mg/dL 70- 140 H [facility] ID Date Data Source [id number] 01/11/2020 09:51:[address] [facility] Name Value Range Interpretation Code Description Data Maritza rce(s) Supporting Document(s) [facility] ZAUQGm2xImQXZhPf76/BVPwhOFOmg4JxPDxkRKg4XFwuTJCrW2MbIMO5tJ9xFJQ6OIxDPyYxSwXcYVYb lbm [file] ISfhYBZCWf4G ID Date Data Source [id number] 01/11/2020 08:22:[address] [facility] Name Value Range Interpretation Code Description Data Maritza rce(s) Supporting Document(s) Glucose [Mass/volume] in Capillary blood by Glucometer 172 mg/dL 70- 140 H [facility] ID Date Data Source [id number] 01/11/2020 05:45:[address] [facility] Name Value Range Interpretation Code Description Data Maritza rce(s) Supporting Document(s) Leukocytes [#/volume] in Blood by Automated count 10.9 10*3/uL 4-10 H [facility] Erythrocytes [#/volume] in Blood by Automated count 4.76 10*6/uL 4.6- 6.1 [facility] Hemoglobin [Mass/volume] in Blood 12.3 g/dL 13.5-18 L [facility] Hematocrit [Volume Fraction] of Blood by Automated count 37.1 % 4 1-53 L [facility] Erythrocyte mean corpuscular volume [Entitic volume] by Auto mated count 78.0 fL 80-96 L [facility] Erythrocyte mean corpuscular hemoglobin [Entitic mass] by Automated count 25.9 pg 27-33 L [facility] Erythrocyte mean corpuscular hemoglobin concentration [Mass/volume] by Automated count 33.2 g/dL 32.0-36.0 [facility] E[facility]th[facility] distribution width [Ratio] by Automated count 15.0 % 11.5-14.5 H [facility] Platelets [#/volume] in Blood by Automated count 423 10*3/uL 150-400 H [facility] ID Date Data Source [id number] 01/11/2020 06:12:48 AM [facility] Name Value Range Interpretation Code Description Data Maritza rce(s) Supporting Document(s) Bicarbonate [Moles/volume] in Serum 28 mmol/L 22-29 [facility] Chloride [Moles/volume] in Serum or Plasma 101 mmol/L 98-107 [facility] Creatinine [Mass/volume] in Serum or Plasma 0.50 mg/dL 0.70-1.20 [facility] Glucose [Mass/volume] in Serum or Plasma 183 mg/dL 70-140 H [facility] Potassium [Moles/volume] in Serum or Plasma 4.2 mmol/L 3.4-5.1 [facility] Sodium [Moles/volume] in Serum or Plasma 139 mmol/L 136-145 [facility] Urea nitrogen [Mass/volume] in Serum or Plasma 7 mg/dL 6-20 [facility] Anion gap 3 in Serum or Plasma 11 mmol/L 8-15 [facility] Osmolality of Serum or Plasma by calculation 291 mosm/kg 275-300 [facility] Creatinine/Urea nitrogen [Mass Ratio] in Serum or Plasma 15 [facility] Calcium [Mass/volume] in Serum or Plasma 9.4 mg/dL 8.6-10.0 [facility] Glomerular filtration rate/1.73 sq M pre dicted among non-blacks [Volume Rate/Area] in Serum or Plasma by Creatinine-based formula (MDRD) >6 0 [facility] Glomerular filtration rate/1.73 sq M pre dicted among blacks [Volume Rate/Area] in Serum or Plasma by Creatinine-based formula (MDRD) >60 [facility] ID Date Data Source [id number] 01/10/2020 08:46:[address] [facility] Name Value Range Interpretation Code Description Data Maritza rce(s) Supporting Document(s) Glucose [Mass/volume] in Capillary blood by Glucometer 150 mg/dL 70- 140 H [facility] ID Date Data Source [id number] 01/10/2020 05:42:[address] [facility] Name Value Range Interpretation Code Description Data Maritza rce(s) Supporting Document(s) Glucose [Mass/volume] in Capillary blood by Glucometer 276 mg/dL 70- 140 H [facility] ID Date Data Source [id number] 01/10/2020 01:20:[address] [facility] IR IMAGE GUIDED NEEDLE DRAIN PROCEDUREFI NAL [...] the right leg in slight internal rotation. Business Analysis Specialist fluoroscopic images demonstrates posttraumatic and surgical changes [...] rce(s) Supporting Document(s) ID Date Data Source [id number] 01/10/2020 12:43:[address] [facility] Name Value Range Interpretation Code Description Data Maritza rce(s) Supporting Document(s) Glucose [Mass/volume] in Capillary blood by Glucometer 250 mg/dL 70- 140 H [facility] ID Date Data Source [id number] 01/15/2020 10:00:[address] [facility] Service Cmnt XXX-Imp : NoneGram Stn XXX : 1+WBC'S Seen.No organisms seenMicroorganism XXX Cult : No growth 5 days Name Value Range Interpretation Code Description Data Maritza rce(s) Supporting Document(s) ID Date Data Source [id number] 01/10/2020 11:19:[address] [facility] Name Value Range Interpretation Code Description Data [facility] rce(s) Supporting Document(s) Glucose [Mass/volume] in Capillary blood by Glucometer 171 mg/dL 70- 140 H [facility] ID Date Data Source [id number] 01/10/2020 08:52:[address] [facility] CT LOWER EXTREMITY WITHOUT CONTRAST 7370 0FINAL RESULTInterpreted by:Mine Ivey, MDPROCEDURE INFORMATION: Exam: CT Right Lower Extremity Without Contrast, Hip Exam date and time: 01/10/2020 6:53 AM Age: 30 years old Clinical indication: Pain, unspecified; Screening exam; Surgical planning hip; Additional info: [facility] protocol! ! ! ! Please obtain CT scan with erica protocol of right hip, for evaluation of patient's nonunion of his fracture, as well as for presurgical planning. TECHNIQUE: Imaging protocol: CT of the Right lower extremity without contrast was performed. Exam focused on the hip. Sequences: [facility] protocol includes imaging of the contralateral hip [...] 1. CR XR HIP- UNILAT, 2-3 VIEWS [id number] PORTABLE 01/09/2020 10:01 PM 2. DX XR HIP- UNILAT, 2-3 VIEWS [id number] 01/03/2020 8:50 AM 3. CR XR HIP- UNILAT, 2-3 VIEWS [id number] PORTABLE 11/09/2019 4:45 PM FINDINGS: Limitations: Hardware [...] rce(s) Supporting Document(s) ID Date Data Source [id number] 01/10/2020 08:43:[address] [facility] Name Value Range Interpretation Code Description Data Maritza rce(s) Supporting Document(s) Glucose [Mass/volume] in Capillary blood by Glucometer 153 mg/dL 70- 140 H [facility] ID Date Data Source [id number] 01/10/2020 12:43:[address] [facility] Name Value Range Interpretation Code Description Data Maritza rce(s) Supporting Document(s) Color of Body fluid [facility] NOTIFIED BRANDON [id number] RN 6C AT 1240 ON 01/10/20.6527 Appearance of Body fluid [facility] NOTIFIED BRANDON [id number] RN 6C AT 1240 ON 01/10/20.6526 Erythrocytes [#/volume] in Body fluid by Manual count 0 [facility] NOTIFIED BRANDON [id number] RN 6C AT 1240 ON 01/10/20.6526 Nucleated cells [#/volume] in Body fluid by Manual count < 200 [facility] NOTIFIED BRANDON [id number] RN 6C AT 1240 ON 01/10/20.27 Microscopic observation [Identifier] in Body fluid by Other stain [facility] NOTIFIED BRANDON [id number] RN 6C AT 1240 ON 01/10/20.27 Cell count and Differential panel - Body fluid [facility] NOTIFIED BRANDON [id number] RN 6C AT 1240 ON 01/10/20.27 ID Date Data Source [id number] 01/10/2020 07:27:[address] [facility] Name Value Range Interpretation Code Description Data Maritza rce(s) Supporting Document(s) ED Provider Note [facility] DYAANl8fLzCELrVu32/BYPqcHCLix4HgBGqgXRf4BStqUWRgB3GmAQC6eG7sCFP1TTsVOfVlViXkBHV9 lbm [file] ZhGZDqZzZ4TmX5HPC8TSPwMOLrXu2hOGODZd0+EUvfeCQnhIovPOJRLmC4XTktVOvxRNJXAj5O ID Date Data Source [id number] 01/10/2020 06:45:17 AM EST [facility] Name Value Range Interpretation Code Description Data Maritza rce(s) Supporting Document(s) Consultation [facility] LGIFVl7dCxAKOpVu71/QYOybZGCxa9PiQUqdZFl7BTnwONAjM8GuRAT6oL1lSJB4MZxLMlIwJwPyLSB2 lbm [file] AgICAgICAgICAgICAgICAgICAgICAgICAgICAgICAgICAgICAgICAgICAgICAgICAgICAgICAgICAgIC AgICANCiAgICAgICAgICAgICAgICAgICAgICAgICAg ICAgICAgICAgICAgICAgICAgICAgICAgICAgICAgICAgICAgICAgICAgICAgICAgICAgICAgICAgICAg ICAgICAgICAgICAgICANCiAgICAgICAgICAgICAgICAgICAgICAgICAgICAgICAgICAgICAgICAgICAg ICAgICAgICAgICAgICAgICAgICAgICAgICAgICAgIC AgICAgICAgICAgICAgICAgICAgICAgICANCiAgICAgICAgICAgICAgICAgICAgICAgICAgICAgICAgIC AgICAgICAgICAgICAgICAgICAgICAgICAgICAgICAgICAgICAgICAgICAgICAgICAgICAgICAgICAgIC AgICAgICANCiAgICAgICAgICAgICAgICAgICAgICAg ICAgICAgICAgICAgICAgICAgICAgICAgICAgICAgICAgICAgICAgICAgICAgICAgICAgICAgICAgICAg ICAgICAgICAgICAgICAgICANCiAgICAgICAgICAgICAgICAgICAgICAgICAgICAgICAgICAgICAgICAg ICAgICAgICAgICAgICAgICAgICAgICAgICAgICAgIC AgICAgICAgICAgICAgICAgICAgICAgICAgICANCiAgICAgICAgICAgICAgICAgICAgICAgICAgICAgIC AgICAgICAgICAgICAgICAgICAgICAgICAgICAgICAgICAgICAgICAgICAgICAgICAgICAgICAgICAgIC AgICAgICAgICANCiAgICAgICAgICAgICAgICAgICAg ICAgICAgICAgICAgICAgICAgICAgICAgICAgICAgICAgICAgICAgICAgICAgICAgICAgICAgICAgICAg ICAgICAgICAgICAgICAgICAgICANCiAgICAgICAgICAgICAgICAgICAgICAgICAgICAgICAgICAgICAg ICAgICAgICAgICAgICAgICAgICAgICAgICAgICAgIC AgICAgICAgICAgICAgICAgICAgICAgICAgICAgICANCiAgICAgICAgICAgICAgICAgICAgICAgICAgIC AgICAgICAgICAgICAgICAgICAgICAgICAgICAgICAgICAgICAgICAgICAgICAgICAgICAgICAgICAgIC AgICAgICAgICAgICANCjw/dPLdS2vfeQFraqS2V5ox Xv8UEk9JHQ4dp2TiKYBmTRxmbaXwIvgCEpGkRNOkJsgSHoz6PAgbLU5OaBUeC5XwG7WtFEisPX2AYWCz FYBpuNUhYOWkTEGzViV3IEHzPHrhQD8IpHImZNtdDMVgUAYiQcMuORYiZCAtRVNoOMQnCNDGNBLpAIBh ZbPqQFapWQ4Mz8VzbNV6VEv+Zy3OPP3ju3WgRNbyFz SzRO4ial3CHThCVgZwS7UxwuC4ZDA0ZUIkMa0IEAYnWEOouZBiRJTiBJZUQhEtQ6ZicJ28ICLMLs6+DQ fpquQfBkhTIdK6HRGuk7OeHCk4JT5EYABtMOl3oHFzP87jp2VrxHRrNxghQN64pT1skRFELTC8uRThOO szVIYrMELyKOTiJP4kNQUrOGDfZzB4HSJFHC0BDNPk PRCrpDYdODTmQCJFSJ3YNQxgJQZ1OXUbscYvkLPpLSyjIN1TWYGnlhSsPrDgOHCAKKx+Sk9WZF7ll8Dn HCvnCEFgGR1kgx2DVVrHDtOkU0N6eFMfH2L2AOylRp0ESDHxZFDlVxWjBJTNZIglAK2LQZ3lexX5QZ6A jMKmGEBlWMQjpMSgEHi2D88mxIWkJUfkOF8HJYA+Pi A+Gd1XTZTaBQQaKWQpTiTeAIUPStTmX5UgT2TXw3MwJ6DyRD48bJphltRrCIqlML1EMU9xBLEvCZOOCL 4ReJCqdB5vsqKmXfQdWGIJUcDyM34nrMPaIAEcZLMvISKaQw4GQMHtK4JociSlbDistfWfYTIbRCOKON 0SVFmsqsOjdLBikDahJS79oQzdJF8ZHz8SVrYvEY1d qn4CmIHfDe3IKHMwUg1ECYCcPVBzUGKaPXX6VSLdYkCaMDsvQMLsZJZuLFR1UPGvCOYjAK2NDmXtQBNh DKR0LJXnHBKhNEUosz9MYZMcGOX7WlO2LhKsLSKjGNPuGBloDNOaUIKrMHF5CUEoPQTwZJ7HNhWmXKTy XJD3XyPfXWNrDMPuys7ZQGCoLLHyXtY9HLPvJVPvLP NvNSjaERXySRU5ITWhEYHnZTRoLU5ICdFsAXXkOEV6HfIgPQUsJQZpgr0NEQScZRDuSEG3OgOjYJSgDV NhAHqgHWCeAIQyMVX4QMSgUOYrOZ9DVxMcVXSvDDK1VuGyKGIwXQKzjl6GLRReUOSpWvq5KSBdFGBuAE XtXKxjKAYlWHC5BSNdVRApNSFsQB2FFuIyQQEkKUEf CpObGKHkUAVqdx6IMNGvDGSlTjE3KqOcRKLrQKMvEBkmTIOyWKD4GWdoQTFqCIDkUH4KUqXpSVQbPWa7 ExYlABYaPNBkzr6BBITpRIAsYVKgAGNmEUIqQXLkTWutFSVgXJR2TRB1YXJqNEGvRF1QPtTaCIKlZIxa HKPzSUUrZSIqrv5CLYVgDTEtFSx1CWXkCPBeTINhPI bpFVQjJPXqAEbzRNWyKVQaCC3DEcXmAOQkDsMtODNhEEBmWMKcrd3CRLHcFZI6JjN4MODoHWMpHCFsYU wkPRPsGSGiTSD9LGIvJNLpCU1GMyHnVVKoKEVyJcHfHTUmMGRusu8SRKIhYHH7SME6ChBrHQIcSUPoTO jpDGVsRVI9TiQ9TLGjRFHuSJ6KJnAbWCOsOHKiYHHw ETUlSWRdcb3WMWEmOTU3XRG3USTgXKLoIRSdGBmoWOWjRMV0WEZ6HBPeWRZeMQ8PGgZiLDIaGFR3KVUm ZLGxDZWznv1CIBMrERR3FtKgGtYxDVGcNQJhGXiuRJUqWUV0JWb8GHKsLEEgIB5UEiMbBEDsEPh5XpTq HGCqEUYzyh5ZhQXdzPqfpj0WGDkRJa7AmKhdJKL0PV crGp6dkKHcNHCpUGWFYo9AssKvIVEiMGTCMGamQTQpHFL5OUY1LJI5Y4V7JCS8NWEmGqR7AfDyTFZ4V1 J9STH2HxV3Dkn1LsB2NFgfZpi9GPZpOqKhEiiiHRE7CVd9SofxFWk+PG7aZCv+Fb4Vj9SxjrT4cdNlTM e8Lfw8Iz3HQHXGA3YWVi== ID Date Data Source [id number] 01/10/2020 05:41:[address] [facility] Name Value Range Interpretation Code Description Data Maritza rce(s) Supporting Document(s) Glucose [Mass/volume] in Capillary blood by Glucometer 170 mg/dL 70- 140 H [facility] ID Date Data Source [id number] 01/10/2020 05:18:[address] [facility] Name Value Range Interpretation Code Description Data Maritza rce(s) Supporting Document(s) ED Provider Note [facility] HCSGAb0kTcDDJuHr14/BEOcmVPFrg1PpDZbcEMm7YCfoLWFfA8EtATD4fS3mOBY2PCaUYfUpZvEiDUP3 lbm [file] MTg+PY7lPPa+Wu4Vt2DedzY2orEfVXi8WrG3MF9RZNWEY4MIKl== ID Date Data Source [id number] 01/10/2020 03:00:[address] [facility] Name Value Range Interpretation Code Description Data Maritza rce(s) Supporting Document(s) Glucose [Mass/volume] in Capillary blood by Glucometer 223 mg/dL 70- 140 H [facility] ID Date Data Source [id number] 01/10/2020 02:46:[address] [facility] Name Value Range Interpretation Code Description Data Maritza rce(s) Supporting Document(s) History and Physical [facility] NCFBZa7pRlNDOrAt50/QZIbgWPAcg5QxLNeuAYs3NGkiQGSkJ5YkESG3dC8mMNY0GGuTVlQeZsVeRJO3 m [file] AgICAgICAgICAgICAgICAgICAgICAgICAgICAgICAgICAgICAgICAgICAgICAgICAgICAgICAgICANCi AgICAgICAgICAgICAgICAgICAgICAgICAgICAgICAg ICAgICAgICAgICAgICAgICAgICAgICAgICAgICAgICAgICAgICAgICAgICAgICAgICAgICAgICAgICAg ICAgICAgICANCiAgICAgICAgICAgICAgICAgICAgICAgICAgICAgICAgICAgICAgICAgICAgICAgICAg ICAgICAgICAgICAgICAgICAgICAgICAgICAgICAgIC AgICAgICAgICAgICAgICAgICANCiAgICAgICAgICAgICAgICAgICAgICAgICAgICAgICAgICAgICAgIC AgICAgICAgICAgICAgICAgICAgICAgICAgICAgICAgICAgICAgICAgICAgICAgICAgICAgICAgICAgIC ANCiAgICAgICAgICAgICAgICAgICAgICAgICAgICAg ICAgICAgICAgICAgICAgICAgICAgICAgICAgICAgICAgICAgICAgICAgICAgICAgICAgICAgICAgICAg ICAgICAgICAgICANCiAgICAgICAgICAgICAgICAgICAgICAgICAgICAgICAgICAgICAgICAgICAgICAg ICAgICAgICAgICAgICAgICAgICAgICAgICAgICAgIC AgICAgICAgICAgICAgICAgICAgICANCiAgICAgICAgICAgICAgICAgICAgICAgICAgICAgICAgICAgIC AgICAgICAgICAgICAgICAgICAgICAgICAgICAgICAgICAgICAgICAgICAgICAgICAgICAgICAgICAgIC AgICANCiAgICAgICAgICAgICAgICAgICAgICAgICAg ICAgICAgICAgICAgICAgICAgICAgICAgICAgICAgICAgICAgICAgICAgICAgICAgICAgICAgICAgICAg ICAgICAgICAgICAgICANCiAgICAgICAgICAgICAgICAgICAgICAgICAgICAgICAgICAgICAgICAgICAg ICAgICAgICAgICAgICAgICAgICAgICAgICAgICAgIC AgICAgICAgICAgICAgICAgICAgICAgICANCiAgICAgICAgICAgICAgICAgICAgICAgICAgICAgICAgIC AgICAgICAgICAgICAgICAgICAgICAgICAgICAgICAgICAgICAgICAgICAgICAgICAgICAgICAgICAgIC AgICAgICANCjw/qOQkR5oqwGGjomE9I6flRt7EFo2J JD1ch0MnTORqSQjpulSpLdfIYxUxCKAdFsgEPiw6BQmkVY5BxRHpN0VsL8SeASqwVP3RTNXjESPlcQPd FSEwUNGeGvH4GQVfCObcPP1RkEHaFCvqTPPlQBVpHnFgBYCbMULoZDFeCIOvGVEDNOZtPEYnVkVbSQLs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 [facility] Name Value Range Interpretation Code Description Data Maritza rce(s) Supporting Document(s) FREE THYROXINE @ 1.33 ng/dL (0.76-1.46) [facility] PER[facility] AT [address] [place] [address] N [place] [address] ID Date Data Source [id number] 12/27/2019 10:10:35 PM EDT [facility] Name Value Range Interpretation Code Description Data Maritza rce(s) Supporting Document(s) ETHANOL <3 mg/dL (0-3) [facility] ID Date Data Source [id number] 12/27/2019 10:10:35 PM EDT [facility] Name Value Range Interpretation Code Description Data Maritza rce(s) Supporting Document(s) SODIUM 141 mmol/L (136-145) [facility] POTASSIUM 3.7 mmol/L (3.6-5.2) [facility] CHLORIDE 108 mmol/L (100-108) [facility] CO2 28 mmol/L (22-31) [facility] ANION GAP 5 mmol/L (7-16) L [facility] UREA NITROGEN 9 mg/dL (7-24) [facility] CREATININE 0.88 mg/dL (0.80-1.30) [facility] BUN/CREAT RATIO 10.2 RATIO (10.0-20.0) [facility] GLUCOSE 216 mg/dL (70-99) H [facility] CALCIUM 9.1 mg/dL (8.4-10.2) [facility] GFR >60 ml/min/1.73m2 (>59) [facility] GFR ( AMER) >60 ml/min/1.73m2 (>59) [facility] GFR INTERPRETATION [facility] --NORMAL KIDNEY FUNCTION OR MILD DISEASE - GFR >OR= 60CHRONIC KIDNEY DISEASE - GFR 15 - 59RENAL FAILURE - GFR <15 Est. GFR calculation based on the MDRDstudy equation, which assumes a steadystate for creatinine. Est. GFR should notbe used for medication dosing. ID Date Data Source [id number] 12/27/2019 10:00:57 PM EDT [facility] Name Value Range Interpretation Code Description Data Maritza rce(s) Supporting Document(s) LACTIC ACID 2.5 mmol/L (0.4-2.0) H [facility] ID Date Data Source [id number] 12/27/2019 09:49:53 PM EDT [facility] Name Value Range Interpretation Code Description Data Maritza rce(s) Supporting Document(s) WBC 9.5 10*3/uL (4.1-11.0) [facility] [place] RBC 5.25 10*6/uL (4.60-6.10) [facility] HGB 13.7 g/dL (13.5-18.0) [facility] HCT 40.7 % (41.0-53.0) L [facility] MCV 77.5 fL (80.0-95.0) L [facility] MCH 26.2 pg (27.0-32.0) L [facility] MCHC 33.8 g/dL (32.0-36.0) [facility] RDW 15.2 % (10.5-14.5) H [facility] PLT 407 10*3/uL (150-450) [facility] MPV 8.1 fL (7.1-10.7) [facility] NEUT % 70.5 % (35.0-75.0) [facility] LYMPH % 20.5 % (16.0-52.0) [facility] MONO % 8.0 % (0.0-8.0) [facility] EOS % 0.7 % (0.0-5.0) [facility] BASO % 0.3 % (0.0-4.0) [facility] NEUT # 6.7 10*3/uL (1.8-7.7) [facility] LYMPH # 1.9 10*3/uL (1.2-4.8) [facility] MONO # 0.8 10*3/uL (0.0-0.8) [facility] Eosinophils [#/volume] in Blood by Automated count 0.1 10*3/uL (0.0-0 .5) [facility] BASO # 0.0 10*3/uL (0.0-0.2) [facility] Procedure Social History Code Duration Value Status Description Data Source(s ) 09/30/2020 01:28:33 AM EDT Current every day smoker co mpleted Current every day smoker [facility] Smoking 09/30/2020 01:28:00 AM EDT Current every day smoker co mpleted Current every day smoker [facility] Alcohol intake 06/12/2020 12:00:00 AM EDT Ex-drinker (finding) comp leted Ex- drinker (finding) [facility] Tobacco use and exposure 06/12/2020 12:00:00 AM EDT Current user co mpleted Current user [facility] Cigarettes smoked current (pack per day) - Reported 06/13/19 12:00:00 AM EDT UNK completed [facility] Smoking 06/12/2020 12:00:00 AM EDT Current every day smoker co mpleted Current every day smoker [facility] 06/04/2020 03:09:00 AM EDT Current every day smoker co mpleted Current every day smoker [facility] Smoking 06/04/2020 03:09:00 AM EDT Current every day smoker co mpleted Current every day smoker [facility] Alcohol intake 05/01/2020 12:00:00 AM EST Ex-drinker (finding) comp leted Ex- drinker (finding) [facility] Alcohol intake 02/23/2020 12:00:00 AM EST Ex-drinker (finding) comp leted Ex- drinker (finding) [facility] Alcohol intake 02/02/2020 12:00:00 AM EST Ex-drinker (finding) comp leted Ex- drinker (finding) [facility] Alcohol intake 01/20/2020 12:00:00 AM EST Ex-drinker (finding) comp leted Ex- drinker (finding) [facility] Alcohol intake 01/09/2020 12:00:00 AM EST Ex-drinker (finding) comp leted Ex- drinker (finding) [facility] Alcohol intake 01/03/2020 12:00:00 AM EST Ex-drinker (finding) comp leted Ex- drinker (finding) [facility] Alcohol intake 12/27/2019 12:00:00 AM EDT No completed [facility] Cigarette pack-years 12/27/2019 12:00:00 AM EDT UNK completed [facility] Cigarettes smoked current (pack per day) - Reported 12/27/19 20 12:00:00 AM EDT UNK completed [facility] Smoking 12/27/2019 12:00:00 AM EDT Current every day smoker co mpleted Current every day smoker [facility] Alcohol intake 12/11/2019 12:00:00 AM EDT Ex-drinker (finding) comp leted Ex- drinker (finding) [facility] Vital Signs ID Date Data Source UNK Name Value Range Interpretation Code Description Data Source(s) Oxygen saturation in Arterial blood by Pulse oximetry 93 % 93 % [facility] ([facility]) [place] body weight 166 [lb_av] 166 [lb_av] [facility] ([facility]) Body height 70 [in_i] 70 [in_i] [facility] 5'10" Body weight 321.00 [lb_av] 321.00 [lb_av] [facility] ([facility]) Heart rate 130 /min 130 /min [facility] Systolic blood pressure 168 mm[Hg] 168 mm[Hg] [facility] ([facility]) Body temperature 97.1 [degF] 97.1 [degF] [facility] Diastolic blood pressure 98 mm[Hg] 98 mm[Hg] [facility] ([facility]) Body mass index (BMI) [Ratio] 46.1 kg/m2 46.1 k g/m2 [facility] ([facility]) Body temperature 96.9 [degF] 96.9 [degF] [facility] ([facility]) Heart rate 119 /min 119 /min [facility] ([facility]) Diastolic blood pressure 86 mm[Hg] 86 mm[Hg] [facility] ([facility]) Oxygen saturation in Arterial blood by Pulse oximetry 95 % 95 % [facility] ([facility]) Systolic blood pressure 128 mm[Hg] 128 mm[Hg] [facility] Systolic blood pressure 160 mm[Hg] 160 mm[Hg] [facility] Diastolic blood pressure 101 mm[Hg] 101 mm[Hg] [facility] Heart rate 118 /min 118 /min [facility] Body temperature 37.11 Wilma 37.11 Wilma [facility] Respiratory rate 17 /min 17 /min [facility] Oxygen saturation in Arterial blood by Pulse oximetry 99 % 99 % [facility] Body height 175.3 cm 175.3 cm [facility] Body weight 151.955 kg 151.955 kg [facility] Body mass index (BMI) [Ratio] 49.47 kg/m2 49.47 kg/m2 [facility] ID Date Data Source [id number] 01/26/2020 02:27:[address] [facility] Name Value Range Interpretation Code Description Data Source(s) WEIGHT RECORDED 306.2 lb 306.2 lb [facility] Body height Measured 70 in 70 in [facility] ID Date Data Source [id number] 01/18/2020 02:34:[address] [facility] Name Value Range Interpretation Code Description Data Source(s) WEIGHT RECORDED 255 lb 255 lb [facility] Body height Measured 70 in 70 in [facility] ID Date Data Source [id number] 01/03/2020 12:59:[address] [facility] Name Value Range Interpretation Code Description Data Source(s) WEIGHT RECORDED 255 lb 255 lb [facility] Patient Treatment Plan of Care Planned Activity Planned Date Details Description Data Source (s) Prazosin 1 MG Oral Capsule 04/06/2020 12:00:00 AM [facility] meloxicam 7.5 MG Oral Tablet 04/06/2020 12:00:00 AM [facility] Sertraline 25 MG Oral Tablet 04/06/2020 12:00:00 AM [facility] Oxycodone Hydrochloride 5 MG Oral Tablet 03/27/2020 12:00:00 AM [facility] Semglee 100 UNIT/ML Subcutaneous Solution Pen-injector 03/14/2020 12:00:00 AM [facility] Zol[facility]em tartrate 10 MG Oral Tablet 03/09/2020 12:00:00 AM [facility] Omeprazole 20 MG Delayed Release Oral Capsule 03/09/2020 12:00:00 A M [facility] apixaban 2.5 MG Oral Tablet [Eliquis] 03/09/2020 12:00:00 AM [facility] Albuterol Sulfate HFA 108 (90 Base) MCG/ ACT Inhalation Aerosol Solution (PROVENTIL HFA) 03/09/2020 12:00:00 AM [facility] Misc. Devices (DURABLE MEDICAL EQUIPMENT SEE SIG) XX M ISC 02/23/2020 12:00:00 AM [facility] Oxycodone Hydrochloride 5 MG Oral Tablet 02/23/2020 12:00:00 AM [facility] oxyCODONE (ROXICODONE) immediate release tablet 5 mg 020 09:19:06 AM [facility] gabapentin 100 MG Oral Capsule 02/09/2020 12:00:00 AM [facility] Insulin Lispro 100 UNT/ML Injectable Solution 02/09/2020 12:00:00 A M [facility] Insulin Glargine 100 UNT/ML Injectable Solution 02/09/2020 12:00:00 AM [facility] Clonidine Hydrochloride 0.1 MG Oral Tablet 02/09/2020 12:00:[address] [facility] Calcium Carbonate 500 MG Chewable Tablet 02/09/2020 12:00:00 AM [facility] Lurasidone Hydrochloride 20 MG Oral Tablet 02/09/2020 12:00:00 AM [facility] Frontal[employer]io Flex System w/Device Kit 02/09/2020 12:00:00 AM [facility] MashaTouch Delica Lancets 33G 02/09/2020 12:00:00 AM [facility] Hydrochlorothiazide 12.5 MG / Lisinopril 20 MG Oral Ta blet 02/09/2020 12:00:00 AM [facility] BD Pen Needle Mini U/F 31G X 5 MM (Insulin Pen Needle) 02/09/2020 12:00:00 AM [facility] Callidus[employer] Verio In Vitro Strip (glucose blood) 02/09/2020 12:00:00 A M [facility] Diclofenac Sodium 0.01 MG/MG Topical Gel 02/09/2020 12:00:00 AM [facility] Isopropyl Alcohol 0.7 ML/ML Medicated Pad 02/09/2020 12:00:00 AM [facility] Isopropyl Alcohol 0.7 ML/ML Medicated Pad 02/09/2020 12:00:00 AM [facility] Zolpidem tartrate 5 MG Oral Tablet 02/09/2020 12:00:00 AM [facility] Metoprolol Tartrate 50 MG Oral Tablet 02/09/2020 12:00:00 AM [facility] Acetaminophen 325 MG Oral Tablet 02/09/2020 12:00:00 AM [facility] Nystatin [id number] UNT/ML Topical Cream 02/09/2020 12:00:00 AM [facility] celecoxib 200 MG Oral Capsule 02/09/2020 12:00:00 AM [facility] Aspirin 81 MG Delayed Release Oral Tablet 02/09/2020 12:00:00 AM [facility] Oxycodone Hydrochloride 5 MG Oral Tablet 02/09/2020 12:00:00 AM [facility] insulin lispro 100 UNIT/ML SC injection [facility] DOSE [facility] INSULIN patients 02/09/2020 12:00:[address] [facility] Docusate Sodium 100 MG Oral Capsule 02/09/2020 12:00:00 AM [facility] tizanidine 4 MG Oral Tablet 02/09/2020 12:00:00 AM [facility] ondansetron (ZOFRAN) injection 4 mg 02/04/2020 04:42:00 PM [facility] Oxycodone Hydrochloride 5 MG Oral Tablet 02/04/2020 12:00:00 AM [facility] Oxycodone Hydrochloride 5 MG Oral Tablet 02/01/2020 12:00:00 AM [facility] Docusate Sodium 100 MG Oral Capsule 02/01/2020 12:00:00 AM [facility] tizanidine 4 MG Oral Tablet 02/01/2020 12:00:00 AM [facility] Magnesium Hydroxide 80 MG/ML Oral Suspension 01/28/2020 10:00:00 PM [facility] POLYETHYLENE GLYCOL 3350 142 MG/ML Oral Solution 01/28/2020 09:00:0 0 AM [facility] Glucose 0.417 MG/MG Oral Gel 01/28/2020 01:25:07 AM [facility] Bisacodyl 10 MG Rectal Suppository 01/28/2020 01:25:07 AM [facility] senna tablet 2 tablet 01/28/2020 01:25:07 AM [facility] dextrose 50 % IV solution 25 mL 01/28/2020 01:25:06 AM [facility] Glucagon 1 MG Injection 01/28/2020 01:25:06 AM [facility] tramadol hydrochloride 50 MG Oral Tablet 01/21/2020 12:00:00 AM [facility] Aspirin 81 MG Delayed Release Oral Tablet 01/21/2020 12:00:00 AM [facility] tizanidine 4 MG Oral Tablet 01/21/2020 12:00:00 AM [facility] Docusate Sodium 100 MG Oral Capsule 01/21/2020 12:00:00 AM [facility] celecoxib 200 MG Oral Capsule 01/21/2020 12:00:00 AM [facility] Oxycodone Hydrochloride 5 MG Oral Tablet 01/21/2020 12:00:00 AM [facility] sodium chloride (preservative free) 0.9 % flush 3 mL 020 05:00:00 PM [facility] alginic acid 200 MG / Calcium Carbonate 80 MG / magnesium trisilicate 20 MG / Sodium Bicarbonate 70 MG Oral Tablet 01/20/2020 11:39:15 AM [facility] Oxycodone Hydrochloride 5 MG Oral Tablet 01/20/2020 11:39:14 AM [facility] morphine sulfate (PF) injection 2 mg 01/20/2020 11:39:14 AM [facility] Bisacodyl 10 MG Rectal Suppository 01/20/2020 11:39:14 AM [facility] Magnesium Hydroxide 80 MG/ML Oral Suspension 01/20/2020 11:39:14 AM [facility] POLYETHYLENE GLYCOL 3350 142 MG/ML Oral Solution 01/20/2020 11:39:1 4 AM [facility] Sodium Phosphate, Dibasic 35.5 MG/ML / S odium Phosphate, Monobasic 96.4 MG/ML Enema 01/20/2020 11:39:14 AM [facility] ondansetron (ZOFRAN) injection 4 mg 01/20/2020 11:39:14 AM [facility] dextrose 50 % IV solution 25 mL 01/20/2020 11:39:13 AM [facility] Glucagon 1 MG Injection 01/20/2020 11:39:13 AM [facility] Glucose 0.417 MG/MG Oral Gel 01/20/2020 11:39:13 AM [facility] Acetaminophen 325 MG / Hydrocodone Bitartrate 5 MG Ora l Tablet 01/14/2020 12:00:00 AM [facility] Mupirocin 0.02 MG/MG Topical Ointment 01/13/2020 12:00:00 AM [facility] chlorhexidine gluconate 40 MG/ML Medicated Liquid Soap 01/13/2020 12:00:00 AM [facility] NaCl infusion 0.9 % 01/13/2020 12:00:00 AM [facility] 0.4 ML Enoxaparin sodium 100 MG/ML Prefilled Syringe 12:00:00 AM [facility] 0.4 ML Enoxaparin sodium 100 MG/ML Prefilled Syringe 12:00:00 AM [facility] Metoprolol Tartrate 50 MG Oral Tablet 01/12/2020 12:00:00 AM [facility] Acetaminophen 325 MG / Hydrocodone Bitartrate 5 MG Ora l Tablet 01/12/2020 12:00:00 AM [facility] Metoprolol Tartrate 50 MG Oral Tablet 01/12/2020 12:00:00 AM [facility] Acetaminophen 325 MG / Hydrocodone Bitartrate 5 MG Ora l Tablet 01/12/2020 12:00:00 AM [facility] Ondansetron 4 MG Disintegrating Oral Tablet 01/11/2020 08:56:22 AM [facility] albuterol (PROVENTIL) nebulizer solution 2.5 mg 01/10/2020 10:14:35 PM [facility] Acetaminophen 325 MG Oral Tablet 01/10/2020 02:41:46 AM [facility] alginic acid 200 MG / Calcium Carbonate 80 MG / magnesium trisilicate 20 MG / Sodium Bicarbonate 70 MG Oral Tablet 01/10/2020 02:41:46 AM [facility] dextrose 50 % IV solution 25 mL 01/10/2020 02:41:46 AM [facility] Glucagon 1 MG Injection 01/10/2020 02:41:46 AM [facility] Glucose 0.417 MG/MG Oral Gel 01/10/2020 02:41:46 AM [facility] Clonidine Hydrochloride 0.1 MG Oral Tablet 01/04/2020 12:00:00 AM E [facility] Hydrochlorothiazide 12.5 MG / Lisinopril 20 MG Oral Ta blet 01/04/2020 12:00:00 AM [facility] Mupirocin 0.02 MG/MG Topical Ointment 01/04/2020 12:00:00 AM [facility] Acetaminophen 325 MG / Hydrocodone Bitartrate 5 MG Ora l Tablet 01/03/2020 12:00:00 AM [facility] gabapentin 100 MG Oral Capsule 12/30/2019 12:00:00 AM [facility] Lisinopril 10 MG Oral Tablet 12/30/2019 12:00:00 AM [facility] Lisinopril 10 MG Oral Tablet 12/30/2019 [facility] Needle 31G X 5 MM [facility] 12/29/2019 [facility]:00[facility] ONETOUCH DELICA LANCETS 33G [facility] 12/29/2019 [facility] Acet[facility] 325 MG / Oxycodone Hydrochloride 5 MG Or al Tablet 12/29[facility] UNT/ML Injectable Solution 12/29/2019 12:00:00 A M EDT [facility] Insulin Glargine 100 UNT/ML Injectable Solution [Lantu s] 12/29[facility]2019 [facility] MG Oral Tablet 12/29/2019 [facility]ulin Glargine 100 UNT/ML Injectable Solution 12/28/2019 12:00:00 AM [facility] Acetaminophen 325 MG / Oxycodone Hydrochloride 5 MG Or al Tablet 11/16/2019 12:00:00 AM [facility] Lisinopril 20 MG Oral Tablet 11/11/2019 12:00:00 AM [facility] Lurasidone Hydrochloride 20 MG Oral Tablet 11/10/2019 12:00:00 AM E [facility] gabapentin 100 MG Oral Capsule 11/10/2019 12:00:00 AM [facility] Clonidine Hydrochloride 0.1 MG Oral Tablet 11/10/2019 12:00:00 AM E [facility] quetiapine 100 MG Oral Tablet 11/10/2019 12:00:00 AM [facility] Cholecalciferol 1000 UNT Oral Tablet 11/10/2019 12:00:00 AM [facility] Glucagon 1 MG Injection 11/09/2019 09:34:37 PM [facility] Glucose 0.417 MG/MG Oral Gel 11/09/2019 09:34:37 PM [facility] dextrose 50 % IV solution 25 mL 11/09/2019 09:34:36 PM [facility] Nystatin [id number] UNT/ML Topical Cream 11/09/2019 09:33:30 PM [facility] Ibuprofen 400 MG Oral Tablet 11/09/2019 09:30:30 PM [facility] Insulin Pen Needle 31G X 5 MM (B-D UF III MINI PEN NEE DLES) 10/08/2019 12:00:00 AM [facility] [employer] Verio Flex System w/Device Kit 10/08/2019 12:00:00 AM [facility] OneTouch Delica Lancets 33G 10/08/2019 12:00:00 AM [facility] Isopropyl Alcohol 0.7 ML/ML Medicated Pad 10/08/2019 12:00:00 AM [facility] Glucose Blood In Vitro Strip (MazeBolt TechnologiesTouch Verio) 10/08/2019 12:00:00 A M [facility] Isopropyl Alcohol 0.7 ML/ML Medicated Pad 10/08/2019 12:00:00 AM [facility] Nystatin [id number] UNT/ML Topical Cream 10/08/2019 12:00:00 AM [facility] Acetaminophen 325 MG Oral Tablet 10/08/2019 12:00:00 AM [facility] alginic acid 200 MG / Calcium Carbonate 80 MG / magnesium trisilicate 20 MG / Sodium Bicarbonate 70 MG Oral Tablet 10/08/2019 12:00:00 AM [facility] Diclofenac Sodium 0.01 MG/MG Topical Gel 10/08/2019 12:00:00 AM [facility] 3 ML Insulin Glargine 100 UNT/ML Pen Injector 10/08/2019 12:00:00 A M [facility] 3 ML Insulin Lispro 100 UNT/ML Pen Injector 10/08/2019 12:00:00 AM [facility] Metoprolol Tartrate 50 MG Oral Tablet 10/08/2019 12:00:00 AM [facility] Lisinopril 10 MG Oral Tablet 09/23/2019 12:00:00 AM [facility] Insulin Glargine 100 UNT/ML Injectable Solution 09/23/2019 12:00:00 AM [facility] gabapentin 300 MG Oral Capsule 09/23/2019 12:00:00 AM [facility] Insulin Lispro 100 UNT/ML Injectable Solution [facility]
== END 2021-02-04 21:31 | disposition left against medical advice (07) ==
LOC: M ED 19:42
DX: R07.9 Chest pain, unspecified (principal); M79.661 Pain in right lower leg; I10 Essential (primary) hypertension; V47.5XXA Car driver injured in collision with fixed or stationary object in traffic accident, initial encounter; Z91.030 Bee allergy status; Z53.29 Procedure and treatment not carried out because of patient's decision for other reasons; Y92.9 Unspecified place or not applicable; Y93.9 Activity, unspecified; Y99.9 Unspecified external cause status